=== PATIENT | male | born 1935 | race Caucasian/White ===

== ENCOUNTER 2016-08-08 14:20 | Inpatient (IN) ==
[2016-08-08] MEDS ORDERED: 0.9 % SODIUM CHLORIDE 1,000 ML IV ONE (15:07)
--- NOTE | 2016-08-08 15:50 | XRay Report ---
CLINICAL INFORMATION: Small bowel obstruction. Vomiting. TECHNIQUE: AP supine and upright abdomen COMPARISON: CT scan dated 08/07/2016 FINDINGS: There is fecal material within the distal sigmoid colon. Persistent gas-filled mildly distended small bowel. Patient remains consistent with mechanical small bowel obstruction. Partial obstruction is possible. No biliary or portal venous gas. No pneumatosis. No pneumoperitoneum. There are multiple surgical clips in the pelvis. IMPRESSION: Findings remain consistent with mechanical small bowel obstruction. This may be partial Interpreted and Authenticated by: Orlando Damon 08/08/16
--- NOTE | 2016-08-08 15:52 | Emergency Department Note ---
Nausea/Vomiting/Diarrhea HPI - General Chief complaint: Nausea/Vomiting/Diarrhea Stated complaint: vomiting Time Seen by Provider: 08/08/16 15:12 Source: patient Mode of arrival: ambulatory Limitations: no limitations - History of Present Illness HPI Narrative: 81-year-old male seen yesterday for vomiting and CT revealed a small bowel obstruction in the right lower quadrant. He was discharged home with bowel rest , but he continued having vomiting throughout the night. He's had previous surgeries for hernia repairs in the abdomen 5. Patient is afebrile. There's been no hematemesis, no melena. Denies urgency, frequency, dysuria - Related Data Home Medications Medication Instructions Recorded Confirmed calcitriol 0.25 mcg capsule 0.25 mcg PO QDAY 11/28/15 08/08/16 aspirin 81 mg tablet,delayed 81 mg PO QDAY 01/21/16 08/08/16 release Previous Rx's Medication Instructions Recorded atorvastatin 20 mg tablet 20 mg PO QDAY #90 tab 11/28/15 rivaroxaban 20 mg tablet 20 mg PO QDAY 90 Days 01/28/16 carvedilol 6.25 mg tablet 6.25 mg PO BID 90 Days 03/18/16 allopurinol 100 mg tablet 100 mg PO QDAY 90 Days 05/15/16 potassium chloride ER 10 mEq 10 meq PO QDAY 90 Days 06/23/16 capsule,extended release furosemide 40 mg tablet 40 mg PO QDAY 90 Days 07/17/16 Allergies Allergy/AdvReac Type Severity Reaction Status Date / Time heparin Allergy Unknown Verified 07/10/16 10:06 Review of Systems All systems ED: reviewed and negative except as stated. Gastrointestinal: Reports: as per HPI, nausea, vomiting. Denies: abdominal pain , diarrhea, constipation Genitourinary: Reports: as per HPI. Denies: urgency, dysuria Past Medical History - Past Medical History Medical history: Reports: atrial fibrillation, CHF, pulmonary embolus, other ( prostate cancer) Surgical history ED: Reports: other (right and left shoulder repair) Family history: Reports: non-contributory - Social History smoking status: Never smoker Alcohol use: Reports: None Drug use: Reports: none Physical Exam - General Limitations: no limitations General appearance: alert - Head Head exam: atraumatic, normocephalic - Eye Eye exam: Present: normal appearance, PERRL - ENT ENT exam: normal exam, normal oropharynx - Neck Neck exam: Present: normal inspection, full ROM. Absent: trachea midline - Chest Chest inspection: Present: normal inspection - Respiratory Respiratory exam: Present: normal lung sounds bilaterally. Absent: respiratory distress, wheezes - Cardiovascular Cardiovascular exam: Present: regular rate, normal rhythm. Absent: bradycardia , tachycardia - Abdominal Exam Abdominal exam: Present: soft, diminished bowel sounds. Absent: distention, guarding, rebound - exam: Present: normal inspection. Absent: testicular tenderness - Extremities Exam Extremities exam: Present: normal inspection, full ROM. Absent: tenderness - Back Exam Back exam: Present: normal inspection, full ROM. Absent: tenderness Course Vital Signs Temperature 96.8 F L 08/08/16 14:21 Pulse Rate 119 H 08/08/16 14:21 Respiratory Rate 20 08/08/16 14:21 Blood Pressure 129/69 08/08/16 14:21 Pulse Oximetry (%) 94 08/08/16 14:21 Temperature 96.8 F L 08/08/16 14:21 Pulse Rate 110 H 08/08/16 17:01 Respiratory Rate 20 08/08/16 14:21 Blood Pressure 114/87 08/08/16 17:01 Pulse Oximetry (%) 94 08/08/16 17:01 Nausea/Vomiting/Diarrhea - [facility] Narrative Medical decision making narrative: Patient CT yesterday showed small bowel obstruction and a small bowel obstruction remains today. X-ray. Patient has been vomiting all night to be admitted. N G-tube has been placed Dr. Asif contacted and patient to be admitted - Lab Data Result diagrams: 08/08/16 15:20 08/08/16 15:20 Lab Results 08/08/16 08/08/16 Range/Units 15:20 15:20 WBC 17.2 H (4.5-11.0) K/mcL RBC 7.28 H (4.50-5.90) M/mcL Hgb 15.4 (13.5-16.5) g/dL Hct 52.1 (41.0-55.0) % MCV 71.6 L (80.0-100.0) fL MCH 21.2 L (26.0-34.0) pg MCHC 29.6 L (31.0-36.0) g/dL RDW 26.2 H (11.5-14.5) % Plt Count 641 H (140-440) K/mcL MPV 10.9 H (7.4-10.4) fL Total Counted 100 Seg Neutrophils % 79 H (38-78) % Band Neutrophils % 8 (0-10) % Lymphocytes % 5 L (15-49) % Monocytes % (Manual) 7 (1-12) % Eosinophils % (Manual) 1 (0-7) % Platelet Estimate Increased A (NORMAL) RBC Morphology Abnorm A (NORMAL) Hypochromasia 1+ A (NONE SEEN) Anisocytosis 3+ A (NONE SEEN) Microcytosis 2+ A (NONE SEEN) Sodium 142 (133-145) mmol/L Potassium 4.1 (3.3-5.1) mmol/L Chloride 96 (96-108) mmol/L Carbon Dioxide 25 (22-30) mmol/L Anion Gap 21.0 H (8-16) BUN 30 H (8-23) mg/dl Creatinine 2.0 H (0.7-1.2) mg/dl GFR Calculation 30 Glucose 120 H (70-105) mg/dL Calcium 9.7 (8.6-10.4) mg/dl Total Bilirubin 1.7 H (0.0-1.0) mg/dL AST 21 (0-37) U/l ALT 18 (0-40) U/l Alkaline Phosphatase 210 H (39-117) U/L Total Protein 7.4 (5.9-8.4) gm/dL Albumin 4.0 (3.2-5.2) gm/dL Globulin 3.4 (2.2-3.7) gm/dL Albumin/Globulin Ratio 1.2 (1.0-2.3) Disposition Clinical Impression: Small bowel obstruction due to adhesions Disposition: Xfer As Outpt/Obs ([facility]) Condition: Fair Referrals: Karthikeyan Rivero MD [Primary Care Provider] - Time of Disposition: 17:10
[2016-08-08 16:18] LABS: Mean Cell Volume 71.6 fL (80.0-100.0); Mean Corpuscular HGB Conc 29.6 g/dL (31.0-36.0); Mean Corpuscular Hemoglobin 21.2 pg (26.0-34.0); Platelet Count 641 K/mcL (140-440); RBC 7.28 M/mcL (4.50-5.90); Red Cell Distribution Width 26.2 % (11.5-14.5)
--- NOTE | 2016-08-08 16:32 | XRay Report ---
CLINICAL INFORMATION: Nasogastric tube placement. Small bowel obstruction. TECHNIQUE: AP view centered at the diaphragm COMPARISON: Plain film examination dated 08/08/2016 FINDINGS: Esophagogastric tube is deflected cephalad at the level of the diaphragm. The tip is directed cephalad in the distal esophagus. This should be repositioned. IMPRESSION: Tip of the esophagogastric tube directed cephalad in the distal esophagus. Interpreted and Authenticated by: Orlando Damon 08/08/16
--- NOTE | 2016-08-08 16:59 | XRay Report ---
CLINICAL INFORMATION: Repositioning of nasogastric tube TECHNIQUE: AP chest and abdomen centered at the diaphragm COMPARISON: Previous examination dated 08/08/2016 FINDINGS: Esophagogastric tube is been repositioned and is in the gastric fundus. IMPRESSION: Esophagogastric tube in the stomach. Complete Interpreted and Authenticated by: Orlando Damon 08/08/16
[2016-08-08 17:00] LABS: Anisocytosis 3+ (NONE SEEN); Band Neutrophils % 8 % (0-10); Eosinophils % (Manual) 1 % (0-7); Hypochromasia 1+ (NONE SEEN); Lymphocytes % 5 % (15-49); Monocytes % (Manual) 7 % (1-12); Platelet Estimate INCREASED (NORMAL); RBC Morphology ABNORM (NORMAL); Segmented Neutrophils % 79 % (38-78)
[2016-08-08 17:01] LABS: ALT/SGPT 18 U/l (0-40); Albumin/Globulin Ratio 1.2 (1.0-2.3); Alkaline Phosphatase 210 U/L (39-117); Blood Urea Nitrogen 30 mg/dl (8-23)
[2016-08-08] MEDS: 0.9 % SODIUM CHLORIDE 1,000 ML IV SCH (18:02)
[2016-08-08] MEDS ORDERED: ONDANSETRON 4 MG/2 ML VIAL IV PRN (19:22)
[2016-08-08] MEDS ORDERED: HYDROmorphone 2 MG/ML SYRINGE IV PRN (19:22)
--- NOTE | 2016-08-08 19:39 | General Surg History&Physical ---
History of Present Illness Patient information: Note initiated : 08/08/16 at 7:36 pm Service Date, if different from initiated Date: [] Patient: Ayden Guzmán 81 y/o M admitted on 08/08/16 for vomiting. Chief Complaint: [] Chief complaint: RECURRENT NAUSEA AND VOMITING HPI: Mr. Guzmán is a 81 year old male admitted for partial small bowel obstruction. The patient had a fall on and injured his left side including his neck and chest and flank. He awakened about on yesterday with abdomin bloating. He then had 2 large diarrheal stools. The bloating continued and he was seen in the emergency room where it was noted that he had dilated loops of small bowel felt to be compatible wit partial obstruction. He was treated and was discharged since he had some flatus. He developed more nausea anvomiting about 4 hours after getting home and he had vomiting all night. He did not have any crampy abdominal pain associated with this. He returned today with recurrent episodes of nausea and vomiting with findings suggestive ongoing partial bowel obstruction. He is admitted for treatment. The patient states that he has had some flatus today. Review of Systems - Constitutional fatigue, malaise, weakness - EENT Nose, mouth and throat: abnormal hearing, disequilibrium, dizziness, nasal congestion, sinus pain, sinus pressure - Cardiovascular chest pain with activity, dyspnea on exertion, orthopnea, palpatations, paroxysmal nocturnal dyspnea, pedal edema, syncope - Respiratory dyspnea on exertion, chest congestion - Gastrointestinal abdominal pain, change in bowel habits, constipation, diarrhea, nausea, vomiting - Genitourinary change in urinary stream, urinary frequency, urinary incontinence, urinary urgency - Musculoskeletal abnormal gait, arthralgias, back pain, joint swelling, myalgias, neck pain, stiffness - Integumentary no changing lesions, no new lesions, no pruritus, no rash - Neurological abnormal hearing, dizziness, memory loss, syncope, no convulsions, no headache(s ), no vertigo - Psychiatric memory loss, no anxiety, no confusion, no depression, no hallucinations - Endocrine fatigue, palpitations - Hematologic/Lymphatic easy bleeding, easy bruising, no lymphadenopathy - Allergic/Immunologic no tongue swelling, no throat swelling, no uticaria, no wheezing, no lip swelling Past History Past medical history: chronic constipation Chronic atrial fibrillation Autoimmune hepatitis Prostate cancer Hypertension chronic anticoagulant use--XARELTO SEVERE CARDIOMYOPATHY WITH EJECTION FRACTION 25%--OCTOBER 2015 CHRONIC KIDNEY DISEASE cONGESTIVE HEART hISTORY OF BILATERAL PULMONARY EMBOLI--1999 hISTORY OF BILATERAL dvt--1999 Past surgical history: AMPUTATION TOES RIGHT FOOT--2013 rIGHT CARPAL TUNNEL RELEASE lEFT TOTAL KNEE ARTHROPLASTY rIGHT TOTAL KNEE ARTHROPLASTY hEMORRHOIDECTOMY rADICAL PROSTATECTOMY lEFT ROTATOR CUFF REPAIR rIGHT ROTATOR CUFF REPAIR uMBILICAL HERNIA REPAIR 4 RIGHT INGUINAL HERNIA REPAIR Past family history: CARCINOMA OF PROSTATE aLZHEIMER'S DISEASE cORONARY ARTERY DISEASE Past social history: rETIRED nEVER SMOKER oCCASIONAL ALCOHOL USE nEVER SUBSTANCE ABUSE Medications and Allergies Home Medications Medication Instructions Recorded Confirmed Type atorvastatin 20 mg tablet 20 mg PO QDAY #90 tab 11/28/15 08/08/16 Rx calcitriol 0.25 mcg capsule 0.25 mcg PO QDAY 11/28/15 08/08/16 History aspirin 81 mg tablet,delayed 81 mg PO QDAY 01/21/16 08/08/16 History release rivaroxaban 20 mg tablet 20 mg PO QDAY 90 Days 01/28/16 08/08/16 Rx carvedilol 6.25 mg tablet 6.25 mg PO BID 90 Days 03/18/16 08/08/16 Rx allopurinol 100 mg tablet 100 mg PO QDAY 90 Days 05/15/16 08/08/16 Rx potassium chloride ER 10 mEq 10 meq PO QDAY 90 Days 06/23/16 08/08/16 Rx capsule,extended release furosemide 40 mg tablet 40 mg PO QDAY 90 Days 07/17/16 08/08/16 Rx Allergies Allergy/AdvReac Type Severity Reaction Status Date / Time heparin Allergy Unknown Verified 07/10/16 10:06 Exam Temp Pulse Resp BP Pulse Ox 96.8 F L 73 20 134/87 93 08/08/16 17:45 08/08/16 17:45 08/08/16 17:45 08/08/16 17:45 08/08/16 17:45 - General physical appearance well developed, well nourished, no distress, no pain, chronically ill - Eyes normal ocular movement, other (OPERATIVE CHANGES OF PUPILS) - ENT normal pinna, normal nares, normal mucosa, no hearing loss, no congestion - Head Head exam IM: Present: atraumatic, normocephalic - Neck no masses, no bruits, trachea midline, no lymphadectomy, no venous distension - Cardiovascular Cardiovascular exam IM: Present: normal rate and rhythm, irregular rhythm, +S1, +S2. Absent: systolic murmur - Respiratory normal expansion, normal respiratory effort, other (BILATERAL BASILAR RALES; DECREASED BREATH SOUNDS BOTH BASES) - Abdomen Abdomen: Present: soft, non tender, bowel sounds, distended (DISTENDED ABDOMEN WITH NORMOACTIVE BOWEL SOUNDS; WELL-HEALED LOWER MIDLINE INCISION AND SUPRAUMBILICAL TRANSVERS; PROMINENT DIASTASIS RECTUS) Hernia: Present: none - Genitourinary Present: normal penis with no external lesions - Integumentary Present: no rash, no growths, no abnormal pigmentation - Neurologic Present: normal coordination, normal sensation - Musculoskeletal Present: normal gait, normal posture, other (ABSENT TOES RIGHT FOOT; TRACE BILATERAL PEDAL EDEMA) - Psychiatric Present: oriented to time, oriented to person, oriented to place, speech is normal, memory intact Assessment and Plan (1) Small bowel obstruction, partial PATIENT WILL HAVE SMALL BOWEL FOLLOW-THROUGH IN THE MORNING nASOGASTRIC SUCTION WILL BE CONTINUED THROUGHOUT THE NIGHT hE WILL BE MADE NOTHING BY MOUTH Status: Acute (2) Atrial fibrillation Status: Chronic (3) Congestive heart failure ekg AND ECHOCARDIOGRAM WILL BE COMPLETED PREOP EVALUATION PRO bnp WILL BE DONE OVER THE NEXT 2 DAYS iv FLUIDS WILL BE MONITORED CLOSELY Status: Chronic Priority: High Qualifiers: Congestive heart failure type: systolic Congestive heart failure chronicity : chronic Qualified Code(s): I50.22 - Chronic systolic (congestive) heart failure (4) Hepatitis, autoimmune Status: Chronic (5) Hypercoagulation syndrome XARELTO WILL BE WITHHELD UNTIL i'M SURE THAT HE WILL NOT NEED AN OPERATION hE IS NOT A CANDIDATE FOR HEPARIN OR lOVENOX DUE TO HIT SYNDROME Status: Chronic (6) Hypertension, essential Status: Chronic (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
--- NOTE | 2016-08-08 20:21 | XRay Report ---
CLINICAL INFORMATION: Preoperative evaluation. History of cardiomegaly and congestive heart failure TECHNIQUE: AP upright portable chest x-ray COMPARISON: 09/26/2015 FINDINGS: Linear density at the left lung base consistent with subsegmental atelectasis. Lungs are otherwise negative. There is cardiomegaly. No pulmonary edema or pulmonary congestion. There is new esophagogastric tube in the stomach. Postoperative changes in left shoulder and right acromion IMPRESSION: 1. Minimal subsegmental atelectasis at the left lung base 2. Cardiomegaly. No congestive heart failure. Interpreted and Authenticated by: Orlando Damon 08/08/16
[2016-08-08] MEDS ORDERED: PIPERACILLIN SODIUM/TAZOBACTAM 2.25 GM VIAL IV ONE (20:22)
[2016-08-08] MEDS: PIPERACILLIN SODIUM/TAZOBACTAM 2.25 GM in DEXTROSE 5% IN WATER 50 ML IV SCH (20:33)
[2016-08-08] MEDS: FAMOTIDINE/PF 20 MG/2 ML VIAL IV SCH (20:33)
[2016-08-08] MEDS: 0.9 % SODIUM CHLORIDE 10 ML SYRINGE IV SCH (20:57)
[2016-08-09] MEDS ORDERED: PIPERACILLIN SODIUM/TAZOBACTAM 2.25 GM VIAL IV ONE (01:21)
[2016-08-09] MEDS: PIPERACILLIN SODIUM/TAZOBACTAM 2.25 GM in DEXTROSE 5% IN WATER 50 ML IV SCH ×4 (01:30→17:31)
[2016-08-09] MEDS: 0.9 % SODIUM CHLORIDE 1,000 ML IV SCH ×2 (03:27→15:58)
[2016-08-09] MEDS: 0.9 % SODIUM CHLORIDE 10 ML SYRINGE IV SCH ×3 (05:48→22:19)
[2016-08-09 05:51] LABS: Mean Cell Volume 71.4 fL (80.0-100.0); Mean Corpuscular HGB Conc 29.4 g/dL (31.0-36.0); Platelet Count 523 K/mcL (140-440); RBC 6.75 M/mcL (4.50-5.90)
[2016-08-09 06:06] LABS: ALT/SGPT 14 U/l (0-40); Albumin 3.7 gm/dL (3.2-5.2); Albumin/Globulin Ratio 1.4 (1.0-2.3); Alkaline Phosphatase 177 U/L (39-117); Blood Urea Nitrogen 29 mg/dl (8-23)
[2016-08-09 06:49] LABS: Anisocytosis 2+ (NONE SEEN); Band Neutrophils % 9 % (0-10); Eosinophils % (Manual) 1 % (0-7); Hypochromasia 1+ (NONE SEEN); Lymphocytes % 4 % (15-49); Monocytes % (Manual) 5 % (1-12); Platelet Estimate INCREASED (NORMAL); RBC Morphology ABNORM (NORMAL); Segmented Neutrophils % 81 % (38-78)
[2016-08-09] MEDS: FAMOTIDINE/PF 20 MG/2 ML VIAL IV SCH ×2 (09:58→20:55)
[2016-08-09] MEDS ORDERED: DIATRIZOATE MEGLU/DIATRIZO SOD 30 ML BOTTLE PO ONE (10:03)
--- NOTE | 2016-08-09 10:03 | XRay Report ---
CLINICAL INFORMATION: Small bowel obstruction TECHNIQUE: Water-soluble contrast material was given. Overhead views of the small bowel obtained. Spot views were also obtained with fluoroscopy COMPARISON: Previous CT scan dated 08/07/2016. Previous plain film examinations dated 08/08/2016. FINDINGS: There is contrast material in the colon by 60 min postingestion. There continues to be dilated jejunum and collapsed ileum. Appearance is consistent with partial mechanical small bowel obstruction. Is difficult to defined a focal transition point fluoroscopically although this transition is in the pelvis and just to the right of midline. No detectable soft tissue mass. Findings are probably secondary to adhesions. There are multiple surgical clips in the pelvis. IMPRESSION: 1. Dilated jejunum and collapsed ileum consistent with partial small bowel obstruction 2. Contrast material in the colon by 60 min post ingestion Interpreted and Authenticated by: Orlando Damon 08/09/16
--- NOTE | 2016-08-09 12:25 | General Surgery Progress Note ---
Subjective Patient reports: feels better, flatus, bowel movement, afebrile Narrative: Note initiated : 08/09/16 at 12:22 pm Service Date, if different from initiated Date: [] Patient: Ayden Guzmán 81 y/o M admitted on 08/08/16 for vomiting. Chief Complaint: [PATIENT FEELS MUCH BETTER. hE HAD A LARGE BOWEL MOVEMENT LAST NIGHT AND HE HAS HAD 2 LARGE BOWEL MOVEMENTS SINCE HIS SMALL BOWEL FOLLOW THROUGH. tHE CONTRAST REACHED THE COLON IN ONE HOUR AND THERE IS A PARTIAL TRANSITION POINT IN THE MID GUT. tHERE IS NO HIGH-GRADE OBSTRUCTION. hE DOES NOT HAVE ANY DISCOMFORT AND HIS ABDOMEN REMAINED SOFT.] Pertinent ROS: PATIENT IS ALERT AND AWARE; ORIENTED 3 hE DENIES CHEST PAIN OR SHORTNESS OF BREATH. hE IS ABLE TO LIE FLAT WITHOUT DIF hE HAS NOT HAD ANY CRAMPY ABDOMINAL PAIN AND HAS HAD MULTIPLE BOWEL MOVEMENTS hE DOES NOT HAVE SIGNIFICANT INCREASE IN PERIPHERAL EDEMA tHIS JOINT PAIN IS STABLE hE HAS NOT HAD ANY NEUROLOGIC DEFICIT Objective Temp Pulse Resp BP Pulse Ox 98.5 F 108 H 20 132/59 96 08/09/16 10:25 08/09/16 04:00 08/09/16 10:25 08/09/16 10:25 08/09/16 10:25 - Additional Data Intake & Output - Last 24 hours: Intake & Output 08/07/16 08/08/16 08/09/16 08/10/16 05:59 05:59 05:59 05:59 Intake Total 10 / 1010 50 / 50 Output Total 626 / 627 750 / 750 Balance -616 / 383 -700 / -700 Weight 186 lb 8 oz - General physical appearance no distress, no pain - Eyes PERRL - ENT no congestion - Neck no venous distension - Respiratory other (SCALE WITH BILATERAL BASILAR RALES AND DECREASED BREATH SOUNDS) - Cardiovascular Cardiovascular exam: Present: irregular rhythm, +S1. Absent: JVD - Abdomen soft, non tender (GOOD ACTIVE BOWEL SOUNDS; NONTENDER WITHOUT PALPABLE MASS;) - Integumentary no rash, no growths - Neurologic normal coordination, normal sensation - Musculoskeletal normal gait, normal posture - Psychiatric oriented to time, oriented to person, oriented to place, speech is normal, memory intact - Labs 08/09/16 05:00 08/09/16 05:00 Diabetes panel 08/09/16 Range/Units 05:00 Sodium 142 (133-145) mmol/L Potassium 3.9 (3.3-5.1) mmol/L Chloride 102 (96-108) mmol/L Carbon Dioxide 24 (22-30) mmol/L BUN 29 H (8-23) mg/dl Creatinine 1.9 H (0.7-1.2) mg/dl Glucose 94 (70-105) mg/dL Calcium 8.6 (8.6-10.4) mg/dl AST 18 (0-37) U/l ALT 14 (0-40) U/l Alkaline Phosphatase 177 H (39-117) U/L Total Protein 6.4 (5.9-8.4) gm/dL Albumin 3.7 (3.2-5.2) gm/dL Calcium panel 08/09/16 Range/Units 05:00 Calcium 8.6 (8.6-10.4) mg/dl Albumin 3.7 (3.2-5.2) gm/dL Pituitary panel 08/09/16 Range/Units 05:00 Sodium 142 (133-145) mmol/L Potassium 3.9 (3.3-5.1) mmol/L Chloride 102 (96-108) mmol/L Carbon Dioxide 24 (22-30) mmol/L BUN 29 H (8-23) mg/dl Creatinine 1.9 H (0.7-1.2) mg/dl Glucose 94 (70-105) mg/dL Calcium 8.6 (8.6-10.4) mg/dl Adrenal panel 08/09/16 Range/Units 05:00 Sodium 142 (133-145) mmol/L Potassium 3.9 (3.3-5.1) mmol/L Chloride 102 (96-108) mmol/L Carbon Dioxide 24 (22-30) mmol/L BUN 29 H (8-23) mg/dl Creatinine 1.9 H (0.7-1.2) mg/dl Glucose 94 (70-105) mg/dL Calcium 8.6 (8.6-10.4) mg/dl Total Bilirubin 1.6 H (0.0-1.0) mg/dL AST 18 (0-37) U/l ALT 14 (0-40) U/l Alkaline Phosphatase 177 H (39-117) U/L Total Protein 6.4 (5.9-8.4) gm/dL Albumin 3.7 (3.2-5.2) gm/dL Assessment and Plan (1) Small bowel obstruction, partial Status: Acute Assessment and plan: ARTIAL OBSTRUCTION BUT WITH GOOD TRANSIT THROUGH BOWEL; IMPROVED OVERNIGHT wILL DISCONTINUE NASOGASTRIC TUBE AND START CLEAR LIQUIDS 2 VIEW ABDOMINAL X-RAY IN THE MORNING Current Visit: No (2) Atrial fibrillation Status: Chronic Assessment and plan: WE'LL ALSO RESTART HOME MEDICATIONS Current Visit: No (3) Congestive heart failure Status: Chronic Current Visit: No (4) Hepatitis, autoimmune Status: Chronic Current Visit: No (5) Hypercoagulation syndrome Status: Chronic Assessment and plan: XARELTO WILL BE RESTARTED Current Visit: No (6) Hypertension, essential Status: Chronic Current Visit: No (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
[2016-08-09] MEDS: METOCLOPRAMIDE 10 MG/2 ML VIAL IV SCH (17:34)
[2016-08-10] MEDS: PIPERACILLIN SODIUM/TAZOBACTAM 2.25 GM in DEXTROSE 5% IN WATER 50 ML IV SCH ×3 (00:35→11:55)
[2016-08-10] MEDS: METOCLOPRAMIDE 10 MG/2 ML VIAL IV SCH ×4 (00:36→11:58)
[2016-08-10] MEDS: 0.9 % SODIUM CHLORIDE 10 ML SYRINGE IV SCH ×2 (05:58→13:56)
[2016-08-10 06:08] LABS: ALT/SGPT 14 U/l (0-40); Albumin 3.6 gm/dL (3.2-5.2); Albumin/Globulin Ratio 1.2 (1.0-2.3); Alkaline Phosphatase 170 U/L (39-117); Blood Urea Nitrogen 25 mg/dl (8-23)
[2016-08-10 06:13] LABS: Mean Cell Volume 72.3 fL (80.0-100.0); Mean Corpuscular HGB Conc 28.7 g/dL (31.0-36.0); Mean Corpuscular Hemoglobin 20.8 pg (26.0-34.0); Platelet Count 437 K/mcL (140-440); RBC 6.82 M/mcL (4.50-5.90); Red Cell Distribution Width 26.4 % (11.5-14.5)
[2016-08-10 07:25] LABS: Anisocytosis 2+ (NONE SEEN); Band Neutrophils % 6 % (0-10); Eosinophils % (Manual) 2 % (0-7); Hypochromasia 2+ (NONE SEEN); Lymphocytes % 6 % (15-49); Monocytes % (Manual) 2 % (1-12); Ovalocytes 1+ (NONE SEEN); Platelet Estimate NORMAL (NORMAL); RBC Morphology ABNORM (NORMAL); Segmented Neutrophils % 84 % (38-78)
--- NOTE | 2016-08-10 07:42 | XRay Report ---
CLINICAL INFORMATION: Follow-up. Small bowel obstruction. TECHNIQUE: Supine and upright abdomen COMPARISON: Small bowel study dated 08/09/2016 FINDINGS: Most of the contrast material has passed through the GI tract. There is gas containing small bowel without significant dilatation at this time. There is gas within the colon. Overall bowel gas pattern is improved since previous examination. No pneumatosis. No biliary or portal venous gas. IMPRESSION: Markedly improved bowel gas pattern. Interpreted and Authenticated by: Orlando Damon 08/10/16
[2016-08-10] MEDS ORDERED: CARVEDILOL 6.25 MG TABLET PO SCH (08:00)
[2016-08-10] MEDS ORDERED: POTASSIUM CHLORIDE 10 MEQ TABLET PO SCH (08:00)
[2016-08-10] MEDS: FAMOTIDINE/PF 20 MG/2 ML VIAL IV SCH (08:08)
[2016-08-10] MEDS: 0.9 % SODIUM CHLORIDE 1,000 ML IV SCH (08:09)
[2016-08-10] MEDS ORDERED: FUROSEMIDE 40 MG TABLET PO SCH (09:00)
--- NOTE | 2016-08-10 12:17 | Echocardiogram Report ---
ECHOCARDIOGRAM: 2-D and M-mode echocardiography with cardiac Doppler and color flow imaging were performed with a [employer] Aplio MX. Indication is heart failure. All four chambers appeared enlarged, the atria moderately so, the ventricles mildly so. LV wall thickness appeared borderline increased consistent with age. Systolic performance appeared severely and globally depressed. Estimated ejection fraction is 25%. There was no evidence for mural thrombi. The aortic root appeared mildly dilated, 4.0 cm diameter. The root appeared sclerotic. The aortic valve appeared trileaflet. Light leaflet calcification consistent with age was present. Valve opening appeared adequate and there was no evidence for aortic stenosis by Doppler interrogation. No more than trivial aortic regurgitation was noted. The mitral and tricuspid valves appeared unremarkable. Doppler interrogation of LV inflow disclosed a monophasic spectral dispersion pattern related to absent AV synchrony. Mitral regurgitation, probably [id number] (1-2+), was noted. The pulmonic valve showed absent \\"a\\" wave in the absence of AV synchrony. Pulmonary artery acceleration time appeared shortened. There was no evidence for pulmonic stenosis or pulmonic regurgitation. There was no evidence for tricuspid regurgitation. There was no evidence for pericardial effusion. The IVC was dilated and did not vary with the respiratory cycle indicating raised CVP. PA systolic pressure could not be calculated due to absent tricuspid regurgitation jet. Atrial fibrillation/flutter with a rapid response was present. CONCLUSION: Mild aortic root dilatation/root sclerosis. Mild LV enlargement with severe global systolic dysfunction, mitral regurgitation, probably [id number] (1-2+), moderate LA enlargement, mild RV enlargement, moderate RA enlargement, and raised CVP. Since previous study 11/07/2015 mitral regurgitation appears less prominent, though there are probably no major changes. Findings were called to the floor, 9:40 a.m., 08/09/2016. (See accompanying M-mode and Doppler reports for quantitation.) ECHOCARDIOGRAPHY M-MODE CALCULATIONS: HT: 68'' WT: 187 BSA: 1.99 m2 NORMALS AORTA: AORTIC ROOT 4.0 2.0-3.7 cm LEFT ATRIUM 3.7 1.9-4.0 cm MITRAL VALVE: EXCURSION 2.3 1.9-2.7 cm EPSS 0.6 <0.5 cm LT VENTRICLE: LVID (ED) 5.4 3.5-5.7 cm LVID (ES) 4.2 SEPTAL THICKNESS 1.2 0.6-1.1 cm SEPTAL EXCURSION 0.2 0.3-0.8 cm LVPW THICKNESS 1.2 0.6-1.1 cm LVPW EXCURSION 1.0 0.9-1.4 cm MINOR AXIS FS 22 25%-40% RT VENTRICLE: RVID (ED) 1.3 0.9-2.6 cm(up to 3cm if LLD) QUALITATIVE DOPPLER FLOW STUDIES MITRAL VALVE MR, probably [id number] (1-2+). AORTIC VALVE AR, probably trivial. TRICUSPID VALVE -- PULMONIC VALVE -- QUANTITATIVE DOPPLER FLOW STUDIES SAMPLE SITES VELOCITIES PEAK PRESSURE VALVE AREA and/or VALVE WINDOW (PEAK,M/SEC) DROP (GRADIENT) PRESSURE HALF-TIME MV (Diastole) 0.8 (E) - (A) MV (Systole) 4.5 AO (Diastole) 2.5 524 msec AO (Systole) 1.2 TV (Systole) -- PV (Systole) 1.0 PV (Diastole) -- LWNaina:[place] Job ID: [id number] Doc ID: [id number] Paxton Fregoso MD
--- NOTE | 2016-08-10 13:04 | General Surgery Progress Note ---
Subjective Patient reports: feels better, pain is less, tolerating a regular diet, flatus, bowel movement, afebrile Narrative: Note initiated : 08/10/16 at 1:02 pm Service Date, if different from initiated Date: [] Patient: Ayden Guzmán 81 y/o M admitted on 08/08/16 for Vomiting/Small Bowel Obstruction, Partial. Chief Complaint: [THE PATIENT IS DOING WELL. hE HAD AN UNEVENTFUL NIGHT hE HAS HAD SOME BOWEL MOVEMENTS EARLIER TODAY AND HAS HAD A LARGE VOLUME OF GAS. HE DOES NOT HAVE ANY DISCOMFORT. hE HAS TOLERATED HIS DIET WITHOUT NAUSEA OR VOMITING OR DISTENTION. hE HAS A NORMAL EXAM. hIS ABDOMINAL X-RAYS ONLY SHOWS MODERATE AMOUNT OF COLONIC GAS WITH A SMALL AMOUNT OF SMALL BOWEL GAS.] Objective Temp Pulse Resp BP Pulse Ox 98.6 F 92 H 16 120/78 93 08/10/16 12:00 08/10/16 12:00 08/10/16 07:06 08/10/16 12:00 08/10/16 12:00 - Additional Data Intake & Output - Last 24 hours: Intake & Output 08/08/16 08/09/16 08/10/16 08/11/16 05:59 05:59 05:59 05:59 Intake Total 10 / 1010 1230 / 1230 1659 / 1659 Output Total 626 / 627 4650 / 4650 550 / 550 Balance -616 / 383 -3420 / -3420 1109 / 1109 Weight 186 lb 8 oz 180 lb 8 oz 180 lb 8 oz - General physical appearance no distress - Eyes PERRL - Respiratory other (DECREASED BREATH SOUNDS AT THE BASES WITH BASILAR RALES;NO WHEEZES OR RHONCHI) - Cardiovascular Cardiovascular exam: Present: irregular rhythm, +S2 (RREGULAR RHYTHM WITH OCCASIONAL ECTOPIC), +S3 - Abdomen soft, non tender, bowel sounds (MINIMALLY DISTENDED ABDOMEN WITH GOOD ACTIVE BOWEL SOUNDS; NO TENDERNESS TO PALPATION) - Neurologic normal coordination, normal sensation - Psychiatric oriented to time, oriented to person, oriented to place, speech is normal, memory intact - Labs 08/10/16 04:45 08/10/16 04:45 Diabetes panel 08/10/16 Range/Units 04:45 Sodium 146 H (133-145) mmol/L Potassium 3.9 (3.3-5.1) mmol/L Chloride 108 (96-108) mmol/L Carbon Dioxide 22 (22-30) mmol/L BUN 25 H (8-23) mg/dl Creatinine 1.9 H (0.7-1.2) mg/dl Glucose 90 (70-105) mg/dL Calcium 8.8 (8.6-10.4) mg/dl AST 21 (0-37) U/l ALT 14 (0-40) U/l Alkaline Phosphatase 170 H (39-117) U/L Total Protein 6.6 (5.9-8.4) gm/dL Albumin 3.6 (3.2-5.2) gm/dL Calcium panel 08/10/16 Range/Units 04:45 Calcium 8.8 (8.6-10.4) mg/dl Albumin 3.6 (3.2-5.2) gm/dL Pituitary panel 08/10/16 Range/Units 04:45 Sodium 146 H (133-145) mmol/L Potassium 3.9 (3.3-5.1) mmol/L Chloride 108 (96-108) mmol/L Carbon Dioxide 22 (22-30) mmol/L BUN 25 H (8-23) mg/dl Creatinine 1.9 H (0.7-1.2) mg/dl Glucose 90 (70-105) mg/dL Calcium 8.8 (8.6-10.4) mg/dl Adrenal panel 08/10/16 Range/Units 04:45 Sodium 146 H (133-145) mmol/L Potassium 3.9 (3.3-5.1) mmol/L Chloride 108 (96-108) mmol/L Carbon Dioxide 22 (22-30) mmol/L BUN 25 H (8-23) mg/dl Creatinine 1.9 H (0.7-1.2) mg/dl Glucose 90 (70-105) mg/dL Calcium 8.8 (8.6-10.4) mg/dl Total Bilirubin 1.3 H (0.0-1.0) mg/dL AST 21 (0-37) U/l ALT 14 (0-40) U/l Alkaline Phosphatase 170 H (39-117) U/L Total Protein 6.6 (5.9-8.4) gm/dL Albumin 3.6 (3.2-5.2) gm/dL Assessment and Plan (1) Small bowel obstruction, partial Status: Acute Assessment and plan: PARTIAL SMALL BOWEL OBSTRUCTION WITH MAJOR IMPROVEMENT.. pATIENT IS STABLE FOR DISCHARGE HOME. hE IS ADVISED TO RESUME ALL OF HIS HOME MEDICATIONS INCLUDING XARELTO .HE IS TO FOLLOW-UP WITH HIS PRIMARY PHYSICIAN Current Visit: No (2) Atrial fibrillation Status: Chronic Assessment and plan: WE'LL ALSO RESTART HOME MEDICATIONS Current Visit: No (3) Congestive heart failure Status: Chronic Current Visit: No (4) Hepatitis, autoimmune Status: Chronic Current Visit: No (5) Hypercoagulation syndrome Status: Chronic Assessment and plan: XARELTO WILL BE RESTARTED Current Visit: No (6) Hypertension, essential Status: Chronic Current Visit: No (7) prison current use of anticoagulant Status: Chronic Current Visit: No (8) Primary cardiomyopathy Problem details: with CHF, prob hypertensive Status: Chronic Assessment and plan: NEW ECHOCARDIOGRAM SHOWS EJECTION FRACTN OF 25% UNCHANGED FROM october 2015 Current Visit: No (9) Renal failure Status: Chronic Current Visit: No - Time Spent With Patient Total time spent is greater than 50% in coordination of care (as documented) at patient's floor/unit and/or counseling patient: 15 - 24 minutes
--- NOTE | 2016-08-10 13:18 | Discharge Summary ---
Providers - Providers Patient information: Note initiated : 08/10/16 at 1:13 pm Service Date, if different from initiated Date: [] Patient: Ayden Guzmán 81 y/o M admitted on 08/08/16 for Vomiting/Small Bowel Obstruction, Partial. Chief Complaint: [] Date of admission: 08/08/16 Discharge date: 08/10/16 Attending physician: Candelario Asif Hospitalization Hospital course: 81-YEAR-OLD MALE ADMITTED ON 08 AUGUST WITH HISTORY OF RECURRENT PARTIAL SMALL BOWEL OBSTRUCTION WITH NAUSEA AND VOMITING. hE WAS SEEN IN THE EMERGENCY ROOM THE DAY BEFORE ADMISSION WITH COMPLAINTS OF ABDOMINAL PAIN WITH NAUSEA. hE RELATES THIS ONSET TO A FALL THAT HE HAD THE DAY BEFORE EVALUATION.E HAD SOME NAUSEA AND VOMITING BUT HE HAD ALSO EXPERIENCED SOME DIARRHEA. hIS X-RAY SUGGESTED PARTIAL OBSTRUCTION AND HE HADFLATUS AND BOWEL MOVEMENT WHILE IN THE ER. hE WAS TREATED AND RELEASED. hE HAD MORE SEVERE NAUSEA WITH VOMITING THROUGHOUT THE NIGHT AND RETURN TO THE EMERGENCY ROOM FOR EVALUATION. hE WAS FOUND TO HAVE A HIGH-GRADE OBSTRUCTION AND WAS ADMITTED. a SECOND HE DID HAVE A BOWEL MOVEMENT DURING THE NIGHT AFTER ADMISSION AND A SMALL BOWEL FOLLOW- THROUGH SHOWED TRANSIT INTO THE COLON AFTER 1 HOUR. hE HAS HAD MULTIPLE BOWEL MOVEMENTS SINCE THEN AND HAS PASSED LARGE VOLUME OF FLATUS hE WAS STARTED ON CLEAR LIQUIDSAND HIS DIET HAS BEEN ADVANCED WITHOUT DIFFICULTY. hE HAD MULTIPLE BOWEL MOVEMENTS LAST NIGHT AND TODAY AND HE HAS HAD LARGE VOLUME OF GAS TODAY. x-RAYS SHOW GAS THROUGHOUT HIS COLON EXTENDING TO THE RECTUM WITH SMALL AMOUNT OF GAS IN THE PROXIMAL BOWEL. hE IS CLINICALLY STABLE FOR DISCHARGE. hE HAS A HISTORY OF CHRONIC ATRIAL FIBRILLATION AND HAS BEEN ON SOME XARELTO. iT WAS WITHHELD BUT CAN NOW BE RESTARTED. hE ALSO HAS CARDIOMYOPATHY BUT THAT WAS NOT A PROBLEM DURING THIS ADMISSION.. Discharge diagnosis: SMALL BOWEL OBSTRUCTION Secondary discharge diagnosis: CHRONIC ATRIAL FIBRILLATION hISTORY OF dvt hISTORY OF PULMONARY EMBOLUS Reason for admission: RECURRENT NAUSEA AND VOMITING Procedures: NONE Pertinent studies/significant findings: CT OF ABDOMEN AND PELVIS sMALL BOWEL FOLLOW-THROUGH Complications: NONE Exam Temp Pulse Resp BP Pulse Ox 98.6 F 92 H 16 120/78 93 08/10/16 12:00 08/10/16 12:00 08/10/16 07:06 08/10/16 12:00 08/10/16 12:00 - General physical appearance well developed, well nourished, no distress - Eyes normal ocular movement, other (OPERATIVE CHANGES OF) - ENT normal pinna, normal nares, normal mucosa, no hearing loss, no congestion - Head Head exam IM: Present: atraumatic, normocephalic - Neck no masses, no bruits, trachea midline, no lymphadectomy, no venous distension - Cardiovascular Cardiovascular exam IM: Present: normal rate and rhythm, irregular rhythm, tachycardia - Respiratory normal expansion, normal respiratory effort, clear to percussion, other ( BIBASILAR RALES WITH DECREASED BREATH SOUNDS) - Abdomen Abdomen: Present: soft, non tender, bowel sounds, distended (MILD DISTENTION WITH NORMAL ACTIVE BOWEL SOUNDS) Hernia: Present: none - Integumentary Present: no rash, no growths, no abnormal pigmentation - Neurologic Present: normal coordination, normal sensation - Musculoskeletal Present: normal gait, normal posture - Psychiatric Present: oriented to time, oriented to person, oriented to place, speech is normal, memory intact Discharge Plan - Patient/Caregiver Discharge Instructions Activity: increase activity as tolerated Diet: Regular Diet Additional Instructions: NO NEW MEDICATIONS - Follow up Plan Follow up with: Karthikeyan Rivero MD [Primary Care Provider] - Disposition: Home, Self-Care Prognosis: Fair Rehab Potential: Good I certify that the patient requires SNF services.: No Overall status at discharge: patient is back to baseline Pending Studies Resuscitation Status Full Code Diet Full Liquid Diet Start Sun August 09 Dinner Carvedilol (Coreg) 6.25 mg PO BIDCC [facility] Last Admin: 08/10/16 08:08 Dose: 6.25 mg Famotidine (Pepcid) 20 mg IV Q12 [facility] Last Admin: 08/10/16 08:08 Dose: 20 mg Admin: 08/09/16 20:55 Dose: 20 mg Admin: 08/09/16 09:58 Dose: 20 mg Admin: 08/08/16 20:33 Dose: 20 mg Furosemide (Lasix) 40 mg PO QDAY [facility] Last Admin: 08/10/16 08:08 Dose: 40 mg Piperacillin Sod/Tazobactam (Sod 2.25 gm/ Dextrose) 50 mls @ 100 mls/hr IV Q6H [facility] Last Admin: 08/10/16 11:55 Dose: 100 mls/hr Infusion: 08/10/16 06:28 Dose: 100 mls/hr Admin: 08/10/16 05:58 Dose: 100 mls/hr Infusion: 08/10/16 01:05 Dose: 0 mls/hr Admin: 08/10/16 00:35 Dose: 100 mls/hr Infusion: 08/09/16 18:01 Dose: 100 mls/hr Admin: 08/09/16 17:31 Dose: 100 mls/hr Infusion: 08/09/16 12:13 Dose: 100 mls/hr Admin: 08/09/16 11:43 Dose: 100 mls/hr Infusion: 08/09/16 10:27 Dose: 100 mls/hr Admin: 08/09/16 09:57 Dose: 100 mls/hr Admin: 08/09/16 01:30 Dose: Not Given Admin: 08/08/16 20:33 Dose: Not Given Sodium Chloride (Sodium Chloride 0.9%) 1,000 mls @ 50 mls/hr IV .Q20H [facility] Last Admin: 08/10/16 08:09 Dose: 50 mls/hr Infusion: 08/10/16 08:09 Dose: 50 mls/hr Admin: 08/09/16 15:58 Dose: 50 mls/hr Metoclopramide HCl (Reglan) 5 mg IV Q6 [facility] Last Admin: 08/10/16 11:58 Dose: 5 mg Admin: 08/10/16 05:58 Dose: 5 mg Admin: 08/10/16 00:36 Dose: 5 mg Admin: 08/09/16 17:34 Dose: Not Given Potassium Chloride (Kdur) 10 meq PO QAC [facility] Last Admin: 08/10/16 08:09 Dose: 10 meq Sodium Chloride (Saline Flush) 10 ml IV Q8 [facility] Last Admin: 08/10/16 05:58 Dose: Not Given Admin: 08/09/16 22:19 Dose: Not Given Admin: 08/09/16 15:59 Dose: Not Given Admin: 08/09/16 05:48 Dose: Not Given Admin: 08/08/16 20:57 Dose: Not Given Shift Summary 08/10/16 04:26 Shift Summary by Silke Mchugh A&O, makes needs known. Up to bathroom with 1 assist with poles. Multiple liquid BM's. Started on full liquid diet 08/09, tolerating well. Denies nausea, pain. IV to LFA infusing w/o difficulties. NS @50ml/hr. Dr. Asif's progress note states that home meds will be restarted but they have not been yet. Pulse was elevated to 122 at 0000 but came back down to 100 an hour later and has remained stable. Plt 523, takes Xarelto and carvedilol at home, will inform charge nurse of need to restart home meds today. Initialized on 08/10/16 04:26 - END OF NOTE
== END 2016-08-10 14:25 | disposition home or self-care (01) | DRG 389 ==
LOC: MEDSUR 14:20 → ED 14:20 → MEDSUR 17:38 → UNDODISIN 08-10 14:25
PROVIDERS: ADMIT Family Medicine Adult Medicine; ATTEND Family Medicine Adult Medicine

== ENCOUNTER 2018-08-10 10:38 | Inpatient (IN) ==
[2018-08-10] MEDS ORDERED: FUROSEMIDE 40 MG/4 ML VIAL IV ONE (10:42)
[2018-08-10 11:50] LABS: Appearance,Urine CLEAR; Bacteria,Urine 0 /hpf (0); Bilirubin,Urine NEG (NEG); Color,Urine YELLOW; Glucose,Urine (UA) NEGATIVE (NEG); Leukocyte Esterase,Urine NEG /uL (NEG); Mucus,Urine FEW /hpf (0); Protein,Urine 30 mg/dL (NEG); Specific Gravity,Urine 1.013 (1.000-1.035); Urine Blood NEG mg/dL (<0.03); Urine Hyaline Cast 1 /lpf (0-2); Urine RBC 1 /hpf (0-1); Urine Squamous Epithelial Cell 0 /hpf (0-4); Urine WBC < 1 /hpf (0-4); Urobilinogen,Urine NEG (NEG)
[2018-08-10 11:53] LABS: Basophils % (Auto) 0 % (0.0-2.0); Mean Cell Volume 70.4 fL (80.0-100.0); Mean Corpuscular HGB Conc 28.4 g/dL (31.0-36.0); Platelet Count 641 K/mcL (140-440); RBC 6.21 M/mcL (4.50-5.90); Red Cell Distribution Width 25.4 % (11.5-14.5)
[2018-08-10 11:56] LABS: Creatine Kinase MB 2.8 ng/ml (0-4.9); Myoglobin 139 ng/ml (28-72)
[2018-08-10 11:57] LABS: ALT/SGPT 16 U/l (0-40); Albumin 3.9 gm/dL (3.2-5.2); Albumin/Globulin Ratio 1.5 (1.0-2.3); Alkaline Phosphatase 213 U/L (39-117); Blood Urea Nitrogen 39 mg/dl (8-23); Creatine Kinase 62 IU/L (24-195)
--- NOTE | 2018-08-10 11:58 | XRay Report ---
CLINICAL INFORMATION: Chest Pain COMPARISON: 08/08/2016 FINDINGS: Moderate cardiomegaly is unchanged. Mediastinum and pulmonary vessels are normal. Moderate bed right basilar infiltrate has developed. There is subsegmental atelectasis in the right midlung. Small right pleural effusion noted IMPRESSION: Moderate right basilar infiltrate with small effusion Moderate cardiomegaly stable. No evidence of CHF Interpreted and Authenticated by: Orlando Cortez 08/10/18
[2018-08-10] MEDS ORDERED: IPRATROPIUM/ALBUTEROL 3 ML AMPUL.NEB NEB ONE (12:00)
[2018-08-10] MEDS ORDERED: PIPERACILLIN SODIUM/TAZOBACTAM 3.375 GM in DEXTROSE 5% IN WATER 50 ML IV ONE (12:01)
--- NOTE | 2018-08-10 12:04 | Emergency Department Note ---
Chest Pain HPI - General Chief Complaint: Chest Pain Stated Complaint: CHF exacerbation Time Seen by Provider: 08/10/18 10:42 Source: RN notes reviewed Mode of arrival: wheelchair Limitations: no limitations - History of Present Illness HPI Narrative: Patient arrives with shortness of breath, progressing over the last 7 to 10 days. Was sent over from Dr. Fregoso, the attorney lawyer office. He denies any chest pain. No palpitations. No pain anywhere. Positive chills last few days. Unknown fever. No nausea, vomiting, or diarrhea. Significant other states he can even walk across the room because he gets so short of breath. He always has some mild shortness of breath but this is much worse. Denies any history of COPD or asthma. He does have a long-standing history of CHF. Dr. Lam recently increased his Lasix from 20 mg twice daily to 40 mg twice daily but has not seemed to make a difference. He has had a 15 pound weight gain in the last week. He also has chronic weeping pedal edema. It is nothing new but is possibly worse the last week. He also sees Dr. Skinner regarding renal failure. No sore throat or ear pain. No home treatments - Related Data Home Medications Medication Instructions Recorded Confirmed aspirin 81 mg tablet,delayed 81 mg PO HS 01/21/16 08/10/18 release Carvedilol [Coreg] 3.125 mg PO BID 08/10/18 08/10/18 Doxycycline Hyclate [Morgidox] 100 mg PO BID 08/10/18 08/10/18 Furosemide [Lasix] 40 mg PO BID 08/10/18 08/10/18 Rivaroxaban [Xarelto] 15 mg PO HS 08/10/18 08/10/18 Previous Rx's Medication Instructions Recorded potassium chloride ER 10 mEq 10 meq PO QDAY #90 cap 09/09/17 capsule,extended release atorvastatin 20 mg tablet 20 mg PO QDAY #90 tab 02/23/18 allopurinol 100 mg tablet 100 mg PO QDAY #90 tab 03/23/18 Allergies Allergy/AdvReac Type Severity Reaction Status Date / Time heparin Allergy Unknown Verified 08/10/18 10:42 Review of Systems All systems ED: reviewed and negative except as stated. Chest Pain PMH - Past Medical History PMFSH Narrative: Medical History Chest wall contusion (Acute) Neck strain (Acute) Small bowel obstruction, partial (Acute) Small bowel obstruction due to adhesions (Acute) Urinary retention (Chronic) Thrombosis/embolism, venous (Chronic) Thrombocytopenia (Chronic) Chronic sinusitis (Chronic) Closed rib fracture (Chronic) Renal failure (Chronic 08/01/14) Renal dysfunction (Chronic) Hx of prostatic malignancy (Chronic) Osteopenia (Chronic) Osteoarthritis (Chronic) Fracture closed, nasal bone (Chronic) Leukocytosis (Chronic 09/05/14) Joint pain (Chronic 09/05/14) Hypertension, essential (Chronic) Hyperlipidemia (Chronic) Hypercoagulation syndrome (Chronic) Hepatitis, autoimmune (Chronic) Gout (Chronic 08/01/14) Erythrocytosis (Chronic) Constipation (Chronic 07/11/14) Hx of colonic polyp (Chronic) Primary cardiomyopathy (Chronic) Atrial fibrillation (Chronic) Arthritis (Chronic 07/11/14) Elevated antinuclear antibody (ZOHRA) level (Chronic 08/01/14) 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) Past Surgical History Status post surgery (Chronic) Hx of sinus surgery (Chronic) Hx of repair of right rotator cuff (Chronic) Hx of repair of left rotator cuff (Chronic) Hx of radical prostatectomy (Chronic) Hx of prostate biopsy (Chronic) History of right knee joint replacement (Chronic) History of left knee replacement (Chronic) History of intraocular lens implant (Chronic) Hx of umbilical hernia repair (Chronic) Hx of right inguinal hernia repair (Chronic) Hx of hemorrhoidectomy (Chronic) Tavares catheter status (Chronic) History of carpal tunnel surgery of right wrist (Chronic) Medical history: Reports: atrial fibrillation, CHF, pulmonary embolus, other (prostate cancer) - Social History smoking status: Never smoker Alcohol use: Reports: None Drug use: Reports: none Physical Exam Limitations: no limitations, other (Very hard of hearing) General appearance: alert, other (Labored breathing with a respiratory rate in the 40s and speaks 2-3 words at a time on arrival. Oxygen saturations right at 90% on room air) Head: atraumatic, normocephalic, normal inspection Eye: Present: normal appearance. Absent: conjunctival injection ENT: normal exam, normal oropharynx, mucous membranes moist, TM's normal bilaterally, normal external ear exam Chest: Present: symmetric chest wall rise Respiratory: Present: respiratory distress (Mild tachypnea in the 40s and mild accessory muscle use. Can only speak 1-2 words at this time due to shortness of breath.), wheezes (Expiratory wheezing throughout on arrival.). Absent: stridor Cardiovascular: Present: regular rate, normal heart sounds Abdominal: Present: soft, normal bowel sounds. Absent: distention, tenderness, guarding Extremities: Present: pedal edema (2+ pedal edema bilaterally with weeping. Chronic) Neurological: Present: alert, oriented X3 Psychiatric: Present: normal affect, normal mood Skin: Present: warm, dry, intact Course Course Narrative: At 1210, I did consult with Dr. Fregoso. He agrees that troponin is elevated due to CHF and pneumonia and he is not concerned about the elevated troponin whatsoever and feels like it is safe for the past to talk to the hospitalist here for admission. At 1230 I did speak with the hospitalist, Dr. Cazares who agrees to accept this patient. He would like us to add a procalcitonin which we have done. Vital Signs Temperature 97.2 F 08/10/18 10:39 Pulse Rate 81 08/10/18 10:39 Respiratory Rate 16 08/10/18 10:39 Blood Pressure 110/77 08/10/18 10:39 Pulse Oximetry (%) 97 08/10/18 10:39 Temperature 97.2 F 08/10/18 10:39 Pulse Rate 88 08/10/18 12:20 Respiratory Rate 29 H 08/10/18 12:20 Blood Pressure 110/76 08/10/18 12:01 Pulse Oximetry (%) 99 08/10/18 12:20 Chest Pain - Lab Data Lab results reviewed: Yes I reviewed the patient's lab results. Result diagrams: 08/10/18 10:57 08/10/18 10:57 Lab Results 08/10/18 08/10/18 08/10/18 Range/Units 10:57 10:57 10:57 WBC 20.4 H (4.5-11.0) K/mcL RBC 6.21 H (4.50-5.90) M/mcL Hgb 12.4 L (13.5-16.5) g/dL Hct 43.8 (41.0-55.0) % MCV 70.4 L (80.0-100.0) fL MCH 20.0 L (26.0-34.0) pg MCHC 28.4 L (31.0-36.0) g/dL RDW 25.4 H (11.5-14.5) % Plt Count 641 H (140-440) K/mcL MPV 11.2 H (7.4-10.4) fL Gran % 87.0 H (38.0-78.0) % Lymph % (Auto) 7.0 L (15.5-49.0) % [place] % (Auto) 5.0 (1.0-12.0) % Eos % (Auto) 1.0 (0.0-7.0) % Baso % (Auto) 0 (0.0-2.0) % Sodium 140 (133-145) mmol/L Potassium 4.3 (3.3-5.1) mmol/L Chloride 100 (96-108) mmol/L Carbon Dioxide 27 (22-30) mmol/L Anion Gap 13.0 (8-16) BUN 39 H (8-23) mg/dl Creatinine 2.0 H (0.7-1.2) mg/dl GFR Calculation 30 Glucose 93 (70-105) mg/dL Calcium 9.4 (8.6-10.4) mg/dl Total Bilirubin 2.0 H (0.0-1.0) mg/dL AST 31 (0-37) U/l ALT 16 (0-40) U/l Alkaline Phosphatase 213 H (39-117) U/L Total Creatine Kinase 62 (24-195) IU/L CK-MB (CK-2) 2.8 (0-4.9) ng/ml Myoglobin 139 H (28-72) ng/ml Troponin T 0.05 H* (0-0.03) ng/ml NT-Pro-B Natriuret Pep 7184.0 H (0-450) pg/ml Total Protein 6.5 (5.9-8.4) gm/dL Albumin 3.9 (3.2-5.2) gm/dL Globulin 2.6 (2.2-3.7) gm/dL Albumin/Globulin Ratio 1.5 (1.0-2.3) Urine Color Urine Appearance Urine pH (5.0-9.0) Ur Specific [place] (1.000-1.035) Urine Protein (NEG) mg/dL Urine Glucose (UA) (NEG) mg/dL Urine Ketones (NEG) mg/dL Urine Occult Blood (<0.03) mg/dL Urine Nitrate (NEG) Urine Bilirubin (NEG) mg/dL Urine Urobilinogen (NEG) mg/dL Ur Leukocyte Esterase (NEG) /uL Urine RBC (0-1) /hpf Urine WBC (0-4) /hpf Ur Squamous Epith Cells (0-4) /hpf Urine Bacteria (0) /hpf Hyaline Casts (0-2) /lpf Urine Mucus (0) /hpf Ur Culture Indicated? 08/10/18 Range/Units 11:04 WBC (4.5-11.0) K/mcL RBC (4.50-5.90) M/mcL Hgb (13.5-16.5) g/dL Hct (41.0-55.0) % MCV (80.0-100.0) fL MCH (26.0-34.0) pg MCHC (31.0-36.0) g/dL RDW (11.5-14.5) % Plt Count (140-440) K/mcL MPV (7.4-10.4) fL Gran % (38.0-78.0) % Lymph % (Auto) (15.5-49.0) % [place] % (Auto) (1.0-12.0) % Eos % (Auto) (0.0-7.0) % Baso % (Auto) (0.0-2.0) % Sodium (133-145) mmol/L Potassium (3.3-5.1) mmol/L Chloride (96-108) mmol/L Carbon Dioxide (22-30) mmol/L Anion Gap (8-16) BUN (8-23) mg/dl Creatinine (0.7-1.2) mg/dl GFR Calculation Glucose (70-105) mg/dL Calcium (8.6-10.4) mg/dl Total Bilirubin (0.0-1.0) mg/dL AST (0-37) U/l ALT (0-40) U/l Alkaline Phosphatase (39-117) U/L Total Creatine Kinase (24-195) IU/L CK-MB (CK-2) (0-4.9) ng/ml Myoglobin (28-72) ng/ml Troponin T (0-0.03) ng/ml NT-Pro-B Natriuret Pep (0-450) pg/ml Total Protein (5.9-8.4) gm/dL Albumin (3.2-5.2) gm/dL Globulin (2.2-3.7) gm/dL Albumin/Globulin Ratio (1.0-2.3) Urine Color Yellow Urine Appearance Clear Urine pH 7.0 (5.0-9.0) Ur Specific [place] 1.013 (1.000-1.035) Urine Protein 30 A (NEG) mg/dL Urine Glucose (UA) Negative (NEG) mg/dL Urine Ketones Neg (NEG) mg/dL Urine Occult Blood Neg (<0.03) mg/dL Urine Nitrate Neg (NEG) Urine Bilirubin Neg (NEG) mg/dL Urine Urobilinogen Neg (NEG) mg/dL Ur Leukocyte Esterase Neg (NEG) /uL Urine RBC 1 (0-1) /hpf Urine WBC < 1 (0-4) /hpf Ur Squamous Epith Cells 0 (0-4) /hpf Urine Bacteria 0 (0) /hpf Hyaline Casts 1 (0-2) /lpf Urine Mucus Few (0) /hpf Ur Culture Indicated? No - Radiology Data Radiology results reviewed: Yes I reviewed the patient's radiology results. Disposition Pt seen by [facility]ATHER/PA only: No Clinical Impression: Pneumonia, CHF (congestive heart failure), SOB (shortness of breath) Disposition: Xfer As Inpt ([facility]) Condition: Fair Referrals: Natalee Nash ARNP [Primary Care Provider] - Paxton Fregoso MD [Physician] - Time of Disposition: 12:40
[2018-08-10 13:18] LABS: Anisocytosis 2+ (NONE SEEN); Band Neutrophils % 4 % (0-10); Eosinophils % (Manual) 1 % (0-7); Hypochromasia 2+ (NONE SEEN); Lymphocytes % 7 % (15-49); Monocytes % (Manual) 5 % (1-12); Ovalocytes 1+ (NONE SEEN); Platelet Estimate INCREASED (NORMAL); RBC Morphology ABNORMAL (NORMAL); Segmented Neutrophils % 83 % (38-78)
--- NOTE | 2018-08-10 13:38 | Internal Med History&Physical ---
Medical - H&P: [facility] Patient information: Note initiated : 08/10/18 at 1:34 pm Service Date, if different from initiated Date: [] Patient: Ayden Guzmán a 83 y/o M admitted on for CHF Exacerbation. Chief Complaint: [] History of present illness: Mr. Guzmán is a 83 year old M presents to the ED from Dr. Fregoso's office for shortness of breath and swelling. Patient is quite hard of hearing. History obtained from patient as well as . Sounds like symptoms started about 2 weeks ago with cough productive of m ild sputum, yellow. Denies fever chills. He was given doxycycline by his primary care provider but symptoms not relieved. He is also had increased shortness of breath since that time, he always has some shortness of breath at baseline. As well as increased lower extremity swelling. It is possible that he is gained about 15 pounds of water weight over the past couple weeks. Denies being on any steroids and denies extra salt intake. Sleeps in a recliner for comfort, denies breathing issues. Denies chest pain. In the ED he was evaluated and felt to have pneumonia as well as CHF. He did h ave a mildly elevated troponin in the setting of chronic kidney disease this was discussed with Dr. Fregoso who had no concerns and felt it was related to his heart failure, EKG is similar to previous EKG. Patient denies chest pain. White blood cell count was 20. Review of Systems: Pertinent positives as above. Denies headache/fever/chills/nausea/vomiting/chest or abdominal pain/diarrhea. Remai srikanth 10 point review of systems reviewed negative Medical - H&P: PMH Medical history: Medical History Chest wall contusion (Acute) Neck strain (Acute) Small bowel obstruction, partial (Acute) Small bowel obstruction due to adhesions (Acute) Urinary retention (Chronic) Thrombosis/embolism, venous (Chronic) Thrombocytopenia (Chronic) Chronic sinusitis (Chronic) Closed rib fracture (Chronic) Renal failure (Chronic 08/01/14) Renal dysfunction (Chronic) Hx of prostatic malignancy (Chronic) Osteopenia (Chronic) Osteoarthritis (Chronic) Fracture closed, nasal bone (Chronic) Leukocytosis (Chronic 09/05/14) Joint pain (Chronic 09/05/14) Hypertension, essential (Chronic) Hyperlipidemia (Chronic) Hypercoagulation syndrome (Chronic) Hepatitis, autoimmune (Chronic) Gout (Chronic 08/01/14) Erythrocytosis (Chronic) Constipation (Chronic 07/11/14) Hx of colonic polyp (Chronic) Primary cardiomyopathy (Chronic) Atrial fibrillation (Chronic) Arthritis (Chronic 07/11/14) Elevated antinuclear antibody (ZOHRA) level (Chronic 08/01/14) FDC current use of anticoagulant (Chronic) Social History (Last Updated 07/03/17 @ 20:02 by Karthikeyan Rivero MD) Denies tobacco, drinks alcohol occasionally, ambulates with a cane, lives at home with his Family History none listed Alzheimer's disease Atherosclerosis of coronary artery father Malignant neoplasm of prostate mother Malignant neoplasm of prostate Past Surgical History Status post surgery (Chronic) Hx of sinus surgery (Chronic) Hx of repair of right rotator cuff (Chronic) Hx of repair of left rotator cuff (Chronic) Hx of radical prostatectomy (Chronic) Hx of prostate biopsy (Chronic) History of right knee joint replacement (Chronic) History of left knee replacement (Chronic) History of intraocular lens implant (Chronic) Hx of umbilical hernia repair (Chronic) Hx of right inguinal hernia repair (Chronic) Hx of hemorrhoidectomy (Chronic) Tavares catheter status (Chronic) History of carpal tunnel surgery of right wrist (Chronic) Medical - H&P: Meds Home Medications Medication Instructions Recorded Confirmed Type aspirin 81 mg tablet,delayed 81 mg PO HS 01/21/16 08/10/18 History release potassium chloride ER 10 mEq 10 meq PO QDAY #90 cap 09/09/17 08/10/18 Rx capsule,extended release atorvastatin 20 mg tablet 20 mg PO QDAY #90 tab 02/23/18 08/10/18 Rx allopurinol 100 mg tablet 100 mg PO QDAY #90 tab 03/23/18 08/10/18 Rx Carvedilol [Coreg] 3.125 mg PO BID 08/10/18 08/10/18 History Doxycycline Hyclate [Morgidox] 100 mg PO BID 08/10/18 08/10/18 History Furosemide [Lasix] 40 mg PO BID 08/10/18 08/10/18 History Rivaroxaban [Xarelto] 15 mg PO HS 08/10/18 08/10/18 History Allergies Allergy/AdvReac Type Severity Reaction Status Date / Time heparin Allergy Unknown Verified 08/10/18 10:42 Medical - H&P: Exam - Constitutional Vitals: Temp Pulse Resp BP Pulse Ox 97.2 F 89 24 H 108/76 94 08/10/18 10:39 08/10/18 13:28 08/10/18 13:28 08/10/18 13:21 08/10/18 13:28 Exam: General: Alert, Awake, No acute Distress, obese Eyes/N/T: EOMI, PEERL, Head/Neck: neck supple, normocephalic atraumatic, JVD present CV: Irregularly irregular, No murmurs, Pulm: Wheezing more so on the right, mild rhonchi, diminished at bases Abdomen: Soft, nontender +BS x4 Ext: no clubbing/cyanosis, 2-3+ bilateral lower extremity edema Neuro: Alert, no focal deficits, moves all extremities, CN 2-12 grossly intact, symmetrical strength b/l upper/lower, sensations intact b/l upper/lower Skin: warm/dry Medical - H&P: Reslt - Labs CBC & Chem 7: 08/10/18 10:57 08/10/18 10:57 Labs: Short CBC 08/10/18 Range/Units 10:57 WBC 20.4 H (4.5-11.0) K/mcL Hgb 12.4 L (13.5-16.5) g/dL Hct 43.8 (41.0-55.0) % Plt Count 641 H (140-440) K/mcL BMP 08/10/18 10:57 Sodium 140 Potassium 4.3 Chloride 100 Carbon Dioxide 27 BUN 39 H Creatinine 2.0 H Glucose 93 Calcium 9.4 Cardiac Enzymes 08/10/18 08/10/18 Range/Units 10:57 10:57 Total Creatine Kinase 62 (24-195) IU/L CK-MB (CK-2) 2.8 (0-4.9) ng/ml Troponin T 0.05 H* (0-0.03) ng/ml Liver Function 08/10/18 Range/Units 10:57 Total Bilirubin 2.0 H (0.0-1.0) mg/dL AST 31 (0-37) U/l ALT 16 (0-40) U/l Alkaline Phosphatase 213 H (39-117) U/L Albumin 3.9 (3.2-5.2) gm/dL Urine 08/10/18 Range/Units 11:04 Urine Color Yellow Urine Appearance Clear Urine pH 7.0 (5.0-9.0) Ur Specific [place] 1.013 (1.000-1.035) Urine Protein 30 A (NEG) mg/dL Urine Glucose (UA) Negative (NEG) mg/dL - Impressions Chest x-ray pulmonary edema, right lower infiltrate Medical - H&P: A/P - Narrative A/P Narrative: A: *PNA: *Cor pulmonale as well as left heart failure (systolic 30%/diastolic dysfxn and RV systolic dysfxn), PAH/mod TR/Biatrial dilation: -Right heart failure in addition to many other cardiac structure abnorm alities portends to a poor prognosis *Afib: On Coreg and Xarelto *HTN/HLD: *CKD IIIb: Follows with Dr. Skinner *Obesity *Goals of care: Overall poor prognosis given significant cardiac abnormalities encompassing entirety of Heart P: -lasix gtt -Monitor I's and O/weights/I's and O's -Rocephin/azithromycin, prednisone short course -Pending sputum and blood cultures -echo, records from Dr. Fregoso's office -leg wraps, elevate -resp panel - -pt/ot -ppx: Xarelto No code
[2018-08-10] MEDS ORDERED: IPRATROPIUM/ALBUTEROL 3 ML AMPUL.NEB NEB PRN (14:02)
[2018-08-10] MEDS ORDERED: ONDANSETRON 4 MG/2 ML VIAL IV PRN (14:02)
[2018-08-10] MEDS ORDERED: POLYETHYLENE GLYCOL 3350 17 GM PACKET PO PRN (14:02)
[2018-08-10] MEDS ORDERED: SENNOSIDES 1 TABLET PO PRN (14:02)
[2018-08-10] MEDS ORDERED: PROMETHAZINE 25 MG TABLET PO PRN (14:02)
[2018-08-10] MEDS ORDERED: AZITHROMYCIN 500 MG in DEXTROSE 5% IN WATER 250 ML IV SCH (14:02)
[2018-08-10] MEDS ORDERED: cefTRIAXone 1 GM in DEXTROSE 5% IN WATER 50 ML IV SCH (14:02)
[2018-08-10] MEDS ORDERED: POTASSIUM CHLORIDE 20 MEQ TABLET PO PRN ×2 (14:02)
[2018-08-10] MEDS ORDERED: LACTULOSE 20 GM/30 ML ORAL.SOL PO PRN (14:02)
[2018-08-10] MEDS: predniSONE 20 MG TABLET PO SCH (14:55)
[2018-08-10] MEDS: 0.9 % SODIUM CHLORIDE 10 ML SYRINGE IV SCH ×2 (14:56→20:58)
[2018-08-10] MEDS: cefTRIAXone 1 GM VIAL IV SCH (14:56)
[2018-08-10] MEDS: AZITHROMYCIN 500 MG in DEXTROSE 5% IN WATER 250 ML IV SCH (14:58)
[2018-08-10] MEDS: FUROSEMIDE 250 MG in 0.9 % SODIUM CHLORIDE 225 ML IV SCH (15:03)
[2018-08-10] MEDS: RIVAROXABAN 15 MG TABLET PO SCH (20:58)
[2018-08-10] MEDS: DOCUSATE SODIUM 100 MG CAPSULE PO SCH (20:58)
[2018-08-11] MEDS: 0.9 % SODIUM CHLORIDE 10 ML SYRINGE IV SCH ×3 (06:25→21:06)
[2018-08-11 06:34] LABS: ALT/SGPT 17 U/l (0-40); Albumin 3.8 gm/dL (3.2-5.2); Albumin/Globulin Ratio 1.4 (1.0-2.3); Alkaline Phosphatase 224 U/L (39-117); Bilirubin,Direct 0.7 mg/dL (0.0-0.3); Blood Urea Nitrogen 40 mg/dl (8-23); Gamma Glutamyl Transpeptidase 190 U/L (8-61); Uric Acid 10.5 mg/dL (2.5-8.0)
[2018-08-11 06:41] LABS: Basophils # (Auto) 0 K/mcL (0.0-0.3); Basophils % (Auto) 0 % (0.0-2.0); Eosinophils # (Auto) 0.1 K/mcL (0.0-0.7); Eosinophils % (Auto) 0.3 % (0.0-7.0); Granulocytes % (Auto) 94.4 % (38.0-78.0); Lymphocytes # (Auto) 0.7 K/mcL (1.5-4.8); Mean Cell Volume 70.7 fL (80.0-100.0); Mean Corpuscular HGB Conc 28.2 g/dL (31.0-36.0); Monocytes # (Auto) 0.6 K/mcL (0.1-0.9); Monocytes % (Auto) 2.3 % (1.0-12.0); Platelet Count 645 K/mcL (140-440); RBC 6.27 M/mcL (4.50-5.90); Red Cell Distribution Width 24.8 % (11.5-14.5)
--- NOTE | 2018-08-11 07:39 | Internal Med Progress Note ---
Medical - PN: Subj Patient information: Note initiated : 08/11/18 at 7:30 am Service Date, if different from initiated Date: [] Patient: Ayden Guzmán a 83 y/o M admitted on 08/10/18 for CHF Exacerbation/PNA & CHF. Chief Complaint: [] Interval history: Mr. Guzmán is a 83 year old M presents to the ED from Dr. Fregoso's office for shortness of breath and swelling. Patient is quite hard of hearing. History obtained from patient as well as . Sounds like symptoms started about 2 weeks ago with cough productive of mild sputum, yellow. Denies fever chills. He was given doxycycline by his primary care provider but symptoms not relieved. He is also had increased shortness of breath since that time, he always has some shortness of breath at baseline. As well as increased lower extremity swelling. It is possible that he is gained about 15 pounds of water weight over the past couple weeks. Denies being on any steroids and denies extra salt intake. Sleeps in a recliner for comfort, denies breathing issues. Denies chest pain. In the ED he was evaluated and felt to have pneumonia as well as CHF. He did have a mildly elevated troponin in the setting of chronic kidney disease this was discussed with Dr. Fregoso who had no concerns and felt it was related to his heart failure, EKG is similar to previous EKG. Patient denies chest pain. White blood cell count was 20. 5/16 Slept okay. No overnight events. Urinated well overnight. He feels his coughing improving and denies any shortness of breath at rest. Son at bedside. Chest x-ray with increased right side pleural effusion. Review of Systems: denies headache/fever/chills/nausea/vomiting/chest or abdominal pain/diarrhea. Otherwise see above. - Constitutional Vitals: Vital Signs Temp Pulse Resp BP Pulse Ox 97.2 F 85 18 99/67 95 08/11/18 05:49 08/11/18 06:01 08/11/18 06:01 08/11/18 06:01 08/11/18 06:01 Period Temp Pulse Resp BP Sys/Valentin Pulse Ox Last 24 Hr 97.2 F-98.7 F 72-106 14-38 99-121/57-89 87-99 Intake and Output 08/10/18 08/11/18 08/11/18 21:59 05:59 13:59 Intake Total 487 360 Output Total 1125 1650 Balance -638 -1290 Weight 97.114 kg Intake & Output: Intake & Output 08/10/18 08/11/18 08/11/18 21:59 05:59 13:59 Intake Total 487 360 Output Total 1125 1650 Balance -638 -1290 Weight 97.114 kg Intake: IV 250 Zithromax 500 mg In Dextrose 5% 250 in Water 250 ml @ 250 mls/hr IV DAILY [facility] Rx#:[id number] Oral 237 360 Output: Void Amount 1124 1650 Other: Meal Nourishment/Supplement Percent of Meal Consumed 100% Feeding Ability Independent Urine Appearance Clear Urine Color Bright Yellow Bright Yellow Urine Odor Normal Normal Exam: General: Alert, Awake, No acute Distress, obese Eyes/N/T: EOMI, Head/Neck: neck supple, JVD present CV: Irregularly irregular, no murmur Pulm: Diminished right base, no rhonchi Abdomen: Soft, nontender +BS x4 Ext: no clubbing/cyanosis, 3+ bilateral lower extremity edema Neuro: Alert, no focal deficits, moves all extremities, Skin: warm/dry Medical - PN: Obj Da - Labs CBC & Chem 7: 08/11/18 04:15 08/11/18 04:15 Labs: Abnormal Lab Results 08/11/18 08/11/18 08/10/18 04:15 04:15 11:04 WBC 24.7 H RBC 6.27 H Hgb 12.5 L MCV 70.7 L MCH 19.9 L MCHC 28.2 L RDW 24.8 H Plt Count 645 H MPV 11.4 H Gran % 94.4 H Lymph % (Auto) 3.0 L Gran # 23.3 H Lymph # (Auto) 0.7 L Seg Neutrophils % Lymphocytes % Platelet Estimate Polychromasia Hypochromasia Anisocytosis Microcytosis Ovalocytes RBC Fragments BUN 40 H Creatinine 2.1 H Glucose 125 H Uric Acid 10.5 H Total Bilirubin 1.9 H Direct Bilirubin 0.7 H GGT 190 H Alkaline Phosphatase 224 H Lactate Dehydrogenase 693 H Myoglobin Troponin T NT-Pro-B Natriuret Pep Urine Protein 30 A 08/10/18 08/10/1819 10:57 10:57 10:57 WBC RBC Hgb MCV MCH MCHC RDW Plt Count MPV Gran % Lymph % (Auto) Gran # Lymph # (Auto) Seg Neutrophils % 83 H Lymphocytes % 7 L Platelet Estimate Increased A Polychromasia Occ A Hypochromasia 2+ A Anisocytosis 2+ A Microcytosis 2+ A Ovalocytes 1+ A RBC Fragments Few A BUN 39 H Creatinine 2.0 H Glucose Uric Acid Total Bilirubin 2.0 H Direct Bilirubin GGT Alkaline Phosphatase 213 H Lactate Dehydrogenase Myoglobin 139 H Troponin T 0.05 H* NT-Pro-B Natriuret Pep 7184.0 H Urine Protein 08/10/18 10:57 WBC 20.4 H RBC 6.21 H Hgb 12.4 L MCV 70.4 L MCH 20.0 L MCHC 28.4 L RDW 25.4 H Plt Count 641 H MPV 11.2 H Gran % 87.0 H Lymph % (Auto) 7.0 L Gran # Lymph # (Auto) Seg Neutrophils % Lymphocytes % Platelet Estimate Polychromasia Hypochromasia Anisocytosis Microcytosis Ovalocytes RBC Fragments BUN Creatinine Glucose Uric Acid Total Bilirubin Direct Bilirubin GGT Alkaline Phosphatase Lactate Dehydrogenase Myoglobin Troponin T NT-Pro-B Natriuret Pep Urine Protein Meds: Medications Albuterol/Ipratropium (Duoneb) 3 ml NEB Q4HP PRN PRN Reason: Shortness Of Breath Allopurinol (Zyloprim) 100 mg PO QDAY [facility] Aspirin (Aspirin) 81 mg PO HS [facility] Atorvastatin Calcium (Lipitor) 20 mg PO DAILY [facility] Carvedilol (Coreg) 3.125 mg PO BIDCC [facility] Ceftriaxone Sodium (Rocephin) 1 gm IV DAILY [facility] Last Admin: 08/10/18 14:56 Dose: 1 gm Documented by: Docusate Sodium (Colace) 100 mg PO BID [facility] Last Admin: 08/10/18 20:58 Dose: 100 mg Documented by: Azithromycin 500 mg/ Dextrose 250 mls @ 250 mls/hr IV DAILY [facility]; Protocol Stop: 08/12/18 09:59 Last Infusion: 08/10/18 15:58 Dose: Infused Documented by: Furosemide 250 mg/ Sodium (Chloride) 250 mls @ 6 mls/hr IV Q24H [facility]; Protocol Last Admin: 08/10/18 15:03 Dose: 6 mg/hr, 6 mls/hr Documented by: Lactulose (Cephulac) 10 gm PO DAILYP PRN PRN Reason: Constipation Ondansetron HCl (Zofran) 4 mg IV Q4HP PRN PRN Reason: Nausea And Vomiting Polyethylene Glycol (Miralax) 17 gm PO DAILYP PRN PRN Reason: Constipation Potassium Chloride (Kdur) [address] [facility] Potassium Chloride (Kdur) 40 meq PO UD PRN PRN Reason: Potssium is 3-3.5 Potassium Chloride (Kdur) 40 meq PO UD PRN PRN Reason: Potassium < 3 Prednisone (Prednisone) [address] [facility] Last Admin: 08/10/18 14:55 Dose: 40 mg Documented by: Promethazine HCl (Phenergan) 0 mg PO Q6HP PRN PRN Reason: Nausea And Vomiting Rivaroxaban (Xarelto) [address] [facility] Last Admin: 08/10/18 20:58 Dose: 15 mg Documented by: Senna (Senokot) 2 tab PO HSP PRN PRN Reason: Constipation Sodium Chloride (Saline Flush) 10 ml IV Q8 [facility] Last Admin: 08/11/18 06:25 Dose: Not Given Documented by: Medical - PN: A/P - Time Spent With Patient Total time spent is greater than 50% in coordination of care (as documented) at patient's floor/unit and/or counseling patient: - Narrative A/P Narrative: A: *PNA: *Cor pulmonale as well as acute on chronic left heart failure (systolic 30%/diastolic dysfxn and RV systolic dysfxn) with pulmonary edema, PAH/mod TR/Biatrial dilation: -Right heart failure in addition to many other cardiac structure abnormalities portends to a poor prognosis -good diuresis o/n *Right effusion: *Afib/CMP: On Coreg/Xarelto/lasix. follows with Dr. Fregoso -rate controlled *HTN/HLD: *CKD IIIb: Follows with Dr. Skinner *Obesity *Goals of care: Overall poor prognosis given significant cardiac abnormalities encompassing entirety of Heart P: -lasix gtt -Monitor I's and O/weights/I's and O's -Rocephin/azithromycin, -Pending sputum and blood cultures -echo pending -leg wraps, elevate -hold coreg this AM -thoracentesis with analysis pending -pt/ot -ppx: Xarelto No code Medical - PN: Qual - VTE Deep Vein Thrombosis/Pulmonary Embolism Present on Admission: No
[2018-08-11 07:54] LABS: Anisocytosis 2+ (NONE SEEN); Band Neutrophils % 6 % (0-10); Hypochromasia 2+ (NONE SEEN); Lymphocytes % 1 % (15-49); Monocytes % (Manual) 3 % (1-12); Platelet Estimate INCREASED (NORMAL); RBC Morphology ABNORM (NORMAL); Segmented Neutrophils % 90 % (38-78)
--- NOTE | 2018-08-11 08:16 | XRay Report ---
CLINICAL INFORMATION: chf, ?focal PNA COMPARISON: 08/10/2018 FINDINGS: Moderate cardiomegaly is unchanged. Mediastinum and pulmonary vasculature are unremarkable. Right basilar infiltrate is now more consolidated and there is atelectasis in the right midlung increasing. Small right pleural effusion increasing. IMPRESSION: 1. Moderate stable cardiomegaly. No CHF 2. Moderate right basilar infiltrate and effusion - worsening. Interpreted and Authenticated by: Orlando Cortez 08/11/18
[2018-08-11] MEDS ORDERED: FUROSEMIDE 20 MG/2 ML VIAL IV SCH (09:00)
[2018-08-11] MEDS: CARVEDILOL 3.125 MG TABLET PO SCH ×3 (09:41→17:18)
[2018-08-11] MEDS: predniSONE 20 MG TABLET PO SCH (09:41)
[2018-08-11] MEDS: ALLOPURINOL 100 MG TABLET PO SCH (09:41)
[2018-08-11] MEDS: POTASSIUM CHLORIDE 10 MEQ TABLET PO SCH (09:41)
[2018-08-11] MEDS: ATORVASTATIN 20 MG TABLET PO SCH (09:43)
[2018-08-11] MEDS: DOCUSATE SODIUM 100 MG CAPSULE PO SCH ×2 (09:43→20:19)
[2018-08-11] MEDS: AZITHROMYCIN 500 MG in DEXTROSE 5% IN WATER 250 ML IV SCH (09:50)
[2018-08-11] MEDS: cefTRIAXone 1 GM VIAL IV SCH (10:18)
[2018-08-11 12:13] LABS: Appearance,Pleural Fluid CLEAR; Color,Pleural Fluid YELLOW; Nucleated Cells,Pleural Fld 133 /cumm; RBC,Pleural Fluid < 50000 /cumm
[2018-08-11 12:28] LABS: Glucose,Pleural Fluid 181 mg/dL; LDH,Pleural Fluid 192 U/L
[2018-08-11 12:30] LABS: pH,Body Fluid 7.61
--- NOTE | 2018-08-11 12:35 | Ultrasound Report ---
Ultrasound-guided thoracentesis CLINICAL INFORMATION: Right pleural effusion TECHNIQUE: Procedure and risks including possibility of bleeding, infection, and pneumothorax were explained to the patient. They understood and wished to proceed. With the patient in upright position, the fluid was first sonographically localized over the posterior right 10th intercostal space at posterior axillary line. The skin overlying this region was marked, prepped and locally anesthetized with 1% lidocaine using a 25-gauge needle to the level the parietal pleura. An 18-gauge Yueh needle was then advanced under sonographic guidance into the pleural fluid and 900 cc of simple appearing transudative fluid was aspirated. Post procedure scanning shows only minimal residual fluid. Patient tolerated procedure well without apparent complication. Follow-up chest x-ray to be obtained IMPRESSION: Successful thoracentesis yielding 900 cc transudative appearing simple pleural fluid. No apparent complication Interpreted and Authenticated by: Orlando Cortez 08/11/18
[2018-08-11 13:15] LABS: Lymphocytes,Pleural Fluid 43 %; Monocytes,Pleural Fluid 7 %; Neutrophils,Pleural Fluid 47 %
[2018-08-11] MEDS: FUROSEMIDE 250 MG in 0.9 % SODIUM CHLORIDE 225 ML IV SCH (16:51)
--- NOTE | 2018-08-11 17:20 | XRay Report ---
CLINICAL INFORMATION: POST THORA COMPARISON: 08/11/2018 0749 hours FINDINGS: Marked cardiomegaly is unchanged. Mediastinum and pulmonary vessels are normal. Following right thoracentesis, there is no residual right pleural effusion and right basilar airspace disease has cleared indicating this was atelectasis rather than infiltrate. Subsegmental atelectasis or scarring persists in the right midlung. IMPRESSION: Following right thoracentesis, no residual right pleural effusion and right basilar atelectasis cleared. No evidence of infiltrate. Moderate cardiomegaly stable no CHF Interpreted and Authenticated by: Orlando Cortez 08/11/18
[2018-08-11] MEDS ORDERED: FUROSEMIDE 250 MG in 0.9 % SODIUM CHLORIDE 225 ML IV SCH (19:00)
[2018-08-11] MEDS: RIVAROXABAN 15 MG TABLET PO SCH (20:19)
[2018-08-11] MEDS ORDERED: ASPIRIN 81 MG TAB.CHEW PO SCH (21:00)
[2018-08-12] MEDS: 0.9 % SODIUM CHLORIDE 10 ML SYRINGE IV SCH ×4 (05:17→22:15)
[2018-08-12 06:38] LABS: Mean Cell Volume 69.5 fL (80.0-100.0); Mean Corpuscular HGB Conc 29.1 g/dL (31.0-36.0); Platelet Count 484 K/mcL (140-440); RBC 6.02 M/mcL (4.50-5.90); Red Cell Distribution Width 24.5 % (11.5-14.5)
[2018-08-12 07:35] LABS: ALT/SGPT 16 U/l (0-40); Albumin 3.6 gm/dL (3.2-5.2); Albumin/Globulin Ratio 1.4 (1.0-2.3); Alkaline Phosphatase 197 U/L (39-117); Bilirubin,Direct 0.7 mg/dL (0.0-0.3); Blood Urea Nitrogen 46 mg/dl (8-23); Gamma Glutamyl Transpeptidase 180 U/L (8-61); Uric Acid 10.3 mg/dL (2.5-8.0)
--- NOTE | 2018-08-12 08:02 | Internal Med Progress Note ---
Medical - PN: Subj Patient information: Note initiated : 08/12/18 at 7:46 am Service Date, if different from initiated Date: [] Patient: Ayden Guzmán a 83 y/o M admitted on 08/10/18 for CHF Exacerbation/PNA & CHF. Chief Complaint: [] Interval history: Mr. Guzmán is a 83 year old M presents to the ED from Dr. Fregoso's office for shortness of breath and swelling. Patient is quite hard of hearing. History obtained from patient as well as . Sounds like symptoms started about 2 weeks ago with cough productive of mild sputum, yellow. Denies fever chills. He was given doxycycline by his primary care provider but symptoms not relieved. He is also had increased shortness of breath since that time, he always has some shortness of breath at baseline. As well as increased lower extremity swelling. It is possible that he is gained about 15 pounds of water weight over the past couple weeks. Denies being on any steroids and denies extra salt intake. Sleeps in a recliner for comfort, denies breathing issues. Denies chest pain. In the ED he was evaluated and felt to have pneumonia as well as CHF. He did have a mildly elevated troponin in the setting of chronic kidney disease this was discussed with Dr. Fregoso who had no concerns and felt it was related to his heart failure, EKG is similar to previous EKG. Patient denies chest pain. White blood cell count was 20. 08/11 Slept okay. No overnight events. Urinated well overnight. He feels his coughing improving and denies any shortness of breath at rest. Son at bedside. Chest x-ray with increased right side pleural effusion. 08/12 No issues overnight. Other than he does desat when he sleeps some. He has been evaluated for obstructive sleep apnea in the past but did not tolerate the mask in the sleep study. He is put out good diuresis. Denies shortness of breath and has minimal cough and overall feeling better. Family present and I did discuss his severe cardiac abnormalities and poor long- term prognosis and his tenuous state at baseline. Review of Systems: denies headache/fever/chills/nausea/vomiting/chest or abdominal pain/diarrhea. Otherwise see above. - Constitutional Vitals: Vital Signs Temp Pulse Resp BP Pulse Ox 98.4 F 90 18 119/60 97 08/12/18 06:00 08/12/18 01:17 08/12/18 07:01 08/12/18 07:01 08/12/18 07:15 Period Temp Pulse Resp BP Sys/Valentin Pulse Ox Last 24 Hr 97.6 F-98.4 F 83-102 16-21 89-142/31-90 77-100 Intake and Output 08/11/18 08/12/18 08/12/18 21:59 05:59 13:59 Intake Total 255 350 Output Total 1750 1650 Balance -1495 -1300 Weight 95.481 kg Intake & Output: Intake & Output 08/11/18 08/12/18 08/12/18 21:59 05:59 13:59 Intake Total 255 350 Output Total 1750 1650 Balance -1495 -1300 Weight 95.481 kg Intake: IV 155 Lasix 250 mg In Sodium Chloride 155 0.9% 225 ml @ 6 MG/HR 6 mls/hr IV Q24H SIL Rx#:[id number] Oral 100 350 Output: Void Amount 1750 1650 Other: Urine Appearance Clear Clear Urine Color Straw Dark Yellow Urine Odor Normal Normal # Bowel Movements 0 0 Exam: General: Alert, Awake, No acute Distress, obese Eyes/N/T: EOMI, Head/Neck: neck supple, CV: Irregularly irregular, no murmur Pulm: Diminished right base, no rhonchi Abdomen: Soft, nontender +BS x4 Ext: no clubbing/cyanosis, 3+ bilateral lower extremity edema Neuro: Alert, no focal deficits, moves all extremities, Skin: warm/dry Medical - PN: Obj Da - Labs CBC & Chem 7: 08/12/18 04:15 08/12/18 04:15 Labs: Abnormal Lab Results 08/12/18 08/12/18 08/11/18 04:15 04:15 10:05 WBC 21.8 H RBC 6.02 H Hgb 12.2 L MCV 69.5 L MCH 20.2 L MCHC 29.1 L RDW 24.5 H Plt Count 484 H MPV Gran % Lymph % (Auto) Gran # Lymph # (Auto) Seg Neutrophils % Lymphocytes % Platelet Estimate RBC Morphology Polychromasia Hypochromasia Anisocytosis Microcytosis Ovalocytes RBC Fragments PT 28.3 H INR 2.7 H BUN 46 H Creatinine 1.9 H Glucose 121 H Uric Acid 10.3 H Total Bilirubin 1.5 H Direct Bilirubin 0.7 H GGT 180 H Alkaline Phosphatase 197 H Lactate Dehydrogenase 606 H Myoglobin Troponin T NT-Pro-B Natriuret Pep Urine Protein 08/11/18 08/11/18 08/11/18 04:15 04:15 04:15 WBC 24.7 H RBC 6.27 H Hgb 12.5 L MCV 70.7 L MCH 19.9 L MCHC 28.2 L RDW 24.8 H Plt Count 645 H MPV 11.4 H Gran % 94.4 H Lymph % (Auto) 3.0 L Gran # 23.3 H Lymph # (Auto) 0.7 L Seg Neutrophils % 90 H Lymphocytes % 1 L Platelet Estimate Increased A RBC Morphology Abnorm A Polychromasia Hypochromasia 2+ A Anisocytosis 2+ A Microcytosis 2+ A Ovalocytes RBC Fragments 1+ A PT INR BUN 40 H Creatinine 2.1 H Glucose 125 H Uric Acid 10.5 H Total Bilirubin 1.9 H Direct Bilirubin 0.7 H GGT 190 H Alkaline Phosphatase 224 H Lactate Dehydrogenase 693 H Myoglobin Troponin T NT-Pro-B Natriuret Pep Urine Protein 08/10/18 08/10/18 08/10/18 11:04 10:57 10:57 WBC RBC Hgb MCV MCH MCHC RDW Plt Count MPV Gran % Lymph % (Auto) Gran # Lymph # (Auto) Seg Neutrophils % 83 H Lymphocytes % 7 L Platelet Estimate Increased A RBC Morphology Polychromasia Occ A Hypochromasia 2+ A Anisocytosis 2+ A Microcytosis 2+ A Ovalocytes 1+ A RBC Fragments Few A PT INR BUN Creatinine Glucose Uric Acid Total Bilirubin Direct Bilirubin GGT Alkaline Phosphatase Lactate Dehydrogenase Myoglobin Troponin T 0.05 H* NT-Pro-B Natriuret Pep Urine Protein 30 A 08/10/18 08/10/18 10:57 10:57 WBC 20.4 H RBC 6.21 H Hgb 12.4 L MCV 70.4 L MCH 20.0 L MCHC 28.4 L RDW 25.4 H Plt Count 641 H MPV 11.2 H Gran % 87.0 H Lymph % (Auto) 7.0 L Gran # Lymph # (Auto) Seg Neutrophils % Lymphocytes % Platelet Estimate RBC Morphology Polychromasia Hypochromasia Anisocytosis Microcytosis Ovalocytes RBC Fragments PT INR BUN 39 H Creatinine 2.0 H Glucose Uric Acid Total Bilirubin 2.0 H Direct Bilirubin GGT Alkaline Phosphatase 213 H Lactate Dehydrogenase Myoglobin 139 H Troponin T NT-Pro-B Natriuret Pep 7184.0 H Urine Protein Meds: Medications Albuterol/Ipratropium (Duoneb) 3 ml NEB Q4HP PRN PRN Reason: Shortness Of Breath Allopurinol (Zyloprim) 100 mg PO QDAY [facility] Last Admin: 08/11/18 09:41 Dose: 100 mg Documented by: Aspirin (Aspirin) 81 mg PO [facility] Last Admin: 08/11/18 20:19 Dose: 81 mg Documented by: Atorvastatin Calcium (Lipitor) 20 mg PO DAILY [facility] Last Admin: 08/11/18 09:43 Dose: 20 mg Documented by: [facility] ([facility]) [facility] Last Admin: 08/11/18 17:18 Dose: 3.125 mg Documented by: Ceftriaxone Sodium (Rocephin) 1 gm IV DAILY [facility] Last Admin: 08/11/18 10:18 Dose: 1 gm Documented by: Docusate Sodium (Colace) 100 mg PO BID [facility] Last Admin: 08/11/18 20:19 Dose: 100 mg Documented by: Azithromycin 500 mg/ Dextrose 250 mls @ 250 mls/hr IV DAILY [facility]; Protocol Stop: 08/12/18 09:59 Last Infusion: 08/11/18 11:00 Dose: Infused Documented by: Furosemide 250 mg/ Sodium (Chloride) 250 mls @ 4 mls/hr IV Q24H [facility]; Protocol Last Admin: 08/11/18 20:27 Dose: Not Given Documented by: Lactulose (Cephulac) 10 gm PO DAILYP PRN PRN Reason: Constipation Last Admin: 08/11/18 17:21 Dose: 10 gm Documented by: Ondansetron HCl (Zofran) 4 mg IV Q4HP PRN PRN Reason: Nausea And Vomiting Polyethylene Glycol (Miralax) 17 gm PO DAILYP PRN PRN Reason: Constipation Potassium Chloride (Kdur) 10 meq PO QAC [facility] Last Admin: 08/11/18 09:41 Dose: 10 meq Documented by: Potassium Chloride (Kdur) 40 meq PO UD PRN PRN Reason: Potssium is 3-3.5 Potassium Chloride (Kdur) 40 meq PO UD PRN PRN Reason: Potassium < 3 Promethazine HCl (Phenergan) 0 mg PO Q6HP PRN PRN Reason: Nausea And Vomiting Rivaroxaban (Xarelto) 15 mg PO HS [facility] Last Admin: 08/11/18 20:19 Dose: 15 mg Documented by: Senna (Senokot) 2 tab PO HSP PRN PRN Reason: Constipation Last Admin: 08/11/18 20:19 Dose: 2 tab Documented by: Sodium Chloride (Saline Flush) 10 ml IV Q8 [facility] Last Admin: 08/12/18 05:17 Dose: 10 ml Documented by: Medical - PN: A/P - Time Spent With Patient Total time spent is greater than 50% in coordination of care (as documented) at patient's floor/unit and/or counseling patient: - Narrative A/P Narrative: A: *Cor pulmonale as well as acute on chronic left heart failure (systolic 30%/d iastolic dysfxn and RV systolic dysfxn) with pulmonary edema, PAH/mod TR/Biatrial dilation: -Right heart failure in addition to many other cardiac structure abnormalities portends to a poor prognosis -updated echo EF 35%, RV severely dilated & fxn mod-sev reduced, righ/left atrium severely dilated, MR, mod PH, -good diuresis *Right effusion: s/p thora (08/11) of 900cc, transudatre *PNA: SC neg *Acute hypoxic resp failure: 2/2 above -on 2L NC while sleeping, mostly desats while sleeping *h/o Leukocytosis/Thrombocytosis/MC Anemia: has followed with hematology in the past: no bandemia and afebrile *Afib/CMP: On Coreg/Xarelto/lasix. follows with Dr. Fregoso -rate controlled *HTN/HLD: *CKD IIIb: Follows with Dr. Skinner *Obesity: *NICOL: Has been evaluated in the past but did not tolerate the mask *Microcytic Anemia: *Goals of care: Overall poor prognosis given significant cardiac abnormalities encompassing entirety of Heart P: -lasix gtt -Monitor I's and O/weights/I's and O's -Rocephin/azithromycin, -leg wraps, elevate -pt/ot -f/u with hematology outpt, obtain peripheral smear while inpt -RT for home oxygen -ppx: Xarelto Likely home with home health care, family does not want residential facility No code Medical - PN: Qual - VTE Deep Vein Thrombosis/Pulmonary Embolism Present on Admission: No
[2018-08-12 08:09] LABS: Anisocytosis 2+ (NONE SEEN); Band Neutrophils % 8 % (0-10); Basophils % (Manual) 1 % (0-2); Hypochromasia 2+ (NONE SEEN); Lymphocytes % 3 % (15-49); Monocytes % (Manual) 1 % (1-12); Platelet Estimate INCREASED (NORMAL); RBC Morphology ABNORM (NORMAL); Segmented Neutrophils % 87 % (38-78)
[2018-08-12] MEDS: AZITHROMYCIN 500 MG in DEXTROSE 5% IN WATER 250 ML IV SCH (08:14)
[2018-08-12] MEDS: CARVEDILOL 3.125 MG TABLET PO SCH ×2 (08:15→16:56)
[2018-08-12] MEDS: ALLOPURINOL 100 MG TABLET PO SCH (08:15)
[2018-08-12] MEDS: DOCUSATE SODIUM 100 MG CAPSULE PO SCH ×2 (08:15→20:22)
[2018-08-12] MEDS: ATORVASTATIN 20 MG TABLET PO SCH (08:15)
[2018-08-12] MEDS: cefTRIAXone 1 GM VIAL IV SCH (08:15)
[2018-08-12] MEDS: POTASSIUM CHLORIDE 10 MEQ TABLET PO SCH (08:15)
[2018-08-12] MEDS ORDERED: 0.9 % SODIUM CHLORIDE 250 ML IV SCH (08:30)
[2018-08-12] MEDS ORDERED: POTASSIUM CHLORIDE 20 MEQ TABLET PO PRN ×2 (11:13)
[2018-08-12] MEDS ORDERED: ONDANSETRON 4 MG/2 ML VIAL IV PRN (11:13)
[2018-08-12] MEDS ORDERED: LACTULOSE 20 GM/30 ML ORAL.SOL PO PRN (11:13)
[2018-08-12] MEDS ORDERED: PROMETHAZINE 25 MG TABLET PO PRN (11:13)
--- NOTE | 2018-08-12 11:39 | Discharge Summary ---
Medical - DS: Prov Patient information: Note initiated : 08/12/18 at 11:36 am Service Date, if different from initiated Date: [] Patient: Ayden Guzmán 83 y/o M admitted on 08/10/18 for CHF Exacerbation/PNA & CHF. Chief Complaint: [] Date of admission: 08/10/18 14:02 Primary care physician: NADIRA Yuan Consults: 08/10/18 Consult to Physician [CONS] Stat Comment: Consulting Provider: Saurav Cazares Reason For Exam: Physician to Consult Medical - DS: Meds - Discharge Medications Active and Home Medications: Home Medications aspirin 81 mg tablet,delayed release 81 mg PO HS 01/21/16 [History Confirmed 08/10/18 Last Taken 08/09/18] potassium chloride ER 10 mEq capsule,extended release 10 meq PO QDAY #90 cap 09/09/17 [Rx Confirmed 08/10/18 Last Taken 08/09/18] allopurinol 100 mg tablet 100 mg PO QDAY #90 tab 03/23/18 [Rx Confirmed 08/10/18 Last Taken 08/09/18] Atorvastatin Calcium 20 mg PO HS 08/10/18 [History Confirmed 08/10/18 Last Taken 08/09/18] Calcitriol [Rocaltrol] 1 cap PO TID 08/10/18 [History Confirmed 08/10/18 Last Taken 08/09/18] Carvedilol [Coreg] 3.125 mg PO BID 08/10/18 [History Confirmed 08/10/18 Last Taken 08/09/18] Cholecalciferol (Vitamin D3) [Vitamin D3] 1 cap PO DAILY 08/10/18 [History Confirmed 08/10/18 Last Taken 08/09/18] Doxycycline Hyclate [Morgidox] 100 mg PO BID 08/10/18 [History Confirmed 08/10/18 Last Taken 08/09/18] Furosemide [Lasix] 40 mg PO BID 08/10/18 [History Confirmed 08/10/18 Last Taken 08/09/18] Magnesium Hydroxide [Milk of Magnesia] 5 ml PO BID 08/10/18 [History Confirmed 08/10/18 Last Taken 08/09/18] Multivitamin [One-Daily Multi-Vitamin] 1 each PO DAILY 08/10/18 [History Confirmed 08/10/18 Last Taken 08/09/18] Omeprazole [PriLOSEC] 40 mg PO ACB 08/10/18 [History Confirmed 08/10/18 Last Taken 08/09/18] Rivaroxaban [Xarelto] 15 mg PO HS 08/10/18 [History Confirmed 08/10/18 Last Taken 08/09/18] Sennosides/Docusate Sodium [[facility] Senna Plus Tablet] 8.6 mg PO BID 08/10/18 [History Confirmed 08/10/18 Last Taken 08/09/18] Vitamin B Complex [Balanced B-50] 1 each PO DAILY 08/10/18 [History Confirmed 08/10/18 Last Taken 08/09/18] Medical - DS: Hosp Hospital course: Mr. Guzmán is a 83 year old M Mr. Guzmán is a 83 year old M presents to the ED from Dr. Fregoso's office for shortness of breath and swelling. Patient is quite hard of hearing. History obtained from patient as well as . Sounds like symptoms started about 2 weeks ago with cough productive of mild sputum, yellow. Denies fever chills. He was given doxycycline by his primary care provider but symptoms not relieved. He is also had increased shortness of breath since that time, he always has some shortness of breath at baseline. As well as increased lower extremity swelling. It is possible that he is gained about 15 pounds of water weight over the past couple weeks. Denies being on any steroids and denies extra salt intake. Sleeps in a recliner for comfort, denies breathing issues. Denies chest pain. In the ED he was evaluated and felt to have pneumonia as well as CHF. He did have a mildly elevated troponin in the setting of chronic kidney disease this was discussed with Dr. Fregoso who had no concerns and felt it was related to his heart failure, EKG is similar to previous EKG. Patient denies chest pain. White blood cell count was 20. 08/11 Slept okay. No overnight events. Urinated well overnight. He feels his coughing improving and denies any shortness of breath at rest. Son at bedside. Chest x-ray with increased right side pleural effusion. 08/12 No issues overnight. Other than he does desat when he sleeps some. He has been evaluated for obstructive sleep apnea in the past but did not tolerate the mask in the sleep study. He is put out good diuresis. Denies shortness of breath and has minimal cough and overall feeling better. Family present and I did discuss his severe cardiac abnormalities and poor long- term prognosis and his tenuous state at baseline. Discharge diagnosis: Cor pulmonale and left heart failure question pneumonia Secondary discharge diagnosis: Right effusion chronic leukocytosis thrombocytosis microcytic anemia A. fib cardia myopathy hypertension chronic kidney disease obesity obstructive sleep apnea - Time Spent with Patient Total time spent providing and/or coordinating discharge services: Greater than 30 minutes Medical - DS: Exam - Constitutional Vitals: Vital Signs Temp Pulse Resp BP BP BP Pulse Ox 08/12/18 08:03 98.4 F 20 124/100 96 08/12/18 07:15 97 08/12/18 07:01 18 119/60 97 08/12/18 06:30 97 08/12/18 06:15 98 08/12/18 06:02 105/53 97 08/12/18 06:00 98.4 F 96 08/12/18 05:05 123/62 98 08/12/18 05:00 98 08/12/18 04:30 98 08/12/18 04:15 97 08/12/18 04:02 97 08/12/18 04:01 97.6 F 16 102/90 96 08/12/18 04:00 96 08/12/18 03:45 97 08/12/18 03:32 97 08/12/18 03:30 96 08/12/18 03:21 77 L 08/12/18 03:15 87 L 08/12/18 03:02 93 08/12/18 03:01 107/73 90 08/12/18 03:00 91 08/12/18 02:45 91 08/12/18 02:30 92 08/12/18 02:15 91 08/12/18 02:02 92 08/12/18 02:01 107/57 90 08/12/18 02:00 91 08/12/18 01:45 92 08/12/18 01:17 90 91 08/12/18 01:15 87 L 08/12/18 01:02 91 08/12/18 01:01 108/51 89 L 08/12/18 01:00 91 08/12/18 00:45 91 05/17/19 00:30 90 08/12/18 00:15 92 08/12/18 00:01 16 109/36 90 08/12/18 00:00 91 08/11/18 23:45 92 08/11/18 23:30 92 08/11/18 23:03 106/74 08/11/18 23:00 91 08/11/18 22:45 89 L 08/11/18 22:30 91 08/11/18 22:15 89 L 08/11/18 22:02 90 08/11/18 22:01 103/63 92 08/11/18 22:00 91 08/11/18 21:45 92 08/11/18 21:30 89 L 08/11/18 21:15 89 L 08/11/18 21:03 90 08/11/18 21:02 104/47 90 08/11/18 21:00 87 L 08/11/18 20:11 97 08/11/18 20:10 109/54 08/11/18 19:45 99 08/11/18 19:30 99 08/11/18 19:15 97 08/11/18 19:01 100 08/11/18 19:00 107/90 99 08/11/18 18:19 102 H 99 08/11/18 18:01 98.4 F 16 101/82 101/82 98 08/11/18 18:00 83 18 101/82 98 08/11/18 17:37 124/81 08/11/18 17:01 124/81 08/11/18 17:00 98.4 F 88 18 142/81 97 08/11/18 16:45 99 08/11/18 16:30 98 08/11/18 16:15 98 08/11/18 16:01 115/60 99 08/11/18 16:00 87 18 115/60 96 08/11/18 15:56 99/33 99 08/11/18 15:45 95 08/11/18 15:30 97 08/11/18 15:15 98 08/11/18 15:01 99/31 96 08/11/18 15:00 95 08/11/18 14:45 96 08/11/18 14:30 97 08/11/18 14:15 98 08/11/18 14:12 111/37 100 08/11/18 14:02 89/55 97 08/11/18 14:00 83 97 08/11/18 12:01 98.0 F 103/64 96 08/11/18 11:59 98.0 F 83 21 104/59 95 Intake and Output 08/11/18 08/12/18 08/12/18 21:59 05:59 13:59 Intake Total 255 350 Output Total 1750 1650 600 Balance -1495 -1300 -600 Intake: IV 155 Lasix 250 mg In Sodium Chloride 155 0.9% 225 ml @ 6 MG/HR 6 mls/hr IV Q24H SIL Rx#:[id number] Oral 100 350 Output: Void Amount 1750 1650 600 Other: Urine Appearance Clear Clear Urine Color Straw Dark Yellow Straw Urine Odor Normal Normal Normal # Bowel Movements 0 0 Weight 95.481 kg 95.481 kg Patient Weight 08/13/18 05:59 Weight 95.481 kg Medical - DS: Data Labs on day of discharge: Labs from last 24 hours 08/12/18 08/12/18 08/12/18 09:50 04:15 04:15 WBC 21.8 H RBC 6.02 H Hgb 12.2 L Hct 41.8 MCV 69.5 L MCH 20.2 L MCHC 29.1 L RDW 24.5 H Plt Count 484 H MPV 9.1 Total Counted 100 Seg Neutrophils % 87 H Band Neutrophils % 8 Lymphocytes % 3 L Monocytes % (Manual) 1 Basophils % (Manual) 1 Platelet Estimate Increased A RBC Morphology Abnorm A Polychromasia 1+ A Hypochromasia 2+ A Anisocytosis 2+ A Microcytosis 3+ A Smear Path Review Pending Sodium 139 Potassium 3.8 Chloride 96 Carbon Dioxide 30 Anion Gap 13.0 BUN 46 H Creatinine 1.9 H GFR Calculation 32 Glucose 121 H Uric Acid 10.3 H Calcium 9.0 Phosphorus 3.7 Magnesium 1.9 Total Bilirubin 1.5 H Direct Bilirubin 0.7 H GGT 180 H AST 26 ALT 16 Alkaline Phosphatase 197 H Lactate Dehydrogenase 606 H Total Protein 6.2 Albumin 3.6 Globulin 2.6 Albumin/Globulin Ratio 1.4 Triglycerides 39 Fluid pH Fluid Total Protein Pleural Fluid Source Pleural Color Pleural Appearance Pleural RBC Pleural Tot Cell Ct Pleural Nuc Cells Pleural Neutrophils Pleural Lymphocytes Pleural Monocytes Pleural Macrophages Pleural Mesothelial Pleural Total Protein Pleural LDH Pleural Glucose 08/11/18 08/11/18 11:10 11:10 WBC RBC Hgb Hct MCV MCH MCHC RDW Plt Count MPV Total Counted Seg Neutrophils % Band Neutrophils % Lymphocytes % Monocytes % (Manual) Basophils % (Manual) Platelet Estimate RBC Morphology Polychromasia Hypochromasia Anisocytosis Microcytosis Smear Path Review Sodium Potassium Chloride Carbon Dioxide Anion Gap BUN Creatinine GFR Calculation Glucose Uric Acid Calcium Phosphorus Magnesium Total Bilirubin Direct Bilirubin GGT AST ALT Alkaline Phosphatase Lactate Dehydrogenase Total Protein Albumin Globulin Albumin/Globulin Ratio Triglycerides Fluid pH 7.61 Fluid Total Protein TNP Pleural Fluid Source Pleural Pleural Color Yellow Pleural Appearance Clear Pleural RBC < [address] 100 Pleural Nuc Cells 133 Pleural Neutrophils 47 Pleural Lymphocytes 43 Pleural Monocytes 7 Pleural Macrophages 1 Pleural Mesothelial 2 Pleural Total Protein 2.5 Pleural LDH 192 Pleural Glucose 181 Preliminary micro results at discharge 08/11/18 11:10 Body Fluid Culture - Preliminary Pleural Fluid 08/10/18 12:40 Blood Culture - Preliminary Blood 08/10/18 12:46 Blood Culture - Preliminary Blood Medical - DS: A/P - Patient/Caregiver Discharge Instructions Activity: increase activity as tolerated Diet: Low Sodium (2gm) Additional Instructions: Follow-up with hematology in the next couple weeks regarding chronic leukocytosis thrombocytosis and anemia - Follow up Plan Follow up with: Natalee Nash ARNP [Primary Care Provider] - Paxton Fregoso MD [Physician] - Disposition: Home Health Service Prognosis: Serious Rehab Potential: Fair Medical - DS: Qual - VTE Deep Vein Thrombosis/Pulmonary Embolism Present on Admission: No
[2018-08-12] MEDS: POLYETHYLENE GLYCOL 3350 17 GM PACKET PO PRN (14:42)
[2018-08-12] MEDS: 0.9 % SODIUM CHLORIDE 250 ML IV SCH ×3 (14:43→23:50)
[2018-08-12] MEDS: FUROSEMIDE 250 MG in 0.9 % SODIUM CHLORIDE 225 ML IV SCH ×2 (16:56→20:02)
[2018-08-12] MEDS: IPRATROPIUM/ALBUTEROL 3 ML AMPUL.NEB NEB PRN (19:51)
[2018-08-12] MEDS: ASPIRIN 81 MG TAB.CHEW PO SCH (20:22)
[2018-08-12] MEDS: RIVAROXABAN 15 MG TABLET PO SCH (20:22)
[2018-08-12] MEDS: SENNOSIDES 1 TABLET PO PRN (20:22)
[2018-08-13] MEDS: 0.9 % SODIUM CHLORIDE 10 ML SYRINGE IV SCH ×3 (05:07→21:20)
[2018-08-13] MEDS ORDERED: 0.9 % SODIUM CHLORIDE 250 ML IV SCH (06:30)
[2018-08-13] MEDS: CARVEDILOL 3.125 MG TABLET PO SCH ×2 (08:18→16:59)
[2018-08-13] MEDS: POTASSIUM CHLORIDE 10 MEQ TABLET PO SCH (08:18)
--- NOTE | 2018-08-13 08:59 | Internal Med Progress Note ---
Medical - PN: Subj Patient information: Note initiated : 08/13/18 at 8:55 am Service Date, if different from initiated Date: [] Patient: Ayden Guzmán a 83 y/o M admitted on 08/10/18 for CHF Exacerbation/PNA & CHF. Chief Complaint: [] Interval history: Mr. Guzmán is a 83 year old M presents to the ED from Dr. Fregoso's office for shortness of breath and swelling. Patient is quite hard of hearing. History obtained from patient as well as . Sounds like symptoms started about 2 weeks ago with cough productive of mild sputum, yellow. Denies fever chills. He was given doxycycline by his primary care provider but symptoms not relieved. He is also had increased shortness of breath since that time, he always has some shortness of breath at baseline. As well as increased lower extremity swelling. It is possible that he is gained about 15 pounds of water weight over the past couple weeks. Denies being on any steroids and denies extra salt intake. Sleeps in a recliner for comfort, denies breathing issues. Denies chest pain. In the ED he was evaluated and felt to have pneumonia as well as CHF. He did have a mildly elevated troponin in the setting of chronic kidney disease this was discussed with Dr. Fregoso who had no concerns and felt it was related to his heart failure, EKG is similar to previous EKG. Patient denies chest pain. White blood cell count was 20. 08/11 Slept okay. No overnight events. Urinated well overnight. He feels his coughing improving and denies any shortness of breath at rest. Son at bedside. Chest x-ray with increased right side pleural effusion. 08/12 No issues overnight. Other than he does desat when he sleeps some. He has been evaluated for obstructive sleep apnea in the past but did not tolerate the mask in the sleep study. He is put out good diuresis. Denies shortness of breath and has minimal cough and overall feeling better. Family present and I did discuss his severe cardiac abnormalities and poor long- term prognosis and his tenuous state at baseline. 08/13 Feeling okay. No overnight issues. Did have some coughing. Denies shortness o f breath. Still edematous in the legs. Review of Systems: denies headache/fever/chills/nausea/vomiting/chest or abdominal pain/diarrhea. Otherwise see above. - Constitutional Vitals: Vital Signs Temp Pulse Resp BP Pulse Ox 98.9 F 95 H 20 118/77 94 08/13/18 07:00 08/13/18 05:15 08/13/18 08:00 08/13/18 07:00 08/13/18 08:00 Period Temp Pulse Resp BP Sys/Valentin Pulse Ox Last 24 Hr 97.7 F-98.9 F 80-107 16-93 96-120/38-92 72-95 Intake and Output 08/12/18 08/13/18 08/13/18 21:59 05:59 13:59 Intake Total 1350 200 Output Total 600 1300 400 Balance 750 -1100 -400 Weight 93.667 kg Intake & Output: Intake & Output 08/12/18 08/13/18 08/13/18 21:59 05:59 13:59 Intake Total 1350 200 Output Total 600 1300 400 Balance 750 -1100 -400 Weight 93.667 kg Intake: IV 350 Oral 1000 200 Output: Void Amount 600 1300 400 Other: Meal Dinner snack Percent of Meal Consumed 100% 100% Feeding Ability Independent Assist with Tray Set Up Urine Appearance Clear Urine Color Dark Yellow Dark Yellow Urine Odor Normal Stool Size Large Stool Color Brown Stool Consistency Formed # Bowel Movements 1 Exam: General: Alert, Awake, No acute Distress, obese Eyes/N/T: EOMI, Head/Neck: neck supple, CV: Irregularly irregular, no murmur Pulm: Diminished, no rhonchi Abdomen: Soft, nontender +BS x4 Ext: no clubbing/cyanosis, 3+ bilateral lower extremity edema Neuro: Alert, no focal deficits, moves all extremities, Skin: warm/dry Medical - PN: Obj Da - Labs CBC & Chem 7: 08/12/18 04:15 08/12/18 04:15 Labs: Abnormal Lab Results 08/12/18 08/12/18 08/11/18 04:15 04:15 10:05 WBC 21.8 H RBC 6.02 H Hgb 12.2 L MCV 69.5 L MCH 20.2 L MCHC 29.1 L RDW 24.5 H Plt Count 484 H MPV Gran % Lymph % (Auto) Gran # Lymph # (Auto) Seg Neutrophils % 87 H Lymphocytes % 3 L Platelet Estimate Increased A RBC Morphology Abnorm A Polychromasia 1+ A Hypochromasia 2+ A Anisocytosis 2+ A Microcytosis 3+ A Ovalocytes RBC Fragments PT 28.3 H INR 2.7 H BUN 46 H Creatinine 1.9 H Glucose 121 H Uric Acid 10.3 H Total Bilirubin 1.5 H Direct Bilirubin 0.7 H GGT 180 H Alkaline Phosphatase 197 H Lactate Dehydrogenase 606 H Myoglobin Troponin T NT-Pro-B Natriuret Pep Urine Protein 08/11/18 08/11/18 08/11/18 04:15 04:15 04:15 WBC 24.7 H RBC 6.27 H Hgb 12.5 L MCV 70.7 L MCH 19.9 L MCHC 28.2 L RDW 24.8 H Plt Count 645 H MPV 11.4 H Gran % 94.4 H Lymph % (Auto) 3.0 L Gran # 23.3 H Lymph # (Auto) 0.7 L Seg Neutrophils % 90 H Lymphocytes % 1 L Platelet Estimate Increased A RBC Morphology Abnorm A Polychromasia Hypochromasia 2+ A Anisocytosis 2+ A Microcytosis 2+ A Ovalocytes RBC Fragments 1+ A PT INR BUN 40 H Creatinine 2.1 H Glucose 125 H Uric Acid 10.5 H Total Bilirubin 1.9 H Direct Bilirubin 0.7 H GGT 190 H Alkaline Phosphatase 224 H Lactate Dehydrogenase 693 H Myoglobin Troponin T NT-Pro-B Natriuret Pep Urine Protein 08/10/18 08/10/18 08/10/18 11:04 10:57 10:57 WBC RBC Hgb MCV MCH MCHC RDW Plt Count MPV Gran % Lymph % (Auto) Gran # Lymph # (Auto) Seg Neutrophils % 83 H Lymphocytes % 7 L Platelet Estimate Increased A RBC Morphology Polychromasia Occ A Hypochromasia 2+ A Anisocytosis 2+ A Microcytosis 2+ A Ovalocytes 1+ A RBC Fragments Few A PT INR BUN Creatinine Glucose Uric Acid Total Bilirubin Direct Bilirubin GGT Alkaline Phosphatase Lactate Dehydrogenase Myoglobin Troponin T 0.05 H* NT-Pro-B Natriuret Pep Urine Protein 30 A 08/10/18 08/10/18 10:57 10:57 WBC 20.4 H RBC 6.21 H Hgb 12.4 L MCV 70.4 L MCH 20.0 L MCHC 28.4 L RDW 25.4 H Plt Count 641 H MPV 11.2 H Gran % 87.0 H Lymph % (Auto) 7.0 L Gran # Lymph # (Auto) Seg Neutrophils % Lymphocytes % Platelet Estimate RBC Morphology Polychromasia Hypochromasia Anisocytosis Microcytosis Ovalocytes RBC Fragments PT INR BUN 39 H Creatinine 2.0 H Glucose Uric Acid Total Bilirubin 2.0 H Direct Bilirubin GGT Alkaline Phosphatase 213 H Lactate Dehydrogenase Myoglobin 139 H Troponin T NT-Pro-B Natriuret Pep 7184.0 H Urine Protein Meds: Medications Albuterol/Ipratropium (Duoneb) 3 ml NEB Q4HP PRN PRN Reason: Shortness Of Breath Last Admin: 08/12/18 19:51 Dose: 3 ml Documented by: Allopurinol (Zyloprim) 100 mg PO QDAY [facility] Aspirin (Aspirin) 81 mg PO HS [facility] Last Admin: 08/12/18 20:22 Dose: 81 mg Documented by: Atorvastatin Calcium (Lipitor) 20 mg PO DAILY [facility]) [facility] Last Admin: 08/13/18 08:18 Dose: 3.125 mg Documented by: Ceftriaxone Sodium (Rocephin) 1 gm IV DAILY [facility] Docusate Sodium (Colace) 100 mg PO BID [facility] Last Admin: 08/12/18 20:22 Dose: 100 mg Documented by: Furosemide 250 mg/ Sodium (Chloride) 250 mls @ 4 mls/hr IV Q24H [facility], [facility]; Protocol Last Admin: 08/12/18 20:02 Dose: 4 mg/hr, 4 mls/hr Documented by: Sodium Chloride (Sodium Chloride 0.9%) 250 mls @ 20 mls/hr IV .[id number] [facility] Last Admin: 08/12/18 23:50 Dose: Not Given Documented by: Lactulose (Cephulac) 10 gm PO DAILYP PRN PRN Reason: Constipation Ondansetron HCl (Zofran) 4 mg IV Q4HP PRN PRN Reason: Nausea And Vomiting Polyethylene Glycol (Miralax) 17 gm PO DAILYP PRN PRN Reason: Constipation Last Admin: 08/12/18 14:42 Dose: 17 gm Documented by: Potassium Chloride (Kdur) 40 meq PO UD PRN PRN Reason: Potssium is 3-3.5 Potassium Chloride (Kdur) 40 meq PO UD PRN PRN Reason: Potassium < 3 Potassium Chloride (Kdur) 10 meq PO QAMCC [facility] Last Admin: 08/13/18 08:18 Dose: 10 meq Documented by: Promethazine HCl (Phenergan) 0 mg PO Q6HP PRN PRN Reason: Nausea And Vomiting Rivaroxaban (Xarelto) 15 mg PO HS [facility] Last Admin: 08/12/18 20:22 Dose: 15 mg Documented by: Senna (Senokot) 2 tab PO HSP PRN PRN Reason: Constipation Last Admin: 08/12/18 20:22 Dose: 2 tab Documented by: Sodium Chloride (Saline Flush) 10 ml IV Q8 [facility] Last Admin: 08/13/18 05:07 Dose: Not Given Documented by: Medical - PN: A/P - Time Spent With Patient Total time spent is greater than 50% in coordination of care (as documented) at patient's floor/unit and/or counseling patient: - Narrative A/P Narrative: A: *Cor pulmonale as well as acute on chronic left heart failure (systolic 30%/diastolic dysfxn and RV systolic dysfxn) with pulmonary edema, PAH/mod TR/ Biatrial dilation: -Right heart failure in addition to many other cardiac structure abnormalities portends to a poor prognosis -updated echo EF 35%, RV severely dilated & fxn mod-sev reduced, righ/left atrium severely dilated, MR, mod PH, -11L UOP, 7L net *Right effusion: s/p thora (08/11) of 900cc, transudatre *?PNA: SC neg, pct low, *Acute hypoxic resp failure: 2/2 above -on 2L NC while sleeping, mostly desats while sleeping *h/o Leukocytosis/Thrombocytosis/MC Anemia: has followed with hematology in the past: no bandemia and afebrile *Afib/CMP: On Coreg/Xarelto/lasix. follows with Dr. Fregoso -rate controlled *HTN/HLD: *CKD IIIb: Follows with Dr. Skinner *Obesity: *NICOL: Has been evaluated in the past but did not tolerate the mask *Microcytic Anemia: *Goals of care: Overall poor prognosis given significant cardiac abnormalities encompassing entirety of Heart P: -lasix gtt, one more day, still edematous LE's -Monitor I's and O/weights/I's and O's -Rocephin/azithromycin, -leg wraps, elevate -pt/ot -f/u with hematology outpt, obtain peripheral smear while inpt -RT for home oxygen -ppx: Xarelto Likely home with home health care, family does not want correction facility No code Medical - PN: Qual - VTE Deep Vein Thrombosis/Pulmonary Embolism Present on Admission: No
[2018-08-13] MEDS: ALLOPURINOL 100 MG TABLET PO SCH (09:28)
[2018-08-13] MEDS: ATORVASTATIN 20 MG TABLET PO SCH (09:28)
[2018-08-13] MEDS: DOCUSATE SODIUM 100 MG CAPSULE PO SCH ×2 (09:28→20:23)
[2018-08-13] MEDS: cefTRIAXone 1 GM VIAL IV SCH (09:28)
[2018-08-13] MEDS: 0.9 % SODIUM CHLORIDE 250 ML IV SCH (12:32)
--- NOTE | 2018-08-13 13:27 | Discharge Summary ---
Medical - DS: Prov Patient information: Note initiated : 08/13/18 at 1:24 pm Service Date, if different from initiated Date: [] Patient: Ayden Guzmán 83 y/o M admitted on 08/10/18 for CHF Exacerbation/PNA & CHF. Chief Complaint: [] Date of admission: 08/10/18 14:02 Discharge date: 08/14/18 Primary care physician: NADIRA Yuan Consults: 08/10/18 Consult to Physician [CONS] Stat Comment: Consulting Provider: Saurav Cazares Reason For Exam: Physician to Consult Medical - DS: Meds - Discharge Medications Prescriptions: Lisinopril [Zestril] 2.5 mg PO DAILY #30 tab Spironolactone [Aldactone] 12.5 mg PO DAILY #30 tab Active and Home Medications: Home Medications aspirin 81 mg tablet,delayed release 81 mg PO HS 01/21/16 [History Confirmed 08/10/18 Last Taken 08/09/18] potassium chloride ER 10 mEq capsule,extended release 10 meq PO QDAY #90 cap 09/09/17 [Rx Confirmed 08/10/18 Last Taken 08/09/18] allopurinol 100 mg tablet 100 mg PO QDAY #90 tab 03/23/18 [Rx Confirmed 08/10/18 Last Taken 08/09/18] Atorvastatin Calcium 20 mg PO HS 08/10/18 [History Confirmed 08/10/18 Last Taken 08/09/18] Calcitriol [Rocaltrol] 1 cap PO TID 08/10/18 [History Confirmed 08/10/18 Last Taken 08/09/18] Carvedilol [Coreg] 3.125 mg PO BID 08/10/18 [History Confirmed 08/10/18 Last Taken 08/09/18] Cholecalciferol (Vitamin D3) [Vitamin D3] 1 cap PO DAILY 08/10/18 [History Confirmed 08/10/18 Last Taken 08/09/18] Furosemide [Lasix] 40 mg PO BID 08/10/18 [History Confirmed 08/10/18 Last Taken 08/09/18] Magnesium Hydroxide [Milk of Magnesia] 5 ml PO BID 08/10/18 [History Confirmed 08/10/18 Last Taken 08/09/18] Multivitamin [One-Daily Multi-Vitamin] 1 each PO DAILY 08/10/18 [History Confirmed 08/10/18 Last Taken 08/09/18] Omeprazole [Prilosec] 40 mg PO ACB 08/10/18 [History Confirmed 08/10/18 Last Taken 08/09/18] Rivaroxaban [Xarelto] 15 mg PO HS 08/10/18 [History Confirmed 08/10/18 Last Taken 08/09/18] Sennosides/Docusate Sodium [[facility] Senna Plus Tablet] 8.6 mg PO BID 08/10/18 [History Confirmed 08/10/18 Last Taken 08/09/18] Vitamin B Complex [Balanced B-50] 1 each PO DAILY 08/10/18 [History Confirmed 08/10/18 Last Taken 08/09/18] Home Medications aspirin 81 mg tablet,delayed release 81 mg PO HS 01/21/16 [History Confirmed 08/10/18 Last Taken 08/09/18] potassium chloride ER 10 mEq capsule,extended release 10 meq PO QDAY #90 cap 09/09/17 [Rx Confirmed 08/10/18 Last Taken 08/09/18] allopurinol 100 mg tablet 100 mg PO QDAY #90 tab 03/23/18 [Rx Confirmed 08/10/18 Last Taken 08/09/18] Atorvastatin Calcium 20 mg PO HS 08/10/18 [History Confirmed 08/10/18 Last Taken 08/09/18] Calcitriol [Rocaltrol] 1 cap PO TID 08/10/18 [History Confirmed 08/10/18 Last Taken 08/09/18] Carvedilol [Coreg] 3.125 mg PO BID 08/10/18 [History Confirmed 08/10/18 Last Taken 08/09/18] Cholecalciferol (Vitamin D3) [Vitamin D3] 1 cap PO DAILY 08/10/18 [History Confirmed 08/10/18 Last Taken 08/09/18] Furosemide [Lasix] 40 mg PO BID 08/10/18 [History Confirmed 08/10/18 Last Taken 08/09/18] Magnesium Hydroxide [Milk of Magnesia] 5 ml PO BID 08/10/18 [History Confirmed 08/10/18 Last Taken 08/09/18] Multivitamin [One-Daily Multi-Vitamin] 1 each PO DAILY 08/10/18 [History Confirmed 08/10/18 Last Taken 08/09/18] Omeprazole [Prilosec] 40 mg PO ACB 08/10/18 [History Confirmed 08/10/18 Last Taken 08/09/18] Rivaroxaban [Xarelto] 15 mg PO HS 08/10/18 [History Confirmed 08/10/18 Last Taken 08/09/18] Sennosides/Docusate Sodium [[facility]vs Senna Plus Tablet] 8.6 mg PO BID 08/10/18 [History Confirmed 08/10/18 Last Taken 08/09/18] Vitamin B Complex [Balanced B-50] 1 each PO DAILY 08/10/18 [History Confirmed 08/10/18 Last Taken 08/09/18] Lisinopril [Zestril] 2.5 mg PO DAILY #30 tab 08/13/18 [Rx Last Taken Unknown] Spironolactone [Aldactone] 12.5 mg PO DAILY #30 tab 08/13/18 [Rx Last Taken Unknown] Medical - DS: Hosp Hospital course: Mr. Guzmán is a 83 year old M Mr. Guzmán is a 83 year old M presents to the ED from Dr. Fregoso's office for shortness of breath and swelling. Patient is quite hard of hearing. History obtained from patient as well as . Sounds like symptoms started about 2 weeks ago with cough productive of mild sputum, yellow. Denies fever chills. He was given doxycycline by his primary care provider but symptoms not relieved. He is also had increased shortness of breath since that time, he always has some shortness of breath at baseline. As well as increased lower extremity swelling. It is possible that he is gained about 15 pounds of water weight over the past couple weeks. Denies being on any steroids and denies extra salt intake. Sleeps in a recliner for comfort, denies breathing issues. Denies chest pain. In the ED he was evaluated and felt to have pneumonia as well as CHF. He did have a mildly elevated troponin in the setting of chronic kidney disease this was discussed with Dr. Fregoso who had no concerns and felt it was related to his heart failure, EKG is similar to previous EKG. Patient denies chest pain. White blood cell count was 20. 5/16 Slept okay. No overnight events. Urinated well overnight. He feels his c oughing improving and denies any shortness of breath at rest. Son at bedside. Chest x-ray with increased right side pleural effusion. 08/12 No issues overnight. Other than he does desat when he sleeps some. He has been evaluated for obstructive sleep apnea in the past but did not tolerate the mask in the sleep study. He is put out good diuresis. Denies shortness of breath and has minimal cough and overall feeling better. Family present and I did discuss his severe cardiac abnormalities and poor long- term prognosis and his tenuous state at baseline. 08/13 Feeling okay. No overnight issues. Did have some coughing. Denies shortness of breath. Still edematous in the legs. 08/14 No overnight events. Doing well. Continues good diuresis. Urine output over the course 23354 of urine output, 9200 cc net with most of the difference being oral input at 3400cc. Follow closely with Dr. Fregoso Discharge diagnosis: Cor pulmonale and left heart failure pulmonary hypertension tricuspid regur Secondary discharge diagnosis: Right pleural effusion heart failure ?pneumonia hypoxic respiratory failure chronic leukocytosis thrombocytosis and anemia history of A. fib hypertension hyperlipidemia chronic kidney disease stage IIIb obesity obstructive sleep apnea - Time Spent with Patient Total time spent providing and/or coordinating discharge services: Greater than 30 minutes Medical - DS: Exam - Constitutional Vitals: Vital Signs Temp Pulse Pulse Resp BP BP BP 08/13/18 11:36 98.1 F 24 H 102/71 08/13/18 08:00 20 08/13/18 07:00 98.9 F 20 118/77 08/13/18 05:15 95 H 08/13/18 05:00 94 H 08/13/18 04:45 99 H 08/13/18 04:31 98.7 F 83 20 108/55 08/13/18 04:30 97 H 08/13/18 04:15 97 H 08/13/18 04:00 91 H 08/13/18 03:45 97 H 08/13/18 03:30 94 H 08/13/18 03:15 98 H 08/13/18 03:00 91 H 08/13/18 02:45 104 H 08/13/18 02:38 105 H 08/13/18 02:30 95 H 08/13/18 01:45 96 H 08/13/18 01:30 84 08/13/18 01:15 93 H 08/13/18 01:00 95 H 08/13/18 00:45 92 H 08/13/18 00:30 89 18 00:15 86 08/13/18 00:00 87 08/12/18 23:50 08/12/18 23:49 08/12/18 23:45 89 08/12/18 23:40 98.9 F 81 20 117/69 117/69 08/12/18 23:30 87 08/12/18 23:15 86 08/12/18 23:00 86 08/12/18 22:45 80 08/12/18 22:30 86 08/12/18 22:15 85 08/12/18 22:00 85 08/12/18 21:45 82 08/12/18 21:30 89 08/12/18 21:15 91 H 08/12/18 20:00 98.5 F 93 H 116/38 05 19:52 95 H 18 08/12/18 19:39 98.5 F 101 H 16 116/38 05 19:19 107 H 08/12/18 15:18 97.7 F 105 H 20 117/77 08/12/18 14:30 08/12/18 14:15 08/12/18 14:00 Pulse Ox 08/13/18 11:36 91 08/13/18 08:00 94 08/13/18 07:00 94 08/13/18 05:15 95 08/13/18 05:00 93 08/13/18 04:45 95 08/13/18 04:31 88 L 08/13/18 04:30 88 L 08/13/18 04:15 92 08/13/18 04:00 85 L 08/13/18 03:45 93 18 03:30 93 18 03:15 92 18 03:00 92 08/13/18 02:45 90 18 02:38 18 02:30 91 18 01:45 93 18 01:30 91 18 01:15 91 18 01:00 87 L 18 00:45 89 L 1819 00:30 91 18/19 00:15 92 05 00:00 93 08/12/18 23:50 94 08/12/18 23:49 72 L 08/12/18 23:45 93 08/12/18 23:40 93 08/12/18 23:30 91 08/12/18 23:15 91 08/12/18 23:00 92 08/12/18 22:45 93 08/12/18 22:30 92 08/12/18 22:15 92 08/12/18 22:00 93 08/12/18 21:45 91 08/12/18 21:30 91 08/12/18 21:15 92 08/12/18 20:00 08/12/18 19:52 08/12/18 19:39 94 08/12/18 19:19 93 08/12/18 15:18 93 08/12/18 14:30 94 08/12/18 14:15 95 08/12/18 14:00 92 Intake and Output 08/12/18 08/13/18 08/13/18 21:59 05:59 13:59 Intake Total 1350 200 490 Output Total 600 1300 900 Balance 750 -1100 -410 Intake: IV 350 250 Sodium Chloride 0.9% 250 ml @ 250 20 mls/hr IV .[id number] [facility] Rx#: [id number] Oral 1000 200 240 Output: Void Amount 600 1300 900 Other: Meal Dinner snack Breakfast Percent of Meal Consumed 100% 100% 100% Feeding Ability Independent Assist with Tray Set Up Independent Urine Appearance Clear Urine Color Dark Yellow Dark Yellow Straw Urine Odor Normal Stool Size Large Stool Color Brown Stool Consistency Formed # Bowel Movements 1 Weight 93.667 kg Medical - DS: Data Labs on day of discharge: Preliminary micro results at discharge 08/10/18 12:40 Blood Culture - Preliminary Blood 08/10/18 12:46 Blood Culture - Preliminary Blood Medical - DS: A/P - Patient/Caregiver Discharge Instructions Activity: as per physical therapy Diet: Low Sodium (2gm), Cardiac Additional Instructions: Follow-up with hematology in the next couple weeks regarding chronic leukocytosis thrombocytosis and anemia Prescriptions: Lisinopril [Zestril] 2.5 mg PO DAILY #30 tab Spironolactone [Aldactone] 12.5 mg PO DAILY #30 tab - Follow up Plan Follow up with: Natalee Nash ARNP [Primary Care Provider] - Paxton Fregoso MD [Physician] - Disposition: Home Health Service Prognosis: Serious Rehab Potential: Fair Overall status at discharge: patient is progressing back to baseline Medical - DS: Qual - VTE Deep Vein Thrombosis/Pulmonary Embolism Present on Admission: No
[2018-08-13] MEDS: SPIRONOLACTONE 25 MG TABLET PO SCH (14:16)
[2018-08-13] MEDS: IPRATROPIUM/ALBUTEROL 3 ML AMPUL.NEB NEB PRN (15:17)
[2018-08-13] MEDS: FUROSEMIDE 250 MG in 0.9 % SODIUM CHLORIDE 225 ML IV SCH (16:59)
[2018-08-13] MEDS ORDERED: POTASSIUM CHLORIDE 20 MEQ TABLET PO ONE (19:43)
[2018-08-13] MEDS: ASPIRIN 81 MG TAB.CHEW PO SCH (20:24)
[2018-08-13] MEDS: SENNOSIDES 1 TABLET PO PRN (20:24)
[2018-08-13] MEDS: RIVAROXABAN 15 MG TABLET PO SCH (20:24)
[2018-08-14] MEDS ORDERED: POTASSIUM CHLORIDE 40 MEQ in DEXTROSE 5% IN WATER 500 ML IV PRN (00:36)
[2018-08-14] MEDS: 0.9 % SODIUM CHLORIDE 250 ML IV SCH (03:10)
[2018-08-14] MEDS: 0.9 % SODIUM CHLORIDE 10 ML SYRINGE IV SCH (05:23)
[2018-08-14] MEDS: POLYETHYLENE GLYCOL 3350 17 GM PACKET PO PRN (05:38)
[2018-08-14] MEDS: DOCUSATE SODIUM 100 MG CAPSULE PO SCH (08:56)
[2018-08-14] MEDS: POTASSIUM CHLORIDE 10 MEQ TABLET PO SCH (08:56)
[2018-08-14] MEDS: SPIRONOLACTONE 25 MG TABLET PO SCH (08:57)
[2018-08-14] MEDS: ATORVASTATIN 20 MG TABLET PO SCH (08:57)
[2018-08-14] MEDS: ALLOPURINOL 100 MG TABLET PO SCH (08:57)
[2018-08-14] MEDS: CARVEDILOL 3.125 MG TABLET PO SCH (08:57)
[2018-08-14] MEDS: cefTRIAXone 1 GM VIAL IV SCH (08:57)
--- NOTE | 2018-08-15 12:50 | Non-GYN Cytology Report ---
NON [employer] COORDINATOR SPECIMEN NG DX CATEGORY Negative MICROSCOPIC DIAGNOSIS PLEURAL FLUID, RIGHT, THORACENTESIS: -- NO ATYPICAL OR MALIGNANT CELLS IDENTIFIED. -- REACTIVE MESOTHELIAL CELLS WITH MIXED ACUTE AND CHRONIC INFLAMMATION, SEE COMMENT. (EBD:sln) COMMENT: The patient's history of congestive heart failure is noted. The right pleural fluid shows mesothelial cells with mixed acute and chronic inflammation. No atypical or malignant cells are identified. MICROSCOPIC DESCRIPTION Cytologic preparations show numerous mesothelial cells with smooth nuclear chromatin and low nuclear to cytoplasmic ratios. There is a background of mixed acute (neutrophilic) chronic (lymphohistocytic) inflammation. No atypical or malignant cells are identified. (EBD:sln) EXTERNAL COMMENT ~1000 mL yellow fluid: 1 thinprep, 1 H/E, 1 Diff Quik, 1 Juárez Giemsa, 1 cell block Electronically Signed by: Yumi Sung M.D.
== END 2018-08-14 10:10 | disposition home health service (06) | DRG 314 ==
LOC: ED 10:38 → ICU 14:02
PROVIDERS: ADMIT Internal Medicine; ATTEND Internal Medicine

== ENCOUNTER 2018-10-27 11:11 | Observation (INO) ==
--- NOTE | 2018-10-27 11:51 | Emergency Department Note ---
GI Bleed HPI - General Chief complaint: Rectal Bleed Stated complaint: Rectal Bleeding Time Seen by Provider: 10/27/18 11:35 Source: patient Mode of arrival: wheelchair Limitations: no limitations - History of Present Illness HPI Narrative: Patient started developing a bloody bowel movements this morning after he had breakfast. There is no vomiting no emesis he denies abdominal pain. He does take xarelto, last dose he took was last night. He takes his medicines for atrial fibrillation and for history of DVT. No fevers associated. He denies chest pain or shortness of breath, he said no nausea vomiting. Denies any recent history of diarrhea but does state that his stools were loose, bloody. MD complaint: gross hematochezia Onset (ago): hour(s) Consistency: intermittent Severity: moderate Context: anticoagulant use Associated symptoms: Reports: denies other symptoms Treatments Prior to Arrival: none - Related Data Home Medications Medication Instructions Recorded Confirmed aspirin 81 mg tablet,delayed 81 mg PO HS 01/21/16 10/27/18 release Atorvastatin Calcium 20 mg PO HS 08/10/18 09/08/18 Calcitriol [Rocaltrol] 1 cap PO TID 08/10/18 09/08/18 Carvedilol [Coreg] 12.5 mg PO BID 08/10/18 10/27/18 Cholecalciferol (Vitamin D3) 1 cap PO DAILY 08/10/18 09/08/18 [Vitamin D3] Furosemide [Lasix] 40 mg PO BID 08/10/18 10/27/18 Magnesium Hydroxide [Milk of 5 ml PO BID 08/10/18 09/08/18 Magnesia] Multivitamin [One-Daily 1 each PO DAILY 08/10/18 09/08/18 Multi-Vitamin] Omeprazole [Prilosec] 40 mg PO ACB 08/10/18 09/08/18 Rivaroxaban [Xarelto] 15 mg PO HS 08/10/18 10/27/18 Sennosides/Docusate Sodium [Cvs 8.6 mg PO BID 08/10/18 09/08/18 Senna Plus Tablet] Vitamin B Complex [Balanced B-50] 1 each PO DAILY 08/10/18 09/08/18 Previous Rx's Medication Instructions Recorded allopurinol 100 mg tablet 100 mg PO QDAY #90 tab 03/23/18 Lisinopril [Zestril] 2.5 mg PO DAILY #30 tab 08/13/18 Spironolactone [Aldactone] 12.5 mg PO DAILY #30 tab 08/13/18 triamcinolone acetonide 0.1 % 1 applic DENTAL BID #5 g 09/08/18 dental paste Allergies Allergy/AdvReac Type Severity Reaction Status Date / Time heparin Allergy Severe Unknown Verified 09/08/18 10:17 Review of Systems All systems ED: reviewed and negative except as stated. Past Medical History - Past Medical History Source: old records reviewed, nursing notes reviewed Medical history: Reports: atrial fibrillation, CHF, DVT, pulmonary embolus, other (prostate cancer) Surgical history ED: Reports: non-contributory, prostatectomy, other (right and left shoulder repair) Family history: Reports: non-contributory - Social History smoking status: Never smoker Alcohol use: Reports: None Drug use: Reports: none Physical Exam Limitations: no limitations General appearance: alert, in no apparent distress Head: atraumatic, normocephalic, normal inspection Eye: Present: normal appearance, PERRL, EOMI, visual purcell intact, other (wears glasses) ENT: normal exam, normal oropharynx, mucous membranes moist, TM's normal bilaterally Neck: Present: normal inspection, full ROM, trachea midline. Absent: tenderness, meningismus Respiratory: Present: normal lung sounds bilaterally. Absent: respiratory di stress, rales/crackles Cardiovascular: Present: irregular rhythm, normal heart sounds Abdominal: Present: soft, normal bowel sounds. Absent: distention, tenderness, guarding, rebound Rectal: Present: normal inspection, decreased rectal tone, heme (+) stool, bloody stool. Absent: hemorrhoids : Present: normal inspection. Absent: testicular tenderness Extremities: Present: normal inspection, full ROM, pedal edema Back: Absent: CVA tenderness (R), CVA tenderness (L), vertebral tenderness Neurological: Present: alert, oriented X3, CN II-XII intact Psychiatric: Present: normal affect Skin: Present: warm, dry, normal color Course Vital Signs Temperature 98.0 F 10/27/18 11:11 Respiratory Rate 17 10/27/18 11:11 Blood Pressure 116/71 10/27/18 11:11 Pulse Oximetry (%) 95 10/27/18 11:11 Temperature 98.0 F 10/27/18 11:11 Pulse Rate 83 10/27/18 13:31 Respiratory Rate 27 H 10/27/18 13:04 Blood Pressure 106/73 10/27/18 14:01 Pulse Oximetry (%) 96 10/27/18 14:01 GI Bleed - MDM Narrative Medical decision making narrative: I spoke with Dr. Navarro regarding this gentleman and he plans on doing EGD within the next few hours. Also discussed hospital admission with Dr. Baer. Final diagnosis is GI bleed, associated with maroon-colored stools and on blood thinners. - Lab Data Lab results reviewed: Yes I reviewed the patient's lab results. Result diagrams: 10/27/18 11:58 10/27/18 11:58 Lab Results 10/27/18 10/27/18 10/27/18 Range/Units 11:58 11:58 11:58 WBC 16.2 H (4.5-11.0) K/mcL RBC 5.59 (4.50-5.90) M/mcL Hgb 11.5 L (13.5-16.5) g/dL Hct 39.7 L (41.0-55.0) % MCV 71.0 L (80.0-100.0) fL MCH 20.6 L (26.0-34.0) pg MCHC 29.0 L (31.0-36.0) g/dL RDW 26.6 H (11.5-14.5) % Plt Count 647 H (140-440) K/mcL MPV 9.6 (7.4-10.4) fL Gran % 87.4 H (38.0-78.0) % Lymph % (Auto) 4.6 L (15.5-49.0) % [place] % (Auto) 4.9 (1.0-12.0) % Eos % (Auto) 2.9 (0.0-7.0) % Baso % (Auto) 0.2 (0.0-2.0) % Gran # 14.2 H (1.8-8.0) K/mcL Lymph # (Auto) 0.7 L (1.5-4.8) K/mcL [place] # (Auto) 0.8 (0.1-0.9) K/mcL Eos # (Auto) 0.5 (0.0-0.7) K/mcL Baso # (Auto) 0 (0.0-0.3) K/mcL Differential Comment > 10% bands PT 23.9 H (11.9-14.5) sec INR 2.2 H (0.9-1.1) Sodium 140 (133-145) mmol/L Potassium 4.5 (3.3-5.1) mmol/L Chloride 101 (96-108) mmol/L Carbon Dioxide 27 (22-30) mmol/L Anion Gap 12.0 (8-16) BUN 40 H (8-23) mg/dl Creatinine 1.5 H (0.7-1.2) mg/dl GFR Calculation 42 Glucose 88 (70-105) mg/dL Calcium 9.0 (8.6-10.4) mg/dl Total Bilirubin 1.2 H (0.0-1.0) mg/dL AST 24 (0-37) U/l ALT 15 (0-40) U/l Alkaline Phosphatase 196 H (39-117) U/L Total Protein 6.3 (5.9-8.4) gm/dL Albumin 3.4 (3.2-5.2) gm/dL Globulin 2.9 (2.2-3.7) gm/dL Albumin/Globulin Ratio 1.2 (1.0-2.3) Disposition Pt seen by CONCRETE FINISHER APPRENTICE/PA only: No Clinical Impression: Lower gastrointestinal hemorrhage Disposition: Xfer As Inpt ([facility]) Condition: Fair
[2018-10-27] MEDS ORDERED: LACTATED RINGERS 1,000 ML IV SCH (12:00)
[2018-10-27 12:39] LABS: Basophils # (Auto) 0 K/mcL (0.0-0.3); Basophils % (Auto) 0.2 % (0.0-2.0); Eosinophils # (Auto) 0.5 K/mcL (0.0-0.7); Eosinophils % (Auto) 2.9 % (0.0-7.0); Granulocytes % (Auto) 87.4 % (38.0-78.0); Hematocrit 39.7 % (41.0-55.0); Hemoglobin 11.5 g/dL (13.5-16.5); Lymphocytes # (Auto) 0.7 K/mcL (1.5-4.8); Lymphocytes % (Auto) 4.6 % (15.5-49.0); Mean Platelet Volume 9.6 fL (7.4-10.4); Monocytes # (Auto) 0.8 K/mcL (0.1-0.9); Monocytes % (Auto) 4.9 % (1.0-12.0); Platelet Count 647 K/mcL (140-440); RBC 5.59 M/mcL (4.50-5.90); Red Cell Distribution Width 26.6 % (11.5-14.5); WBC 16.2 K/mcL (4.5-11.0)
[2018-10-27 12:42] LABS: ALT/SGPT 15 U/l (0-40); AST/SGOT 24 U/l (0-37); Albumin 3.4 gm/dL (3.2-5.2); Albumin/Globulin Ratio 1.2 (1.0-2.3); Alkaline Phosphatase 196 U/L (39-117); Bilirubin,Total 1.2 mg/dL (0.0-1.0); Blood Urea Nitrogen 40 mg/dl (8-23); Carbon Dioxide 27 mmol/L (22-30); Chloride 101 mmol/L (96-108); Globulin 2.9 gm/dL (2.2-3.7); Glomerular Filtration Rate 42; Glucose 88 mg/dL (70-105)
[2018-10-27 12:43] LABS: INR 2.2 (0.9-1.1); Prothrombin Time 23.9 sec (11.9-14.5)
[2018-10-27] MEDS ORDERED: 0.9 % SODIUM CHLORIDE 250 ML IV SCH ×2 (12:45→18:42)
[2018-10-27] MEDS ORDERED: ESOMEPRAZOLE 80 MG in 0.9 % SODIUM CHLORIDE 100 ML IV SCH (14:45)
[2018-10-27 15:22] LABS: Appearance,Urine CLEAR; Bilirubin,Urine NEG (NEG); Color,Urine YELLOW; Culture Indicated,Urine NO; Glucose,Urine (UA) NEGATIVE (NEG); Ketones,Urine NEG (NEG); Leukocyte Esterase,Urine NEG /uL (NEG); Nitrate,Urine NEG (NEG); Protein,Urine NEG (NEG); Urine Blood NEG mg/dL (<0.03); Urobilinogen,Urine NEG (NEG)
[2018-10-27] MEDS ORDERED: KETAMINE HCL 50 MG/ML ML IV PRN (15:28)
[2018-10-27] MEDS ORDERED: PROPOFOL 200 MG/20 ML VIAL IV SCH (15:30)
[2018-10-27] MEDS ORDERED: MIDAZOLAM 2 MG/2 ML VIAL IV SCH (15:30)
[2018-10-27] MEDS ORDERED: PROPOFOL 20 ML IV ONE (16:49)
[2018-10-27] MEDS ORDERED: MIDAZOLAM 2 MG/2 ML VIAL ONE ×2 (16:56→17:19)
--- NOTE | 2018-10-27 18:17 | Internal Medicine Consult Note ---
Medical - CN: [facility] - Data of Consult Patient: new to practice Consult date: 10/27/18 - Consult Narrative Reason for consult: GI bleed History of present illness: Mr. Arielle Caba is a 83 year old who is on Xarelto for a history of pulmonary emboli, atrial fibrillation, and deep vein thrombosis who presented to the emergency department after having 8 maroon bowel movement this morning. He did not have any nausea or vomiting. He has been taking aspirin concurrently. He typically constipated, but controls this with milk of Magnesia. In lidocaine low-dose aspirin use and high BUN, upper GI bleeding was suspected and EGD was performed, which revealed multiple gastric erosions. These were oozing, but there was no brisk bleeding. They were ablated with APC. Colonoscopy was then performed after tap water enema preparation. There was blood staining to the hepatic flexure with the most concentrated blood staining in the proximal sigmoid colon and distal descending colon. There was no active bleeding. Patient seen in conjunction with Dr. Jerad Chopra, line tender. CC: Jerad Chopra Medical - CN: [facility] Medical history: Biventricular heart failure with cor pulmonale, atrial fibrillation, deep vein thrombosis, pulmonary emboli, prostate cancer, chronic kidney disease stage III B, multivitamin drug resistant organism, small bowel obstruction Surgical history: Prostatectomy, bilateral shoulder replacement, bilateral knee replacement Pertinent family history: Alzheimer's, prostate cancer Social history: Lives at home with his . He is a lifelong nonsmoker Medical - CN: Meds Home Medications Medication Instructions Recorded Confirmed Type aspirin 81 mg tablet,delayed 81 mg PO HS 01/21/16 10/27/18 History release allopurinol 100 mg tablet 100 mg PO QDAY #90 tab 03/23/18 09/08/18 Rx Atorvastatin Calcium 20 mg PO HS 08/10/18 09/08/18 History Calcitriol [Rocaltrol] 1 cap PO TID 08/10/18 09/08/18 History Carvedilol [Coreg] 12.5 mg PO BID 08/10/18 10/27/18 History Cholecalciferol (Vitamin D3) 1 cap PO DAILY 08/10/18 09/08/18 History [Vitamin D3] Furosemide [Lasix] 40 mg PO BID 08/10/18 10/27/18 History Magnesium Hydroxide [Milk of 5 ml PO BID 08/10/18 09/08/18 History Magnesia] Multivitamin [One-Daily 1 each PO DAILY 08/10/18 09/08/18 History Multi-Vitamin] Omeprazole [Prilosec] 40 mg PO ACB 08/10/18 09/08/18 History Rivaroxaban [Xarelto] 15 mg PO HS 08/10/18 10/27/18 History Sennosides/Docusate Sodium [Cvs 8.6 mg PO BID 08/10/18 09/08/18 History Senna Plus Tablet] Vitamin B Complex [Balanced B-50] 1 each PO DAILY 08/10/18 09/08/18 History Lisinopril [Zestril] 2.5 mg PO DAILY #30 tab 08/13/18 09/08/18 Rx Spironolactone [Aldactone] 12.5 mg PO DAILY #30 tab 08/13/18 09/08/18 Rx triamcinolone acetonide 0.1 % 1 applic DENTAL BID #5 g 09/08/18 09/08/18 Rx dental paste Allergies Allergy/AdvReac Type Severity Reaction Status Date / Time heparin Allergy Severe Unknown Verified 09/08/18 10:17 Medical - CN: Exam - Constitutional Vitals: Temp Pulse Resp BP Pulse Ox 98.0 F 81 15 85/49 95 10/27/18 11:11 10/27/18 18:04 10/27/18 18:04 10/27/18 18:04 10/27/18 18:04 General appearance: cooperative, no acute distress, thin - Head Head exam: Present: atraumatic, normal inspection, normocephalic - Neck Neck exam: Present: normal inspection - Respiratory Respiratory exam: Present: decreased breath sounds Additional comments: Decreased air entry in the right lower lobe. He has a history of pleural effusion. - Cardiovascular Cardiovascular exam: Present: normal rate and rhythm. Absent: diastolic murmur, gallop, rubs, systolic murmur - GI/Abdominal GI/Abdominal exam: Present: normal bowel sounds, soft, hernia. Absent: mass, tenderness Additional comments: A rectus diastases with a reducible lower abdominal incisional hernia was seen. - Rectal Rectal exam: Present: bloody stool. Absent: mass - Neurological Exam Neurological exam: Present: alert - Psychiatric Psychiatric exam: Present: normal affect, normal mood - Skin Skin exam: Present: dry, pallor Medical - CN: Result - Labs CBC & Chem 7: 10/27/18 11:58 10/27/18 11:58 Labs: Short CBC 10/27/18 Range/Units 11:58 WBC 16.2 H (4.5-11.0) K/mcL Hgb 11.5 L (13.5-16.5) g/dL Hct 39.7 L (41.0-55.0) % Plt Count 647 H (140-440) K/mcL BMP 10/27/18 11:58 Sodium 140 Potassium 4.5 Chloride 101 Carbon Dioxide 27 BUN 40 H Creatinine 1.5 H Glucose 88 Calcium 9.0 Liver Function 10/27/18 Range/Units 11:58 Total Bilirubin 1.2 H (0.0-1.0) mg/dL AST 24 (0-37) U/l ALT 15 (0-40) U/l Alkaline Phosphatase 196 H (39-117) U/L Albumin 3.4 (3.2-5.2) gm/dL Urine 10/27/18 Range/Units 14:47 Urine Color Yellow Urine Appearance Clear Urine pH 6.0 (5.0-9.0) Ur Specific [place] 1.010 (1.000-1.035) Urine Protein Neg (NEG) mg/dL Urine Glucose (UA) Negative (NEG) mg/dL Medical - CN: A/P (1) Lower gastrointestinal hemorrhage Status: Acute Assessment and plan: It is suspected he suffered a now-resolved left diverticular bleed. He will be admitted for monitoring. Aspirin should be discontinued for the long-term. We will hold his Xarelto for 3 days. Should he rebleed, colonoscopy with preparation would be indicated. We have discussed his case with hospitalist Dr. Baer, and recommended his laser systems engineer Dr. Fregoso be consulted in order to weigh the risk of GI bleeding/anemia on his cardiomyopathy versus the risk of discontinuing his Xarelto in light of his history of thrombosis, elevated platelet count. His leukocytosis and thrombocytosis are not consistent with diverticular bleeding and suggest either an inflammatory process or myeloprol iferative disorder. We will defer further evaluation to hospitalist and primary care provider.
--- NOTE | 2018-10-27 18:25 | Colonoscopy Procedure Note ---
Colonoscopy Procedure Notes - Procedure Information Patient information: Note initiated : 10/27/18 at 6:23 pm Service Date: Patient: Ayden Guzmán Sr 83 y/o M admitted on for Rectal Bleeding. Pre-op diagnosis general: GI bleed. Post-op diagnosis general: Left colon diverticular bleed. Not bleeding now. Procedure: Colonoscopy Procedure narrative: The procedure, alternatives and risks were discussed with the patient and the patient's questions were answered. With endoscopist-administered intravenous sedation, the Olympus colonoscope was introduced into the rectum and advanced to the cecum. There was blood staining to the hepatic flexure. Multiple diverticuli were see throughout the sigmoid and descending colon. The freshest blood was seen in the proximal sigmoid colon and distal descending colon. Brown stool was seen in the ascending colon. No bleeding was seen. Assessment: Left colon diverticular bleed. Not bleeding now. He will be admitted for monitoring. His ASA should be discontinued. We will hold his Xarelto for 3 days. Repeat colonoscopy if he rebleeds. Plan discussed with Dr. Baer.
--- NOTE | 2018-10-27 18:28 | EGD Procedure Note ---
EGD Procedure Notes - Procedure Information Patient information: Note initiated : 10/27/18 at 6:26 pm Service Date: Patient: Ayden Guzmán Sr 83 y/o M admitted on for Rectal Bleeding. Pre-op diagnosis general: GI bleed, indeterminate source. ASA use. Elevated BUN. Post-Op Diagnosis general: GI bleed, indeterminate source. Procedure: Esophogogastroduodenoscopy Procedure Narrative: The procedure, alternatives and risks were discussed with the patient and the patient's questions were answered. With endoscopist-administered intravenous sedation, the Olympus video endoscope was introduced into the esophagus. The esophagus, stomach, and duodenum were examined sequentially. There is no esophagitis nor hiatal hernia. The esophagus, gastric mucosa, antrum, pyloric ring and duodenum were otherwise normal. Multiple oozing erosions were seen in the gastric body. These were ablated with APC. They are unlikely to be the source of his bleeding. The scope was withdrawn. Assessment: GI bleed, indeterminate source.
--- NOTE | 2018-10-27 18:40 | Internal Med History&Physical ---
Medical - H&P: [facility] Patient information: Note initiated : 10/27/18 at 6:30 pm Service Date, if different from initiated Date: [] Patient: Arielle Caba,Ayden a 83 y/o M admitted on for Rectal Bleeding. Chief Complaint: [] Chief complaint: Bloody bowels History of present illness: Mr. Arielle Caba is a 83 year old M with a history of coronary artery disease/A. fib/PE on anticoagulation presents to the ER after experiencing multiple bloody bowel movement that started this morning. Patient denies recent NSAIDs intake or alcoholism but takes rivaroxaban for clot prophylaxis. He also takes a baby aspirin. He denies lightheadedness or dizziness. He denies hematemesis. He denies changes in stool caliber/weight loss/abdominal distention. Initial work-up in the ER was consistent with GI bleed. Initial creatinine 1.5. Patient was started on Protonix drip. Subsequently GI was consulted and patient was scheduled to undergo upper endoscopy emergently. Hospitalist service was consulted for admission I reviewed the patient post procedure after discussion with GI physician Dr. Navarro. Patient underwent upper endoscopy which was unremarkable and subsequently underwent colonoscopy that revealed multiple diverticuli along with fresh blood proximal sigmoid colon. Upper GI patient will be monitored for the next 24 to 48 hours for persistence of bleeding. Will continue hemoglobin checks and transfuse as indicated. Xarelto has been held. Patient is alert and oriented hard of hearing. Multiple family members at bedside. He denies chest pain lightheadedness dizziness. Hemodynamic stable. He further denies fever chills or shortness of breath Review of systems 10 point review system was performed and is negative except was discussed above Medical - H&P: PMH Medical history: Chest wall contusion (Acute) Neck strain (Acute) Small bowel obstruction, partial (Acute) Small bowel obstruction due to adhesions (Acute) Urinary retention (Chronic) Thrombosis/embolism, venous (Chronic) Thrombocytopenia (Chronic) Chronic sinusitis (Chronic) Closed rib fracture (Chronic) Renal failure (Chronic 08/01/14) Renal dysfunction (Chronic) Hx of prostatic malignancy (Chronic) Osteopenia (Chronic) Osteoarthritis (Chronic) Fracture closed, nasal bone (Chronic) Leukocytosis (Chronic 09/05/14) Joint pain (Chronic 09/05/14) Hypertension, essential (Chronic) Hyperlipidemia (Chronic) Hypercoagulation syndrome (Chronic) Hepatitis, autoimmune (Chronic) Gout (Chronic 08/01/14) Erythrocytosis (Chronic) Constipation (Chronic 07/11/14) Hx of colonic polyp (Chronic) Primary cardiomyopathy (Chronic) Atrial fibrillation (Chronic) Arthritis (Chronic 07/11/14) Elevated antinuclear antibody (ZOHRA) level (Chronic 08/01/14) 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) Social History (Last Updated 07/03/17 @ 20:02 by Karthikeyan Rivero MD) Denies tobacco, drinks alcohol occasionally, ambulates with a cane, lives at home with his Family History none listed Alzheimer's disease Atherosclerosis of coronary artery father Malignant neoplasm of prostate mother Malignant neoplasm of prostate Past Surgical History Status post surgery (Chronic) Hx of sinus surgery (Chronic) Hx of repair of right rotator cuff (Chronic) Hx of repair of left rotator cuff (Chronic) Hx of radical prostatectomy (Chronic) Hx of prostate biopsy (Chronic) History of right knee joint replacement (Chronic) History of left knee replacement (Chronic) History of intraocular lens implant (Chronic) Hx of umbilical hernia repair (Chronic) Hx of right inguinal hernia repair (Chronic) Hx of hemorrhoidectomy (Chronic) Tavares catheter status (Chronic) History of carpal tunnel surgery of right wrist (Chronic) Medical - H&P: Meds Home Medications Medication Instructions Recorded Confirmed Type aspirin 81 mg tablet,delayed 81 mg PO HS 01/21/16 10/27/18 History release allopurinol 100 mg tablet 100 mg PO QDAY #90 tab 03/23/18 09/08/18 Rx Atorvastatin Calcium 20 mg PO HS 08/10/18 09/08/18 History Calcitriol [Rocaltrol] 1 cap PO TID 08/10/18 09/08/18 History Carvedilol [Coreg] 12.5 mg PO BID 08/10/18 10/27/18 History Cholecalciferol (Vitamin D3) 1 cap PO DAILY 08/10/18 09/08/18 History [Vitamin D3] Furosemide [Lasix] 40 mg PO BID 08/10/18 10/27/18 History Magnesium Hydroxide [Milk of 5 ml PO BID 08/10/18 09/08/18 History Magnesia] Multivitamin [One-Daily 1 each PO DAILY 08/10/18 09/08/18 History Multi-Vitamin] Omeprazole [Prilosec] 40 mg PO ACB 08/10/18 09/08/18 History Rivaroxaban [Xarelto] 15 mg PO HS 08/10/18 10/27/18 History Sennosides/Docusate Sodium [Cvs 8.6 mg PO BID 08/10/18 09/08/18 History Senna Plus Tablet] Vitamin B Complex [Balanced B-50] 1 each PO DAILY 08/10/18 09/08/18 History Lisinopril [Zestril] 2.5 mg PO DAILY #30 tab 08/13/18 09/08/18 Rx Spironolactone [Aldactone] 12.5 mg PO DAILY #30 tab 08/13/18 09/08/18 Rx triamcinolone acetonide 0.1 % 1 applic DENTAL BID #5 g 09/08/18 09/08/18 Rx dental paste Allergies Allergy/AdvReac Type Severity Reaction Status Date / Time heparin Allergy Severe Unknown Verified 09/08/18 10:17 Medical - H&P: Exam - Constitutional Vitals: Temp Pulse Resp BP Pulse Ox 98.0 F 81 15 85/49 95 10/27/18 11:11 10/27/18 18:04 10/27/18 18:04 10/27/18 18:04 10/27/18 18:04 General appearance: cooperative, no acute distress, thin Exam: Alert oriented Hard of hearing Head normocephalic Oral cavity dry Eye movement symmetrical No ear nose discharge S1-S2 irregular rhythm, ESM grade 1 Diminished breath sounds bases Abdomen soft nontender Lower extremity no cyanosis clubbing no joint swelling Skin no suspicious lesion Psych alert cooperative Neuro nonfocal Medical - H&P: Reslt - Labs CBC & Chem 7: 10/28/18 03:43 10/28/18 03:43 Labs: Short CBC 10/27/18 Range/Units 11:58 WBC 16.2 H (4.5-11.0) K/mcL Hgb 11.5 L (13.5-16.5) g/dL Hct 39.7 L (41.0-55.0) % Plt Count 647 H (140-440) K/mcL BMP 10/27/18 11:58 Sodium 140 Potassium 4.5 Chloride 101 Carbon Dioxide 27 BUN 40 H Creatinine 1.5 H Glucose 88 Calcium 9.0 Liver Function 10/27/18 Range/Units 11:58 Total Bilirubin 1.2 H (0.0-1.0) mg/dL AST 24 (0-37) U/l ALT 15 (0-40) U/l Alkaline Phosphatase 196 H (39-117) U/L Albumin 3.4 (3.2-5.2) gm/dL Urine 10/27/18 Range/Units 14:47 Urine Color Yellow Urine Appearance Clear Urine pH 6.0 (5.0-9.0) Ur Specific [place] 1.010 (1.000-1.035) Urine Protein Neg (NEG) mg/dL Urine Glucose (UA) Negative (NEG) mg/dL Medical - H&P: A/P (1) Lower gastrointestinal hemorrhage Current visit: Yes Status: Acute * GI bleed secondary to diverticular bleed. Hold anticoagulation/aspirin. Admit to telemetry with close monitoring of hemodynamics/every 4 hemoglobin check. Crossmatch type and transfuse if hemoglobin drop more than 30% of baseline. Current hemoglobin 11 * Leukocytosis-unclear etiology. Continue close monitoring. Pancultures. Suspect MDS in light of anemia/thrombocytopenia * History of atrial fibrillation-rate controlled on Coreg. Xarelto on hold for at least 5 days. * Hypertension-continue Coreg/lisinopril/spironolactone 1 systolics over 140 * Hyperlipidemia * History of gout restart allopurinol * GERD on PPI * Hyperlipidemia on statin * Chronic disease stage IIIb managed by Dr. Skinner. Creatinine 1.5. * History of cor pulmonale with 30% EF combined systolic and diastolic dysfunction. Well compensated. * History of leukocytosis/thrombocytosis/myocytic anemia. Patient follows up with hematology * Obstructive sleep apnea/obesity * Prophylaxis-SCDs. Anticoagulation on hold Plan * Observation admit * Telemetry monitoring/close hemodynamic watch for GI bleed * 4 hourly hemoglobin check * Ordered clears and advance as tolerated
[2018-10-27] MEDS ORDERED: ACETAMINOPHEN 325 MG TABLET PO PRN (18:42)
[2018-10-27] MEDS ORDERED: POTASSIUM CHLORIDE 20 MEQ PACKET PO PRN (18:42)
[2018-10-27] MEDS ORDERED: MAGNESIUM SULFATE 2 GM/50 ML BAG IV PRN (18:42)
[2018-10-27] MEDS ORDERED: ONDANSETRON 4 MG/2 ML VIAL IV PRN (18:42)
[2018-10-27] MEDS: 0.9 % SODIUM CHLORIDE 1,000 ML IV SCH (18:59)
[2018-10-27] MEDS: DOCUSATE SODIUM 100 MG CAPSULE PO SCH (20:37)
[2018-10-27] MEDS: SENNOSIDES/DOCUSATE SODIUM 1 TAB TABLET PO SCH (20:37)
[2018-10-27] MEDS ORDERED: traZODone HCL 50 MG TABLET PO PRN (21:00)
[2018-10-27] MEDS: 0.9 % SODIUM CHLORIDE 10 ML SYRINGE IV SCH (21:44)
[2018-10-28 01:24] LABS: Hematocrit 31.8 % (41.0-55.0); Hemoglobin 9.4 g/dL (13.5-16.5)
[2018-10-28] MEDS: 0.9 % SODIUM CHLORIDE 10 ML SYRINGE IV SCH ×3 (05:17→20:58)
[2018-10-28 06:30] LABS: Hematocrit 29.3 % (41.0-55.0); Hemoglobin 8.3 g/dL (13.5-16.5); Mean Cell Volume 71.4 fL (80.0-100.0); Mean Corpuscular HGB Conc 28.2 g/dL (31.0-36.0); Mean Platelet Volume 9.7 fL (7.4-10.4); Platelet Count 637 K/mcL (140-440); RBC 4.11 M/mcL (4.50-5.90); WBC 17.4 K/mcL (4.5-11.0)
[2018-10-28 06:59] LABS: ALT/SGPT 10 U/l (0-40); AST/SGOT 21 U/l (0-37); Albumin 2.7 gm/dL (3.2-5.2); Albumin/Globulin Ratio 1.4 (1.0-2.3); Alkaline Phosphatase 142 U/L (39-117); Bilirubin,Direct 0.4 mg/dL (0.0-0.3); Bilirubin,Total 0.9 mg/dL (0.0-1.0); Blood Urea Nitrogen 40 mg/dl (8-23); Calcium 8.2 mg/dl (8.6-10.4); Carbon Dioxide 26 mmol/L (22-30); Chloride 103 mmol/L (96-108); Globulin 1.9 gm/dL (2.2-3.7); Glomerular Filtration Rate 36; Glucose 135 mg/dL (70-105); Lactate Dehydrogenase 495 U/L (94-250); Phosphorous 3.3 mg/dL (2.7-4.5); Triglycerides 34 mg/dl (<150); Uric Acid 9.5 mg/dL (2.5-8.0)
[2018-10-28] MEDS ORDERED: 0.9 % SODIUM CHLORIDE 250 ML IV SCH (07:45)
[2018-10-28 07:50] LABS: Anisocytosis 3+ (NONE SEEN); Band Neutrophils % 3 % (0-10); Eosinophils % (Manual) 2 % (0-7); Hypochromasia 2+ (NONE SEEN); Lymphocytes % 4 % (15-49); Microcytosis 2+ (NONE SEEN); Monocytes % (Manual) 4 % (1-12); Nucleated Red Blood Cells 1 % (0-0); Ovalocytes 1+ (NONE SEEN); Platelet Estimate INCREASED (NORMAL); Poikilocytosis 2+ (NONE SEEN); RBC Fragments FEW (NONE SEEN); RBC Morphology ABNORM (NORMAL); Reactive Lymphocytes 1 % (0-2); Segmented Neutrophils % 86 % (38-78)
[2018-10-28] MEDS ORDERED: VASOPRESSIN 20 UNIT in DEXTROSE 5% IN WATER 99 ML IV SCH (08:00)
[2018-10-28 08:02] LABS: POC Blood Urea Nitrogen 38 mg/dl (8-23); POC CO2 26 mmol/L (22-30); POC Chloride 103 mmol/L (96-108); POC Creatinine 1.7 mg/dl (0.7-1.2); POC Glucose, Random 121 mg/dL (70-105); POC Potassium 4.2 mmol/L (3.3-5.1); POC Sodium 139 mmol/L (133-145)
[2018-10-28] MEDS: MULTIVIT,THER IRON,CA,FA & MIN 1 TABLET PO SCH (10:19)
[2018-10-28] MEDS: DOCUSATE SODIUM 100 MG CAPSULE PO SCH ×2 (10:19→21:05)
--- NOTE | 2018-10-28 10:42 | Internal Med Progress Note ---
Medical - PN: Subj Patient information: Note initiated : 10/28/18 at 10:40 am Service Date, if different from initiated Date: [] Patient: Ayden Guzmán Sr a 83 y/o M admitted on 10/27/18 for Rectal Bleeding. Chief Complaint: [] Interval history: Mr. Arielle Caba is a 83 year old M with a history of coronary artery disease/A. fib/PE on anticoagulation presents to the ER after experiencing multiple bloody bowel movement that started this morning. Patient denies recent NSAIDs intake or alcoholism but takes rivaroxaban for clot prophylaxis. He also takes a baby aspirin. He denies lightheadedness or dizziness. He denies hematemesis. He denies changes in stool caliber/weight loss/abdominal distention. Initial work-up in the ER was consistent with GI bleed. Initial creatinine 1.5. Patient was started on Protonix drip. Subsequently GI was consulted and patient was scheduled to undergo upper endoscopy emergently. Hospitalist service was consulted for admission I reviewed the patient post procedure after discussion with GI physician Dr. Navarro. Patient underwent upper endoscopy which was unremarkable and subsequently underwent colonoscopy that revealed multiple diverticuli along with fresh blood proximal sigmoid colon. Upper GI patient will be monitored for the next 24 to 48 hours for persistence of bleeding. Will continue hemoglobin checks and transfuse as indicated. Xarelto has been held. Patient is alert and oriented hard of hearing. Multiple family members at bedside. He denies chest pain lightheadedness dizziness. Hemodynamic stable. He further denies fever chills or shortness of breath 10/28-patient currently on close monitoring in ICU. Blood pressure dropped to 80s. Started on vasopressin.. Hemoglobin down from 11.5-8.3. However no bloody bowel since 2 AM. Stable hemodynamics. Type and crossmatch and will start transfusion once hemoglobin less than 8 or further bloody bowels. Case discussed with patient's family. Continue monitoring for additional 24 hours. Will inform GI if persistent bleed or drop in hemoglobin for repeat endoscopy. Anticoagulation has been held - Constitutional Vitals: Vital Signs Temp Pulse Resp BP Pulse Ox 98.0 F 96 H 18 90/54 99 10/28/18 08:39 10/28/18 09:03 10/28/18 09:03 10/28/18 09:03 10/28/18 09:03 Period Temp Pulse Resp BP Sys/Valentin Pulse Ox Last 24 Hr 97.8 F-98.0 F 80-100 14-28 78-140/44-83 93-100 Intake and Output 10/27/18 10/28/18 10/28/18 21:59 05:59 13:59 Intake Total 1192 240 0 Output Total 650 400 325 Balance 542 -160 -325 Weight 189 lb 14.4 oz Intake & Output: Intake & Output 10/27/18 10/28/18 10/28/18 21:59 05:59 13:59 Intake Total 1192 240 0 Output Total 650 400 325 Balance 542 -160 -325 Weight 189 lb 14.4 oz Intake: IV 292 0 Lactated Ringers 1,000 ml @ 100 265 mls/hr IV .Q10H SIL Rx#: [id number] Vasostrict 20 Unit In Dextrose 0 5% in Water 99 ml @ 0.02 UNIT/ MIN 6 mls/hr IV Q17H SIL Rx#: [id number] Oral 240 IV - Manual Only 900 Output: Void Amount 325 # of times incontinent of urine 0 Urine/Stool Mix 400 Stool 650 Other: Urine Appearance Clear Urine Color Light Yazmin Urine Odor Normal Stool Size Moderate Stool Color Dark Red Blood Dark Red Blood Stool Consistency Liquid Watery # Voids 0 General appearance: no acute distress Exam: Alert and responding to commands denies abdominal pain Nonlabored breathing Irregular rhythm Hard of hearing no telemetry events Medical - PN: Obj Da - Labs CBC & Chem 7: 10/28/18 03:43 10/28/18 03:43 Labs: Abnormal Lab Results 10/28/18 10/28/18 10/28/18 07:54 03:43 03:43 WBC 17.4 H RBC 4.11 L Hgb 8.3 L Hct 29.3 L POC Hct 28.0 L MCV 71.4 L MCH 20.1 L MCHC 28.2 L RDW 27.0 H Plt Count 637 H Gran % Lymph % (Auto) Gran # Lymph # (Auto) Seg Neutrophils % 86 H Lymphocytes % 4 L Nucleated RBCs 1 H Platelet Estimate Increased A RBC Morphology Abnorm A Hypochromasia 2+ A Poikilocytosis 2+ A Anisocytosis 3+ A Microcytosis 2+ A Ovalocytes 1+ A RBC Fragments Few A PT INR POC BUN 38 H BUN 40 H Creatinine 1.7 H POC Creatinine 1.7 H Glucose 135 H POC Glucose 121 H Uric Acid 9.5 H Calcium 8.2 L POC WB Ioniz Calcium 1.10 L Total Bilirubin Direct Bilirubin 0.4 H GGT 83 H Alkaline Phosphatase 142 H Lactate Dehydrogenase 495 H Total Protein 4.6 L Albumin 2.7 L Globulin 1.9 L 10/28/18 10/27/18 10/27/18 00:09 11:58 11:58 WBC RBC Hgb 9.4 L Hct 31.8 L POC Hct MCV MCH MCHC RDW Plt Count Gran % Lymph % (Auto) Gran # Lymph # (Auto) Seg Neutrophils % Lymphocytes % Nucleated RBCs Platelet Estimate RBC Morphology Hypochromasia Poikilocytosis Anisocytosis Microcytosis Ovalocytes RBC Fragments PT 23.9 H INR 2.2 H POC BUN BUN 40 H Creatinine 1.5 H POC Creatinine Glucose POC Glucose Uric Acid Calcium POC WB Ioniz Calcium Total Bilirubin 1.2 H Direct Bilirubin GGT Alkaline Phosphatase 196 H Lactate Dehydrogenase Total Protein Albumin Globulin 10/27/18 11:58 WBC 16.2 H RBC Hgb 11.5 L Hct 39.7 L POC Hct MCV 71.0 L MCH 20.6 L MCHC 29.0 L RDW 26.6 H Plt Count 647 H Gran % 87.4 H Lymph % (Auto) 4.6 L Gran # 14.2 H Lymph # (Auto) 0.7 L Seg Neutrophils % Lymphocytes % Nucleated RBCs Platelet Estimate RBC Morphology Hypochromasia Poikilocytosis Anisocytosis Microcytosis Ovalocytes RBC Fragments PT INR POC BUN BUN Creatinine POC Creatinine Glucose POC Glucose Uric Acid Calcium POC WB Ioniz Calcium Total Bilirubin Direct Bilirubin GGT Alkaline Phosphatase Lactate Dehydrogenase Total Protein Albumin Globulin Meds: Medications Acetaminophen (Tylenol) 650 mg PO Q4-6HP PRN PRN Reason: PAIN/FEVER > 101 Docusate Sodium (Colace) 100 mg PO BID [facility] Last Admin: 10/28/18 10:19 Dose: 100 mg Documented by: Magnesium Sulfate (Magnesium Sulfate) 2 gm in 50 mls @ 50 mls/hr IV UD PRN PRN Reason: MG = or < 1.7 Sodium Chloride (Sodium Chloride 0.9%) 1,000 mls @ 50 mls/hr IV .Q20H [facility] Stop: 10/30/18 06:41 Last Admin: 10/27/18 18:59 Dose: 50 mls/hr Documented by: Sodium Chloride (Sodium Chloride 0.9%) 250 mls @ 20 mls/hr IV .[id number] [facility] Last Admin: 10/28/18 09:07 Dose: Not Given Documented by: Vasopressin 20 unit/ Dextrose 100 mls @ 6 mls/hr IV Q17H [facility]; Protocol Last Titration: 10/28/18 08:16 Dose: 0 unit/min, 0 mls/hr Documented by: Iron Carb/Multivit/Program Director Substance Abuse/Folic Acid (Multivitamin W/Minerals) 1 tab PO DAILY [facility] Last Admin: 10/28/18 10:19 Dose: 1 tab Documented by: Mupirocin (Bactroban Oint 2%) 1 dose NARES BID [facility] Ondansetron HCl (Zofran) 4 mg IV Q4-6HP PRN PRN Reason: Nausea And Vomiting Potassium Chloride (Klor-Con) 40 meq PO DAILYP PRN PRN Reason: K+ < 3.5 Senna/Docusate Sodium (Senna Plus Tablet) 1 tab PO HS [facility] Last Admin: 10/27/18 20:37 Dose: Not Given Documented by: Sodium Chloride (Saline Flush) 10 ml IV Q8 [facility] Last Admin: 10/28/18 05:17 Dose: Not Given Documented by: Trazodone HCl (Desyrel) 50 mg PO HSP PRN PRN Reason: Insomnia Medical - PN: A/P - Time Spent With Patient Total time spent is greater than 50% in coordination of care (as documented) at patient's floor/unit and/or counseling patient: 25 - 35 minutes (1) Lower gastrointestinal hemorrhage Status: Acute Assessment and plan: * GI bleed secondary to diverticular bleed. Hemoglobin downtrending. Continue serial hemoglobin checks and transfusion as indicated * Hemorrhagic shock currently on pressors/crystalloids and transfusion as indicated * Q. blood loss anemia secondary to GI bleed * Leukocytosis-unclear etiology. White count 17 . No fever or infectious source. Suspect MDS in light of anemia/thrombocytosis * History of atrial fibrillation-rate controlled on Coreg. Xarelto on hold in light of GI bleed . * Hypertension-antihypertensives on hold in light of shock * Hyperlipidemia * History of gout - allopurinol * GERD on PPI * Hyperlipidemia on statin * Chronic disease stage IIIb managed by Dr. Skinner. Creatinine 1.5. * History of cor pulmonale with 30% EF combined systolic and diastolic dysfunction. Well compensated. * History of leukocytosis/thrombocytosis/myocytic anemia. Patient follows up with hematology * Obstructive sleep apnea/obesity * Prophylaxis-SCDs. Anticoagulation on hold Plan * Continue pressors/4 hourly hemoglobin check/blood transfusion as indicated * Repeat scope if persistent drop in hemoglobin * Close hemodynamic monitoring * Hold oral meds until patient's hemodynamic stabilizes * Clears only Current Visit: Yes
[2018-10-28] MEDS: MUPIROCIN OINT 2% 22GM NARES SCH ×2 (10:57→21:05)
[2018-10-28] MEDS: 0.9 % SODIUM CHLORIDE 1,000 ML IV SCH ×2 (10:59→14:39)
[2018-10-28 16:59] LABS: Hematocrit 29.6 % (41.0-55.0); Hemoglobin 8.4 g/dL (13.5-16.5)
--- NOTE | 2018-10-28 17:13 | Internal Med Progress Note ---
Medical - PN: Subj Patient information: Note initiated : 10/28/18 at 5:11 pm Service Date, if different from initiated Date: [] Patient: Arielle Caba,Ayden a 83 y/o M admitted on 10/27/18 for Rectal Bleeding. Chief Complaint: [left diverticular bleed] Interval history: Mr Guzmán is an 83 year old white male hospitalized with hematochezia secondary to suspected resolved left diverticular bleed. No bleeding since 2AM this morning. Hgb dropped to 8 but has stabilized. Patient feeling well without lightheadedness despite hypotension. No improvement with vasopressin per nursing. - Constitutional Vitals: Vital Signs Temp Pulse Resp BP Pulse Ox 98.5 F 91 H 24 H 104/58 100 10/28/18 16:00 10/28/18 14:01 10/28/18 16:00 10/28/18 16:00 10/28/18 16:00 Period Temp Pulse Resp BP Sys/Valentin Pulse Ox Last 24 Hr 97.8 F-98.5 F 80-98 14-24 80-140/48-95 95-100 Intake and Output 10/28/18 10/28/18 10/28/18 05:59 13:59 21:59 Intake Total 240 1260 Output Total 400 475 250 Balance -160 785 -250 Intake & Output: Intake & Output 10/28/18 10/28/18 10/28/18 05:59 13:59 21:59 Intake Total 240 1260 Output Total 400 475 250 Balance -160 785 -250 Intake: IV 960 Sodium Chloride 0.9% 1,000 ml @ 950 50 mls/hr IV .Q20H [facility] Rx#: [id number] Vasostrict 20 Unit In Dextrose 10 5% in Water 99 ml @ 0.02 UNIT/ MIN 6 mls/hr IV Q17H [facility] Rx#: [id number] Oral 240 300 Output: Void Amount 475 250 # of times incontinent of urine 0 0 Urine/Stool Mix 400 Other: Meal Breakfast Percent of Meal Consumed 100% Feeding Ability Independent Urine Appearance Clear Clear Urine Color Light Yazmin Bright Yellow Urine Odor Normal Normal Stool Color Dark Red Blood # Voids 0 0 General appearance: average body habitus, cooperative, no acute distress - Head Head exam: Present: atraumatic, normal inspection, normocephalic - Respiratory Respiratory exam: Present: normal respiratory exam, CTAB - Cardiovascular Cardiovascular exam: Present: normal rate and rhythm. Absent: diastolic murmur, systolic murmur - GI/Abdominal GI/Abdominal exam: Present: normal bowel sounds, soft, hernia. Absent: organomegaly - Psychiatric Psychiatric exam: Present: normal affect, normal mood - Skin Skin exam: Present: pallor, warm Medical - PN: Obj Da - Labs CBC & Chem 7: 10/28/18 15:58 10/28/18 03:43 Labs: Abnormal Lab Results 10/28/18 10/28/18 10/28/18 15:58 07:54 03:43 WBC RBC Hgb 8.4 L Hct 29.6 L POC Hct 28.0 L MCV MCH MCHC RDW Plt Count Gran % Lymph % (Auto) Gran # Lymph # (Auto) Seg Neutrophils % Lymphocytes % Nucleated RBCs Platelet Estimate RBC Morphology Hypochromasia Poikilocytosis Anisocytosis Microcytosis Ovalocytes RBC Fragments PT INR POC BUN 38 H BUN 40 H Creatinine 1.7 H POC Creatinine 1.7 H Glucose 135 H POC Glucose 121 H Uric Acid 9.5 H Calcium 8.2 L POC WB Ioniz Calcium 1.10 L Total Bilirubin Direct Bilirubin 0.4 H GGT 83 H Alkaline Phosphatase 142 H Lactate Dehydrogenase 495 H Total Protein 4.6 L Albumin 2.7 L Globulin 1.9 L 10/28/18 10/28/18 10/27/18 03:43 00:09 11:58 WBC 17.4 H RBC 4.11 L Hgb 8.3 L 9.4 L Hct 29.3 L 31.8 L POC Hct MCV 71.4 L MCH 20.1 L MCHC 28.2 L RDW 27.0 H Plt Count 637 H Gran % Lymph % (Auto) Gran # Lymph # (Auto) Seg Neutrophils % 86 H Lymphocytes % 4 L Nucleated RBCs 1 H Platelet Estimate Increased A RBC Morphology Abnorm A Hypochromasia 2+ A Poikilocytosis 2+ A Anisocytosis 3+ A Microcytosis 2+ A Ovalocytes 1+ A RBC Fragments Few A PT INR POC BUN BUN 40 H Creatinine 1.5 H POC Creatinine Glucose POC Glucose Uric Acid Calcium POC WB Ioniz Calcium Total Bilirubin 1.2 H Direct Bilirubin GGT Alkaline Phosphatase 196 H Lactate Dehydrogenase Total Protein Albumin Globulin 10/27/18 10/27/18 11:58 11:58 WBC 16.2 H RBC Hgb 11.5 L Hct 39.7 L POC Hct MCV 71.0 L MCH 20.6 L MCHC 29.0 L RDW 26.6 H Plt Count 647 H Gran % 87.4 H Lymph % (Auto) 4.6 L Gran # 14.2 H Lymph # (Auto) 0.7 L Seg Neutrophils % Lymphocytes % Nucleated RBCs Platelet Estimate RBC Morphology Hypochromasia Poikilocytosis Anisocytosis Microcytosis Ovalocytes RBC Fragments PT 23.9 H INR 2.2 H POC BUN BUN Creatinine POC Creatinine Glucose POC Glucose Uric Acid Calcium POC WB Ioniz Calcium Total Bilirubin Direct Bilirubin GGT Alkaline Phosphatase Lactate Dehydrogenase Total Protein Albumin Globulin Meds: Medications Acetaminophen (Tylenol) 650 mg PO Q4-6HP PRN PRN Reason: PAIN/FEVER > 101 Docusate Sodium (Colace) 100 mg PO BID [facility] Last Admin: 10/28/18 10:19 Dose: 100 mg Documented by: Magnesium Sulfate (Magnesium Sulfate) 2 gm in 50 mls @ 50 mls/hr IV UD PRN PRN Reason: MG = or < 1.7 Sodium Chloride (Sodium Chloride 0.9%) 1,000 mls @ 50 mls/hr IV .Q20H [facility] Stop: 10/30/18 06:41 Last Admin: 10/28/18 14:39 Dose: Not Given Documented by: Iron Carb/Multivit/Entrepreneurial Finance Professor/Folic Acid (Multivitamin W/Minerals) 1 tab PO DAILY [facility] Last Admin: 10/28/18 10:19 Dose: 1 tab Documented by: Mupirocin (Bactroban Oint 2%) 1 dose NARES BID [facility] Last Admin: 10/28/18 10:57 Dose: 1 dose Documented by: Ondansetron HCl (Zofran) 4 mg IV Q4-6HP PRN PRN Reason: Nausea And Vomiting Potassium Chloride (Klor-Con) 40 meq PO DAILYP PRN PRN Reason: K+ < 3.5 Senna/Docusate Sodium (Senna Plus Tablet) 1 tab PO HS [facility] Last Admin: 10/27/18 20:37 Dose: Not Given Documented by: Sodium Chloride (Saline Flush) 10 ml IV Q8 [facility] Last Admin: 10/28/18 14:18 Dose: Not Given Documented by: Trazodone HCl (Desyrel) 50 mg PO HSP PRN PRN Reason: Insomnia Medical - PN: A/P - Time Spent With Patient Total time spent is greater than 50% in coordination of care (as documented) at patient's floor/unit and/or counseling patient: less than 15 minutes (Currently stable. Continue to monitor hgb.) (1) Lower gastrointestinal hemorrhage Status: Acute Current Visit: Yes
[2018-10-28 19:37] LABS: Hematocrit 30.3 % (41.0-55.0); Hemoglobin 8.6 g/dL (13.5-16.5)
[2018-10-28] MEDS: SENNOSIDES/DOCUSATE SODIUM 1 TAB TABLET PO SCH (21:05)
[2018-10-28 21:43] LABS: Hematocrit 27.9 % (41.0-55.0); Hemoglobin 7.9 g/dL (13.5-16.5)
[2018-10-29] MEDS: 0.9 % SODIUM CHLORIDE 10 ML SYRINGE IV SCH (05:26)
[2018-10-29 06:32] LABS: Hematocrit 28.1 % (41.0-55.0); Hemoglobin 8.1 g/dL (13.5-16.5); Mean Cell Volume 71.3 fL (80.0-100.0); Mean Corpuscular HGB Conc 28.8 g/dL (31.0-36.0); Platelet Count 589 K/mcL (140-440); RBC 3.95 M/mcL (4.50-5.90); Red Cell Distribution Width 27.5 % (11.5-14.5); WBC 19.2 K/mcL (4.5-11.0)
[2018-10-29 06:42] LABS: ALT/SGPT 12 U/l (0-40); AST/SGOT 32 U/l (0-37); Albumin 2.8 gm/dL (3.2-5.2); Albumin/Globulin Ratio 1.3 (1.0-2.3); Alkaline Phosphatase 148 U/L (39-117); Bilirubin,Direct 0.3 mg/dL (0.0-0.3); Blood Urea Nitrogen 33 mg/dl (8-23); Calcium 8.1 mg/dl (8.6-10.4); Carbon Dioxide 24 mmol/L (22-30); Chloride 104 mmol/L (96-108); Globulin 2.1 gm/dL (2.2-3.7); Glomerular Filtration Rate 46; Glucose 82 mg/dL (70-105); Lactate Dehydrogenase 545 U/L (94-250); Phosphorous 3.1 mg/dL (2.7-4.5); Triglycerides 48 mg/dl (<150)
[2018-10-29] MEDS: 0.9 % SODIUM CHLORIDE 1,000 ML IV SCH (07:23)
[2018-10-29 07:26] LABS: Acanthocytes RARE (NONE SEEN); Anisocytosis 3+ (NONE SEEN); Band Neutrophils % 16 % (0-10); Basophils % (Manual) 2 % (0-2); Dohle Bodies RARE (NONE SEEN); Eosinophils % (Manual) 2 % (0-7); Hypochromasia 2+ (NONE SEEN); Lymphocytes % 4 % (15-49); Microcytosis 2+ (NONE SEEN); Monocytes % (Manual) 5 % (1-12); Myelocytes % 1 % (0-0); Nucleated Red Blood Cells 1 % (0-0); Ovalocytes 1+ (NONE SEEN); Platelet Estimate INCREASED (NORMAL); Poikilocytosis 2+ (NONE SEEN); Polychromasia FEW (NONE SEEN); RBC Fragments FEW (NONE SEEN); RBC Morphology ABNORM (NORMAL); Segmented Neutrophils % 70 % (38-78); Spherocytes FEW (NONE SEEN); Tear Drop Cells FEW (NONE SEEN); Toxic Granulation FEW (NONE SEEN)
[2018-10-29] MEDS: MUPIROCIN OINT 2% 22GM NARES SCH (09:38)
[2018-10-29] MEDS: DOCUSATE SODIUM 100 MG CAPSULE PO SCH (09:38)
[2018-10-29] MEDS: MULTIVIT,THER IRON,CA,FA & MIN 1 TABLET PO SCH (09:38)
--- NOTE | 2018-10-29 11:27 | Discharge Summary ---
Medical - DS: Prov Patient information: Note initiated : 10/29/18 at 11:22 am Service Date, if different from initiated Date: [] Patient: Ayden Guzmán Sr 83 y/o M admitted on 10/27/18 for Rectal Bleeding. Chief Complaint: [] Date of admission: 10/27/18 18:25 Discharge date: 10/29/18 Consults: 10/27/18 Consult to Physician [CONS] Stat Comment: Consulting Provider: Jason Sutherland Reason For Exam: Physician to Consult Consult to Physician [CONS] Stat Comment: Consulting Provider: Jerad Chopra Reason For Exam: Physician to Consult Medical - DS: Meds - Discharge Medications Active and Home Medications: Home Medications aspirin 81 mg tablet,delayed release 81 mg PO HS 01/21/16 [History Confirmed 10/29/18 Last Taken 08/09/18]-hold for additional 4 days allopurinol 100 mg tablet 100 mg PO QDAY #90 tab 03/23/18 [Rx Confirmed 10/29/18 Last Taken 08/09/18] Atorvastatin [Lipitor] 20 mg PO HS #0 08/10/18 [History Confirmed 10/29/18 Last Taken 08/09/18] Carvedilol [Coreg] 3.125 mg PO BIDCC 08/10/18 [History Confirmed 10/29/18 Last Taken 08/09/18] Furosemide [Lasix] 40 mg PO BID 08/10/18 [History Confirmed 10/29/18 Last Taken 08/09/18] Multivitamin [One-Daily Multi-Vitamin] 1 tab PO DAILY 08/10/18 [History Confirmed 10/29/18 Last Taken 08/09/18] Rivaroxaban [Xarelto] 15 mg PO HS 08/10/18 [History Confirmed 10/27/18 Last Taken 08/09/18]-hold for additional 4 days Vitamin B Complex [Balanced B-50] 1 tab PO DAILY 08/10/18 [History Confirmed 10/29/18 Last Taken 08/09/18] Medical - DS: Hosp Hospital course: Discharge diagnosis * GI bleed secondary to diverticular bleed. Status post upper and lower endoscopy. anticoagulation held. Patient currently stable and discharging advised to continue holding anticoagulation and aspirin for additional 3 to 4 days. * Hemorrhagic shock -clinically resolved. Off pressors. * Acute. blood loss anemia secondary to GI bleed. Managed with every 4 hemoglobin check. Hemoglobin stabilized around 8 over the last 24 hours. No indication for blood transfusion * Leukocytosis-unclear etiology. No evidence source of infection. Suspect MDS in light of anemia/thrombocytosis. Follow-up with hematology as outpatient * History of atrial fibrillation-rate controlled on Coreg. Xarelto on hold in light of GI bleed for additional 3 to 4 days. * Hyperlipidemia continue statin * History of gout -continue allopurinol * GERD on PPI * Chronic disease stage IIIb managed by Dr. Skinner. Creatinine 1.4. * History of cor pulmonale with 30% EF combined systolic and diastolic dysfunction. Well compensated. Brief hospital course Mr. Arielle Caba is a 83 year old M with a history of coronary artery disease/A. fib/PE on anticoagulation presents to the ER after experiencing multiple bloody bowel movement that started this morning. Patient denies recent NSAIDs intake or alcoholism but takes rivaroxaban for clot prophylaxis. He also takes a baby aspirin. He denies lightheadedness or dizziness. He denies hematemesis. He denies changes in stool caliber/weight loss/abdominal distention. Initial work-up in the ER was consistent with GI bleed. Initial creatinine 1.5. Patient was started on Protonix drip. Subsequently GI was consulted and patient was scheduled to undergo upper endoscopy emergently. Hospitalist service was consulted for admission I reviewed the patient post procedure after discussion with GI physician Dr. Navarro. Patient underwent upper endoscopy which was unremarkable and subsequently underwent colonoscopy that revealed multiple diverticuli along with fresh blood proximal sigmoid colon. Upper GI patient will be monitored for the next 24 to 48 hours for persistence of bleeding. Will continue hemoglobin checks and transfuse as indicated. Xarelto has been held. Patient is alert and oriented hard of hearing. Multiple family members at bedside. He denies chest pain lightheadedness dizziness. Hemodynamic stable. He further denies fever chills or shortness of breath /-patient currently on close monitoring in ICU. Blood pressure dropped to 80s. Started on vasopressin.. Hemoglobin down from 11.5-8.3. However no bloody bowel since 2 AM. Stable hemodynamics. Type and crossmatch and will start transfusion once hemoglobin less than 8 or further bloody bowels. Case discussed with patient's family. Continue monitoring for additional 24 hours. Will inform GI if persistent bleed or drop in hemoglobin for repeat endoscopy. Anticoagulation has been held 10/29-patient doing well. No overnight events. Blood pressure systolics around 100. Hemoglobin stabilized around 8. No further bleed. Discharging with recommendations to hold aspirin and rivaroxaban for additional 3 to 4 days. Recommend follow with primary care physician. Return to ER if lightheadedness weakness or bloody bowels noted. Discharge diagnosis: . - Time Spent with Patient Total time spent providing and/or coordinating discharge services: Medical - DS: Exam - Constitutional Vitals: Vital Signs Temp Pulse Resp BP Pulse Ox 10/29/18 07:46 97.5 F 28 H 97/86 95 10/29/18 07:01 18 107/65 10/29/18 06:45 96 H 18 97/86 94 10/29/18 06:01 15 95/47 10/29/18 04:07 24 H 10/29/18 04:01 98.7 F 21 97/56 98 10/29/18 03:01 19 99/56 10/29/18 02:01 18 95/55 10/29/18 01:06 24 H 93/54 10/29/18 01:01 24 H 65/34 10/29/18 00:11 19 10/29/18 00:01 15 104/55 10/28/18 23:01 20 86/44 10/28/18 22:01 18 89/43 10/28/18 21:01 25 H 95/73 10/28/18 20:36 30 H 10/28/18 20:01 97.8 F 25 H 95/59 10/28/18 19:03 32 H 88/71 10/28/18 18:20 25 H 95/41 10/28/18 18:16 31 H 77/66 10/28/18 17:02 18 81/59 98 10/28/18 16:02 104/58 97 10/28/18 16:00 98.5 F 24 H 104/58 100 10/28/18 15:01 88 102/62 99 10/28/18 14:01 91 H 80/56 99 10/28/18 13:01 92 H 91/52 97 10/28/18 12:51 93 H 86/52 96 10/28/18 12:41 95 H 97/53 99 10/28/18 12:21 91 H 97/59 96 08/02/19 12:12 90 99/58 98 10/28/18 12:01 98 F 87 16 110/95 98 10/28/18 11:58 88 90/65 97 10/28/18 11:52 85 97/60 98 10/28/18 11:45 92 H 95/55 96 10/28/18 11:33 98.0 F 92 H 18 97/60 99 10/28/18 11:28 87 89/54 98 Intake and Output 10/28/18 10/29/18 10/29/18 21:59 05:59 13:59 Intake Total 135 295 9730 Output Total 900 350 525 Balance -500 0 1075 Intake: IV 1000 Sodium Chloride 0.9% 1,000 ml @ 1000 50 mls/hr IV .Q20H SIL Rx#: [id number] Oral 400 350 600 Output: Void Amount 900 350 525 # of times incontinent of urine 0 0 Other: Meal Dinner Breakfast Percent of Meal Consumed 100% 100% Feeding Ability Independent Urine Appearance Clear Clear Urine Color Bright Yellow Bright Yellow Urine Odor Normal Normal # Voids 0 0 Weight 189 lb 6.4 oz Medical - DS: Data Labs on day of discharge: Labs from last 24 hours 10/29/18 10/29/18 10/28/18 03:47 03:47 19:51 WBC 19.2 H RBC 3.95 L Hgb 8.1 L 7.9 L Hct 28.1 L 27.9 L MCV 71.3 L MCH 20.6 L MCHC 28.8 L RDW 27.5 H Plt Count 589 H MPV 9.0 Total Counted 100 Seg Neutrophils % 70 Band Neutrophils % 16 H Lymphocytes % 4 L Monocytes % (Manual) 5 Eosinophils % (Manual) 2 Basophils % (Manual) 2 Myelocytes % 1 H Nucleated RBCs 1 H WBC Morphology Abnorm A Toxic Granulation Few A Dohle Bodies Rare A Platelet Estimate Increased A RBC Morphology Abnorm A Polychromasia Few A Hypochromasia 2+ A Poikilocytosis 2+ A Anisocytosis 3+ A Microcytosis 2+ A Spherocytes Few A Tear Drop Cells Few A Ovalocytes 1+ A Acanthocytes (Spur) Rare A RBC Fragments Few A VBG Lactic Acid Sodium 139 Potassium 3.9 Chloride 104 Carbon Dioxide 24 Anion Gap 11.0 BUN 33 H Creatinine 1.4 H GFR Calculation 46 Glucose 82 Uric Acid 9.0 H Calcium 8.1 L Phosphorus 3.1 Magnesium 1.9 Total Bilirubin 1.0 Direct Bilirubin 0.3 GGT 79 H AST 32 ALT 12 Alkaline Phosphatase 148 H Lactate Dehydrogenase 545 H Total Protein 4.9 L Albumin 2.8 L Globulin 2.1 L Albumin/Globulin Ratio 1.3 Triglycerides 48 10/28/18 10/28/18 10/28/18 15:58 11:45 11:45 WBC RBC Hgb 8.4 L 8.6 L Hct 29.6 L 30.3 L MCV MCH MCHC RDW Plt Count MPV Total Counted Seg Neutrophils % Band Neutrophils % Lymphocytes % Monocytes % (Manual) Eosinophils % (Manual) Basophils % (Manual) Myelocytes % Nucleated RBCs WBC Morphology Toxic Granulation Dohle Bodies Platelet Estimate RBC Morphology Polychromasia Hypochromasia Poikilocytosis Anisocytosis Microcytosis Spherocytes Tear Drop Cells Ovalocytes Acanthocytes (Spur) RBC Fragments VBG Lactic Acid 1.5 Sodium Potassium Chloride Carbon Dioxide Anion Gap BUN Creatinine GFR Calculation Glucose Uric Acid Calcium Phosphorus Magnesium Total Bilirubin Direct Bilirubin GGT AST ALT Alkaline Phosphatase Lactate Dehydrogenase Total Protein Albumin Globulin Albumin/Globulin Ratio Triglycerides Preliminary micro results at discharge 10/27/18 13:34 Stool Culture - Preliminary Rectum Medical - DS: A/P - Patient/Caregiver Discharge Instructions Activity: increase activity as tolerated Diet: Regular Diet Additional Instructions: HOld aspirin and Xarelto for 4 days follow-up primary care physician 5 to 7 days Return to ER if lightheadedness dizziness or bloody bowels noted - Problem Maintenance (1) Lower gastrointestinal hemorrhage Status: Acute - Follow up Plan Disposition: Home, Self-Care Prognosis: Fair Rehab Potential: Fair I certify that the patient requires SNF services: No Overall status at discharge: patient is progressing back to baseline
== END 2018-10-29 12:26 | disposition home or self-care (01) ==
LOC: ED 11:11 → SUR 15:15 → ICU 15:15
PROVIDERS: ADMIT Internal Medicine; ATTEND Internal Medicine

== ENCOUNTER 2018-12-09 14:28 | Inpatient (IN) ==
--- NOTE | 2018-12-09 15:38 | Emergency Department Note ---
General Adult HPI - General Chief complaint: Skin/Abscess/Foreign Body Time Seen by Provider: 12/09/18 15:15 Mode of arrival: wheelchair - History of Present Illness HPI Narrative: This 83-year-old male over the last 3+ weeks is gained about 22 pounds. His Lasix was increased from 80 mg to twice daily 3 days ago which he has taken without any change in his urination. He has had for weeks some weepy swollen legs and now with some swelling into the arms and hands particularly the right side. He is short of breath but he does not think it is much worse but his family does. His legs have been dripping fluid and they have been bound with Tyler wraps. His oximetry at home is been 90-93% in the morning which is normal for him as well as his blood pressures have frequently been 128/65 which is normal for him. REVIEW OF SYSTEMS: No chest pain, palpitations, cough. He is short of breath with some worsening as above with some wheezing. No nausea or vomiting. No headache. Has felt some weakness and lightheadedness. - Related Data Home Medications Medication Instructions Recorded Confirmed RX: Atorvastatin [Lipitor] 20 mg PO HS #0 08/10/18 12/09/18 RX: Furosemide [Lasix] 80 mg PO BID 08/10/18 12/09/18 RX: Vitamin B Complex [Balanced 1 tab PO DAILY 08/10/18 12/09/18 B-50] carvedilol 3.125 mg tablet 3.125 mg PO BID 11/22/18 12/09/18 Previous Rx's Medication Instructions Recorded allopurinol 100 mg tablet 100 mg PO QDAY #90 tab 03/23/18 ascorbic acid (vitamin C) 250 mg 250 mg PO BID #120 tab 11/22/18 tablet rivaroxaban 15 mg tablet 15 mg PO HS #90 tab 11/24/18 Allergies Allergy/AdvReac Type Severity Reaction Status Date / Time heparin Allergy Severe Unknown Verified 11/22/18 09:02 Past Medical History - Past Medical History [facility] Narrative: Medical History (Last Updated 12/09/18 @ 18:18 by Tommy Solis DO) half-way current use of anticoagulant (Chronic) Atrial fibrillation (Chronic) Diverticular hemorrhage (Resolved) Primary cardiomyopathy (Chronic) Systolic and diastolic CHF w/reduced LV function, NYHA class 4 (Chronic) Hyperlipidemia (Chronic) Hepatitis B (Chronic) Blood clotting disorder (Chronic) Sexually transmitted disease (Chronic) Cancer (Chronic) Leukoplakia of oral mucosa (Chronic) Urinary retention (Chronic) Thrombosis/embolism, venous (Chronic) Thrombocytopenia (Chronic) Chronic sinusitis (Chronic) Renal failure (Chronic 08/01/14) Renal dysfunction (Chronic) Hx of prostatic malignancy (Chronic) Osteopenia (Chronic) Osteoarthritis (Chronic) Fracture closed, nasal bone (Chronic) Leukocytosis (Chronic 09/05/14) Joint pain (Chronic 09/05/14) Hypertension, essential (Chronic) Hypercoagulation syndrome (Chronic) Gout (Chronic 08/01/14) Erythrocytosis (Chronic) Constipation (Chronic 07/11/14) Hx of colonic polyp (Chronic) Arthritis (Chronic 07/11/14) Elevated antinuclear antibody (ZOHRA) level (Chronic 08/01/14) Blood loss anemia (Resolved) Chest wall contusion (Resolved) Closed rib fracture (Resolved) Lower gastrointestinal hemorrhage (Resolved) Neck strain (Resolved) Pneumonia (Resolved) Small bowel obstruction due to adhesions (Resolved) Small bowel obstruction, partial (Resolved) Past Surgical History (Last Reviewed 09/08/18 @ 12:13 by Jian Perez PA-C) Tavares catheter status (Chronic) History of carpal tunnel surgery of right wrist (Chronic) History of intraocular lens implant (Chronic) History of left knee replacement (Chronic) History of right knee joint replacement (Chronic) Hx of hemorrhoidectomy (Chronic) Hx of prostate biopsy (Chronic) Hx of radical prostatectomy (Chronic) Hx of repair of left rotator cuff (Chronic) Hx of repair of right rotator cuff (Chronic) Hx of right inguinal hernia repair (Chronic) Hx of sinus surgery (Chronic) Hx of umbilical hernia repair (Chronic) Status post surgery (Chronic) Family History (Last Reviewed 09/08/18 @ 12:13 by Jian Perez PA-C) none listed Alzheimer's disease Atherosclerosis of coronary artery father Malignant neoplasm of prostate mother Malignant neoplasm of prostate Medical history: Reports: atrial fibrillation, cancer (prostate), CHF, chronic anticoagulation, DVT, pulmonary embolus, other (Murmur.). Denies: CVA, DM, myocardial infarction Psychiatric history: Denies: anxiety, depression Surgical history ED: Reports: cataract, prostatectomy, other (right and left shoulder repair. 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 Denies: marijuana Physical Exam Limitations: no limitations General appearance: alert, in no apparent distress Head: atraumatic, normocephalic Eye: Present: normal appearance, PERRL, EOMI. Absent: scleral icterus, conjunctival injection ENT: Present: normal oropharynx, mucous membranes moist Neck: Present: trachea midline. Absent: lymphadenopathy, thyromegaly Chest: Present: symmetric chest wall rise Respiratory: Present: normal lung sounds bilaterally, other (Seems somewhat short of breath with mild tachypnea.). Absent: respiratory distress, wheezes, stridor, accessory muscle use, prolonged expiratory phase Cardiovascular: Present: regular rate, normal rhythm. Absent: systolic murmur, diastolic murmur Abdominal: Present: soft, other (Large and domed and somewhat tense). Absent: distention, tenderness, guarding, rebound, rigidity, organomegaly, mass Extremities: Present: pedal edema, pretibial edema (3-4/4), other (Moderate to severe swelling of the hands and forearms right more than left. Severe weepiness of the bilateral lower extremities starting to soak through even his Tyler wraps.) Neurological: Present: alert, oriented X3 Psychiatric: Present: normal affect, normal mood Skin: Present: warm, dry Course Vital Signs Temperature 97.5 F 12/09/18 14:52 Pulse Rate 76 12/09/18 14:52 Respiratory Rate 18 12/09/18 14:52 Blood Pressure 107/63 12/09/18 14:52 Pulse Oximetry (%) 99 12/09/18 14:52 Temperature 97.5 F 12/09/18 14:52 Pulse Rate 82 12/09/18 19:02 Respiratory Rate 21 12/09/18 19:02 Blood Pressure 109/81 12/09/18 15:43 Pulse Oximetry (%) 95 12/09/18 19:02 Medical Decision Making - [facility] Narrative Medical decision making narrative: 3:28 PM - anasarca with history of CHF and resistance to furosemide 80 twice daily as outpatient. Recent GI bleed and CHF. Is on Xarelto for previous DVT. Chart review includes atrial fibrillation although patient and family do not remember this. Will do large work-up including labs, chest x-ray, EKG. 5:13 PM - old echo from July of this year reviewed which includes moderately reduced left ventricular systolic function. Severely dilated right ventricle and right atrium. Left atrium is moderate to severely dilated. There is mild to moderate mitral regurgitation. Pulmonary hypertension with pressures in the 50-70 mmHg on Doppler. Dilated inferior vena cava. There is also mild concentric LVH and left ventricular mild dilatation. This all suggest that patient's right-sided failure may be his primary underlying condition and problem. Because it is so severe we will give a dose of Lasix 40 mg IV. Labs are still pending after which I intend to speak with the hospitalist for consideration of options of treatment inpatient. Chest XZ-ray results: Small consolidative infiltrate involving the right base. Small right pleural effusion with fluid in the minor fissure worsening No evidence of CHF Labs fairly unremarkable except creatinine gradually increasing to 2.6 today. he has a chronic leukocytosis which is similarly present today. 6:08 PM - I spoke with Dr. Baer, hospitalist regarding this patient's probable right-sided failure and worsening renal function. He has me to speak with Dr. Siddiqi, coal hauler operator, and that likely does need admission but need nephrology to help make sure that they can assist with patient's management. 7 5 PM - I spoke with Dr. Siddiqi is willing to consult on this patient. Dr. Baer has already kindly accepted responsibility for care of this patient as the hospitalist and written some orders on this patient. - Lab Data Lab results reviewed: Yes I reviewed the patient's lab results. Result diagrams: 12/09/18 16:13 12/09/18 16:13 Lab Results 12/09/18 12/09/18 12/09/18 Range/Units 16:13 16:13 16:13 WBC 21.0 H (4.5-11.0) K/mcL RBC 5.14 (4.50-5.90) M/mcL Hgb 10.1 L (13.5-16.5) g/dL Hct 36.5 L (41.0-55.0) % MCV 71.0 L (80.0-100.0) fL MCH 19.6 L (26.0-34.0) pg MCHC 27.7 L (31.0-36.0) g/dL RDW 25.5 H (11.5-14.5) % Plt Count 470 H (140-440) K/mcL MPV 10.0 (7.4-10.4) fL Gran % 85.0 H (38.0-78.0) % Lymph % (Auto) 9.0 L (15.5-49.0) % [place] % (Auto) 4.0 (1.0-12.0) % Eos % (Auto) 2.0 (0.0-7.0) % Baso % (Auto) 0 (0.0-2.0) % Sodium 138 (133-145) mmol/L Potassium 4.7 (3.3-5.1) mmol/L Chloride 100 (96-108) mmol/L Carbon Dioxide 23 (22-30) mmol/L Anion Gap 15.0 (8-16) BUN 60 H (8-23) mg/dl Creatinine 2.6 H (0.7-1.2) mg/dl GFR Calculation 22 Glucose 92 (70-105) mg/dL Calcium 9.0 (8.6-10.4) mg/dl Total Bilirubin 0.9 (0.0-1.0) mg/dL AST 21 (0-37) U/l ALT 15 (0-40) U/l Alkaline Phosphatase 172 H (39-117) U/L Troponin T 0.06 H* (0-0.03) ng/ml C-Reactive Protein 0.3 (0.0-0.8) mg/dl NT-Pro-B Natriuret Pep 7407.0 H (0-450) pg/ml Total Protein 7.2 (5.9-8.4) gm/dL Albumin 4.1 (3.2-5.2) gm/dL Globulin 3.1 (2.2-3.7) gm/dL Albumin/Globulin Ratio 1.3 (1.0-2.3) - Radiology Data Radiology results reviewed: Yes I reviewed the patient's radiology results. "Small consolidative infiltrate involving the right base. Small right pleural effusion with fluid in the minor fissure worsening. No evidence of CHF. - EKG Data EKG #1 EKG attestation: Yes There are no EKG findings of acute coronary syndrome, Yes This EKG will be read by power reactor operator EKG results narrative: Right bundle branch block and reportedly left posterior fascicular block. Atrial fibrillation with controlled rate. Unchanged from previous EKG. Rate about 86. Disposition Pt seen by TRAFFIC COURT REFEREE/PA only: No Clinical Impression: Tachypnea, Pulmonary hypertension, Anasarca, Chronic renal failure, stage 3 (moderate) Right-sided congestive heart failure Qualifiers: Heart failure chronicity: acute on chronic Qualified Code(s): I50.813 - Acute on chronic right heart failure Disposition: Xfer As Inpt ([facility]) Condition: Serious Referrals: Orlando Ding DO [Primary Care Provider] -
--- NOTE | 2018-12-09 16:08 | XRay Report ---
CLINICAL INFORMATION: anasarca, SOB COMPARISON: 08/11/2018 FINDINGS: Moderate renomegaly has decreased. Mediastinum and pulmonary vessels are unremarkable. Small consolidative infiltrate as developed in the right lower lobe. Small right pleural effusion with fluid in the minor fissure has increased IMPRESSION: Small consolidative infiltrate involving the right base. Small right pleural effusion with fluid in the minor fissure worsening No evidence of CHF Interpreted and Authenticated by: Orlando Cortez 12/09/18
[2018-12-09 17:13] LABS: ALT/SGPT 15 U/l (0-40); AST/SGOT 21 U/l (0-37); Albumin 4.1 gm/dL (3.2-5.2); Albumin/Globulin Ratio 1.3 (1.0-2.3); Alkaline Phosphatase 172 U/L (39-117); Bilirubin,Total 0.9 mg/dL (0.0-1.0); Blood Urea Nitrogen 60 mg/dl (8-23); C-Reactive Protein 0.3 mg/dl (0.0-0.8); Carbon Dioxide 23 mmol/L (22-30); Chloride 100 mmol/L (96-108); Globulin 3.1 gm/dL (2.2-3.7); Glomerular Filtration Rate 22; Glucose 92 mg/dL (70-105)
[2018-12-09] MEDS ORDERED: FUROSEMIDE 40 MG/4 ML VIAL IV ONE (17:19)
[2018-12-09 17:25] LABS: Basophils % (Auto) 0 % (0.0-2.0); Hematocrit 36.5 % (41.0-55.0); Hemoglobin 10.1 g/dL (13.5-16.5); Mean Corpuscular HGB Conc 27.7 g/dL (31.0-36.0); Platelet Count 470 K/mcL (140-440); RBC 5.14 M/mcL (4.50-5.90); Red Cell Distribution Width 25.5 % (11.5-14.5)
--- NOTE | 2018-12-09 18:23 | Internal Med History&Physical ---
Medical - H&P: [facility] Patient information: Note initiated : 12/09/18 at 6:19 pm Service Date, if different from initiated Date: [] Patient: Ayden Guzmán Sr a 83 y/o M admitted on for skin. Chief Complaint: [] Chief complaint: Generalized swelling History of present illness: Mr. Arielle Caba is a 83 year old M who was recently admitted with GI bleed in October and has been recovering well who now presents with progressive weight gain over 20 pounds with worsening lymphedema lower extremities. Swelling has progressed to the point that his skin has been weeping and has barely been able to move his limbs. He endorses to increasing fatigue weakness and shortness of breath. He is barely able to function. He was recently started on high-dose Lasix by his commercial hvac technician Dr. Fregoso , Patient however did not notice any improvement over the next 3 days. He now presents to the ER with above symptoms. Initial work-up was consistent with acute renal failure with a creatinine of 2.6 and elevated BNP. X-ray shows a small pleural effusion. Hospitalist service is consulted in light of acute renal failure and progressive lymphedema At the time of evaluation patient is accompanied with his . He was able to answer most of the questions and endorsed to history as above. He denies recent NSAID intake or change in diet/high salt intake. He further denies missing his regular medications. He was actually doing fairly well after recent hospitalization until the last week with onset of symptoms. He denies associated fever, cough, diarrhea, dysuria or joint pain or rash. He further denies headache photophobia Review of systems 10 point review of system was performed and is negative except was discussed above Medical - H&P: PMH Medical history: Blood loss anemia (Acute) Diverticular hemorrhage (Acute) Systolic and diastolic CHF w/reduced LV function, NYHA class 4 (Chronic) Hyperlipidemia (Chronic) Hepatitis B (Chronic) Blood clotting disorder (Chronic) Sexually transmitted disease (Chronic) Heart trouble (Chronic) Cancer (Chronic) Chest wall contusion (Chronic) Neck strain (Chronic) Small bowel obstruction, partial (Chronic) Small bowel obstruction due to adhesions (Chronic) Urinary retention (Chronic) acute Thrombosis/embolism, 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 Chronic sinusitis (Chronic) Closed rib fracture (Chronic) Renal failure (Chronic 08/01/14) Renal dysfunction (Chronic) Hx of prostatic malignancy (Chronic) 1999 Osteopenia (Chronic) Osteoarthritis (Chronic) Fracture closed, nasal bone (Chronic) Leukocytosis (Chronic 09/05/14) Joint pain (Chronic 09/05/14) both hands Hypertension, essential (Chronic) Hypercoagulation syndrome (Chronic) Gout (Chronic 08/01/14) Erythrocytosis (Chronic) Constipation (Chronic 07/11/14) Hx of colonic polyp (Chronic) Primary cardiomyopathy (Chronic) with CHF, prob hypertensive Atrial fibrillation (Chronic) Arthritis (Chronic 07/11/14) Elevated antinuclear antibody (ZOHRA) level (Chronic 08/01/14) slightly high alf current use of anticoagulant (Chronic) Surgical History Tavares catheter status (Chronic) History of carpal tunnel surgery of right wrist (Chronic) History of intraocular lens implant (Chronic) bilateral History of left knee replacement (Chronic) History of right knee joint replacement (Chronic) Hx of hemorrhoidectomy (Chronic) Hx of prostate biopsy (Chronic) Hx of radical prostatectomy (Chronic) Hx of repair of left rotator cuff (Chronic) Hx of repair of right rotator cuff (Chronic) Hx of right inguinal hernia repair (Chronic) Hx of sinus surgery (Chronic) for removal of polyps Hx of umbilical hernia repair (Chronic) x4 Status post surgery (Chronic) tendon repair biceps Family History none listed Alzheimer's disease Atherosclerosis of coronary artery father , 74 Malignant neoplasm of prostate mother Malignant neoplasm of prostate Social History household members: spouse marital status: education level: high school occupational status: retired 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 [employer] smoking status: Never smoker alcohol intake frequency: a few times a month substance use type: does not use Medical - H&P: Meds Home Medications Medication Instructions Recorded Confirmed Type allopurinol 100 mg tablet 100 mg PO QDAY #90 tab 03/23/18 12/09/18 Rx Atorvastatin [Lipitor] 20 mg PO HS #0 08/10/18 12/09/18 History Furosemide [Lasix] 80 mg PO BID 08/10/18 12/09/18 History Vitamin B Complex [Balanced B-50] 1 tab PO DAILY 08/10/18 12/09/18 History ascorbic acid (vitamin C) 250 mg 250 mg PO BID #120 tab 11/22/18 12/09/18 Rx tablet carvedilol 3.125 mg tablet 3.125 mg PO BID 11/22/18 12/09/18 History rivaroxaban 15 mg tablet 15 mg PO HS #90 tab 11/24/18 12/09/18 Rx Allergies Allergy/AdvReac Type Severity Reaction Status Date / Time heparin Allergy Severe Unknown Verified 11/22/18 09:02 Medical - H&P: Exam - Constitutional Vitals: Temp Pulse Resp BP Pulse Ox 97.5 F 79 26 H 109/81 96 12/09/18 14:52 12/09/18 17:21 12/09/18 17:21 12/09/18 15:43 12/09/18 17:21 General appearance: obese Exam: Alert oriented Head normocephalic Neck no lymphadenopathy Oral cavity dry No ear nose discharge Eye movement symmetrical S1-S2 with regular with occasional irregular rhythm ESM grade 1 Diminished breath sounds bases with late expiratory rhonchi Abdomen soft nontender Lower extremity bilateral pitting lymphedema with left lower extremity above ankle area of erythema with cellulitic changes Skin no suspicious lesion Psych alert cooperative Neuro nonfocal Medical - H&P: Reslt - Labs CBC & Chem 7: 12/09/18 16:13 12/09/18 16:13 Labs: Short CBC 12/09/18 Range/Units 16:13 WBC 21.0 H (4.5-11.0) K/mcL Hgb 10.1 L (13.5-16.5) g/dL Hct 36.5 L (41.0-55.0) % Plt Count 470 H (140-440) K/mcL BMP 12/09/18 16:13 Sodium 138 Potassium 4.7 Chloride 100 Carbon Dioxide 23 BUN 60 H Creatinine 2.6 H Glucose 92 Calcium 9.0 Cardiac Enzymes 12/09/18 Range/Units 16:13 Troponin T 0.06 H* (0-0.03) ng/ml Liver Function 12/09/18 Range/Units 16:13 Total Bilirubin 0.9 (0.0-1.0) mg/dL AST 21 (0-37) U/l ALT 15 (0-40) U/l Alkaline Phosphatase 172 H (39-117) U/L Albumin 4.1 (3.2-5.2) gm/dL Medical - H&P: A/P (1) Acute renal failure (ARF) Current visit: Yes Status: Acute * Acute renal failure-nephrology consult. Last known baseline 1.4. Current creatinine 2.6. Avoid nephrotoxins. Check renal ultrasound * Anasarca secondary to volume overload-start aggressive diuresis. Nephrology consult * History of cor pulmonale with 35% EF combined systolic and diastolic dysfunction as per echo July 2018. * [id number] history. Concurrent anemia/thrombocytopenia. Patient follows up with hematology * History of atrial fibrillation-rate controlled on Coreg. Continue Xarelto * Hypertension- Coreg/lisinopril/spironolactone * Hyperlipidemia continue statin * History of gout continue allopurinol * GERD on PPI * Hyperlipidemia on statin * Chronic disease stage IIIb managed by Dr. Skinner. Creatinine 1.5. * History of leukocytosis/thrombocytosis/myocytic anemia. * Obstructive sleep apnea/obesity * Prophylaxis-anticoagulation Plan * Inpatient admission * Aggressive diuresis * Nephrology consult * Monitor renal function * Pre-existing well condition management as above * PT OT/nutrition support
[2018-12-09] MEDS ORDERED: ONDANSETRON 4 MG/2 ML VIAL IV PRN (19:53)
[2018-12-09] MEDS ORDERED: ACETAMINOPHEN 1,000 MG/100 ML BOTTLE IV PRN (19:53)
[2018-12-09] MEDS ORDERED: ACETAMINOPHEN 325 MG TABLET PO PRN (19:53)
[2018-12-09] MEDS: DOCUSATE SODIUM 100 MG CAPSULE PO SCH (21:29)
[2018-12-09] MEDS: SENNOSIDES/DOCUSATE SODIUM 1 TAB TABLET PO SCH (21:29)
[2018-12-09] MEDS: 0.9 % SODIUM CHLORIDE 10 ML SYRINGE IV SCH (21:57)
[2018-12-10] MEDS: FUROSEMIDE 40 MG/4 ML VIAL IV SCH ×4 (00:23→22:44)
--- NOTE | 2018-12-10 05:00 | Ultrasound Report ---
CLINICAL INFORMATION: ARF COMPARISON: 11/07/2015 FINDINGS: Both kidneys are normal in size, position and configuration: The right is 12 x 5 cm and the left is 10 x 5 cm. Echotexture in both kidneys mildly elevated compatible with medical renal disease and advanced age. 7 mm simple cyst seen in the mid right kidney. 1.3 cm cyst present in the lateral left kidney. 1.7 cm solid lesion with blood flow noted inferior pole of the left kidney - this was not noted on prior ultrasound. There is no stone or hydronephrosis. Urinary bladder volume is 41 cc with no focal lesions. Patient was unable to void. Incidental findings include gallstones and moderate splenic enlargement. Spleen measures 17 x 6 cm IMPRESSION: 1. Hyperechoic kidneys compatible with medical renal disease and advanced age 2. 1.7 cm solid nodule inferior pole left kidney not seen on previous study. 3. Cholelithiasis 4. Moderate splenomegaly If clinically indicated, suggest CT to more specifically evaluate spleen, for possible associated adenopathy and potential solid lesion inferior pole left kidney. Elevated creatinine precludes the use of intravenous contrast - suggest noncontrast abdomen pelvic CT Interpreted and Authenticated by: Orlando Cortez 12/10/18
[2018-12-10 05:55] LABS: Hemoglobin 9.2 g/dL (13.5-16.5); Mean Cell Volume 71.6 fL (80.0-100.0); Mean Corpuscular HGB Conc 27.8 g/dL (31.0-36.0); Mean Platelet Volume 9.9 fL (7.4-10.4); Platelet Count 444 K/mcL (140-440); RBC 4.61 M/mcL (4.50-5.90); Red Cell Distribution Width 26.1 % (11.5-14.5); WBC 19.1 K/mcL (4.5-11.0)
[2018-12-10] MEDS: 0.9 % SODIUM CHLORIDE 10 ML SYRINGE IV SCH ×3 (05:55→22:44)
[2018-12-10 06:22] LABS: ALT/SGPT 13 U/l (0-40); AST/SGOT 30 U/l (0-37); Albumin 3.7 gm/dL (3.2-5.2); Albumin/Globulin Ratio 1.4 (1.0-2.3); Alkaline Phosphatase 149 U/L (39-117); Bilirubin,Direct 0.3 mg/dL (0.0-0.3); Bilirubin,Total 0.7 mg/dL (0.0-1.0); Blood Urea Nitrogen 61 mg/dl (8-23); Carbon Dioxide 23 mmol/L (22-30); Chloride 100 mmol/L (96-108); Globulin 2.7 gm/dL (2.2-3.7); Glomerular Filtration Rate 21; Glucose 114 mg/dL (70-105); Lactate Dehydrogenase 465 U/L (94-250); Phosphorous 4.4 mg/dL (2.7-4.5); Triglycerides 21 mg/dl (<150); Uric Acid 11.3 mg/dL (2.5-8.0)
[2018-12-10 06:46] LABS: Anisocytosis 3+ (NONE SEEN); Eosinophils % (Manual) 4 % (0-7); Hypochromasia 2+ (NONE SEEN); Lymphocytes % 8 % (15-49); Microcytosis 2+ (NONE SEEN); Monocytes % (Manual) 3 % (1-12); Platelet Estimate INCREASED (NORMAL); Poikilocytosis 1+ (NONE SEEN); RBC Morphology ABNORMAL (NORMAL); Segmented Neutrophils % 85 % (38-78)
[2018-12-10] MEDS: METOLAZONE 2.5 MG TABLET PO SCH ×2 (07:57→15:48)
[2018-12-10] MEDS: VITAMIN B COMPLEX 1 CAPSULE PO SCH (08:59)
[2018-12-10] MEDS: DOCUSATE SODIUM 100 MG CAPSULE PO SCH ×2 (08:59→22:44)
[2018-12-10] MEDS: ASCORBIC ACID 500 MG TABLET PO SCH ×2 (08:59→22:44)
[2018-12-10] MEDS: CARVEDILOL 3.125 MG TABLET PO SCH ×2 (08:59→22:44)
[2018-12-10] MEDS: ALLOPURINOL 100 MG TABLET PO SCH (08:59)
--- NOTE | 2018-12-10 10:26 | Internal Med Progress Note ---
Medical - PN: Subj Patient information: Note initiated : 12/10/18 at 10:23 am Service Date, if different from initiated Date: [] Patient: Ayden Guzmán Sr a 83 y/o M admitted on 12/09/18 for skin. Chief Complaint: [] Interval history: Mr. Arielle Caba is a 83 year old M who was recently admitted with GI bleed in [place] and has been recovering well who now presents with progressive weight gain over 20 pounds with worsening lymphedema lower extremities. Swelling has progressed to the point that his skin has been weeping and has barely been able to move his limbs. He endorses to increasing fatigue weakness and shortness of breath. He is barely able to function. He was recently started on high-dose Lasix by his wares sorter Dr. Fregoso , Patient however did not notice any improvement over the next 3 days. He now presents to the ER with above symptoms. Initial work-up was consistent with acute renal failure with a creatinine of 2.6 and elevated BNP. X-ray shows a small pleural effusion. Hospitalist service is consulted in light of acute renal failure and progressive lymphedema At the time of evaluation patient is accompanied with his . He was able to answer most of the questions and endorsed to history as above. He denies recent NSAID intake or change in diet/high salt intake. He further denies missing his regular medications. He was actually doing fairly well after recent hospital ization until the last week with onset of symptoms. He denies associated fever, cough, diarrhea, dysuria or joint pain or rash. He further denies headache photophobia 12/10-patient doing well. Improved shortness of breath. Improving lymphedema. Over 2000 cc net negative fluid balance with aggressive diuresis. Case discussed with nephrology Recommends continuing diuretics. Creatinine up from 2.6-2.7. Echocardiogram ordered. Last echo EF 25%/pulmonary hypertension with pulmonary pressure between 50 and 70 with evidence of cor pulmonale. Case discussed with multiple family members and patient. White count 19.1. Wound care consulted for left lower extremity cellulitis change on weeping lymphedema. Renal ultrasound reveals cholelithiasis/moderate splenomegaly which may be indicative of congestive process secondary to pulmonary hypertension/cor pulmonale. - Constitutional Vitals: Vital Signs Temp Pulse Resp BP Pulse Ox 97.8 F 78 22 118/63 95 12/10/18 07:42 12/10/18 08:02 12/10/18 07:42 12/10/18 07:42 12/10/18 07:42 Period Temp Pulse Resp BP Sys/Valentin Pulse Ox Last 24 Hr 97.5 F-97.8 F 62-95 16-26 97-118/50-81 91-100 Intake and Output 12/09/18 12/10/18 12/10/18 21:59 05:59 13:59 Intake Total 480 Output Total 350 1050 825 Balance -350 -1050 -345 Weight 208 lb Intake & Output: Intake & Output 12/09/18 12/10/18 12/10/18 21:59 05:59 13:59 Intake Total 480 Output Total 350 1050 825 Balance -350 -1050 -345 Weight 208 lb Intake: Oral 480 Output: Void Amount 350 1050 825 Other: Meal Breakfast Percent of Meal Consumed 100% General appearance: no acute distress Exam: Nonlabored breathing No anxiety Lymphedema improving Left lower extremity cellulitis change Irregular rhythm Medical - PN: Obj Da - Labs CBC & Chem 7: 12/10/18 03:23 12/10/18 03:23 Labs: Abnormal Lab Results 12/10/18 12/10/18 12/09/18 03:23 03:23 16:13 WBC 19.1 H Hgb 9.2 L Hct 33.0 L MCV 71.6 L MCH 19.9 L MCHC 27.8 L RDW 26.1 H Plt Count 444 H Gran % Lymph % (Auto) Seg Neutrophils % 85 H Lymphocytes % 8 L Platelet Estimate Increased A Hypochromasia 2+ A Poikilocytosis 1+ A Anisocytosis 3+ A Microcytosis 2+ A Anion Gap 17.0 H BUN 61 H Creatinine 2.7 H Glucose 114 H Uric Acid 11.3 H GGT 81 H Alkaline Phosphatase 149 H Lactate Dehydrogenase 465 H Troponin T 0.06 H* NT-Pro-B Natriuret Pep 12/09/18 12/09/18 16:13 16:13 WBC 21.0 H Hgb 10.1 L Hct 36.5 L MCV 71.0 L MCH 19.6 L MCHC 27.7 L RDW 25.5 H Plt Count 470 H Gran % 85.0 H Lymph % (Auto) 9.0 L Seg Neutrophils % Lymphocytes % Platelet Estimate Hypochromasia Poikilocytosis Anisocytosis Microcytosis Anion Gap BUN 60 H Creatinine 2.6 H Glucose Uric Acid GGT Alkaline Phosphatase 172 H Lactate Dehydrogenase Troponin T NT-Pro-B Natriuret Pep 7407.0 H Meds: Medications Acetaminophen (Tylenol) 650 mg PO Q4-6HP PRN PRN Reason: PAIN/FEVER > 101 Allopurinol (Zyloprim) 50 mg PO DAILY [facility] Last Admin: 12/10/18 08:59 Dose: 50 mg Documented by: Ascorbic Acid (Vitamin C) 250 mg PO BID [facility] Last Admin: 12/10/18 08:59 Dose: 250 mg Documented by: Atorvastatin Calcium (Lipitor) 20 mg PO [facility] Carvedilol (Coreg) 3.125 mg PO BID [facility] Last Admin: 12/10/18 08:59 Dose: 3.125 mg Documented by: Docusate Sodium (Colace) 100 mg PO BID [facility] Last Admin: 12/10/18 08:59 Dose: 100 mg Documented by: Furosemide (Lasix) 40 mg IV Q8 [facility] Last Admin: 12/10/18 05:55 Dose: 40 mg Documented by: Acetaminophen (Ofirmev) 1,000 mg in 100 mls @ 200 mls/hr IV Q6HP PRN PRN Reason: PAIN/FEVER > 101 Metolazone (Zaroxolyn) 2.5 mg PO BID@0730,1530 [facility] Last Admin: 12/10/18 07:57 Dose: 2.5 mg Documented by: Ondansetron HCl (Zofran) 4 mg IV Q4-6HP PRN PRN Reason: Nausea And Vomiting Rivaroxaban (Xarelto) 15 mg PO DAILY@1800 [facility] Senna/Docusate Sodium (Senna Plus Tablet) 1 tab PO [facility] Last Admin: 12/09/18 21:29 Dose: Not Given Documented by: Sodium Chloride (Saline Flush) 10 ml IV Q8 [facility] Last Admin: 12/10/18 05:55 Dose: 10 ml Documented by: Vitamin B Complex (Vitamin B Complex) 1 cap PO DAILY [facility] Last Admin: 12/10/18 08:59 Dose: 1 cap Documented by: Medical - PN: A/P - Time Spent With Patient Total time spent is greater than 50% in coordination of care (as documented) at patient's floor/unit and/or counseling patient: 25 - 35 minutes (1) Acute renal failure (ARF) Status: Acute Assessment and plan: * Acute renal failure-nephrology consult. Last known baseline 1.4. Creatinine now 2.7.. Avoid nephrotoxins. Renal ultrasound unremarkable for acute renal process * Anasarca secondary to volume overload-continue aggressive diuresis. Neph rology consulted, over 2000 cc net negative fluid balance in 12 hours * History of cor pulmonale with 35% EF/pulmonary artery pressure 50-70, combined systolic and diastolic dysfunction as per echo July 2018. Repeat echo pending * [id number] history. Concurrent anemia/thrombocytopenia. Patient follows up with hematology, however rule out infectious process * Left lower extremity cellulitis change, wound care/limb elevation/lymphedema wraps * History of atrial fibrillation-rate controlled on Coreg. Continue anticoagulation on Xarelto * Hypertension- Coreg/lisinopril/spironolactone * Hyperlipidemia continue statin * History of gout continue allopurinol * GERD on PPI * Hyperlipidemia on statin * Chronic disease stage IIIb managed by Dr. Skinner. Creatinine 1.5. * History of leukocytosis/thrombocytosis/myocytic anemia. * Obstructive sleep apnea/obesity * Prophylaxis-anticoagulation Plan * Aggressive diuresis * Wound care * Nephrology consult * Continue monitoring renal function * Prior medicall condition management as above * PT OT/nutrition support * Discharge planning per case management Current Visit: Yes
[2018-12-10] MEDS: RIVAROXABAN 15 MG TABLET PO SCH (18:00)
[2018-12-10] MEDS: ATORVASTATIN 20 MG TABLET PO SCH (22:44)
[2018-12-10] MEDS: SENNOSIDES/DOCUSATE SODIUM 1 TAB TABLET PO SCH (22:44)
[2018-12-11] MEDS: FUROSEMIDE 40 MG/4 ML VIAL IV SCH ×3 (05:19→21:36)
[2018-12-11] MEDS: 0.9 % SODIUM CHLORIDE 10 ML SYRINGE IV SCH ×3 (05:19→21:38)
[2018-12-11 06:02] LABS: Hematocrit 32.3 % (41.0-55.0); Mean Cell Volume 70.8 fL (80.0-100.0); Mean Corpuscular HGB Conc 27.7 g/dL (31.0-36.0); Mean Platelet Volume 10.2 fL (7.4-10.4); Platelet Count 433 K/mcL (140-440); RBC 4.56 M/mcL (4.50-5.90); WBC 18.1 K/mcL (4.5-11.0)
[2018-12-11 06:22] LABS: ALT/SGPT 13 U/l (0-40); AST/SGOT 24 U/l (0-37); Albumin 3.6 gm/dL (3.2-5.2); Albumin/Globulin Ratio 1.4 (1.0-2.3); Alkaline Phosphatase 148 U/L (39-117); Bilirubin,Direct 0.3 mg/dL (0.0-0.3); Bilirubin,Total 0.9 mg/dL (0.0-1.0); Blood Urea Nitrogen 60 mg/dl (8-23); Calcium 8.8 mg/dl (8.6-10.4); Carbon Dioxide 26 mmol/L (22-30); Chloride 100 mmol/L (96-108); Globulin 2.6 gm/dL (2.2-3.7); Glomerular Filtration Rate 23; Glucose 85 mg/dL (70-105); Lactate Dehydrogenase 418 U/L (94-250); Phosphorous 4.3 mg/dL (2.7-4.5); Triglycerides 25 mg/dl (<150); Uric Acid 11.6 mg/dL (2.5-8.0)
[2018-12-11 06:34] LABS: Anisocytosis 2+ (NONE SEEN); Eosinophils % (Manual) 5 % (0-7); Hypochromasia 2+ (NONE SEEN); Lymphocytes % 5 % (15-49); Microcytosis 2+ (NONE SEEN); Monocytes % (Manual) 7 % (1-12); Ovalocytes 3+ (NONE SEEN); Platelet Estimate NORMAL (NORMAL); Poikilocytosis 1+ (NONE SEEN); RBC Fragments FEW (NONE SEEN); RBC Morphology ABNORM (NORMAL); Segmented Neutrophils % 83 % (38-78); Tear Drop Cells 2+ (NONE SEEN)
[2018-12-11] MEDS: METOLAZONE 2.5 MG TABLET PO SCH ×2 (07:51→16:07)
[2018-12-11] MEDS: VITAMIN B COMPLEX 1 CAPSULE PO SCH (08:55)
[2018-12-11] MEDS: DOCUSATE SODIUM 100 MG CAPSULE PO SCH ×2 (08:55→21:37)
[2018-12-11] MEDS: CARVEDILOL 3.125 MG TABLET PO SCH ×2 (08:55→21:37)
[2018-12-11] MEDS: ASCORBIC ACID 500 MG TABLET PO SCH ×2 (08:55→21:36)
[2018-12-11] MEDS: ALLOPURINOL 100 MG TABLET PO SCH (08:56)
--- NOTE | 2018-12-11 10:31 | Internal Med Progress Note ---
Medical - PN: Subj Patient information: Note initiated : 12/11/18 at 10:27 am Service Date, if different from initiated Date: [] Patient: Ayden Guzmán Sr a 83 y/o M admitted on 12/09/18 for skin. Chief Complaint: [] Interval history: Mr. Arielle Caba is a 83 year old M who was recently admitted with GI bleed [place] and has been recovering well who now presents with progressive weight gain over 20 pounds with worsening lymphedema lower extremities. Swelling has progressed to the point that his skin has been weeping and has barely been able to move his limbs. He endorses to increasing fatigue weakness and shortness of breath. He is barely able to function. He was recently started on high-dose Lasix by his aircraft servicer Dr. Fregoso , Patient however did not notice any improvement over the next 3 days. He now presents to the ER with above symptoms. Initial work-up was consistent with acute renal failure with a creatinine of 2.6 and elevated BNP. X-ray shows a small pleural effusion. Hospitalist service is consulted in light of acute renal failure and progressive lymphedema At the time of evaluation patient is accompanied with his . He was able to answer most of the questions and endorsed to history as above. He denies recent NSAID intake or change in diet/high salt intake. He further denies missing his regular medications. He was actually doing fairly well after recent hospital ization until the last week with onset of symptoms. He denies associated fever, cough, diarrhea, dysuria or joint pain or rash. He further denies headache photophobia 12/10-patient doing well. Improved shortness of breath. Improving lymphedema. Over 2000 cc net negative fluid balance with aggressive diuresis. Case discussed with nephrology Recommends continuing diuretics. Creatinine up from 2.6-2.7. Echocardiogram ordered. Last echo EF 25%/pulmonary hypertension with pulmonary pressure between 50 and 70 with evidence of cor pulmonale. Case discussed with multiple family members and patient. White count 19.1. Wound care consulted for left lower extremity cellulitis change on weeping lymphedema. Renal ultrasound reveals cholelithiasis/moderate splenomegaly which may be indicative of congestive process secondary to pulmonary hypertension/cor pulmonale. 12/11-patient seen in room with multiple family members. Doing well. No shortness of breath. Lymphedema much improved. Over 4000 cc net negative urine output. Currently on Lasix metolazone combination. Case discussed with nephrology. Continue existing treatment. No overnight fever chills or telemetry events. Await discharge in 24 hours with home health. Patient and family resistant to SNF placement. Continue PT OT. Creatinine 2.5. Local wound care ongoing. Will need outpatient wound care follow-up on discharge - Constitutional Vitals: Vital Signs Temp Pulse Resp BP Pulse Ox 98.1 F 89 28 H 113/69 92 12/11/18 04:00 12/11/18 07:08 12/11/18 07:08 12/11/18 07:08 12/11/18 07:08 Period Temp Pulse Resp BP Sys/Valentin Pulse Ox Last 24 Hr 97.6 F-98.1 F 77-89 18-28 91-113/57-70 92-97 Intake and Output 12/10/18 12/11/18 12/11/18 21:59 05:59 13:59 Intake Total 780 357 Output Total 2150 1600 1200 Balance -1370 -1600 -843 Weight 205 lb Intake & Output: Intake & Output 12/10/18 12/11/18 12/11/18 21:59 05:59 13:59 Intake Total 780 357 Output Total 2150 1600 1200 Balance -1370 -1600 -843 Weight 205 lb Intake: Oral 780 357 Output: Void Amount 2150 1600 1200 Other: Meal Dinner Breakfast Percent of Meal Consumed 75% 100% Feeding Ability Assist with Tray Set Up Urine Appearance Clear Urine Color Bright Yellow Bright Yellow Bright Yellow Urine Odor Normal Strong # Bowel Movements 1 General appearance: no acute distress Medical - PN: Obj Da - Labs CBC & Chem 7: 12/11/18 03:39 12/11/18 03:39 Labs: Abnormal Lab Results 12/11/18 12/11/18 12/10/18 03:39 03:39 03:23 WBC 18.1 H Hgb 9.0 L Hct 32.3 L MCV 70.8 L MCH 19.7 L MCHC 27.7 L RDW 26.0 H Plt Count Gran % Lymph % (Auto) Seg Neutrophils % 83 H Lymphocytes % 5 L Platelet Estimate RBC Morphology Abnorm A Hypochromasia 2+ A Poikilocytosis 1+ A Anisocytosis 2+ A Microcytosis 2+ A Tear Drop Cells 2+ A Ovalocytes 3+ A RBC Fragments Few A Anion Gap 17.0 H BUN 60 H 61 H Creatinine 2.5 H 2.7 H Glucose 114 H Uric Acid 11.6 H 11.3 H GGT 86 H 81 H Alkaline Phosphatase 148 H 149 H Lactate Dehydrogenase 418 H 465 H Troponin T NT-Pro-B Natriuret Pep 12/10/18 12/09/18 12/09/18 03:23 16:13 16:13 WBC 19.1 H Hgb 9.2 L Hct 33.0 L MCV 71.6 L MCH 19.9 L MCHC 27.8 L RDW 26.1 H Plt Count 444 H Gran % Lymph % (Auto) Seg Neutrophils % 85 H Lymphocytes % 8 L Platelet Estimate Increased A RBC Morphology Hypochromasia 2+ A Poikilocytosis 1+ A Anisocytosis 3+ A Microcytosis 2+ A Tear Drop Cells Ovalocytes RBC Fragments Anion Gap BUN 60 H Creatinine 2.6 H Glucose Uric Acid GGT Alkaline Phosphatase 172 H Lactate Dehydrogenase Troponin T 0.06 H* NT-Pro-B Natriuret Pep 7407.0 H 12/09/18 16:13 WBC 21.0 H Hgb 10.1 L Hct 36.5 L MCV 71.0 L MCH 19.6 L MCHC 27.7 L RDW 25.5 H Plt Count 470 H Gran % 85.0 H Lymph % (Auto) 9.0 L Seg Neutrophils % Lymphocytes % Platelet Estimate RBC Morphology Hypochromasia Poikilocytosis Anisocytosis Microcytosis Tear Drop Cells Ovalocytes RBC Fragments Anion Gap BUN Creatinine Glucose Uric Acid GGT Alkaline Phosphatase Lactate Dehydrogenase Troponin T NT-Pro-B Natriuret Pep Meds: Medications Acetaminophen (Tylenol) 650 mg PO Q4-6HP PRN PRN Reason: PAIN/FEVER > 101 Allopurinol (Zyloprim) 50 mg PO DAILY [facility] Last Admin: 12/11/18 08:56 Dose: 50 mg Documented by: Ascorbic Acid (Vitamin C) 250 mg PO BID [facility] Last Admin: 12/11/18 08:55 Dose: 250 mg Documented by: Atorvastatin Calcium (Lipitor) 20 mg PO HS [facility] Last Admin: 12/10/18 22:44 Dose: 20 mg Documented by: Carvedilol (Coreg) 3.125 mg PO BID [facility] Last Admin: 12/11/18 08:55 Dose: 3.125 mg Documented by: Docusate Sodium (Colace) 100 mg PO BID [facility] Last Admin: 12/11/18 08:55 Dose: 100 mg Documented by: Furosemide (Lasix) 40 mg IV Q8 [facility] Last Admin: 12/11/18 05:19 Dose: 40 mg Documented by: Acetaminophen (Ofirmev) 1,000 mg in 100 mls @ 200 mls/hr IV Q6HP PRN PRN Reason: PAIN/FEVER > 101 Metolazone (Zaroxolyn) 2.5 mg PO BID@0730,1530 [facility] Last Admin: 12/11/18 07:51 Dose: 2.5 mg Documented by: Ondansetron HCl (Zofran) 4 mg IV Q4-6HP PRN PRN Reason: Nausea And Vomiting Rivaroxaban (Xarelto) 15 mg PO DAILY@1800 [facility] Last Admin: 12/10/18 18:00 Dose: 15 mg Documented by: Senna/Docusate Sodium (Senna Plus Tablet) 1 tab PO HS [facility] Last Admin: 12/10/18 22:44 Dose: 1 tab Documented by: Sodium Chloride (Saline Flush) 10 ml IV Q8 [facility] Last Admin: 12/11/18 05:19 Dose: 10 ml Documented by: Vitamin B Complex (Vitamin B Complex) 1 cap PO DAILY [facility] Last Admin: 12/11/18 08:55 Dose: 1 cap Documented by: Medical - PN: A/P - Time Spent With Patient Total time spent is greater than 50% in coordination of care (as documented) at patient's floor/unit and/or counseling patient: 15 - 24 minutes (1) Acute renal failure (ARF) Status: Acute Assessment and plan: * Acute renal failure-nephrology consulted. Recommends continuing diuresis. Last known baseline 1.4. Creatinine now creatinine now improved to 2.5. * Anasarca secondary to volume overload-over 4000 cc net negative with aggressi ve diuresis. * History of cor pulmonale with 45% EF/PAP 50-70, improved EF compared to-Echo July 2018. * Leukocytosis-chronic. Concurrent anemia/thrombocytopenia. Patient follows up with hematology, no evidence of acute infectious process * Left lower extremity venous ulceration, wound care/limb elevation/lymphedema wraps * History of atrial fibrillation-rate controlled on Coreg. Continue anticoa gulation on Xarelto * Hypertension- Coreg/lisinopril/spironolactone * Hyperlipidemia continue statin * History of gout continue allopurinol * GERD on PPI * Hyperlipidemia on statin * Chronic disease stage IIIb managed by Dr. Skinner. Creatinine 1.5. * History of leukocytosis/thrombocytosis/myocytic anemia. * Obstructive sleep apnea/obesity * Prophylaxis-anticoagulation Plan * Continue e diuresis * Wound care * Renal failure management per nephrology * Continue monitoring renal function * Prior medicall condition management as above * PT OT/nutrition support * Discharge planning per case management Current Visit: Yes
[2018-12-11] MEDS: RIVAROXABAN 15 MG TABLET PO SCH (17:52)
[2018-12-11] MEDS: ATORVASTATIN 20 MG TABLET PO SCH (21:37)
[2018-12-11] MEDS: SENNOSIDES/DOCUSATE SODIUM 1 TAB TABLET PO SCH (21:37)
[2018-12-11] MEDS: MUPIROCIN OINT 2% 22GM NARES SCH (21:48)
[2018-12-12] MEDS: FUROSEMIDE 40 MG/4 ML VIAL IV SCH ×3 (05:38→22:48)
[2018-12-12] MEDS: 0.9 % SODIUM CHLORIDE 10 ML SYRINGE IV SCH ×3 (05:39→22:49)
[2018-12-12 06:07] LABS: ALT/SGPT 11 U/l (0-40); AST/SGOT 18 U/l (0-37); Albumin 3.6 gm/dL (3.2-5.2); Albumin/Globulin Ratio 1.4 (1.0-2.3); Alkaline Phosphatase 152 U/L (39-117); Bilirubin,Direct 0.4 mg/dL (0.0-0.3); Bilirubin,Total 0.9 mg/dL (0.0-1.0); Blood Urea Nitrogen 64 mg/dl (8-23); Calcium 9.1 mg/dl (8.6-10.4); Carbon Dioxide 28 mmol/L (22-30); Chloride 97 mmol/L (96-108); Globulin 2.6 gm/dL (2.2-3.7); Glomerular Filtration Rate 27; Glucose 88 mg/dL (70-105); Lactate Dehydrogenase 364 U/L (94-250); Phosphorous 4.2 mg/dL (2.7-4.5); Uric Acid 12.1 mg/dL (2.5-8.0)
[2018-12-12 06:24] LABS: Hematocrit 32.7 % (41.0-55.0); Hemoglobin 9.2 g/dL (13.5-16.5); Mean Cell Volume 70.7 fL (80.0-100.0); Mean Corpuscular HGB Conc 28.2 g/dL (31.0-36.0); Mean Platelet Volume 9.1 fL (7.4-10.4); Platelet Count 396 K/mcL (140-440); RBC 4.63 M/mcL (4.50-5.90); Triglycerides 21 mg/dl (<150); WBC 18.2 K/mcL (4.5-11.0)
[2018-12-12 06:54] LABS: Anisocytosis 2+ (NONE SEEN); Band Neutrophils % 9 % (0-10); Eosinophils % (Manual) 3 % (0-7); Hypochromasia 2+ (NONE SEEN); Lymphocytes % 5 % (15-49); Microcytosis 2+ (NONE SEEN); Monocytes % (Manual) 2 % (1-12); Ovalocytes 1+ (NONE SEEN); Platelet Estimate NORMAL (NORMAL); RBC Fragments FEW (NONE SEEN); RBC Morphology ABNORM (NORMAL); Segmented Neutrophils % 81 % (38-78)
[2018-12-12] MEDS: METOLAZONE 2.5 MG TABLET PO SCH ×2 (07:19→15:45)
[2018-12-12] MEDS: VITAMIN B COMPLEX 1 CAPSULE PO SCH (08:27)
[2018-12-12] MEDS: CARVEDILOL 3.125 MG TABLET PO SCH ×2 (08:27→22:47)
[2018-12-12] MEDS: ALLOPURINOL 100 MG TABLET PO SCH (08:27)
[2018-12-12] MEDS: MUPIROCIN OINT 2% 22GM NARES SCH ×2 (08:27→22:47)
[2018-12-12] MEDS: DOCUSATE SODIUM 100 MG CAPSULE PO SCH ×2 (08:27→22:48)
[2018-12-12] MEDS: ASCORBIC ACID 500 MG TABLET PO SCH ×2 (08:27→22:56)
[2018-12-12] MEDS: cefTRIAXone 2 GM in DEXTROSE 5% IN WATER 50 ML IV SCH (09:30)
[2018-12-12] MEDS ORDERED: VANCOMYCIN PER PHARMACY IV SCH (09:30)
--- NOTE | 2018-12-12 09:37 | Internal Med Progress Note ---
Medical - PN: Subj Patient information: Note initiated : 12/12/18 at 9:34 am Service Date, if different from initiated Date: [] Patient: Ayden Guzmán Sr a 83 y/o M admitted on 12/09/18 for skin. Chief Complaint: [] Interval history: Mr. Arielle Caba is a 83 year old M who was recently admitted with GI bleed in [facility] and has been recovering well who now presents with progressive weight gain over 20 pounds with worsening lymphedema lower extremities. Swelling has progressed to the point that his skin has been weeping and has barely been able to move his limbs. He endorses to increasing fatigue weakness and shortness of breath. He is barely able to function. 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 Fregoso , Patient however did not notice any improvement over the next 3 days. He now presents to the ER with above symptoms. Initial work-up was consistent with acute renal failure with a creatinine of 2.6 and elevated BNP. X-ray shows a small pleural effusion. Hospitalist service is consulted in light of acute renal failure and progressive lymphedema At the time of evaluation patient is accompanied with his . He was able to answer most of the questions and endorsed to history as above. He denies recent NSAID intake or change in diet/high salt intake. He further denies missing his regular medications. He was actually doing fairly well after recent hospitali zation until the last week with onset of symptoms. He denies associated fever, cough, diarrhea, dysuria or joint pain or rash. He further denies headache photophobia 12/10-patient doing well. Improved shortness of breath. Improving lymphedema. Over 2000 cc net negative fluid balance with aggressive diuresis. Case discussed with nephrology Recommends continuing diuretics. Creatinine up from 2.6-2.7. Echocardiogram ordered. Last echo EF 25%/pulmonary hypertension with pulmonary pressure between 50 and 70 with evidence of cor pulmonale. Case discussed with multiple family members and patient. White count 19.1. Wound care consulted for left lower extremity cellulitis change on weeping lymphedema. Renal ultrasound reveals cholelithiasis/moderate splenomegaly which may be indicative of congestive process secondary to pulmonary hypertension/cor pulmonale. 12/11-patient seen in room with multiple family members. Doing well. No shortness of breath. Lymphedema much improved. Over 4000 cc net negative urine output. Currently on Lasix metolazone combination. Case discussed with nephrology. Continue existing treatment. No overnight fever chills or telemetry events. Await discharge in 24 hours with home health. Patient and family resistant to SNF placement. Continue PT OT. Creatinine 2.5. Local wound care ongoing. Will need outpatient wound care follow-up on discharge 12/12-patient doing well. Diuresing well. Creatinine 2.2. Await wound care and nephrology consult. Started on antibiotic in light of increasing erythema/pustular lesion left lower extremity. Patient will require additional 24 to 48 hours hospitalization for continued wound care/diuresis and renal function entering. Net body weight 7 pounds down since admit - Constitutional Vitals: Vital Signs Temp Pulse Resp BP Pulse Ox 97.5 F 92 H 20 108/62 95 12/12/18 07:20 12/12/18 07:20 12/12/18 07:20 12/12/18 07:20 12/12/18 07:20 Period Temp Pulse Resp BP Sys/Valentin Pulse Ox Last 24 Hr 96.5 F-98.1 F 82-92 18-20 100-109/51-67 92-95 Intake and Output 12/11/18 12/12/18 12/12/18 21:59 05:59 13:59 Intake Total 240 720 Output Total 1300 1350 850 Balance -1060 -1350 -130 Weight 204 lb 8 oz Intake & Output: Intake & Output 12/11/18 12/12/18 12/12/18 21:59 05:59 13:59 Intake Total 240 720 Output Total 1300 1350 850 Balance -1060 -1350 -130 Weight 204 lb 8 oz Intake: Oral 240 720 Output: Void Amount 1300 1350 850 Other: Meal Dinner Breakfast Percent of Meal Consumed 100% 100% Feeding Ability Assist with Tray Set Up Urine Appearance Clear Urine Color Bright Yellow # Bowel Movements 1 General appearance: no acute distress Exam: Alert oriented Nonlabored breathing No anxiety Irregular rhythm Lymphedema next lower extremity improved Left lower extremity above ankle cellulitis change Medical - PN: Obj Da - Labs CBC & Chem 7: 12/12/18 03:11 12/12/18 03:11 Labs: Abnormal Lab Results 12/12/18 12/12/18 12/11/18 03:11 03:11 03:39 WBC 18.2 H Hgb 9.2 L Hct 32.7 L MCV 70.7 L MCH 20.0 L MCHC 28.2 L RDW 26.0 H Plt Count Gran % Lymph % (Auto) Seg Neutrophils % 81 H Lymphocytes % 5 L Platelet Estimate RBC Morphology Abnorm A Hypochromasia 2+ A Poikilocytosis Anisocytosis 2+ A Microcytosis 2+ A Tear Drop Cells Ovalocytes 1+ A RBC Fragments Few A Anion Gap BUN 64 H 60 H Creatinine 2.2 H 2.5 H Glucose Uric Acid 12.1 H 11.6 H Direct Bilirubin 0.4 H GGT 87 H 86 H Alkaline Phosphatase 152 H 148 H Lactate Dehydrogenase 364 H 418 H Troponin T NT-Pro-B Natriuret Pep 12/11/18 12/10/18 12/10/18 03:39 03:23 03:23 WBC 18.1 H 19.1 H Hgb 9.0 L 9.2 L Hct 32.3 L 33.0 L MCV 70.8 L 71.6 L MCH 19.7 L 19.9 L MCHC 27.7 L 27.8 L RDW 26.0 H 26.1 H Plt Count 444 H Gran % Lymph % (Auto) Seg Neutrophils % 83 H 85 H Lymphocytes % 5 L 8 L Platelet Estimate Increased A RBC Morphology Abnorm A Hypochromasia 2+ A 2+ A Poikilocytosis 1+ A 1+ A Anisocytosis 2+ A 3+ A Microcytosis 2+ A 2+ A Tear Drop Cells 2+ A Ovalocytes 3+ A RBC Fragments Few A Anion Gap 17.0 H BUN 61 H Creatinine 2.7 H Glucose 114 H Uric Acid 11.3 H Direct Bilirubin GGT 81 H Alkaline Phosphatase 149 H Lactate Dehydrogenase 465 H Troponin T NT-Pro-B Natriuret Pep 12/09/18 12/09/18 12/09/18 16:13 16:13 16:13 WBC 21.0 H Hgb 10.1 L Hct 36.5 L MCV 71.0 L MCH 19.6 L MCHC 27.7 L RDW 25.5 H Plt Count 470 H Gran % 85.0 H Lymph % (Auto) 9.0 L Seg Neutrophils % Lymphocytes % Platelet Estimate RBC Morphology Hypochromasia Poikilocytosis Anisocytosis Microcytosis Tear Drop Cells Ovalocytes RBC Fragments Anion Gap BUN 60 H Creatinine 2.6 H Glucose Uric Acid Direct Bilirubin GGT Alkaline Phosphatase 172 H Lactate Dehydrogenase Troponin T 0.06 H* NT-Pro-B Natriuret Pep 7407.0 H Meds: Medications Acetaminophen (Tylenol) 650 mg PO Q4-6HP PRN PRN Reason: PAIN/FEVER > 101 Allopurinol (Zyloprim) 50 mg PO DAILY [facility] Last Admin: 12/12/18 08:27 Dose: 50 mg Documented by: Ascorbic Acid (Vitamin C) 250 mg PO BID [facility] Last Admin: 12/12/18 08:27 Dose: 250 mg Documented by: Atorvastatin Calcium (Lipitor) 20 mg PO HS [facility] Last Admin: 12/11/18 21:37 Dose: 20 mg Documented by: Carvedilol (Coreg) 3.125 mg PO BID [facility] Last Admin: 12/12/18 08:27 Dose: 3.125 mg Documented by: Docusate Sodium (Colace) 100 mg PO BID [facility] Last Admin: 12/12/18 08:27 Dose: Not Given Documented by: Furosemide (Lasix) 40 mg IV Q8 [facility] Last Admin: 12/12/18 05:38 Dose: 40 mg Documented by: Acetaminophen (Ofirmev) 1,000 mg in 100 mls @ 200 mls/hr IV Q6HP PRN PRN Reason: PAIN/FEVER > 101 Ceftriaxone Sodium 2 gm/ (Dextrose) 50 mls @ 100 mls/hr IV Q24H [facility] Last Admin: 12/12/18 09:30 Dose: 100 mls/hr Documented by: Vancomycin HCl 1,500 mg/ (Sodium Chloride) 500 mls @ 333.3 mls/hr IV ONCE ONE Stop: 12/12/18 11:30 Metolazone (Zaroxolyn) 2.5 mg PO BID@0730,1530 [facility] Last Admin: 12/12/18 07:19 Dose: 2.5 mg Documented by: Mupirocin (Bactroban Oint 2%) 1 dose NARES BID [facility] Last Admin: 12/12/18 08:27 Dose: 1 dose Documented by: Ondansetron HCl (Zofran) 4 mg IV Q4-6HP PRN PRN Reason: Nausea And Vomiting Rivaroxaban (Xarelto) 15 mg PO DAILY@1800 [facility] Last Admin: 09/15/19 17:52 Dose: 15 mg Documented by: Senna/Docusate Sodium (Senna Plus Tablet) 1 tab PO HS [facility] Last Admin: 12/11/18 21:37 Dose: Not Given Documented by: Sodium Chloride (Saline Flush) 10 ml IV Q8 [facility] Last Admin: 12/12/18 05:39 Dose: 10 ml Documented by: Vancomycin HCl (Vancomycin Per Pharmacy) 1 order IV UD [facility] Vitamin B Complex (Vitamin B Complex) 1 cap PO DAILY [facility] Last Admin: 12/12/18 08:27 Dose: 1 cap Documented by: Medical - PN: A/P - Time Spent With Patient Total time spent is greater than 50% in coordination of care (as documented) at patient's floor/unit and/or counseling patient: 25 - 35 minutes (1) Acute renal failure (ARF) Status: Acute Assessment and plan: * Acute renal failure on CKD stage IIIb-await further nephrology recommendations. Last known baseline 1.4. Creatinine improved 2.2 * Anasarca secondary to volume overload-over 7000 cc net negative volume status with aggressive diuresis. * Left lower extremity cellulitis/venous ulceration, wound care/limb elevation/lymphedema wraps. Start antibiotic coverage. * History of cor pulmonale with 45% EF/PAP 50-70, improved EF compared to-Echo July 2018. * Leukocytosis-chronic. Concurrent anemia/thrombocytopenia. Patient follows up with hematology, no evidence of acute infectious process * History of atrial fibrillation-rate controlled on Coreg. Continue anticoagulation on Xarelto * Hypertension- Coreg/lisinopril/spironolactone * Hyperlipidemia continue statin * History of gout continue allopurinol * GERD on PPI * Hyperlipidemia on statin * History of leukocytosis/thrombocytosis/myocytic anemia. * Obstructive sleep apnea/obesity * Prophylaxis-anticoagulation Plan * Continue diuresis * Wound care * Antibiotic coverage * Renal failure management per nephrology * Prior medicall condition management as above * PT OT/nutrition support * Discharge planning per case management possibly in 48 hours Current Visit: Yes
[2018-12-12] MEDS ORDERED: VANCOMYCIN 1,500 MG in 0.9 % SODIUM CHLORIDE 500 ML IV ONE (10:00)
--- NOTE | 2018-12-12 12:31 | Nephrology Progress Note ---
Subjective Patient information: Note initiated : 12/12/18 at 12:27 pm Service Date, if different from initiated Date: [] Patient: Ayden Guzmán Sr 83 y/o M admitted on 12/09/18 for skin. Chief Complaint: [] Swelling is lot better. He has been responding well to in lasix and metolozone. Objective - Vital Signs Vital signs: Vital Signs Temp Pulse Resp BP Pulse Ox 12/12/18 07:20 97.5 F 92 H 20 108/62 95 12/12/18 03:44 98.1 F 87 20 109/67 93 12/11/18 22:59 97.6 F 87 18 105/61 94 12/11/18 19:31 97.2 F 82 18 105/56 94 12/11/18 16:00 96.5 F L 82 20 107/66 92 12/11/18 12:53 83 20 100/51 93 Intake and Output 12/11/18 12/12/18 12/12/18 21:59 05:59 13:59 Intake Total 240 770 Output Total 1300 1350 1200 Balance -1060 -1350 -430 Intake: IV 50 Rocephin 2 gm In Dextrose 5% in 50 Water 50 ml @ 100 mls/hr IV Q24H [facility] Rx#:[id number] Oral 240 720 Output: Void Amount 1300 1350 1200 Other: Meal Dinner Breakfast Percent of Meal Consumed 100% 100% Feeding Ability Assist with Tray Set Up Urine Appearance Clear Urine Color Bright Yellow # Bowel Movements 1 Weight 204 lb 8 oz Intake & Output: Intake & Output 12/11/18 12/12/18 12/12/18 21:59 05:59 13:59 Intake Total 240 770 Output Total 1300 1350 1200 Balance -1060 -1350 -430 Weight 204 lb 8 oz Intake: IV 50 Rocephin 2 gm In Dextrose 5% in 50 Water 50 ml @ 100 mls/hr IV Q24H [facility] Rx#:[id number] Oral 240 720 Output: Void Amount 1300 1350 1200 Other: Meal Dinner Breakfast Percent of Meal Consumed 100% 100% Feeding Ability Assist with Tray Set Up Urine Appearance Clear Urine Color Bright Yellow # Bowel Movements 1 - General Appearance General appearance: well-developed, well-nourished, appears started age EENT: ATNC Neck: JVD Respiratory: kyphosis Cardiology: mid-systolic murmur Neurologic: no focal deficit, no asterixis - Lab 12/12/18 03:11 12/12/18 03:11 Most recent lab results Calcium 9.1 mg/dl (8.6-10.4) 12/12/18 03:11 Phosphorus 4.2 mg/dL (2.7-4.5) 12/12/18 03:11 Magnesium 2.2 mg/dL (1.6-2.5) 12/12/18 03:11 Assessment and Plan (1) Chronic renal failure, stage 3 (moderate) Status: Acute Comment: Patient has a rapid decline in renal function and he is volume overloaded. He has been diuresed very well without decline in his renal function. So it suggests more of a cardiorenal syndrome. The presentation is more of cor-pulmonale. The echo shows left atrial dilatation as well. Can d/c home with lasix 40mg bid, metolozone 2.5mg po bid and lasix 20meq bid. I will follow in a week.
--- NOTE | 2018-12-12 13:34 | Consultation ---
DATE OF CONSULTATION: 12/12/2018 REQUESTING PHYSICIAN: Jason Sutherland MD REASON FOR HOSPITALIZATION: Anasarca and chronic kidney disease. The patient is an 83-year-old male, who is well known to me, with chronic kidney disease. He has had worsening of his right lower extremity edema which came on fairly suddenly. I saw him in the office and increased his Lasix to 80 mg b.i.d. but subsequently he came into the emergency room because of the progressive swelling. He has not been short of breath. A chest x-ray did not show congestive heart failure, more like small pleural effusions. He was developing some erythema of the lower extremities as well. For those reasons, he is hospitalized. PAST MEDICAL HISTORY: History of diverticular hemorrhage in the past; history of congestive heart failure with severe right-sided heart failure. He has left atrial and right atrial and right ventricular enlargement. There was no evidence of mitral valvular disease and the previous echocardiograms. He has history of small-bowel obstruction with due to adhesions in the past; chronic kidney disease with a baseline creatinine about 1.5 to 2.0, is slightly worse; history of prostate malignancy; history of hypertension; history of gout; erythrocytosis. PAST SURGICAL HISTORY: History of carpal tunnel surgery; ocular lens implants; knee surgeries; hemorrhoidectomy; prostate biopsy; radical prostatectomy. FAMILY HISTORY: Father of Alzheimer disease. Mother of atherosclerosis of the coronary arteries. There is history of prostate malignancy in the family. SOCIAL HISTORY: The patient lives with his spouse. No history of alcohol or drug use. He actually does not consume much salt. MEDICATIONS ON ADMISSION: 1. He is supposedly taking Lasix 80 mg twice daily. 2. Allopurinol 100 mg once daily. 3. Vitamin B 1 tablet once daily. 4. Ascorbic acid 250 mg twice daily. 5. Carvedilol 3.125 mg twice daily. 6. Rivaroxaban 15 mg tablet 1 at night. REVIEW OF SYSTEMS: Ten systems were reviewed and as indicated in history of present illness. PHYSICAL EXAMINATION: GENERAL: Alert and oriented x3, not in any distress. VITAL SIGNS: Blood pressures have been ranging from 100 to 150s systolic with diastolic in the 60s, pulse is in the 70s. I's and O's: he had 1100 in and 4200 out yesterday. He continued to make large amounts of urine. HEENT: Normocephalic/atraumatic. Pupils reactive to light. External auditory canal appears normal. Oral cavity appears slightly dry. NECK: Supple. He does have 10 cm of jugular venous distention. No lymphadenopathy. No thyromegaly. No carotid bruits. LUNGS: Decreased air entry bilaterally. No rales or rhonchi heard. CARDIA: S1 and S2 heard. No S3, S4. He has a 2/6 systolic murmur. ABDOMEN: Soft, nontender. No organomegaly. Positive bowel sounds. No mass, no rebound. EXTREMITIES: 2+ edema, difficult to palpate his dorsalis pedis and posterior tibials. There are a few skin open wounds noted. LABORATORY DATA: White count is 18.2 with hemoglobin of 9.2 and a platelet count of 396, sodium 140, potassium 3.8, chloride 97, CO2 28, BUN 64, creatinine 2.2, uric acid 12.1. Gamma GT is high at 87, alkaline phosphatase is 152 with LDH of 364. RADIOLOGIC STUDIES: He did have an ultrasound of the kidneys which showed hyperechoic kidneys compatible with medical renal disease and advanced age. There is a small cyst. There is moderate splenomegaly. He also has cholelithiasis. ASSESSMENT AND PLAN: 1. Acute on chronic kidney disease, looks like more of a cardiorenal syndrome. His kidney function is improved which is consistent with cardiorenal syndrome. The cardiac presentation seems like more cardiopulmonary, although there is evidence of mitral valve enlargement. I agree with continued diuresis, although his blood pressure going lower and that he may become symptomatic because of the volume because his cardiac dependent on the preload. We will continue the Lasix 40 mg b.i.d. along with metolazone 2.5 mg p.o. b.i.d. and potassium chloride 20 mEq p.o. b.i.d. as an outpatient. I would be happy to see him as an outpatient in the next week or two. 2. Elevated uric acid. One can consider increasing the allopurinol dose. 3. Metabolic alkalosis. He is getting mild metabolic alkalosis from diuresis. Adequate potassium replacement will help that. HAZEL:dylan Job ID: [id number] Doc ID: [id number] Josue Sutherland MD
[2018-12-12] MEDS: RIVAROXABAN 15 MG TABLET PO SCH (17:37)
[2018-12-12] MEDS: SENNOSIDES/DOCUSATE SODIUM 1 TAB TABLET PO SCH (22:48)
[2018-12-12] MEDS: ATORVASTATIN 20 MG TABLET PO SCH (22:56)
[2018-12-13 05:30] LABS: Hematocrit 33.2 % (41.0-55.0); Hemoglobin 9.3 g/dL (13.5-16.5); Mean Cell Volume 70.6 fL (80.0-100.0); Mean Corpuscular HGB Conc 28.1 g/dL (31.0-36.0); Mean Platelet Volume 9.9 fL (7.4-10.4); Platelet Count 430 K/mcL (140-440); Red Cell Distribution Width 25.8 % (11.5-14.5)
[2018-12-13] MEDS: FUROSEMIDE 40 MG/4 ML VIAL IV SCH (05:55)
[2018-12-13] MEDS: 0.9 % SODIUM CHLORIDE 10 ML SYRINGE IV SCH (05:55)
[2018-12-13 06:08] LABS: ALT/SGPT 13 U/l (0-40); AST/SGOT 27 U/l (0-37); Albumin 3.7 gm/dL (3.2-5.2); Albumin/Globulin Ratio 1.2 (1.0-2.3); Alkaline Phosphatase 169 U/L (39-117); Bilirubin,Direct 0.3 mg/dL (0.0-0.3); Bilirubin,Total 0.9 mg/dL (0.0-1.0); Blood Urea Nitrogen 64 mg/dl (8-23); Calcium 8.7 mg/dl (8.6-10.4); Carbon Dioxide 30 mmol/L (22-30); Chloride 92 mmol/L (96-108); Glomerular Filtration Rate 25; Glucose 91 mg/dL (70-105); Lactate Dehydrogenase 501 U/L (94-250); Phosphorous 4.6 mg/dL (2.7-4.5); Triglycerides 24 mg/dl (<150); Uric Acid 11.8 mg/dL (2.5-8.0)
[2018-12-13] MEDS: METOLAZONE 2.5 MG TABLET PO SCH (07:36)
[2018-12-13 07:42] LABS: Anisocytosis 2+ (NONE SEEN); Basophils % (Manual) 2 % (0-2); Hypochromasia 2+ (NONE SEEN); Lymphocytes % 4 % (15-49); Microcytosis 2+ (NONE SEEN); Myelocytes % 1 % (0-0); Nucleated Red Blood Cells 2 % (0-0); Ovalocytes 1+ (NONE SEEN); Platelet Estimate NORMAL (NORMAL); Polychromasia 1+ (NONE SEEN); RBC Morphology ABNORM (NORMAL); Segmented Neutrophils % 93 % (38-78)
[2018-12-13] MEDS ORDERED: POTASSIUM CHLORIDE 20 MEQ TABLET PO SCH (08:00)
[2018-12-13] MEDS ORDERED: CARVEDILOL 3.125 MG TABLET PO SCH (08:00)
[2018-12-13] MEDS: DOCUSATE SODIUM 100 MG CAPSULE PO SCH (08:35)
[2018-12-13] MEDS: ALLOPURINOL 100 MG TABLET PO SCH (08:35)
[2018-12-13] MEDS: ASCORBIC ACID 500 MG TABLET PO SCH (08:35)
[2018-12-13] MEDS: VITAMIN B COMPLEX 1 CAPSULE PO SCH (08:35)
[2018-12-13] MEDS: MUPIROCIN OINT 2% 22GM NARES SCH (08:36)
--- NOTE | 2018-12-13 09:29 | Discharge Summary ---
Medical - DS: Prov Patient information: Note initiated : 12/13/18 at 9:26 am Service Date, if different from initiated Date: [] Patient: Ayden Guzmán Sr 83 y/o M admitted on 12/09/18 for skin. Chief Complaint: [] Date of admission: 12/09/18 19:40 Discharge date: 12/13/18 Primary care physician: Orlando Ding DO Consults: 12/09/18 18:30 Consult to Physician [CONS] Routine Comment: Consulting Provider: Jason Sutherland Reason For Exam: Physician to Consult Medical - DS: Meds - Discharge Medications Prescriptions: Clindamycin HCl [Cleocin] 300 mg PO Q8 #21 cap Prescription Printed Potassium Chloride [Kdur] 20 meq PO QAMCC #20 tab Prescription Printed Furosemide [Lasix] 40 mg PO BID #30 tab Prescription Printed Metolazone [Zaroxolyn] 2.5 mg PO BID@0730,1530 #20 tab Prescription Printed Active and Home Medications: Home Medications allopurinol 100 mg tablet 100 mg PO QDAY #90 tab 03/23/18 [Rx Confirmed 12/09/18 Last Taken 12/09/18 09:00] Atorvastatin [Lipitor] 20 mg PO HS #0 08/10/18 [History Confirmed 12/09/18 Last Taken 12/08/18 19:00] Vitamin B Complex [Balanced B-50] 1 tab PO DAILY 08/10/18 [History Confirmed 12/09/18 Last Taken 12/09/18 09:00] ascorbic acid (vitamin C) 250 mg tablet 250 mg PO BID #120 tab 11/22/18 [Rx Confirmed 12/09/18 Last Taken 12/09/18 09:00] carvedilol 3.125 mg tablet 3.125 mg PO BID 11/22/18 [History Confirmed 12/09/18 Last Taken 12/09/18 09:00] rivaroxaban 15 mg tablet 15 mg PO HS #90 tab 11/24/18 [Rx Confirmed 12/09/18 Last Taken 12/09/18 09:00] Clindamycin HCl [Cleocin] 300 mg PO Q8 #21 cap 12/13/18 [Rx Last Taken Unknown] Furosemide [Lasix] 40 mg PO BID #30 tab 12/13/18 [Rx Last Taken Unknown] Metolazone [Zaroxolyn] 2.5 mg PO BID@0730,1530 #20 tab 12/13/18 [Rx Last Taken Unknown] Potassium Chloride [Kdur] 20 meq PO [facility] #20 tab 12/13/18 [Rx Last Taken Unknown] Medical - DS: Hosp Hospital Course: Discharge diagnosis * Acute renal failure on CKD stage IIIb-creatinine stable around 2.3. Nephrology recommends discharging with 40 mg twice daily Lasix along with twice daily metolazone and daily potassium. Nephrology will follow-up as outpatient. * Anasarca secondary to volume overload-over 10,000 cc net negative volume status with aggressive diuresis.. Continue daily weight monitoring and diuretics as advised by nephrology. * Left lower extremity cellulitis/venous ulceration, gram-positive cocci on wound culture. Continue wound care/oral clindamycin for additional 7 days. Continue follow-up with wound care clinic as outpatient. Daily dressings as per wound care recommendations. * History of cor pulmonale with 45% EF/PAP 50-70, improved EF compared to-Echo July 2018. Recommend follow-up with cardiology as outpatient * Leukocytosis-chronic. Concurrent anemia/thrombocytopenia. Recommend continued follow-up with hematology as outpatient * History of atrial fibrillation-rate controlled on Coreg. Continue anticoagulation on Xarelto * Hypertension- Coreg/lisinopril/spironolactone * Hyperlipidemia continue statin * History of gout continue allopurinol * GERD on PPI * Hyperlipidemia on statin * History of leukocytosis/thrombocytosis/myocytic anemia. * Obstructive sleep apnea/obesity Brief hospital course Mr. Arielle Caba is a 83 year old M who was recently admitted with GI bleed in October and has been recovering well who now presents with progressive weight gain over 20 pounds with worsening lymphedema lower extremities. Swelling has progressed to the point that his skin has been weeping and has barely been able to move his limbs. He endorses to increasing fatigue weakness and shortness of breath. He is barely able to function. He was recently started on high-dose Lasix by his slubber hand Dr. Fregoso , Patient however did not notice any improvement over the next 3 days. He now presents to the ER with above symptoms. Initial work-up was consistent with acute renal failure with a creatinine of 2.6 and elevated BNP. X-ray shows a small pleural effusion. Hospitalist service is consulted in light of acute renal failure and progressive lymphedema At the time of evaluation patient is accompanied with his . He was able to answer most of the questions and endorsed to history as above. He denies recent NSAID intake or change in diet/high salt intake. He further denies missing his regular medications. He was actually doing fairly well after recent hospitalization until the last week with onset of symptoms. He denies associated fever, cough, diarrhea, dysuria or joint pain or rash. He further denies headache photophobia 12/10-patient doing well. Improved shortness of breath. Improving lymphedema. Over 2000 cc net negative fluid balance with aggressive diuresis. Case discussed with nephrology Recommends continuing diuretics. Creatinine up from 2.6-2.7. Echocardiogram ordered. Last echo EF 25%/pulmonary hypertension with pulmonary pressure between 50 and 70 with evidence of cor pulmonale. Case discussed with multiple family members and patient. White count 19.1. Wound care consulted for left lower extremity cellulitis change on weeping lymphedema. Renal ultrasound reveals cholelithiasis/moderate splenomegaly which may be indicative of congestive process secondary to pulmonary hypertension/cor pulmonale. 12/11-patient seen in room with multiple family members. Doing well. No shortness of breath. Lymphedema much improved. Over 4000 cc net negative urine output. Currently on Lasix metolazone combination. Case discussed with nephrology. Continue existing treatment. No overnight fever chills or telemetry events. Await discharge in 24 hours with home health. Patient and family resistant to SNF placement. Continue PT OT. Creatinine 2.5. Local wound care ongoing. Will need outpatient wound care follow-up on discharge 12/12-patient doing well. Diuresing well. Creatinine 2.2. Await wound care and nephrology consult. Started on antibiotic in light of increasing erythema/pustular lesion left lower extremity. Patient will require additional 24 to 48 hours hospitalization for continued wound care/diuresis and renal func tion entering. Net body weight 7 pounds down since admit 12/13-patient doing well. Continues with diuresis. Lymphedema much improved. Lower extremity cellulitis currently on antibiotic coverage. Continue outpatient wound care. Detailed discharge instructions below. Continue oral clindamycin for cellulitis and diuretics as per nephrology. Patient refused SNF and hence discharging home with family. Stable labs and hemodynamics Discharge diagnosis: . - Time Spent with Patient Total time spent providing and/or coordinating discharge services: Greater than 30 minutes Medical - DS: Exam - Constitutional Vitals: Vital Signs Temp Pulse Resp BP BP Pulse Ox 12/13/18 07:08 97.2 F 16 109/64 94 12/13/18 04:00 98.0 F 81 22 106/68 95 12/13/18 00:00 98.2 F 91 H 20 100/52 93 12/12/18 19:29 97.8 F 92 H 22 98/54 93 12/12/18 15:46 97.7 F 82 22 112/61 97 Intake and Output 12/12/18 12/13/18 12/13/18 21:59 05:59 13:59 Intake Total 740 Output Total 1300 1100 600 Balance -560 -1100 -600 Intake: Oral 740 Output: Void Amount 1300 1100 600 Other: Urine Appearance Clear Urine Color Bright Yellow Weight 204 lb 8 oz Medical - DS: Data Labs on day of discharge: Labs from last 24 hours 12/13/18 12/13/18 12/13/18 04:15 04:15 03:35 WBC 18.0 H RBC 4.70 Hgb 9.3 L Hct 33.2 L MCV 70.6 L MCH 19.9 L MCHC 28.1 L RDW 25.8 H Plt Count 430 MPV 9.9 Total Counted 100 Seg Neutrophils % 93 H Band Neutrophils % Not Reportable Lymphocytes % 4 L Basophils % (Manual) 2 Myelocytes % 1 H Nucleated RBCs 2 H Platelet Estimate Normal RBC Morphology Abnorm A Polychromasia 1+ A Hypochromasia 2+ A Anisocytosis 2+ A Microcytosis 2+ A Ovalocytes 1+ A Sodium 137 Pending Potassium 3.7 Pending Chloride 92 L Pending Carbon Dioxide 30 Pending Anion Gap 15.0 Pending BUN 64 H Pending Creatinine 2.3 H Pending GFR Calculation 25 Pending Glucose 91 Pending Uric Acid 11.8 H Pending Calcium 8.7 Pending Phosphorus 4.6 H Pending Magnesium 2.1 Pending Total Bilirubin 0.9 Pending Direct Bilirubin 0.3 Pending GGT 89 H Pending AST 27 Pending ALT 13 Pending Alkaline Phosphatase 169 H Pending Lactate Dehydrogenase 501 H Pending Total Protein 6.7 Pending Albumin 3.7 Pending Globulin 3.0 Pending Albumin/Globulin Ratio 1.2 Pending Triglycerides 24 Pending HSV IgM Ab (IFA) HSV I IgG Ab HSV II IgG HSV II IgM Ab (IFA) 12/13/18 12/12/18 03:35 11:44 WBC Pending RBC Pending Hgb Pending Hct Pending MCV Pending MCH Pending MCHC Pending RDW Pending Plt Count Pending MPV Pending Total Counted Pending Seg Neutrophils % Band Neutrophils % Pending Lymphocytes % Basophils % (Manual) Myelocytes % Nucleated RBCs Platelet Estimate Pending RBC Morphology Pending Polychromasia Hypochromasia Anisocytosis Microcytosis Ovalocytes Sodium Potassium Chloride Carbon Dioxide Anion Gap BUN Creatinine GFR Calculation Glucose Uric Acid Calcium Phosphorus Magnesium Total Bilirubin Direct Bilirubin GGT AST ALT Alkaline Phosphatase Lactate Dehydrogenase Total Protein Albumin Globulin Albumin/Globulin Ratio Triglycerides HSV IgM Ab (IFA) Pending HSV I IgG Ab Pending HSV II IgG Pending HSV II IgM Ab (IFA) Pending Medical - DS: A/P - Patient/Caregiver Discharge Instructions Activity: as per physical therapy, other (Follow-up wound care with daily dressings as advised) Diet: Regular Diet Additional Instructions: Follow-up PCP in 5 days. Follow-up with nephrology as advised. Follow-up with wound care outpatient clinic for continued Left lower extremity dressing changes. I recommend follow-up with cardiology Dr. Lam in 1 to 2 weeks for evaluation and management of pulmonary hypertension/cor pulmonale. Antibiotics for additional 7 days. Continue aggressive bowel regimen to prevent constipation. Continue fall precautions. Daily weights measurements and take additional 40 mg Lasix for 3 days if weight gain over 4 pounds over baseline or worsening shortness of breath and call nephrology/primary care physician if inadequate response to Lasix. All meals on chair sitting upright at 90 degrees to prevent aspiration. Return to ER if worsening fever chills shortness of breath, diarrhea, bleeding. Review risk and side effect profile of medications including antibiotics. Side effect may include mild to severe reaction including rash, diarrhea, cdiff and even which can be prevented by close follow-up with PCP and monitoring for side effects. Continue diet and activity as advised. Discussed importance of medication adherence. Please review medication list with patient prior to discharge Please schedule follow-up with PCP/Providers prior to discharge and provide printouts. Prescriptions: Clindamycin HCl [Cleocin] 300 mg PO Q8 #21 cap Prescription Printed Potassium Chloride [Kdur] 20 meq PO QAC #20 tab Prescription Printed Furosemide [Lasix] 40 mg PO BID #30 tab Prescription Printed Metolazone [Zaroxolyn] 2.5 mg PO BID@0730,1530 #20 tab Prescription Printed Other Amb Orders: Wound Care Instructions Location: None Selected - Problem Maintenance (1) Acute renal failure (ARF) Status: Acute - Follow up Plan Follow up with: Parth Fernandez MD [Physician] - (Follow up as new patient in 1 week. [facility] with [facility] appointment[facility] Paxton Fregoso MD [Physician] - 01/13/19 2:15 pm Orlando Ding DO [Primary Care Provider] - 12/15/18 4:45 pm Josue Skinner MD [Physician] - 12/16/18 3:20 pm Disposition: Home, Self-Care Prognosis: Fair Rehab Potential: Fair I certify that the patient requires SNF services: No Overall status at discharge: patient is progressing back to baseline
[2018-12-13] MEDS: cefTRIAXone 2 GM in DEXTROSE 5% IN WATER 50 ML IV SCH (10:43)
--- NOTE | 2018-12-20 10:28 | Nephrology Progress Note ---
Subjective Patient information: Note initiated : 12/13/18 at 10:27 am Service Date, if different from initiated Date: [] Patient: Ayden Guzmán 83 y/o M admitted on 12/09/18 for skin. Chief Complaint: Still has some edema. but a lot better. Objective - General Appearance General appearance: well-developed, well-nourished EENT: ATNC Neck: no JVD Respiratory: no kyphosis Cardiology: mid-systolic murmur Gastrointestinal: normoactive bowel sounds Integumentary: no rash Neurologic: no focal deficit - Lab 12/13/18 04:15 12/13/18 04:15 Most recent lab results Calcium 8.7 mg/dl (8.6-10.4) 12/13/18 04:15 Phosphorus 4.6 mg/dL (2.7-4.5) H 12/13/18 04:15 Magnesium 2.1 mg/dL (1.6-2.5) 12/13/18 04:15 Assessment and Plan (1) Chronic renal failure, stage 3 (moderate) Status: Acute Comment: Patient has a rapid decline in renal function and he is volume overloaded. He has been diuresed very well without decline in his renal function. So it suggests more of a cardiorenal syndrome. The presentation is more of cor-pulmonale. The echo shows left atrial dilatation as well. Can d/c home with lasix 40mg bid, metolozone 2.5mg po bid and lasix 20meq bid. I will follow in a week.
== END 2018-12-13 12:25 | disposition home or self-care (01) | DRG 683 ==
LOC: ED 14:28 → SUATTDRO 19:40 → ICU 19:40
PROVIDERS: ADMIT Internal Medicine; ATTEND Internal Medicine Nephrology

== ENCOUNTER 2019-07-09 10:09 | Inpatient (IN) ==
[2019-07-09] MEDS ORDERED: 0.9 % SODIUM CHLORIDE 1,000 ML IV ONE ×2 (10:20→10:52)
[2019-07-09 10:58] LABS: POC Blood Urea Nitrogen 78 mg/dl (8-23); POC CO2 24 mmol/L (22-30); POC Calcium, Ionized 1.01 mmol/L (1.16-1.32); POC Chloride 105 mmol/L (96-108); POC Creatinine 3.6 mg/dl (0.7-1.2); POC Glucose, Random 108 mg/dL (70-105); POC Potassium 5.8 mmol/L (3.3-5.1); POC Sodium 138 mmol/L (133-145)
[2019-07-09] MEDS ORDERED: cefTRIAXone 1 GM VIAL IV ONE (11:11)
[2019-07-09] MEDS ORDERED: LEVOFLOXACIN 750 MG/150 ML BAG IV ONE (11:12)
--- NOTE | 2019-07-09 11:30 | XRay Report ---
CLINICAL INFORMATION: Dyspnea COMPARISON: 12/09/2018 FINDINGS: : The heart is markedly enlarged. There is moderate mediastinal widening. Pulmonary vessels are mildly congested and there is moderate parabronchial vascular edema. Small right basilar infiltrate appreciated. A left basilar atelectasis IMPRESSION: Moderate CHF. Small right basilar infiltrate Interpreted and Authenticated by: Orlando Cortez 07/09/19
--- NOTE | 2019-07-09 11:30 | Emergency Department Note ---
SOB HPI - General Chief Complaint: Shortness of Breath/Dyspnea Stated Complaint: Shortness of breath, Weakness Time Seen by Provider: 07/09/19 10:11 Source: patient, EMS Mode of arrival: ambulatory Limitations: no limitations - History of Present Illness Was brought in today from his home due to increased weakness and shortness of breath. He was brought by EMS. It was reported that he had a recent hip surgery and a stay at a care facility. He was released from this facility on Wednesday of this week. Patient is reported to have marked malaise weakness is return home. Patient is able to answer questions but appears weak. Main complaint is weakness and feels short of breath. He denies abdominal pain or chest pain. He arrives with a elevated temperature, tachycardia and bradycardia. Patient has an extensive health history. - Related Data Home Medications Medication Instructions Recorded Confirmed Atorvastatin [Lipitor] 20 mg PO HS #0 08/10/18 04/19/19 Vitamin B Complex [Balanced B-50] 1 tab PO DAILY 08/10/18 04/19/19 carvedilol 3.125 mg tablet 3.125 mg PO BID 11/22/18 04/19/19 acetaminophen 500 mg capsule 1,000 mg PO Q6H PRN 04/19/19 04/19/19 ferrous sulfate 325 mg (65 mg 325 mg PO QDAY 04/19/19 04/19/19 iron) tablet furosemide 40 mg tablet 40 mg PO QDAY tab 04/19/19 lisinopril 2.5 mg tablet 2.5 mg PO QDAY tab 04/19/19 04/19/19 multivitamin 1 tab PO QAM 04/19/19 04/19/19 spironolactone 25 mg tablet 25 mg PO QAM tab 04/19/19 04/19/19 Previous Rx's Medication Instructions Recorded allopurinol 100 mg tablet 100 mg PO QDAY #90 tab 03/23/18 ascorbic acid (vitamin C) 250 mg 250 mg PO BID #120 tab 11/22/18 tablet rivaroxaban 15 mg tablet 15 mg PO HS #90 tab 11/24/18 Bedside table #1 ea 03/31/19 Hospital Bed with electric controls #1 ea 03/31/19 Wheelchair #1 ea 04/19/19 gabapentin 300 mg capsule 300 mg PO BID #60 cap 04/19/19 tramadol 50 mg tablet 50 mg PO BID PRN #30 tab 04/19/19 Allergies Allergy/AdvReac Type Severity Reaction Status Date / Time heparin Allergy Severe Unknown Verified 03/30/19 08:53 Review of Systems Constitutional: Reports: fever, weakness Eyes: Denies: eye pain, eye discharge ENT ED: Denies: ear pain, throat pain Cardiovascular: Denies: chest pain, palpitations Respiratory: Reports: shortness of breath. Denies: cough Gastrointestinal: Denies: abdominal pain, nausea, vomiting Genitourinary: Denies: dysuria Musculoskeletal: Reports: as per HPI. Denies: back pain, joint swelling, joint pain Integumentary: Denies: rash, lesions Neurological: Reports: weakness. Denies: headache, numbness Endocrine: Reports: fatigue (Pleat Ross is difficult to obtain from patient salty ent is weak can answer some questions.) Hematological/Lymphatic: Reports: easy bleeding (Patient is on anticoagulation.). Denies: lymphadenopathy Past Medical History - Past Medical History Medical history: Reports: atrial fibrillation, cancer, CHF, chronic anticoagulation, DVT, pulmonary embolus, other Psychiatric history: Denies: anxiety, depression Surgical history ED: Reports: orthopedic, other - Social History smoking status: Never smoker Alcohol use: Reports: Occasionally Drug use: Reports: none Physical Exam Limitations: no limitations General appearance: lethargic, sleepy Head: atraumatic, normocephalic, normal inspection Eye: Present: normal appearance, PERRL ENT: Present: normal exam, mucous membranes dry Neck: Present: normal inspection, full ROM, trachea midline. Absent: lymphaden opathy Chest: Present: symmetric chest wall rise Respiratory: Present: accessory muscle use, decreased breath sounds Cardiovascular: Present: tachycardia, irregular rhythm Abdominal: Present: distention, normal bowel sounds. Absent: tenderness, guarding : Present: normal inspection. Absent: testicular tenderness, scrotal swelling Extremities: Present: normal capillary refill, pedal edema. Absent: joint swelling Back: Absent: CVA tenderness (R), CVA tenderness (L) Neurological: Present: other (Patient is lethargic and appears ill. Patient is able to periodically answer questions. Answer with coaching.) Psychiatric: Present: other (Patient appears ill and weak. Denies specific pain anywhere.) Skin: Present: warm, dry, normal color. Absent: diaphoretic Course Course Narrative: Begin sepsis protocol. Due to the multiple sepsis markers we will begin the sepsis protocol. This time possibly of sepsis is the paramount him in the this patient at this time. I had requested that this patient be admitted. I had talked to Dr. Baer and he advised me to hold Levophed keep it handy. Give the patient 500 mcg of digoxin and start diltiazem. Vital Signs Temperature 101.4 F H 07/09/19 10:11 Pulse Rate 158 H 07/09/19 10:11 Respiratory Rate 28 H 07/09/19 10:11 Blood Pressure 99/65 07/09/19 10:11 Pulse Oximetry (%) 94 07/09/19 10:11 Temperature 102.1 F H 07/09/19 14:52 Pulse Rate 41 L 07/09/19 14:16 Respiratory Rate 28 H 07/09/19 14:52 Blood Pressure 108/60 07/09/19 14:51 Pulse Oximetry (%) 96 07/09/19 14:16 Shortness of Breath/Dyspnea - MDM Narrative Medical decision making narrative: Due to patient's arrival with sepsis markers, we will begin sepsis protocol. Get a chest x-ray urine dip to look for sources of infection. Lab results coming back in the high BNP, fluid was stopped. 3 did show mild CHF and a right infiltrate. Patient's pressure and heart rate have not adjusted to the due to the fluid bolus. I discussed this with Dr. Bonilla and had discussed that we should bring the blood patient's blood pressure up and after that, perform diuresis with Lasix. Dr. Baer was called and he did accept this patient. He did assume care. - Lab Data Result diagrams: 07/09/19 10:40 07/09/19 10:40 Lab Results 07/09/19 07/09/19 07/09/19 Range/Units 10:40 10:40 10:40 WBC 24.1 H (4.50-11.00) K/mcL RBC 7.02 H (4.63-6.08) M/mcL Hgb 16.4 (13.7-17.5) g/dL Hct 58.2 H (40.1-51.0) % POC Hct 60.0 H (41.0-55.0) % MCV 82.9 (80.0-100.0) fL MCH 23.4 L (26.0-34.0) pg MCHC 28.2 L (31.0-36.0) g/dL RDW 25.5 H (11.5-14.5) % Plt Count 347 (140-440) K/mcL MPV TNP Gran % 91.0 H (38.0-78.0) % Lymph % (Auto) 1.8 L (15.5-49.0) % [place] % (Auto) 6.6 (1.0-12.0) % Eos % (Auto) 0.1 (0.0-7.0) % Baso % (Auto) 0.5 (0.0-2.0) % Gran # 21.88 H (1.80-8.00) K/mcL Lymph # (Auto) 0.44 L (1.50-4.80) K/mcL [place] # (Auto) 1.60 H (0.10-0.90) K/mcL Eos # (Auto) 0.03 (0.00-0.70) K/mcL Baso # (Auto) 0.13 (0.00-0.30) K/mcL Total Counted Seg Neutrophils % (38-78) % Band Neutrophils % (0-10) % Monocytes % (Manual) (1-12) % Platelet Estimate (NORMAL) RBC Morphology (NORMAL) Polychromasia (NONE SEEN) Hypochromasia (NONE SEEN) Anisocytosis (NONE SEEN) Ovalocytes (NONE SEEN) PT INR APTT VBG Lactic Acid (0.5-2.0) mmol/L POC Sodium 138 (133-145) mmol/L Sodium 136 (133-145) mmol/L POC Potassium 5.8 H (3.3-5.1) mmol/L Potassium 5.7 H (3.3-5.1) mmol/L POC Chloride 105 (96-108) mmol/L Chloride 96 (96-108) mmol/L Carbon Dioxide 22 (22-30) mmol/L POC Total CO2 24 (22-30) mmol/L Anion Gap 18.0 H (8-16) POC BUN 78 H (8-23) mg/dl BUN 84 H (8-23) mg/dl Creatinine 3.2 H (0.7-1.2) mg/dl POC Creatinine 3.6 H (0.7-1.2) mg/dl GFR Calculation 17 Glucose 101 (70-105) mg/dL POC Glucose 108 H (70-105) mg/dL Calcium 9.6 (8.6-10.4) mg/dl POC WB Ioniz Calcium 1.01 L (1.16-1.32) mmol/L Total Bilirubin 2.5 H (0.0-1.0) mg/dL AST 29 (0-37) U/l ALT 20 (0-40) U/l Alkaline Phosphatase 295 H (39-117) U/L Total Creatine Kinase 87 (24-195) IU/L NT-Pro-B Natriuret Pep 97060.0 H (0-450) pg/ml Total Protein 7.6 (5.9-8.4) gm/dL Albumin 3.9 (3.2-5.2) gm/dL Globulin 3.7 (2.2-3.7) gm/dL Albumin/Globulin Ratio 1.1 (1.0-2.3) Procalcitonin 2.07 (<0.10) ng/mL Urine Color Urine Appearance Urine pH (5.0-9.0) Ur Specific D[place]el (1.000-1.035) Urine Protein (NEG) mg/dL Urine Glucose (UA) (NEG) mg/dL Urine Ketones (NEG) mg/dL Urine Occult Blood (<0.03) mg/dL Urine Nitrate (NEG) Urine Bilirubin (NEG) mg/dL Urine Urobilinogen (NEG) mg/dL Ur Leukocyte Esterase (NEG) /uL Urine RBC (0-1) /hpf Urine WBC (0-4) /hpf Ur Squamous Epith Cells (0-4) /hpf Calcium Oxalate Crystal (0) /hpf Amorphous Crystals (0) /hpf Urine Bacteria (0) /hpf Hyaline Casts (0-2) /lpf Urine Mucus (0) /hpf Ur Culture Indicated? 07/09/19 07/09/19 07/09/19 Range/Units 10:40 10:40 10:40 WBC (4.50-11.00) K/mcL RBC (4.63-6.08) M/mcL Hgb (13.7-17.5) g/dL Hct (40.1-51.0) % POC Hct (41.0-55.0) % MCV (80.0-100.0) fL MCH (26.0-34.0) pg MCHC (31.0-36.0) g/dL RDW (11.5-14.5) % Plt Count (140-440) K/mcL MPV Gran % (38.0-78.0) % Lymph % (Auto) (15.5-49.0) % [place] % (Auto) (1.0-12.0) % Eos % (Auto) (0.0-7.0) % Baso % (Auto) (0.0-2.0) % Gran # (1.80-8.00) K/mcL Lymph # (Auto) (1.50-4.80) K/mcL [place] # (Auto) (0.10-0.90) K/mcL Eos # (Auto) (0.00-0.70) K/mcL Baso # (Auto) (0.00-0.30) K/mcL Total Counted 100 Seg Neutrophils % 86 H (38-78) % Band Neutrophils % 6 (0-10) % Monocytes % (Manual) 8 (1-12) % Platelet Estimate Normal (NORMAL) RBC Morphology Abnorm A (NORMAL) Polychromasia 1+ A (NONE SEEN) Hypochromasia 1+ A (NONE SEEN) Anisocytosis 2+ A (NONE SEEN) Ovalocytes 1+ A (NONE SEEN) PT TNP INR TNP APTT TNP VBG Lactic Acid 2.5 H (0.5-2.0) mmol/L POC Sodium (133-145) mmol/L Sodium (133-145) mmol/L POC Potassium (3.3-5.1) mmol/L Potassium (3.3-5.1) mmol/L POC Chloride (96-108) mmol/L Chloride (96-108) mmol/L Carbon Dioxide (22-30) mmol/L POC Total CO2 (22-30) mmol/L Anion Gap (8-16) POC BUN (8-23) mg/dl BUN (8-23) mg/dl Creatinine (0.7-1.2) mg/dl POC Creatinine (0.7-1.2) mg/dl GFR Calculation Glucose (70-105) mg/dL POC Glucose (70-105) mg/dL Calcium (8.6-10.4) mg/dl POC WB Ioniz Calcium (1.16-1.32) mmol/L Total Bilirubin (0.0-1.0) mg/dL AST (0-37) U/l ALT (0-40) U/l Alkaline Phosphatase (39-117) U/L Total Creatine Kinase (24-195) IU/L NT-Pro-B Natriuret Pep (0-450) pg/ml Total Protein (5.9-8.4) gm/dL Albumin (3.2-5.2) gm/dL Globulin (2.2-3.7) gm/dL Albumin/Globulin Ratio (1.0-2.3) Procalcitonin (<0.10) ng/mL Urine Color Urine Appearance Urine pH (5.0-9.0) Ur Specific [place] (1.000-1.035) Urine Protein (NEG) mg/dL Urine Glucose (UA) (NEG) mg/dL Urine Ketones (NEG) mg/dL Urine Occult Blood (<0.03) mg/dL Urine Nitrate (NEG) Urine Bilirubin (NEG) mg/dL Urine Urobilinogen (NEG) mg/dL Ur Leukocyte Esterase (NEG) /uL Urine RBC (0-1) /hpf Urine WBC (0-4) /hpf Ur Squamous Epith Cells (0-4) /hpf Calcium Oxalate Crystal (0) /hpf Amorphous Crystals (0) /hpf Urine Bacteria (0) /hpf Hyaline Casts (0-2) /lpf Urine Mucus (0) /hpf Ur Culture Indicated? 07/09/19 07/09/19 Range/Units 12:22 12:58 WBC (4.50-11.00) K/mcL RBC (4.63-6.08) M/mcL Hgb (13.7-17.5) g/dL Hct (40.1-51.0) % POC Hct (41.0-55.0) % MCV (80.0-100.0) fL MCH (26.0-34.0) pg MCHC (31.0-36.0) g/dL RDW (11.5-14.5) % Plt Count (140-440) K/mcL MPV Gran % (38.0-78.0) % Lymph % (Auto) (15.5-49.0) % [place] % (Auto) (1.0-12.0) % Eos % (Auto) (0.0-7.0) % Baso % (Auto) (0.0-2.0) % Gran # (1.80-8.00) K/mcL Lymph # (Auto) (1.50-4.80) K/mcL [place] # (Auto) (0.10-0.90) K/mcL Eos # (Auto) (0.00-0.70) K/mcL Baso # (Auto) (0.00-0.30) K/mcL Total Counted Seg Neutrophils % (38-78) % Band Neutrophils % (0-10) % Monocytes % (Manual) (1-12) % Platelet Estimate (NORMAL) RBC Morphology (NORMAL) Polychromasia (NONE SEEN) Hypochromasia (NONE SEEN) Anisocytosis (NONE SEEN) Ovalocytes (NONE SEEN) PT 31.9 H INR 3.0 H APTT 64 H VBG Lactic Acid (0.5-2.0) mmol/L POC Sodium (133-145) mmol/L Sodium (133-145) mmol/L POC Potassium (3.3-5.1) mmol/L Potassium (3.3-5.1) mmol/L POC Chloride (96-108) mmol/L Chloride (96-108) mmol/L Carbon Dioxide (22-30) mmol/L POC Total CO2 (22-30) mmol/L Anion Gap (8-16) POC BUN (8-23) mg/dl BUN (8-23) mg/dl Creatinine (0.7-1.2) mg/dl POC Creatinine (0.7-1.2) mg/dl GFR Calculation Glucose (70-105) mg/dL POC Glucose (70-105) mg/dL Calcium (8.6-10.4) mg/dl POC WB Ioniz Calcium (1.16-1.32) mmol/L Total Bilirubin (0.0-1.0) mg/dL AST (0-37) U/l ALT (0-40) U/l Alkaline Phosphatase (39-117) U/L Total Creatine Kinase (24-195) IU/L NT-Pro-B Natriuret Pep (0-450) pg/ml Total Protein (5.9-8.4) gm/dL Albumin (3.2-5.2) gm/dL Globulin (2.2-3.7) gm/dL Albumin/Globulin Ratio (1.0-2.3) Procalcitonin (<0.10) ng/mL Urine Color Yazmin Urine Appearance Hazy Urine pH 5.0 (5.0-9.0) Ur Specific [place] 1.025 (1.000-1.035) Urine Protein 100 A (NEG) mg/dL Urine Glucose (UA) Negative (NEG) mg/dL Urine Ketones Neg (NEG) mg/dL Urine Occult Blood Neg (<0.03) mg/dL Urine Nitrate Neg (NEG) Urine Bilirubin Neg (NEG) mg/dL Urine Urobilinogen 2.0 A (NEG) mg/dL Ur Leukocyte Esterase Neg (NEG) /uL Urine RBC 2 H (0-1) /hpf Urine WBC 5 H (0-4) /hpf Ur Squamous Epith Cells < 1 (0-4) /hpf Calcium Oxalate Crystal Few A (0) /hpf Amorphous Crystals Mod A (0) /hpf Urine Bacteria 0 (0) /hpf Hyaline Casts 17 H (0-2) /lpf Urine Mucus Few (0) /hpf Ur Culture Indicated? Yes Disposition Pt seen by CORRECTION WORKER/PA only: No Clinical Impression: Congestive heart failure Qualifiers: Heart failure type: right-sided Heart failure chronicity: acute on chronic Qualified Code(s): I50.813 - Acute on chronic right heart failure Sepsis Qualifiers: Sepsis type: sepsis due to unspecified organism Sepsis acute organ dysfunction status: unspecified Qualified Code(s): A41.9 - Sepsis, unspecified organism Disposition: Xfer As Inpt ([facility]) Condition: Serious Referrals: Orlando Ding DO [Primary Care Provider] - Time of Disposition: 15:00
[2019-07-09 11:56] LABS: Basophils # (Auto) 0.13 K/mcL (0.00-0.30); Basophils % (Auto) 0.5 % (0.0-2.0); Eosinophils # (Auto) 0.03 K/mcL (0.00-0.70); Eosinophils % (Auto) 0.1 % (0.0-7.0); Hematocrit 58.2 % (40.1-51.0); Hemoglobin 16.4 g/dL (13.7-17.5); Lymphocytes # (Auto) 0.44 K/mcL (1.50-4.80); Lymphocytes % (Auto) 1.8 % (15.5-49.0); Mean Cell Volume 82.9 fL (80.0-100.0); Mean Corpuscular HGB Conc 28.2 g/dL (31.0-36.0); Monocytes % (Auto) 6.6 % (1.0-12.0); Platelet Count 347 K/mcL (140-440); RBC 7.02 M/mcL (4.63-6.08); Red Cell Distribution Width 25.5 % (11.5-14.5); WBC 24.1 K/mcL (4.50-11.00)
[2019-07-09 12:14] LABS: ALT/SGPT 20 U/l (0-40); AST/SGOT 29 U/l (0-37); Albumin 3.9 gm/dL (3.2-5.2); Albumin/Globulin Ratio 1.1 (1.0-2.3); Alkaline Phosphatase 295 U/L (39-117); Bilirubin,Total 2.5 mg/dL (0.0-1.0); Blood Urea Nitrogen 84 mg/dl (8-23); Calcium 9.6 mg/dl (8.6-10.4); Carbon Dioxide 22 mmol/L (22-30); Chloride 96 mmol/L (96-108); Creatine Kinase 87 IU/L (24-195); Globulin 3.7 gm/dL (2.2-3.7); Glomerular Filtration Rate 17; Glucose 101 mg/dL (70-105)
[2019-07-09] MEDS ORDERED: 0.9 % SODIUM CHLORIDE 250 ML IV SCH (12:45)
[2019-07-09] MEDS ORDERED: NOREPINEPHRINE BITARTRATE 8 MG in 0.9 % SODIUM CHLORIDE 242 ML IV SCH (12:45)
[2019-07-09 12:47] LABS: Anisocytosis 2+ (NONE SEEN); Band Neutrophils % 6 % (0-10); Hypochromasia 1+ (NONE SEEN); Monocytes % (Manual) 8 % (1-12); Ovalocytes 1+ (NONE SEEN); Platelet Estimate NORMAL (NORMAL); Polychromasia 1+ (NONE SEEN); RBC Morphology ABNORM (NORMAL); Segmented Neutrophils % 86 % (38-78)
[2019-07-09] MEDS ORDERED: DIGOXIN 500 MCG/2 ML AMPUL IV ONE (13:08)
[2019-07-09] MEDS ORDERED: DILTIAZEM 25 MG/5 ML VIAL IV ONE (13:33)
--- NOTE | 2019-07-09 13:38 | Internal Med History&Physical ---
Medical - H&P: HPI Patient information: Note initiated : 07/09/19 at 1:33 pm Service Date, if different from initiated Date: [] Patient: Ayden Guzmán a 84 y/o M admitted on for Shortness of breath, Weakness. Chief Complaint: [] Chief complaint: SOB, weakness History of present illness: Mr. Guzmán is a 84 year old M with no history of chronic kidney disease stage IIIb, mixed systolic/diastolic NYHA class III CHF, cor pulmonale, hypertension, A. fib on anticoagulation and underlying poor functional status on wheelchair who presents to the ER with increasing SOB/weakness, progressive confusion following recent hip surgery. Patient had a dramatic decline in status with associated fatigue, lethargy malaise and inability to function. He developed high fever and has been mumbling and incoherent speech. Initial work-up in the ER was consistent with severe sepsis with multiple endorgan dysfunction with elevated creatinine 3.6(baseline 1.5), A. fib RVR with rate 170s, potassium 5.8, bilirubin 2.5/lactic acid 2.8/procalcitonin 2.07/WBC >24,000 and a fever of 102.4. Imaging consistent with right-sided pneumonia. In light of hypotension with systolic 90s patient was started on pressors along with 2 L crystalloids after blood cultures were drawn and antibiotics were initiated. Viral respiratory panel along with coronavirus RNA was sent. Hospitalist service was consulted for admission in light of septic shock At the time of evaluation patient is very confused and mumbling. He was not able to provide any reasonable history or answers to questions. He is markedly labored breathing in mid 40s with heart rate in 160s. Blood pressure systolic 100s. Patient status post digoxin load. Initial Gentry score 19 indicative high mortality. I discussed the CODE STATUS with the ER staff who confirmed with family DNR with full medical interventions. Await further family discussions. Patient will be admitted to ICU in the setting of septic shock on vasopressors. High risk mortality. I discussed the case with patient's and daughter Jena who confirmed the patient is a DNR but would want aggressive medical interventions including pressors. Review of systems 10 point review system was attempted but could not be performed due to patient's mental status Medical - H&P: PMH Medical history: CKD (chronic kidney disease) stage 4, GFR 15-29 ml/min (Chronic) MCFP current use of anticoagulant (Chronic) Atrial fibrillation (Chronic) Diverticular hemorrhage (Resolved) Primary cardiomyopathy (Chronic) with CHF, prob hypertensive Systolic and diastolic CHF w/reduced LV function, NYHA class 4 (Chronic) Hyperlipidemia (Chronic) Hepatitis B (Chronic) Blood clotting disorder (Chronic) Sexually transmitted disease (Chronic) Cancer (Chronic) Leukoplakia of oral mucosa (Chronic) Urinary retention (Chronic) acute Thrombosis/embolism, 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 Chronic sinusitis (Chronic) Renal failure (Chronic 08/01/14) Renal dysfunction (Chronic) Hx of prostatic malignancy (Chronic) 2000 Osteopenia (Chronic) Osteoarthritis (Chronic) Fracture closed, nasal bone (Chronic) Leukocytosis (Chronic 09/05/14) Joint pain (Chronic 09/05/14) both hands Hypertension, essential (Chronic) Hypercoagulation syndrome (Chronic) Gout (Chronic 08/01/14) Erythrocytosis (Chronic) Constipation (Chronic 07/11/14) Hx of colonic polyp (Chronic) Arthritis (Chronic 07/11/14) Elevated antinuclear antibody (ZOHRA) level (Chronic 08/01/14) slightly high Blood loss anemia (Resolved) Chest wall contusion (Resolved) Closed rib fracture (Resolved) Lower gastrointestinal hemorrhage (Resolved) Neck strain (Resolved) Pneumonia (Resolved) Small bowel obstruction due to adhesions (Resolved) Small bowel obstruction, partial (Resolved) Surgical History Tavares catheter status (Chronic) History of carpal tunnel surgery of right wrist (Chronic) History of intraocular lens implant (Chronic) bilateral History of left knee replacement (Chronic) History of right knee joint replacement (Chronic) Hx of hemorrhoidectomy (Chronic) Hx of prostate biopsy (Chronic) Hx of radical prostatectomy (Chronic) Hx of repair of left rotator cuff (Chronic) Hx of repair of right rotator cuff (Chronic) Hx of right inguinal hernia repair (Chronic) Hx of sinus surgery (Chronic) for removal of polyps Hx of umbilical hernia repair (Chronic) x4 Status post surgery (Chronic) tendon repair biceps Family History Alzheimer's disease Atherosclerosis of coronary artery father , 74 Malignant neoplasm of prostate mother Malignant neoplasm of prostate Social History household members: spouse marital status: education level: high school occupational status: retired 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 [employer] smoking status: Never smoker alcohol intake frequency: a few times a month substance use type: does not use Medical - H&P: Meds Home Medications Medication Instructions Recorded Confirmed Type allopurinol 100 mg tablet 100 mg PO QDAY #90 tab 03/23/18 04/19/19 Rx Atorvastatin [Lipitor] 20 mg PO HS #0 08/10/18 04/19/19 History Vitamin B Complex [Balanced B-50] 1 tab PO DAILY 08/10/18 04/19/19 History ascorbic acid (vitamin C) 250 mg 250 mg PO BID #120 tab 11/22/18 04/19/19 Rx tablet carvedilol 3.125 mg tablet 3.125 mg PO BID 11/22/18 04/19/19 History rivaroxaban 15 mg tablet 15 mg PO HS #90 tab 11/24/18 04/19/19 Rx Bedside table #1 ea 03/31/19 04/19/19 Rx Hospital Bed with electric controls #1 ea 03/31/19 04/19/19 Rx Wheelchair #1 ea 04/19/19 04/19/19 Rx acetaminophen 500 mg capsule 1,000 mg PO Q6H PRN 04/19/19 04/19/19 History ferrous sulfate 325 mg (65 mg 325 mg PO QDAY 04/19/19 04/19/19 History iron) tablet furosemide 40 mg tablet 40 mg PO QDAY tab 04/19/19 History gabapentin 300 mg capsule 300 mg PO BID #60 cap 04/19/19 04/19/19 Rx lisinopril 2.5 mg tablet 2.5 mg PO QDAY tab 04/19/19 04/19/19 History multivitamin 1 tab PO QAM 04/19/19 04/19/19 History spironolactone 25 mg tablet 25 mg PO QAM tab 04/19/19 04/19/19 History tramadol 50 mg tablet 50 mg PO BID PRN #30 tab 04/19/19 04/19/19 Rx Allergies Allergy/AdvReac Type Severity Reaction Status Date / Time heparin Allergy Severe Unknown Verified 03/30/19 08:53 Medical - H&P: Exam - Constitutional Vitals: Temp Pulse Resp BP Pulse Ox 102.0 F H 72 22 112/80 95 07/09/19 12:51 07/09/19 12:47 07/09/19 12:37 07/09/19 12:51 07/09/19 12:51 General appearance: severe distress (Short of breath and labored) Exam: Confused and disoriented Head normocephalic Neck no lymphadenopathy Oral cavity dry No ear nose discharge Eye movement symmetrical S1-S2 with irregular tachycardia RVR at 160s ESM grade 1 Diminished breath sounds bases Abdomen soft nontender 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, stump clean Skin no suspicious lesion Psych confused disoriented Neuro could not performed Medical - H&P: Reslt - Labs CBC & Chem 7: 07/10/19 04:35 07/10/19 04:35 Labs: Short CBC 07/09/19 Range/Units 10:40 WBC 24.1 H (4.50-11.00) K/mcL Hgb 16.4 (13.7-17.5) g/dL Hct 58.2 H (40.1-51.0) % Plt Count 347 (140-440) K/mcL BMP 07/09/19 10:40 Sodium 136 Potassium 5.7 H Chloride 96 Carbon Dioxide 22 BUN 84 H Creatinine 3.2 H Glucose 101 Calcium 9.6 Cardiac Enzymes 07/09/19 Range/Units 10:40 Total Creatine Kinase 87 (24-195) IU/L Liver Function 07/09/19 Range/Units 10:40 Total Bilirubin 2.5 H (0.0-1.0) mg/dL AST 29 (0-37) U/l ALT 20 (0-40) U/l Alkaline Phosphatase 295 H (39-117) U/L Albumin 3.9 (3.2-5.2) gm/dL Medical - H&P: A/P (1) Severe sepsis with acute organ dysfunction Current visit: Yes Status: Acute * Septic shock with multiple organ dysfunction-pancultures/crystalloids/initiate vasopressors/broad-spectrum antibiotics. Source likely pneumonia. Critically ill. * Right lower lobe pneumonia continue broad spectrum coverage * A. fib with RVR-secondary sepsis endorgan dysfunction. Status post digoxin. Start amiodarone load * Acute change in mental status secondary to sepsis endorgan dysfunction * Hypoxic respiratory failure secondary to pneumonia. Continue supplemental oxygen * Hyperkalemia 5.8 secondary sepsis related ANA LAURA. Crystalloid/diuretics/repeat BMP. Kayexalate if patient able to take orally * Acute on chronic renal failure stage IIIb-3.[address] Skinner. Secondary to septic shock. * Elevated LFTs secondary to septic shock. Continue monitoring * History of cor pulmonale with 45% EF/PAP 50-70 Echo July 2018. * History of leukocytosis/anemia/thrombocytopenia. Patient follows up with hematology as outpatient * Left lower extremity venous ulceration, wound care/limb elevation/lymphedema wraps * Anticoagulation CVA prophylaxis Xarelto * Hypertension-hold Coreg/lisinopril/spironolactone in light of septic shock * Hyperlipidemia on statin at home * History of gout on allopurinol * GERD on PPI * Obstructive sleep apnea/obesity * Prophylaxis-anticoagulation Plan * ICU admit in light of Gentry 2 score 20 high risk mortality * Crystalloid/vasopressors/broad antibiotic coverage * Kayexalate if able to take orally * Viral respiratory panel/coronavirus RNA * Digoxin/amiodarone load * Monitor renal and endorgan dysfunction * Nephrology consult * PT OT/nutrition support Critical time spent in excess of 45 minutes in addition to time spent on history and physical
[2019-07-09] MEDS ORDERED: DILTIAZEM 125 MG in DEXTROSE 5% IN WATER 100 ML IV SCH (13:45)
[2019-07-09 13:59] LABS: Appearance,Urine HAZY; Bacteria,Urine 0 /hpf (0); Bilirubin,Urine NEG (NEG); Calcium Oxalate Crystals,Urine FEW /hpf (0); Color,Urine AMBER; Culture Indicated,Urine YES; Glucose,Urine (UA) NEGATIVE (NEG); Ketones,Urine NEG (NEG); Leukocyte Esterase,Urine NEG /uL (NEG); Mucus,Urine FEW /hpf (0); Nitrate,Urine NEG (NEG); Protein,Urine 100 mg/dL (NEG); Specific Gravity,Urine 1.025 (1.000-1.035); Urine Amorphous Crystals MOD /hpf (0); Urine Blood NEG mg/dL (<0.03); Urine Hyaline Cast 17 /lpf (0-2); Urine RBC 2 /hpf (0-1); Urine Squamous Epithelial Cell < 1 /hpf (0-4); Urine WBC 5 /hpf (0-4)
[2019-07-09 14:22] LABS: Prothrombin Time 31.9 sec (11.9-14.5)
[2019-07-09] MEDS ORDERED: MAGNESIUM SULFATE 2 GM/50 ML BAG IV PRN ×2 (15:20→17:50)
[2019-07-09] MEDS ORDERED: ACETAMINOPHEN 325 MG TABLET PO PRN (15:20)
[2019-07-09] MEDS ORDERED: POLYETHYLENE GLYCOL 3350 17 GM PACKET PO PRN ×2 (15:20→17:50)
[2019-07-09] MEDS ORDERED: ACETAMINOPHEN 650 MG/65 ML BOTTLE IV PRN ×2 (15:20→17:50)
[2019-07-09] MEDS ORDERED: AMIODARONE 150 MG/3 ML VIAL IV ONE ×2 (15:20→16:41)
[2019-07-09] MEDS ORDERED: NOREPINEPHRINE BITARTRATE 16 MG in 0.9 % SODIUM CHLORIDE 234 ML IV SCH (15:20)
[2019-07-09] MEDS ORDERED: LEVOFLOXACIN 750 MG/150 ML BAG IV SCH (15:20)
[2019-07-09] MEDS ORDERED: ONDANSETRON 4 MG/2 ML VIAL IV PRN ×2 (15:20→17:50)
[2019-07-09] MEDS ORDERED: PIPERACILLIN SODIUM/TAZOBACTAM 3.375 GM in DEXTROSE 5% IN WATER 50 ML IV SCH ×2 (15:20→16:00)
[2019-07-09] MEDS ORDERED: guaiFENesin/CODEINE 10 ML UDC PO PRN ×2 (15:20→17:50)
[2019-07-09] MEDS ORDERED: MELATONIN 3 MG TABLET PO PRN ×2 (15:20→17:50)
[2019-07-09] MEDS ORDERED: 0.9 % SODIUM CHLORIDE 1,000 ML IV SCH (15:20)
[2019-07-09] MEDS ORDERED: 0.9 % SODIUM CHLORIDE 10 ML SYRINGE IV SCH (15:20)
[2019-07-09] MEDS ORDERED: POTASSIUM CHLORIDE 20 MEQ PACKET PO PRN ×2 (15:20→17:50)
[2019-07-09] MEDS ORDERED: BISACODYL 10 MG SUPP.RECT PR PRN ×2 (15:20→17:50)
[2019-07-09] MEDS ORDERED: ONDANSETRON 4 MG ODT TABLET SL PRN ×2 (15:20→17:50)
[2019-07-09] MEDS ORDERED: AMIODARONE 150 MG in DEXTROSE 5% IN WATER 50 ML IV ONE (16:00)
[2019-07-09] MEDS: 0.9 % SODIUM CHLORIDE 1,000 ML IV SCH (17:54)
[2019-07-09] MEDS: PIPERACILLIN SODIUM/TAZOBACTAM 3.375 GM in DEXTROSE 5% IN WATER 50 ML IV SCH (20:29)
[2019-07-09] MEDS: SENNOSIDES/DOCUSATE SODIUM 1 TAB TABLET PO SCH (20:29)
[2019-07-09] MEDS: DOCUSATE SODIUM 100 MG CAPSULE PO SCH (20:29)
[2019-07-09] MEDS: 0.9 % SODIUM CHLORIDE 10 ML SYRINGE IV SCH (20:45)
[2019-07-09] MEDS ORDERED: DOCUSATE SODIUM 100 MG CAPSULE PO SCH (21:00)
[2019-07-09] MEDS ORDERED: HEPARIN 5,000 UNIT/ML VIAL SQ SCH (21:00)
[2019-07-09] MEDS ORDERED: SENNOSIDES/DOCUSATE SODIUM 1 TAB TABLET PO SCH (21:00)
[2019-07-10] MEDS: PIPERACILLIN SODIUM/TAZOBACTAM 3.375 GM in DEXTROSE 5% IN WATER 50 ML IV SCH ×4 (00:05→18:39)
[2019-07-10] MEDS ORDERED: DILTIAZEM 125 MG in DEXTROSE 5% IN WATER 100 ML IV PRN (01:45)
[2019-07-10] MEDS ORDERED: DILTIAZEM 125 MG in DEXTROSE 5% IN WATER 100 ML IV SCH (01:45)
[2019-07-10] MEDS: 0.9 % SODIUM CHLORIDE 10 ML SYRINGE IV SCH ×3 (05:34→20:08)
[2019-07-10] MEDS ORDERED: NOREPINEPHRINE BITARTRATE 4 MG/4 ML VIAL IV ONE (05:46)
[2019-07-10] MEDS: NOREPINEPHRINE BITARTRATE 16 MG in 0.9 % SODIUM CHLORIDE 234 ML IV SCH ×2 (05:49→18:54)
[2019-07-10 06:41] LABS: Platelet Count 383 K/mcL (140-440); Red Cell Distribution Width 25.2 % (11.5-14.5)
[2019-07-10 07:12] LABS: Hematocrit 56.5 % (40.1-51.0); Hemoglobin 15.7 g/dL (13.7-17.5); Mean Cell Volume 84.3 fL (80.0-100.0); Mean Corpuscular HGB Conc 27.8 g/dL (31.0-36.0); WBC 29.2 K/mcL (4.50-11.00)
[2019-07-10 07:20] LABS: ALT/SGPT 19 U/l (0-40); AST/SGOT 28 U/l (0-37); Albumin 3.3 gm/dL (3.2-5.2); Alkaline Phosphatase 227 U/L (39-117); Bilirubin,Direct 1.1 mg/dL (0.0-0.3); Bilirubin,Total 2.1 mg/dL (0.0-1.0); Calcium 8.8 mg/dl (8.6-10.4); Carbon Dioxide 20 mmol/L (22-30); Chloride 100 mmol/L (96-108); Globulin 3.4 gm/dL (2.2-3.7); Glomerular Filtration Rate 15; Glucose 111 mg/dL (70-105); Phosphorous 5.7 mg/dL (2.7-4.5); Triglycerides 45 mg/dl (<150); Uric Acid 10.2 mg/dL (2.5-8.0)
[2019-07-10 07:21] LABS: Blood Urea Nitrogen 100 mg/dl (8-23)
[2019-07-10 07:22] LABS: Lactate Dehydrogenase 508 U/L (94-250)
[2019-07-10 07:41] LABS: Anisocytosis 2+ (NONE SEEN); Band Neutrophils % 21 % (0-10); Monocytes % (Manual) 6 % (1-12); Ovalocytes 1+ (NONE SEEN); Platelet Estimate NORMAL (NORMAL); Polychromasia 1+ (NONE SEEN); RBC Morphology ABNORM (NORMAL); Reactive Lymphocytes 1 % (0-2); Segmented Neutrophils % 72 % (38-78)
[2019-07-10] MEDS ORDERED: FUROSEMIDE 40 MG/4 ML VIAL IV SCH (09:00)
[2019-07-10] MEDS ORDERED: MULTIVIT,THER IRON,CA,FA & MIN 1 TABLET PO SCH (09:00)
[2019-07-10] MEDS: FUROSEMIDE 40 MG/4 ML VIAL IV SCH (09:30)
[2019-07-10] MEDS: DOCUSATE SODIUM 100 MG CAPSULE PO SCH ×2 (09:30→20:08)
[2019-07-10] MEDS: MULTIVIT,THER IRON,CA,FA & MIN 1 TABLET PO SCH (09:30)
--- NOTE | 2019-07-10 09:33 | Internal Med Progress Note ---
Medical - PN: Subj Patient information: Note initiated : 07/10/19 at 9:29 am Service Date, if different from initiated Date: [] Patient: Ayden Guzmán a 84 y/o M admitted on 07/09/19 for Shortness of breath, Weakness. Chief Complaint: [] Interval history: Mr. Guzmán is a 84 year old M with no history of chronic kidney disease stage IIIb, mixed systolic/diastolic NYHA class III CHF, cor pulmonale, hypertension, A. fib on anticoagulation and underlying poor functional status on wheelchair who presents to the ER with increasing SOB/weakness, progressive confusion following recent hip surgery. Patient had a dramatic decline in status with associated fatigue, lethargy malaise and inability to function. He developed high fever and has been mumbling and incoherent speech. Initial work-up in the ER was consistent with severe sepsis with multiple endorgan dysfunction with elevated creatinine 3.6(baseline 1.5), A. fib RVR with rate 170s, potassium 5.8, bilirubin 2.5/lactic acid 2.8/procalcitonin 2.07/WBC >24,000 and a fever of 102.4. Imaging consistent with right-sided pneumonia. In light of hypotension with systolic 90s patient was started on pressors along with 2 L crystalloids after blood cultures were drawn and antibiotics were initiated. Viral respiratory panel along with coronavirus RNA was sent. Hospitalist service was consulted for admission in light of septic shock At the time of evaluation patient is very confused and mumbling. He was not able to provide any reasonable history or answers to questions. He is markedly labored breathing in mid 40s with heart rate in 160s. Blood pressure systolic 100s. Patient status post digoxin load. Initial [place] score 19 indicative hi gh mortality. I discussed the CODE STATUS with the ER staff who confirmed with family DNR with full medical interventions. Await further family discussions. Patient will be admitted to ICU in the setting of septic shock on vasopressors. High risk mortality. I discussed the case with patient's and daughter Jena who confirmed the patient is a DNR but would want aggressive medical interventions including pressors. 07/09-patient overnight on vasopressors currently on 7 mics Levophed. Status post amiodarone load. Heart rate around 120. Creatinine worsening at 3.6. Potassium down to 5.4. White count worsening now at 29.2 with 21% bands and 93% neutrophils, elevated bilirubin/procalcitonin. Remains high risk mortality. Family aware. Continue broad-spectrum antibiotics. Await cultures - Constitutional Vitals: Vital Signs Temp Pulse Resp BP Pulse Ox 97.9 F 98 H 23 H 104/70 97 07/10/19 09:18 07/10/19 09:18 07/10/19 09:18 07/10/19 09:15 07/10/19 09:18 Period Temp Pulse Resp BP Sys/Valentin Pulse Ox Last 24 Hr 97.9 F-102.5 F 33-158 15-40 76-128/24-112 82-100 Intake and Output 07/09/19 07/10/19 07/10/19 21:59 05:59 13:59 Intake Total 378 297 402 Output Total 200 585 325 Balance 178 -288 77 Weight 194 lb 11.2 oz Intake & Output: Intake & Output 07/09/19 07/10/19 07/10/19 21:59 05:59 13:59 Intake Total 378 297 402 Output Total 200 585 325 Balance 178 -288 77 Weight 194 lb 11.2 oz Intake: IV 378 297 62 Cordarone 150 mg In Dextrose 5% 53 in Water 50 ml @ 300 mls/hr IV ONCE ONE Rx#:[id number] Cardizem 125 mg In Dextrose 5% 7 in Water 100 ml @ 5 MG/HR 5 mls /hr IV Q12H [facility] Rx#:[id number] Levophed 16 mg In Sodium 3 247 12 Chloride 0.9% 234 ml @ 10 MCG/ MIN 9.375 mls/hr IV Q24H [facility] Rx #:[id number] Zosyn 3.375 gm In Dextrose 5% 100 50 50 in Water 50 ml @ 100 mls/hr IV Q6H [facility] Rx#:[id number] GI Tube Flush 340 Output: Urine Catheter Amount 200 585 325 Other: Urine Appearance Clear Clear Urine Color Light Yazmin Pale General appearance: moderate distress Exam: Short of breath Confused A. fib RVR Tavares is draining clear urine No lymphedema Anxious Medical - PN: Obj Da - Labs CBC & Chem 7: 07/10/19 04:35 07/10/19 04:35 Labs: Abnormal Lab Results 07/10/19 07/10/19 07/09/19 04:35 04:35 12:58 WBC 29.2 H RBC 6.70 H Hct 56.5 H POC Hct MCH 23.4 L MCHC 27.8 L RDW 25.2 H Gran % Lymph % (Auto) Gran # Lymph # (Auto) [place] # (Auto) Seg Neutrophils % Band Neutrophils % 21 H RBC Morphology Abnorm A Polychromasia 1+ A Hypochromasia Anisocytosis 2+ A Ovalocytes 1+ A PT 31.9 H INR 3.0 H APTT 64 H VBG Lactic Acid POC Potassium Potassium 5.4 H Carbon Dioxide 20 L Anion Gap 20.0 H POC BUN BUN 100 H Creatinine 3.6 H POC Creatinine Glucose 111 H POC Glucose Uric Acid 10.2 H POC WB Ioniz Calcium Phosphorus 5.7 H Total Bilirubin 2.1 H Direct Bilirubin 1.1 H GGT 133 H Alkaline Phosphatase 227 H Lactate Dehydrogenase 508 H NT-Pro-B Natriuret Pep Urine Protein Urine Urobilinogen Urine RBC Urine WBC Calcium Oxalate Crystal Amorphous Crystals Hyaline Casts 07/09/19 07/09/19 07/09/19 12:22 10:40 10:40 WBC RBC Hct POC Hct MCH MCHC RDW Gran % Lymph % (Auto) Gran # Lymph # (Auto) [place] # (Auto) Seg Neutrophils % 86 H Band Neutrophils % RBC Morphology Abnorm A Polychromasia 1+ A Hypochromasia 1+ A Anisocytosis 2+ A Ovalocytes 1+ A PT INR APTT VBG Lactic Acid 2.5 H POC Potassium Potassium Carbon Dioxide Anion Gap POC BUN BUN Creatinine POC Creatinine Glucose POC Glucose Uric Acid POC WB Ioniz Calcium Phosphorus Total Bilirubin Direct Bilirubin GGT Alkaline Phosphatase Lactate Dehydrogenase NT-Pro-B Natriuret Pep Urine Protein 100 A Urine Urobilinogen 2.0 A Urine RBC 2 H Urine WBC 5 H Calcium Oxalate Crystal Few A Amorphous Crystals Mod A Hyaline Casts 17 H 07/09/19 07/09/19 10:40 10:40 WBC 24.1 H RBC 7.02 H Hct 58.2 H POC Hct 60.0 H MCH 23.4 L MCHC 28.2 L RDW 25.5 H Gran % 91.0 H Lymph % (Auto) 1.8 L Gran # 21.88 H Lymph # (Auto) 0.44 L [place] # (Auto) 1.60 H Seg Neutrophils % Band Neutrophils % RBC Morphology Polychromasia Hypochromasia Anisocytosis Ovalocytes PT INR APTT VBG Lactic Acid POC Potassium 5.8 H Potassium 5.7 H Carbon Dioxide Anion Gap 18.0 H POC BUN 78 H BUN 84 H Creatinine 3.2 H POC Creatinine 3.6 H Glucose POC Glucose 108 H Uric Acid POC WB Ioniz Calcium 1.01 L Phosphorus Total Bilirubin 2.5 H Direct Bilirubin GGT Alkaline Phosphatase 295 H Lactate Dehydrogenase NT-Pro-B Natriuret Pep 62634.0 H Urine Protein Urine Urobilinogen Urine RBC Urine WBC Calcium Oxalate Crystal Amorphous Crystals Hyaline Casts Meds: Medications Acetaminophen (Tylenol) 650 mg PO Q4-6HP PRN; Protocol PRN Reason: Per Pain Protocol/Fever > 101 Bisacodyl (Dulcolax) 10 mg MN Q2-3DAYS PRN PRN Reason: Constipation Docusate Sodium (Colace) 100 mg PO BID [facility] Last Admin: 07/09/19 20:29 Dose: Not Given Documented by: Furosemide (Lasix) 20 mg IV DAILY [facility] Guaifenesin/Codeine Phosphate (Robitussin Ac) 10 ml PO Q4HP PRN PRN Reason: Cough Diltiazem HCl 125 mg/ Dextrose 125 mls @ 5 mls/hr IV Q12HP PRN; Protocol PRN Reason: Tachyarrhythmias Levofloxacin (Levaquin) 750 mg in 150 mls @ 100 mls/hr IV Q48H [facility]; Protocol Magnesium Sulfate (Magnesium Sulfate) 2 gm in 50 mls @ 50 mls/hr IV UD PRN PRN Reason: MG = or < 1.7 Norepinephrine Bitartrate 16 (mg/ Sodium Chloride) 250 mls @ 9.375 mls/hr IV Q24H [facility]; Protocol Last Titration: 07/10/19 08:20 Dose: 7 mcg/min, 6.563 mls/hr Documented by: Sodium Chloride (Sodium Chloride 0.9%) 1,000 mls @ 50 mls/hr IV .Q20H [facility] Stop: 07/12/19 03:19 Last Admin: 07/09/19 17:54 Dose: Not Given Documented by: Acetaminophen (Ofirmev) 650 mg in 65 mls @ 130 mls/hr IV Q6HP PRN; Protocol PRN Reason: Per Pain Protocol/Fever > 101 Piperacillin Sod/Tazobactam (Sod 3.375 gm/ Dextrose) 50 mls @ 100 mls/hr IV Q6H [facility]; Protocol Last Infusion: 07/10/19 06:30 Dose: Infused Documented by: Iron Carb/Multivit/[place]/Folic Acid (Multivitamin W/Minerals) 1 tab PO DAILY [facility] Melatonin (Melatonin 3mg Tablet) 3 mg PO HSP PRN PRN Reason: Insomnia Ondansetron HCl (Zofran Odt) 4 mg SL Q4-6HP PRN; Protocol PRN Reason: Nausea And Vomiting Ondansetron HCl (Zofran) 4 mg IV Q4-6HP PRN; Protocol PRN Reason: Nausea And Vomiting Polyethylene Glycol (Miralax) 17 gm PO DAILYP PRN PRN Reason: Constipation Potassium Chloride (Klor-Con) 40 meq PO DAILYP PRN PRN Reason: K+ < 3.5 Senna/Docusate Sodium (Senna Plus Tablet) 1 tab PO HS [facility] Last Admin: 07/09/19 20:29 Dose: Not Given Documented by: Sodium Chloride (Saline Flush) 10 ml IV Q8 [facility] Last Admin: 07/10/19 05:34 Dose: 10 ml Documented by: Medical - PN: A/P - Time Spent With Patient Total time spent is greater than 50% in coordination of care (as documented) at patient's floor/unit and/or counseling patient: Greater than 35 minutes (Critical care time) (1) Severe sepsis with acute organ dysfunction Status: Acute Assessment and plan: * Septic shock with multiple organ dysfunction-worsening white count of 29,200. Await culture results. Continue vasopressors and broad-spectrum antibiotics. Remains critically ill * Right lower lobe pneumonia-on broad-spectrum antibiotics * A. fib with RVR-rate control status post amiodarone/digoxin load. Anticoagulation held until able to take orally * Acute change in mental status secondary to sepsis endorgan dysfunction. Close monitoring * Hypoxic respiratory failure secondary to pneumonia. On supplemental oxygen. * Hyperkalemia improved to 5.4. Secondary to ANA LAURA * Acute on chronic renal failure stage IIIb-creatinine at 3.6, baseline 1.5. Follows up with Dr. Skinner. * Elevated LFTs secondary to septic shock. Continue monitoring * History of cor pulmonale with 45% EF/PAP 50-70 Echo July 2018. * History of leukocytosis/anemia/thrombocytopenia. Patient follows up with he matology as outpatient * Left lower extremity venous ulceration, wound care/limb elevation/lymphedema wraps * Hypertension-held Coreg/lisinopril/spironolactone in light of septic shock * Hyperlipidemia held statin * History of gout-allopurinol on hold * GERD on PPI * Obstructive sleep apnea/obesity * Prophylaxis-anticoagulation Plan * Continue ICU care. Remains high risk mortality based on [place] 2 score * Crystalloid/vasopressors/broad antibiotic coverage * Supplemental oxygen * Rate control measures * Monitor renal and endorgan dysfunction * PT OT/nutrition support Current Visit: Yes
[2019-07-10] MEDS: 0.9 % SODIUM CHLORIDE 1,000 ML IV SCH (12:26)
[2019-07-10] MEDS: SENNOSIDES/DOCUSATE SODIUM 1 TAB TABLET PO SCH (20:08)
[2019-07-11] MEDS: PIPERACILLIN SODIUM/TAZOBACTAM 3.375 GM in DEXTROSE 5% IN WATER 50 ML IV SCH ×4 (00:10→17:40)
[2019-07-11] MEDS: 0.9 % SODIUM CHLORIDE 10 ML SYRINGE IV SCH ×3 (05:25→20:26)
[2019-07-11 06:47] LABS: Hematocrit 55.7 % (40.1-51.0); Hemoglobin 15.5 g/dL (13.7-17.5); Mean Corpuscular HGB Conc 27.8 g/dL (31.0-36.0); Platelet Count 285 K/mcL (140-440); RBC 6.55 M/mcL (4.63-6.08); Red Cell Distribution Width 25.3 % (11.5-14.5); WBC 25.2 K/mcL (4.50-11.00)
[2019-07-11 07:04] LABS: ALT/SGPT 17 U/l (0-40); AST/SGOT 28 U/l (0-37); Albumin 3.2 gm/dL (3.2-5.2); Albumin/Globulin Ratio 0.8 (1.0-2.3); Alkaline Phosphatase 210 U/L (39-117); Bilirubin,Direct 0.8 mg/dL (0.0-0.3); Bilirubin,Total 1.8 mg/dL (0.0-1.0); Blood Urea Nitrogen 93 mg/dl (8-23); Calcium 9.2 mg/dl (8.6-10.4); Carbon Dioxide 19 mmol/L (22-30); Chloride 101 mmol/L (96-108); Globulin 3.8 gm/dL (2.2-3.7); Glomerular Filtration Rate 17; Glucose 68 mg/dL (70-105); Lactate Dehydrogenase 479 U/L (94-250); Phosphorous 5.4 mg/dL (2.7-4.5); Triglycerides 71 mg/dl (<150)
--- NOTE | 2019-07-11 07:24 | XRay Report ---
CLINICAL INFORMATION:Congestive heart failure TECHNIQUE: AP portable semiupright chest x-ray COMPARISON: Previous chest x-rays dated 07/09/2019, 12/09/2018 FINDINGS: LUNGS: Mild right basilar density may represent atelectasis or pneumonia. Appearance is essentially stable. No new focal pulmonary parenchymal density. HEART, VASCULARITY: Severe cardiomegaly, unchanged. Pulmonary vascularity appears slightly improved with decreased pulmonary edema. MEDIASTINUM, TRE: No acute mediastinal widening. No hilar mass PLEURA: Small right pleural effusion is possible. MUSCULOSKELETAL: Previous bilateral Pippa procedure. Humeral heads are superiorly decentered consistent with rotator cuff degeneration IMPRESSION: 1. Severe cardiomegaly, unchanged 2. Interstitial pulmonary edema is slightly improved 3. No new abnormality Interpreted and Authenticated by: Orlando Damon 07/11/19
[2019-07-11 07:46] LABS: Anisocytosis 3+ (NONE SEEN); Band Neutrophils % 5 % (0-10); Eosinophils % (Manual) 1 % (0-7); Hypochromasia FEW (NONE SEEN); Lymphocytes % 1 % (15-49); Monocytes % (Manual) 7 % (1-12); Ovalocytes 1+ (NONE SEEN); Platelet Estimate NORMAL (NORMAL); RBC Morphology ABNORM (NORMAL); Segmented Neutrophils % 86 % (38-78)
[2019-07-11] MEDS: DOCUSATE SODIUM 100 MG CAPSULE PO SCH ×2 (08:42→20:13)
[2019-07-11] MEDS ORDERED: LEVOFLOXACIN 750 MG/150 ML BAG IV SCH ×2 (09:00)
[2019-07-11] MEDS: MULTIVIT,THER IRON,CA,FA & MIN 1 TABLET PO SCH (09:58)
[2019-07-11] MEDS: ACETAMINOPHEN 325 MG TABLET PO PRN ×3 (09:59→20:26)
[2019-07-11] MEDS: MUPIROCIN OINT 2% 22GM NARES SCH ×2 (09:59→20:26)
[2019-07-11] MEDS: FUROSEMIDE 40 MG/4 ML VIAL IV SCH (09:59)
--- NOTE | 2019-07-11 10:47 | Internal Med Progress Note ---
Medical - PN: Subj Patient information: Note initiated : 07/11/19 at 10:43 am Service Date, if different from initiated Date: [] Patient: Ayden Guzmán a 84 y/o M admitted on 07/09/19 for Shortness of breath, Weakness. Chief Complaint: [] Interval history: Mr. Guzmán is a 84 year old M with no history of chronic kidney disease stage IIIb, mixed systolic/diastolic NYHA class III CHF, cor pulmonale, hypertension, A. fib on anticoagulation and underlying poor functional status on wheelchair who presents to the ER with increasing SOB/weakness, progressive confusion following recent hip surgery. Patient had a dramatic decline in status with associated fatigue, lethargy malaise and inability to function. He developed high fever and has been mumbling and incoherent speech. Initial work-up in the ER was consistent with severe sepsis with multiple endorgan dysfunction with elevated creatinine 3.6(baseline 1.5), A. fib RVR with rate 170s, potassium 5.8, bilirubin 2.5/lactic acid 2.8/procalcitonin 2.07/WBC >24,000 and a fever of 102.4. Imaging consistent with right-sided pneumonia. In light of hypotension with systolic 90s patient was started on pressors along with 2 L crystalloids after blood cultures were drawn and antibiotics were initiated. Viral respiratory panel along with coronavirus RNA was sent. Hospitalist service was consulted for admission in light of septic shock At the time of evaluation patient is very confused and mumbling. He was not able to provide any reasonable history or answers to questions. He is markedly labored breathing in mid 40s with heart rate in 160s. Blood pressure systolic 100s. Patient status post digoxin load. Initial [place] score 19 indicative h igh mortality. I discussed the CODE STATUS with the ER staff who confirmed with family DNR with full medical interventions. Await further family discussions. Patient will be admitted to ICU in the setting of septic shock on vasopressors. High risk mortality. I discussed the case with patient's and daughter Jena who confirmed the patient is a DNR but would want aggressive medical interventions including pressors. 07/09-patient overnight on vasopressors currently on 7 mics Levophed. Status post amiodarone load. Heart rate around 120. Creatinine worsening at 3.6. Potassium down to 5.4. White count worsening now at 29.2 with 21% bands and 93% neutrophils, elevated bilirubin/procalcitonin. Remains high risk mortality. Family aware. Continue broad-spectrum antibiotics. Await cultures 07/10-patient clinically improving with much improved mental status. Weaning Levophed down to 2 mics currently. Improving renal function creatinine 3.2. White count down to 25.2 from 29, potassium down to 5.1, bilirubin down to 1.8. A. fib now rate controlled. Interval chest imaging reveals interstitial pulmonary edema improved. Hypoxia much improved now down from 4 L to 1 L oxygen. - Constitutional Vitals: Vital Signs Temp Pulse Resp BP Pulse Ox 96.9 F L 86 27 H 107/70 98 07/11/19 10:01 07/11/19 06:31 07/11/19 10:01 07/11/19 10:00 07/11/19 06:31 Period Temp Pulse Resp BP Sys/Valentin Pulse Ox Last 24 Hr 96.7 F-98.2 F 86-120 13-29 91-127/54-84 91-98 Intake and Output 07/10/19 07/11/19 07/11/19 21:59 05:59 13:59 Intake Total 382 50 48 Output Total 550 730 240 Balance -168 -680 -192 Weight 192 lb 6.4 oz Intake & Output: Intake & Output 07/10/19 07/11/19 07/11/19 21:59 05:59 13:59 Intake Total 382 50 48 Output Total 550 730 240 Balance -168 -680 -192 Weight 192 lb 6.4 oz Intake: IV 62 50 48 Levophed 16 mg In Sodium 12 48 Chloride 0.9% 234 ml @ 10 MCG/ MIN 9.375 mls/hr IV Q24H [facility] Rx #:[id number] Zosyn 3.375 gm In Dextrose 5% 50 50 in Water 50 ml @ 100 mls/hr IV Q6H [facility] Rx#:[id number] Oral 320 Output: Urine Catheter Amount 550 730 240 Other: Urine Appearance Clear Clear Urine Color Pale Pale Stool Size Small Stool Color Brown Black Stool Consistency Loose # Bowel Movements 1 # of times incontinent of 1 Bowels General appearance: no acute distress Exam: Alert responding commands On 1 L oxygen Telemetry A. fib Tavares draining clear urine No lymphedema No anxiety Medical - PN: Obj Da - Labs CBC & Chem 7: 07/11/19 05:10 07/11/19 05:10 Labs: Abnormal Lab Results 07/11/19 07/11/19 07/10/19 05:10 05:10 04:35 WBC 25.2 H RBC 6.55 H Hct 55.7 H POC Hct MCH 23.7 L MCHC 27.8 L RDW 25.3 H Gran % Lymph % (Auto) Gran # Lymph # (Auto) [place] # (Auto) Seg Neutrophils % 86 H Band Neutrophils % Lymphocytes % 1 L RBC Morphology Abnorm A Polychromasia Hypochromasia Few A Anisocytosis 3+ A Ovalocytes 1+ A PT INR APTT VBG Lactic Acid POC Potassium Potassium 5.4 H Carbon Dioxide 19 L 20 L Anion Gap 19.0 H 20.0 H POC BUN BUN 93 H 100 H Creatinine 3.2 H 3.6 H POC Creatinine Glucose 68 L 111 H POC Glucose Uric Acid 9.0 H 10.2 H POC WB Ioniz Calcium Phosphorus 5.4 H 5.7 H Total Bilirubin 1.8 H 2.1 H Direct Bilirubin 0.8 H 1.1 H GGT 122 H 133 H Alkaline Phosphatase 210 H 227 H Lactate Dehydrogenase 479 H 508 H NT-Pro-B Natriuret Pep Globulin 3.8 H Albumin/Globulin Ratio 0.8 L Urine Protein Urine Urobilinogen Urine RBC Urine WBC Calcium Oxalate Crystal Amorphous Crystals Hyaline Casts 07/10/19 07/09/19 07/09/19 04:35 12:58 12:22 WBC 29.2 H RBC 6.70 H Hct 56.5 H POC Hct MCH 23.4 L MCHC 27.8 L RDW 25.2 H Gran % Lymph % (Auto) Gran # Lymph # (Auto) [place] # (Auto) Seg Neutrophils % Band Neutrophils % 21 H Lymphocytes % RBC Morphology Abnorm A Polychromasia 1+ A Hypochromasia Anisocytosis 2+ A Ovalocytes 1+ A PT 31.9 H INR 3.0 H APTT 64 H VBG Lactic Acid POC Potassium Potassium Carbon Dioxide Anion Gap POC BUN BUN Creatinine POC Creatinine Glucose POC Glucose Uric Acid POC WB Ioniz Calcium Phosphorus Total Bilirubin Direct Bilirubin GGT Alkaline Phosphatase Lactate Dehydrogenase NT-Pro-B Natriuret Pep Globulin Albumin/Globulin Ratio Urine Protein 100 A Urine Urobilinogen 2.0 A Urine RBC 2 H Urine WBC 5 H Calcium Oxalate Crystal Few A Amorphous Crystals Mod A Hyaline Casts 17 H 07/09/19 07/09/19 07/09/19 10:40 10:40 10:40 WBC RBC Hct POC Hct 60.0 H MCH MCHC RDW Gran % Lymph % (Auto) Gran # Lymph # (Auto) [place] # (Auto) Seg Neutrophils % 86 H Band Neutrophils % Lymphocytes % RBC Morphology Abnorm A Polychromasia 1+ A Hypochromasia 1+ A Anisocytosis 2+ A Ovalocytes 1+ A PT INR APTT VBG Lactic Acid 2.5 H POC Potassium 5.8 H Potassium 5.7 H Carbon Dioxide Anion Gap 18.0 H POC BUN 78 H BUN 84 H Creatinine 3.2 H POC Creatinine 3.6 H Glucose POC Glucose 108 H Uric Acid POC WB Ioniz Calcium 1.01 L Phosphorus Total Bilirubin 2.5 H Direct Bilirubin GGT Alkaline Phosphatase 295 H Lactate Dehydrogenase NT-Pro-B Natriuret Pep 22894.0 H Globulin Albumin/Globulin Ratio Urine Protein Urine Urobilinogen Urine RBC Urine WBC Calcium Oxalate Crystal Amorphous Crystals Hyaline Casts 07/09/19 10:40 WBC 24.1 H RBC 7.02 H Hct 58.2 H POC Hct MCH 23.4 L MCHC 28.2 L RDW 25.5 H Gran % 91.0 H Lymph % (Auto) 1.8 L Gran # 21.88 H Lymph # (Auto) 0.44 L [place] # (Auto) 1.60 H Seg Neutrophils % Band Neutrophils % Lymphocytes % RBC Morphology Polychromasia Hypochromasia Anisocytosis Ovalocytes PT INR APTT VBG Lactic Acid POC Potassium Potassium Carbon Dioxide Anion Gap POC BUN BUN Creatinine POC Creatinine Glucose POC Glucose Uric Acid POC WB Ioniz Calcium Phosphorus Total Bilirubin Direct Bilirubin GGT Alkaline Phosphatase Lactate Dehydrogenase NT-Pro-B Natriuret Pep Globulin Albumin/Globulin Ratio Urine Protein Urine Urobilinogen Urine RBC Urine WBC Calcium Oxalate Crystal Amorphous Crystals Hyaline Casts Meds: Medications Acetaminophen (Tylenol) 650 mg PO Q4-6HP PRN; Protocol PRN Reason: Per Pain Protocol/Fever > 101 Last Admin: 07/11/19 09:59 Dose: 650 mg Documented by: Bisacodyl (Dulcolax) 10 mg ID Q2-3DAYS PRN PRN Reason: Constipation Docusate Sodium (Colace) 100 mg PO BID [facility] Last Admin: 07/11/19 08:42 Dose: Not Given Documented by: Furosemide (Lasix) 20 mg IV DAILY COUNTS INCLUDE 234 BEDS AT THE [facility] Last Admin: 07/11/19 09:59 Dose: 20 mg Documented by: Guaifenesin/Codeine Phosphate (Robitussin Ac) 10 ml PO Q4HP PRN PRN Reason: Cough Diltiazem HCl 125 mg/ Dextrose 125 mls @ 5 mls/hr IV Q12HP PRN; Protocol PRN Reason: Tachyarrhythmias Levofloxacin (Levaquin) 750 mg in 150 mls @ 100 mls/hr IV Q48H [facility]; Protocol Last Admin: 07/11/19 09:58 Dose: 100 mls/hr Documented by: Magnesium Sulfate (Magnesium Sulfate) 2 gm in 50 mls @ 50 mls/hr IV UD PRN PRN Reason: MG = or < 1.7 Norepinephrine Bitartrate 16 (mg/ Sodium Chloride) 250 mls @ 9.375 mls/hr IV Q24H [facility]; Protocol Last Titration: 07/11/19 08:30 Dose: 0 mcg/min, 0 mls/hr Documented by: Sodium Chloride (Sodium Chloride 0.9%) 1,000 mls @ 50 mls/hr IV .Q20H [facility] Stop: 07/12/19 03:19 Last Admin: 07/10/19 12:26 Dose: 50 mls/hr Documented by: Acetaminophen (Ofirmev) 650 mg in 65 mls @ 130 mls/hr IV Q6HP PRN; Protocol PRN Reason: Per Pain Protocol/Fever > 101 Piperacillin Sod/Tazobactam (Sod 3.375 gm/ Dextrose) 50 mls @ 100 mls/hr IV Q6H [facility]; Protocol Last Admin: 07/11/19 05:24 Dose: 50 mls/hr Documented by: Iron Carb/Multivit/[place]/Folic Acid (Multivitamin W/Minerals) 1 tab PO DAILY [facility]S [facility]CLUDE 234 BEDS AT [facility] Last Admin: 07/11/19 09:58 Dose: 1 tab Documented by: Melatonin (Melatonin 3mg Tablet) 3 mg PO HSP PRN PRN Reason: Insomnia Mupirocin (Bactroban Oint 2%) 1 dose NARES BID COUNTS INCLUDE 234 BEDS AT THE [facility] Stop: 07/17/19 21:01 Last Admin: 07/11/19 09:59 Dose: 1 dose Documented by: Ondansetron HCl (Zofran Odt) 4 mg SL Q4-6HP PRN; Protocol PRN Reason: Nausea And Vomiting Ondansetron HCl (Zofran) 4 mg IV Q4-6HP PRN; Protocol PRN Reason: Nausea And Vomiting Polyethylene Glycol (Miralax) 17 gm PO DAILYP PRN PRN Reason: Constipation Potassium Chloride (Klor-Con) 40 meq PO DAILYP PRN PRN Reason: K+ < 3.5 Senna/Docusate Sodium (Senna Plus Tablet) 1 tab PO HS COUNTS INCLUDE 234 BEDS AT THE [facility] Last Admin: 07/10/19 20:08 Dose: Not Given Documented by: Sodium Chloride (Saline Flush) 10 ml IV Q8 COUNTS INCLUDE 234 BEDS AT THE [facility] Last Admin: 07/11/19 05:25 Dose: Not Given Documented by: Medical - PN: A/P - Time Spent With Patient Total time spent is greater than 50% in coordination of care (as documented) at patient's floor/unit and/or counseling patient: Greater than 35 minutes (Critical time) (1) Severe sepsis with acute organ dysfunction Status: Acute Assessment and plan: * Septic shock with multiple organ dysfunction-clinically improving. Weaning vasopressors. White count downtrending at 25,000. Await cultures. * Right lower lobe pneumonia-clinically and radiological improvement noted * A. fib with RVR-adequate rate control on amiodarone/digoxin load. Restart anticoagulation * Acute change in mental status secondary to sepsis endorgan dysfunction. Rapid resolution noted * Hypoxic respiratory failure secondary to pneumonia. Weaning oxygen down to 1 L now * Hyperkalemia resolved * Acute on chronic renal failure stage IIIb-creatinine downtrending now at 3.2. baseline 1.5. Follows up with Dr. Skinner. * Elevated LFTs secondary to septic shock. Continue monitoring * History of cor pulmonale with 45% EF/PAP 50-70 Echo July 2018. * History of leukocytosis/anemia/thrombocytopenia. Patient follows up with hematology as outpatient * Left lower extremity venous ulceration, wound care/limb elevation/lymphedema wraps * Hypertension-continue holding Coreg/lisinopril/spironolactone in light of septic shock * Hyperlipidemia held statin * History of gout-allopurinol on hold * GERD on PPI * Obstructive sleep apnea/obesity * Prophylaxis-anticoagulation Plan * Continue ICU care. Improved prognosis * Wean vasopressors * Continue broad antibiotics * Continue rate control measures * PT OT/nutrition support * Discharge planning per case management Current Visit: Yes
[2019-07-11] MEDS: 0.9 % SODIUM CHLORIDE 1,000 ML IV SCH (15:00)
[2019-07-11] MEDS: NOREPINEPHRINE BITARTRATE 16 MG in 0.9 % SODIUM CHLORIDE 234 ML IV SCH (15:00)
[2019-07-11] MEDS ORDERED: RIVAROXABAN 15 MG TABLET PO SCH (17:30)
[2019-07-11] MEDS: SENNOSIDES/DOCUSATE SODIUM 1 TAB TABLET PO SCH (20:13)
[2019-07-11] MEDS: GABAPENTIN 300 MG CAPSULE PO SCH (20:26)
[2019-07-11] MEDS ORDERED: ATORVASTATIN 20 MG TABLET PO SCH (21:00)
[2019-07-12] MEDS: PIPERACILLIN SODIUM/TAZOBACTAM 3.375 GM in DEXTROSE 5% IN WATER 50 ML IV SCH ×5 (05:26→23:46)
[2019-07-12] MEDS: 0.9 % SODIUM CHLORIDE 10 ML SYRINGE IV SCH ×3 (05:26→20:19)
[2019-07-12 06:30] LABS: Hematocrit 52.3 % (40.1-51.0); Hemoglobin 14.9 g/dL (13.7-17.5); Mean Cell Volume 83.4 fL (80.0-100.0); Mean Corpuscular HGB Conc 28.5 g/dL (31.0-36.0); Platelet Count 236 K/mcL (140-440); RBC 6.27 M/mcL (4.63-6.08); Red Cell Distribution Width 24.8 % (11.5-14.5); WBC 17.6 K/mcL (4.50-11.00)
[2019-07-12 06:42] LABS: ALT/SGPT 17 U/l (0-40); AST/SGOT 22 U/l (0-37); Albumin/Globulin Ratio 0.9 (1.0-2.3); Alkaline Phosphatase 174 U/L (39-117); Bilirubin,Direct 0.7 mg/dL (0.0-0.3); Bilirubin,Total 1.4 mg/dL (0.0-1.0); Blood Urea Nitrogen 82 mg/dl (8-23); Calcium 8.6 mg/dl (8.6-10.4); Carbon Dioxide 18 mmol/L (22-30); Chloride 103 mmol/L (96-108); Globulin 3.2 gm/dL (2.2-3.7); Glomerular Filtration Rate 20; Glucose 85 mg/dL (70-105); Lactate Dehydrogenase 360 U/L (94-250); Triglycerides 68 mg/dl (<150); Uric Acid 8.3 mg/dL (2.5-8.0)
[2019-07-12 07:35] LABS: Anisocytosis 3+ (NONE SEEN); Band Neutrophils % 5 % (0-10); Eosinophils % (Manual) 7 % (0-7); Hypochromasia 1+ (NONE SEEN); Monocytes % (Manual) 5 % (1-12); Ovalocytes 1+ (NONE SEEN); Platelet Estimate NORMAL (NORMAL); RBC Morphology ABNORM (NORMAL); Reactive Lymphocytes 3 % (0-2); Segmented Neutrophils % 80 % (38-78)
[2019-07-12] MEDS ORDERED: ALLOPURINOL 100 MG TABLET PO SCH (09:00)
[2019-07-12] MEDS ORDERED: METOPROLOL SUCCINATE 25 MG TAB.XL.24H PO SCH (09:00)
[2019-07-12] MEDS: MUPIROCIN OINT 2% 22GM NARES SCH ×2 (09:35→20:18)
[2019-07-12] MEDS: DOCUSATE SODIUM 100 MG CAPSULE PO SCH ×3 (09:35→20:19)
[2019-07-12] MEDS: FUROSEMIDE 40 MG/4 ML VIAL IV SCH (09:35)
[2019-07-12] MEDS: MULTIVIT,THER IRON,CA,FA & MIN 1 TABLET PO SCH (09:36)
[2019-07-12] MEDS: GABAPENTIN 300 MG CAPSULE PO SCH ×2 (09:36→20:10)
--- NOTE | 2019-07-12 09:49 | Internal Med Progress Note ---
Medical - PN: Subj Patient information: Note initiated : 07/12/19 at 9:46 am Service Date, if different from initiated Date: [] Patient: Ayden Guzmán a 84 y/o M admitted on 07/09/19 for Shortness of breath, Weakness. Chief Complaint: [] Interval history: Mr. Guzmán is a 84 year old M with no history of chronic kidney disease stage IIIb, mixed systolic/diastolic NYHA class III CHF, cor pulmonale, hypertension, A. fib on anticoagulation and underlying poor functional status on wheelchair who presents to the ER with increasing SOB/weakness, progressive confusion following recent hip surgery. Patient had a dramatic decline in status with associated fatigue, lethargy malaise and inability to function. He developed high fever and has been mumbling and incoherent speech. Initial work-up in the ER was consistent with severe sepsis with multiple endorgan dysfunction with elevated creatinine 3.6(baseline 1.5), A. fib RVR with rate 170s, potassium 5.8, bilirubin 2.5/lactic acid 2.8/procalcitonin 2.07/WBC >24,000 and a fever of 102.4. Imaging consistent with right-sided pneumonia. In light of hypotension with systolic 90s patient was started on pressors along with 2 L crystalloids after blood cultures were drawn and antibiotics were initiated. Viral respiratory panel along with coronavirus RNA was sent. Hospitalist service was consulted for admission in light of septic shock At the time of evaluation patient is very confused and mumbling. He was not able to provide any reasonable history or answers to questions. He is markedly labored breathing in mid 40s with heart rate in 160s. Blood pressure systolic 100s. Patient status post digoxin load. Initial [place] score 19 indicative hi gh mortality. I discussed the CODE STATUS with the ER staff who confirmed with family DNR with full medical interventions. Await further family discussions. Patient will be admitted to ICU in the setting of septic shock on vasopressors. High risk mortality. I discussed the case with patient's and daughter Jena who confirmed the patient is a DNR but would want aggressive medical interventions including pressors. 07/09-patient overnight on vasopressors currently on 7 mics Levophed. Status post amiodarone load. Heart rate around 120. Creatinine worsening at 3.6. Potassium down to 5.4. White count worsening now at 29.2 with 21% bands and 93% neutrophils, elevated bilirubin/procalcitonin. Remains high risk mortality. Family aware. Continue broad-spectrum antibiotics. Await cultures 07/10-patient clinically improving with much improved mental status. Weaning Levophed down to 2 mics currently. Improving renal function creatinine 3.2. White count down to 25.2 from 29, potassium down to 5.1, bilirubin down to 1.8. A. fib now rate controlled. Interval chest imaging reveals interstitial pulmonary edema improved. Hypoxia much improved now down from 4 L to 1 L oxygen. 07/11-patient doing well. Off pressors. White count down at 17.6. Creatinine 2.8 BUN down to 82. Bilirubin down to 1.4. Stabilize hemodynamics. Potassium down to 4.5. Currently on room air. Tolerating diet. Continue aspiration precautions. Continue antibiotic coverage. Will likely discharge in 24 to 40 hours to SNF. - Constitutional Vitals: Vital Signs Temp Pulse Resp BP Pulse Ox 97.1 F 87 22 102/70 93 07/12/19 08:01 07/12/19 08:43 07/12/19 08:01 07/12/19 08:01 07/12/19 08:43 Period Temp Pulse Resp BP Sys/Valentin Pulse Ox Last 24 Hr 96.8 F-98.8 F 77-101 14-29 91-110/54-79 93-97 Intake and Output 07/11/19 07/12/19 07/12/19 21:59 05:59 13:59 Intake Total 500 50 250 Output Total 604 660 Balance -104 -610 250 Weight 197 lb Intake & Output: Intake & Output 07/11/19 07/12/19 07/12/19 21:59 05:59 13:59 Intake Total 500 50 250 Output Total 604 660 Balance -104 -610 250 Weight 197 lb Intake: IV 200 50 50 Zosyn 3.375 gm In Dextrose 5% 50 50 50 in Water 50 ml @ 100 mls/hr IV Q6H [facility] Rx#:[id number] Oral 300 200 Output: Urine Catheter Amount 604 660 Other: Meal Dinner Percent of Meal Consumed 50% Feeding Ability Assist with Tray Set Up Urine Appearance Clear Clear Uretheral ([place]avares) Clear Urine Color Bright Yellow Bright Yellow Uretheral ([place]avares) Bright Yellow Urine Odor Normal Stool Size Small Small Stool Color Brown Brown Black Stool Consistency Loose Soft # Bowel Movements 2 # of times incontinent of 1 Bowels General appearance: no acute distress Exam: Alert oriented Nonlabored breathing No anxiety Nondistended abdomen No telemetry events Medical - PN: Obj Da - Labs CBC & Chem 7: 07/12/19 05:05 07/12/19 05:05 Labs: Abnormal Lab Results 07/12/19 07/12/19 07/11/19 05:05 05:05 05:10 WBC 17.6 H RBC 6.27 H Hct 52.3 H POC Hct MCH 23.8 L MCHC 28.5 L RDW 24.8 H Gran % Lymph % (Auto) Gran # Lymph # (Auto) [place] # (Auto) Seg Neutrophils % 80 H Band Neutrophils % Lymphocytes % Reactive Lymphocytes 3 H RBC Morphology Abnorm A Polychromasia Hypochromasia 1+ A Anisocytosis 3+ A Ovalocytes 1+ A PT INR APTT VBG Lactic Acid POC Potassium Potassium Carbon Dioxide 18 L 19 L Anion Gap 18.0 H 19.0 H POC BUN BUN 82 H 93 H Creatinine 2.8 H 3.2 H POC Creatinine Glucose 68 L POC Glucose Uric Acid 8.3 H 9.0 H POC WB Ioniz Calcium Phosphorus 5.4 H Total Bilirubin 1.4 H 1.8 H Direct Bilirubin 0.7 H 0.8 H GGT 107 H 122 H Alkaline Phosphatase 174 H 210 H Lactate Dehydrogenase 360 H 479 H NT-Pro-B Natriuret Pep Albumin 3.0 L Globulin 3.8 H Albumin/Globulin Ratio 0.9 L 0.8 L Urine Protein Urine Urobilinogen Urine RBC Urine WBC Calcium Oxalate Crystal Amorphous Crystals Hyaline Casts 07/11/19 07/10/19 07/10/19 05:10 04:35 04:35 WBC 25.2 H 29.2 H RBC 6.55 H 6.70 H Hct 55.7 H 56.5 H POC Hct MCH 23.7 L 23.4 L MCHC 27.8 L 27.8 L RDW 25.3 H 25.2 H Gran % Lymph % (Auto) Gran # Lymph # (Auto) [place] # (Auto) Seg Neutrophils % 86 H Band Neutrophils % 21 H Lymphocytes % 1 L Reactive Lymphocytes RBC Morphology Abnorm A Abnorm A Polychromasia 1+ A Hypochromasia Few A Anisocytosis 3+ A 2+ A Ovalocytes 1+ A 1+ A PT INR APTT VBG Lactic Acid POC Potassium Potassium 5.4 H Carbon Dioxide 20 L Anion Gap 20.0 H POC BUN BUN 100 H Creatinine 3.6 H POC Creatinine Glucose 111 H POC Glucose Uric Acid 10.2 H POC WB Ioniz Calcium Phosphorus 5.7 H Total Bilirubin 2.1 H Direct Bilirubin 1.1 H GGT 133 H Alkaline Phosphatase 227 H Lactate Dehydrogenase 508 H NT-Pro-B Natriuret Pep Albumin Globulin Albumin/Globulin Ratio Urine Protein Urine Urobilinogen Urine RBC Urine WBC Calcium Oxalate Crystal Amorphous Crystals Hyaline Casts 07/09/19 07/09/19 07/09/19 12:58 12:22 10:40 WBC RBC Hct POC Hct MCH MCHC RDW Gran % Lymph % (Auto) Gran # Lymph # (Auto) [place] # (Auto) Seg Neutrophils % 86 H Band Neutrophils % Lymphocytes % Reactive Lymphocytes RBC Morphology Abnorm A Polychromasia 1+ A Hypochromasia 1+ A Anisocytosis 2+ A Ovalocytes 1+ A PT 31.9 H INR 3.0 H APTT 64 H VBG Lactic Acid POC Potassium Potassium Carbon Dioxide Anion Gap POC BUN BUN Creatinine POC Creatinine Glucose POC Glucose Uric Acid POC WB Ioniz Calcium Phosphorus Total Bilirubin Direct Bilirubin GGT Alkaline Phosphatase Lactate Dehydrogenase NT-Pro-B Natriuret Pep Albumin Globulin Albumin/Globulin Ratio Urine Protein 100 A Urine Urobilinogen 2.0 A Urine RBC 2 H Urine WBC 5 H Calcium Oxalate Crystal Few A Amorphous Crystals Mod A Hyaline Casts 17 H 07/09/19 07/09/19 07/09/19 10:40 10:40 10:40 WBC 24.1 H RBC 7.02 H Hct 58.2 H POC Hct 60.0 H MCH 23.4 L MCHC 28.2 L RDW 25.5 H Gran % 91.0 H Lymph % (Auto) 1.8 L Gran # 21.88 H Lymph # (Auto) 0.44 L [place] # (Auto) 1.60 H Seg Neutrophils % Band Neutrophils % Lymphocytes % Reactive Lymphocytes RBC Morphology Polychromasia Hypochromasia Anisocytosis Ovalocytes PT INR APTT VBG Lactic Acid 2.5 H POC Potassium 5.8 H Potassium 5.7 H Carbon Dioxide Anion Gap 18.0 H POC BUN 78 H BUN 84 H Creatinine 3.2 H POC Creatinine 3.6 H Glucose POC Glucose 108 H Uric Acid POC WB Ioniz Calcium 1.01 L Phosphorus Total Bilirubin 2.5 H Direct Bilirubin GGT Alkaline Phosphatase 295 H Lactate Dehydrogenase NT-Pro-B Natriuret Pep 27531.0 H Albumin Globulin Albumin/Globulin Ratio Urine Protein Urine Urobilinogen Urine RBC Urine WBC Calcium Oxalate Crystal Amorphous Crystals Hyaline Casts Meds: Medications Acetaminophen (Tylenol) 650 mg PO Q4-6HP PRN; Protocol PRN Reason: Per Pain Protocol/Fever > 101 Last Admin: 07/11/19 20:26 Dose: 650 mg Documented by: Allopurinol (Zyloprim) 100 mg PO QDAY [facility] Last Admin: 07/12/19 09:37 Dose: 100 mg Documented by: Atorvastatin Calcium (Lipitor) 20 mg PO HS [facility] Last Admin: 07/11/19 20:26 Dose: 20 mg Documented by: Bisacodyl (Dulcolax) 10 mg SD Q2-3DAYS PRN PRN Reason: Constipation Docusate Sodium (Colace) 100 mg PO BID [facility] Last Admin: 07/12/19 09:38 Dose: Not Given Documented by: Furosemide (Lasix) 20 mg IV DAILY [facility] Last Admin: 07/12/19 09:35 Dose: 20 mg Documented by: Gabapentin (Neurontin) 300 mg PO BID [facility] Last Admin: 07/12/19 09:36 Dose: 300 mg Documented by: Guaifenesin/Codeine Phosphate (Robitussin Ac) 10 ml PO Q4HP PRN PRN Reason: Cough Diltiazem HCl 125 mg/ Dextrose 125 mls @ 5 mls/hr IV Q12HP PRN; Protocol PRN Reason: Tachyarrhythmias Levofloxacin (Levaquin) 750 mg in 150 mls @ 100 mls/hr IV Q48H [facility]; Protocol Last Infusion: 07/11/19 14:51 Dose: Infused Documented by: Magnesium Sulfate (Magnesium Sulfate) 2 gm in 50 mls @ 50 mls/hr IV UD PRN PRN Reason: MG = or < 1.7 Norepinephrine Bitartrate 16 (mg/ Sodium Chloride) 250 mls @ 9.375 mls/hr IV Q24H [facility]; Protocol Last Admin: 07/11/19 15:00 Dose: Not Given Documented by: Acetaminophen (Ofirmev) 650 mg in 65 mls @ 130 mls/hr IV Q6HP PRN; Protocol PRN Reason: Per Pain Protocol/Fever > 101 Piperacillin Sod/Tazobactam (Sod 3.375 gm/ Dextrose) 50 mls @ 100 mls/hr IV Q6H [facility]; Protocol Last Infusion: 07/12/19 06:00 Dose: Infused Documented by: Iron Carb/Multivit/[place]/Folic Acid (Multivitamin W/Minerals) 1 tab PO DAILY [facility] Last Admin: 07/12/19 09:36 Dose: 1 tab Documented by: Melatonin (Melatonin 3mg Tablet) 3 mg PO HSP PRN PRN Reason: Insomnia Metoprolol Succinate (Toprol Xl) 12.5 mg PO DAILY [facility] Last Admin: 07/12/19 09:37 Dose: Not Given Documented by: Mupirocin (Bactroban Oint 2%) 1 dose NARES BID [facility] Stop: 07/17/19 21:01 Last Admin: 07/12/19 09:35 Dose: 1 dose Documented by: Ondansetron HCl (Zofran Odt) 4 mg SL Q4-6HP PRN; Protocol PRN Reason: Nausea And Vomiting Ondansetron HCl (Zofran) 4 mg IV Q4-6HP PRN; Protocol PRN Reason: Nausea And Vomiting Polyethylene Glycol (Miralax) 17 gm PO DAILYP PRN PRN Reason: Constipation Potassium Chloride (Klor-Con) 40 meq PO DAILYP PRN PRN Reason: K+ < 3.5 Rivaroxaban (Xarelto) 15 mg PO QPMCC [facility] Last Admin: 07/11/19 17:40 Dose: 15 mg Documented by: Senna/Docusate Sodium (Senna Plus Tablet) 1 tab PO HS [facility] Last Admin: 07/11/19 20:13 Dose: Not Given Documented by: Sodium Chloride (Saline Flush) 10 ml IV Q8 [facility] Last Admin: 07/12/19 05:26 Dose: 10 ml Documented by: Medical - PN: A/P - Time Spent With Patient Total time spent is greater than 50% in coordination of care (as documented) at patient's floor/unit and/or counseling patient: 25 - 35 minutes (1) Severe sepsis with acute organ dysfunction Status: Acute Assessment and plan: * Septic shock with multiple organ dysfunction-clinically improving. Off vasopressors. White count down to 17.6. Clinically improved * Right lower lobe pneumonia-clinically and radiological improvement noted * A. fib with RVR-now rate controlled. On anticoagulation. Status post amiodarone/digoxin load. Continue metoprolol. * Acute change in mental status secondary to sepsis endorgan dysfunction. Rapid resolution noted * Hypoxic respiratory failure secondary to pneumonia. Now on room air * Hyperkalemia resolved now at 4.5 * Acute on chronic renal failure stage IIIb-creatinine downtrending now at 3.2. baseline 1.5. Follows up with Dr. Skinner. * Elevated LFTs secondary to septic shock. Continue monitoring * History of cor pulmonale with 45% EF/PAP 50-70 Echo July 2018. * History of leukocytosis/anemia/thrombocytopenia. Patient follows up with hematology as outpatient * Left lower extremity venous ulceration, wound care/limb elevation/lymphedema wraps * Hypertension-continue holding Coreg/lisinopril/spironolactone in light of septic shock * Hyperlipidemia held statin * History of gout-allopurinol on hold * GERD on PPI * Obstructive sleep apnea/obesity * Prophylaxis-anticoagulation Plan * Transfer to med floor * Continue antibiotic coverage * PT OT/nutrition support * Restart home medications * Discharge planning per case management likely SNF in 24-48 hours Current Visit: Yes
[2019-07-12] MEDS ORDERED: MELATONIN 3 MG TABLET PO PRN (15:15)
[2019-07-12] MEDS ORDERED: DILTIAZEM 125 MG in DEXTROSE 5% IN WATER 100 ML IV PRN (15:15)
[2019-07-12] MEDS ORDERED: MAGNESIUM SULFATE 2 GM/50 ML BAG IV PRN (15:15)
[2019-07-12] MEDS ORDERED: POLYETHYLENE GLYCOL 3350 17 GM PACKET PO PRN (15:15)
[2019-07-12] MEDS ORDERED: BISACODYL 10 MG SUPP.RECT PR PRN (15:15)
[2019-07-12] MEDS ORDERED: ACETAMINOPHEN 650 MG/65 ML BOTTLE IV PRN (15:15)
[2019-07-12] MEDS ORDERED: guaiFENesin/CODEINE 10 ML UDC PO PRN (15:15)
[2019-07-12] MEDS ORDERED: POTASSIUM CHLORIDE 20 MEQ PACKET PO PRN (15:15)
[2019-07-12] MEDS ORDERED: ONDANSETRON 4 MG/2 ML VIAL IV PRN (15:15)
[2019-07-12] MEDS ORDERED: ACETAMINOPHEN 325 MG TABLET PO PRN (15:15)
[2019-07-12] MEDS ORDERED: ONDANSETRON 4 MG ODT TABLET SL PRN (15:15)
[2019-07-12] MEDS: NOREPINEPHRINE BITARTRATE 16 MG in 0.9 % SODIUM CHLORIDE 234 ML IV SCH (15:15)
[2019-07-12] MEDS: RIVAROXABAN 15 MG TABLET PO SCH (17:43)
[2019-07-12] MEDS: ATORVASTATIN 20 MG TABLET PO SCH (20:10)
[2019-07-12] MEDS: SENNOSIDES/DOCUSATE SODIUM 1 TAB TABLET PO SCH (20:19)
[2019-07-13] MEDS: PIPERACILLIN SODIUM/TAZOBACTAM 3.375 GM in DEXTROSE 5% IN WATER 50 ML IV SCH ×4 (05:50→23:28)
[2019-07-13] MEDS: 0.9 % SODIUM CHLORIDE 10 ML SYRINGE IV SCH ×3 (05:51→20:57)
[2019-07-13 06:32] LABS: Hematocrit 51.7 % (40.1-51.0); Hemoglobin 14.6 g/dL (13.7-17.5); Mean Cell Volume 83.4 fL (80.0-100.0); Mean Corpuscular HGB Conc 28.2 g/dL (31.0-36.0); Platelet Count 234 K/mcL (140-440); Red Cell Distribution Width 24.8 % (11.5-14.5); WBC 17.2 K/mcL (4.50-11.00)
[2019-07-13 06:56] LABS: ALT/SGPT 17 U/l (0-40); AST/SGOT 25 U/l (0-37); Alkaline Phosphatase 228 U/L (39-117); Bilirubin,Direct 0.7 mg/dL (0.0-0.3); Bilirubin,Total 1.4 mg/dL (0.0-1.0); Blood Urea Nitrogen 75 mg/dl (8-23); Calcium 8.3 mg/dl (8.6-10.4); Carbon Dioxide 20 mmol/L (22-30); Chloride 101 mmol/L (96-108); Glomerular Filtration Rate 18; Glucose 90 mg/dL (70-105); Lactate Dehydrogenase 496 U/L (94-250); Triglycerides 52 mg/dl (<150); Uric Acid 7.6 mg/dL (2.5-8.0)
[2019-07-13 07:15] LABS: Anisocytosis 2+ (NONE SEEN); Band Neutrophils % 4 % (0-10); Eosinophils % (Manual) 4 % (0-7); Hypochromasia 1+ (NONE SEEN); Lymphocytes % 5 % (15-49); Monocytes % (Manual) 7 % (1-12); Ovalocytes 1+ (NONE SEEN); Platelet Estimate NORMAL (NORMAL); Polychromasia 1+ (NONE SEEN); RBC Fragments OCC (NONE SEEN); RBC Morphology ABNORM (NORMAL); Segmented Neutrophils % 80 % (38-78)
--- NOTE | 2019-07-13 08:17 | Internal Med Progress Note ---
Medical - PN: Subj Patient information: Note initiated : 07/13/19 at 8:14 am Service Date, if different from initiated Date: [] Patient: Ayden Guzmán a 84 y/o M admitted on 07/09/19 for Shortness of breath, Weakness. Chief Complaint: [] Interval history: Mr. Guzmán is a 84 year old M with no history of chronic kidney disease stage IIIb, mixed systolic/diastolic NYHA class III CHF, cor pulmonale, hypertension, A. fib on anticoagulation and underlying poor functional status on wheelchair who presents to the ER with increasing SOB/weakness, progressive confusion following recent hip surgery. Patient had a dramatic decline in status with associated fatigue, lethargy malaise and inability to function. He developed high fever and has been mumbling and incoherent speech. Initial work-up in the ER was consistent with severe sepsis with multiple endorgan dysfunction with elevated creatinine 3.6(baseline 1.5), A. fib RVR with rate 170s, potassium 5.8, bilirubin 2.5/lactic acid 2.8/procalcitonin 2.07/WBC >24,000 and a fever of 102.4. Imaging consistent with right-sided pneumonia. In light of hypotension with systolic 90s patient was started on pressors along with 2 L crystalloids after blood cultures were drawn and antibiotics were initiated. Viral respiratory panel along with coronavirus RNA was sent. Hospitalist service was consulted for admission in light of septic shock At the time of evaluation patient is very confused and mumbling. He was not able to provide any reasonable history or answers to questions. He is markedly labored breathing in mid 40s with heart rate in 160s. Blood pressure systolic 100s. Patient status post digoxin load. Initial [place] score 19 indicative hi gh mortality. I discussed the CODE STATUS with the ER staff who confirmed with family DNR with full medical interventions. Await further family discussions. Patient will be admitted to ICU in the setting of septic shock on vasopressors. High risk mortality. I discussed the case with patient's and daughter Jena who confirmed the patient is a DNR but would want aggressive medical interventions including pressors. 07/09-patient overnight on vasopressors currently on 7 mics Levophed. Status post amiodarone load. Heart rate around 120. Creatinine worsening at 3.6. Potassium down to 5.4. White count worsening now at 29.2 with 21% bands and 93% neutrophils, elevated bilirubin/procalcitonin. Remains high risk mortality. Family aware. Continue broad-spectrum antibiotics. Await cultures 07/10-patient clinically improving with much improved mental status. Weaning Levophed down to 2 mics currently. Improving renal function creatinine 3.2. White count down to 25.2 from 29, potassium down to 5.1, bilirubin down to 1.8. A. fib now rate controlled. Interval chest imaging reveals interstitial pulmonary edema improved. Hypoxia much improved now down from 4 L to 1 L oxygen. 07/11-patient doing well. Off pressors. White count down at 17.6. Creatinine 2.8 BUN down to 82. Bilirubin down to 1.4. Stabilize hemodynamics. Potassium down to 4.5. Currently on room air. Tolerating diet. Continue aspiration precautions. Continue antibiotic coverage. Will likely discharge in 24 to 40 hours to SNF. 07/12-clinically improving with white count down to 17.2. Potassium at 4 creatinine at 3. Coronavirus test negative. Minimal lymphedema noted. Possible discharge in 24 hours to SNF. Continue nutrition support/PT OT - Constitutional Vitals: Vital Signs Temp Pulse Resp BP Pulse Ox 97.7 F 91 H 22 104/67 92 07/13/19 03:58 07/13/19 07:10 07/13/19 07:10 07/13/19 03:58 07/13/19 07:10 Period Temp Pulse Resp BP Sys/Valentin Pulse Ox Last 24 Hr 97.6 F-98.1 F 84-99 18-26 90-120/63-73 89-96 Intake and Output 07/12/19 07/13/19 07/13/19 21:59 05:59 13:59 Intake Total 1410 425 Output Total 495 176 Balance 915 249 Weight 201 lb Intake & Output: Intake & Output 07/12/19 07/13/19 07/13/19 21:59 05:59 13:59 Intake Total 1410 425 Output Total 495 176 Balance 915 249 Weight 201 lb Intake: Nourishment/Supplement quantity 240 (ml) IV 1050 50 Sodium Chloride 0.9% 1,000 ml @ 1000 50 mls/hr IV .Q20H [facility] Rx#: [id number] Zosyn 3.375 gm In Dextrose 5% 50 50 in Water 50 ml @ 100 mls/hr IV Q6H [facility] Rx#:[id number] Oral 120 375 Output: Urine Catheter Amount 495 Void Amount 175 # of times incontinent of urine 1 Other: Meal Nourishment/Supplement Percent of Meal Consumed 100% Feeding Ability Needs Supervision Nourishment/Supplement name breeze Urine Appearance Clear Clear Clear Uretheral ([place]) Clear Urine Color Bright Yellow Bright Yellow Bright Yellow Uretheral ([place]) Bright Yellow Bright Yellow Urine Odor Normal Normal Stool Size Small Moderate Stool Color Brown Brown Black Black Stool Consistency Soft Soft # of times incontinent of 1 1 Bowels General appearance: no acute distress Exam: Alert oriented Nonlabored breathing No anxiety Minimal lymphedema Medical - PN: Obj Da - Labs CBC & Chem 7: 07/13/19 05:20 07/13/19 05:20 Labs: Abnormal Lab Results 07/13/19 07/13/19 07/12/19 05:20 05:20 05:05 WBC 17.2 H RBC 6.20 H Hct 51.7 H MCH 23.5 L MCHC 28.2 L RDW 24.8 H Seg Neutrophils % 80 H Lymphocytes % 5 L Reactive Lymphocytes RBC Morphology Abnorm A Polychromasia 1+ A Hypochromasia 1+ A Anisocytosis 2+ A Ovalocytes 1+ A RBC Fragments Occ A Carbon Dioxide 20 L 18 L Anion Gap 17.0 H 18.0 H BUN 75 H 82 H Creatinine 3.0 H 2.8 H Glucose Uric Acid 8.3 H Calcium 8.3 L Phosphorus Total Bilirubin 1.4 H 1.4 H Direct Bilirubin 0.7 H 0.7 H GGT 126 H 107 H Alkaline Phosphatase 228 H 174 H Lactate Dehydrogenase 496 H 360 H Albumin 3.0 L 3.0 L Globulin Albumin/Globulin Ratio 0.9 L 07/12/19 07/11/19 07/11/19 05:05 05:10 05:10 WBC 17.6 H 25.2 H RBC 6.27 H 6.55 H Hct 52.3 H 55.7 H MCH 23.8 L 23.7 L MCHC 28.5 L 27.8 L RDW 24.8 H 25.3 H Seg Neutrophils % 80 H 86 H Lymphocytes % 1 L Reactive Lymphocytes 3 H RBC Morphology Abnorm A Abnorm A Polychromasia Hypochromasia 1+ A Few A Anisocytosis 3+ A 3+ A Ovalocytes 1+ A 1+ A RBC Fragments Carbon Dioxide 19 L Anion Gap 19.0 H BUN 93 H Creatinine 3.2 H Glucose 68 L Uric Acid 9.0 H Calcium Phosphorus 5.4 H Total Bilirubin 1.8 H Direct Bilirubin 0.8 H GGT 122 H Alkaline Phosphatase 210 H Lactate Dehydrogenase 479 H Albumin Globulin 3.8 H Albumin/Globulin Ratio 0.8 L Meds: Medications Acetaminophen (Tylenol) 650 mg PO Q4-6HP PRN; Protocol PRN Reason: Per Pain Protocol/Fever > 101 Last Admin: 07/12/19 19:43 Dose: 650 mg Documented by: Allopurinol (Zyloprim) 100 mg PO QDAY [facility] Atorvastatin Calcium (Lipitor) 20 mg PO HS [facility] Last Admin: 07/12/19 20:10 Dose: 20 mg Documented by: Bisacodyl (Dulcolax) 10 mg ID Q2-3DAYS PRN PRN Reason: Constipation Docusate Sodium (Colace) 100 mg PO BID [facility] Last Admin: 07/12/19 20:19 Dose: Not Given Documented by: Furosemide (Lasix) 20 mg IV DAILY [facility] Gabapentin (Neurontin) 300 mg PO BID [facility] Last Admin: 07/12/19 20:10 Dose: 300 mg Documented by: Guaifenesin/Codeine Phosphate (Robitussin Ac) 10 ml PO Q4HP PRN PRN Reason: Cough Diltiazem HCl 125 mg/ Dextrose 125 mls @ 5 mls/hr IV Q12HP PRN; Protocol PRN Reason: Tachyarrhythmias Levofloxacin (Levaquin) 750 mg in 150 mls @ 100 mls/hr IV Q48H [facility]; Protocol Magnesium Sulfate (Magnesium Sulfate) 2 gm in 50 mls @ 50 mls/hr IV UD PRN PRN Reason: MG = or < 1.7 Acetaminophen (Ofirmev) 650 mg in 65 mls @ 130 mls/hr IV Q6HP PRN; Protocol PRN Reason: Per Pain Protocol/Fever > 101 Piperacillin Sod/Tazobactam (Sod 3.375 gm/ Dextrose) 50 mls @ 100 mls/hr IV Q6H [facility]; Protocol Last Admin: 07/13/19 05:50 Dose: 100 mls/hr Documented by: Iron Carb/Multivit/[employer]/Folic Acid (Multivitamin W/Minerals) 1 tab PO DAILY [facility] Melatonin (Melatonin 3mg Tablet) 3 mg PO HSP PRN PRN Reason: Insomnia Last Admin: 07/12/19 23:46 Dose: 3 mg Documented by: Metoprolol Succinate (Toprol Xl) 12.5 mg PO DAILY [facility] Mupirocin (Bactroban Oint 2%) 1 dose NARES BID [facility] Stop: 07/17/19 21:01 Last Admin: 07/12/19 20:18 Dose: 1 dose Documented by: Ondansetron HCl (Zofran Odt) 4 mg SL Q4-6HP PRN; Protocol PRN Reason: Nausea And Vomiting Ondansetron HCl (Zofran) 4 mg IV Q4-6HP PRN; Protocol PRN Reason: Nausea And Vomiting Polyethylene Glycol (Miralax) 17 gm PO DAILYP PRN PRN Reason: Constipation Potassium Chloride (Klor-Con) 40 meq PO DAILYP PRN PRN Reason: K+ < 3.5 Rivaroxaban (Xarelto) 15 mg PO QPMCC [facility] Last Admin: 07/12/19 17:43 Dose: 15 mg Documented by: Senna/Docusate Sodium (Senna Plus Tablet) 1 tab PO HS [facility] Last Admin: 07/12/19 20:19 Dose: Not Given Documented by: Sodium Chloride (Saline Flush) 10 ml IV Q8 [facility] Last Admin: 07/13/19 05:51 Dose: 10 ml Documented by: Medical - PN: A/P - Time Spent With Patient Total time spent is greater than 50% in coordination of care (as documented) at patient's floor/unit and/or counseling patient: 15 - 24 minutes (1) Severe sepsis with acute organ dysfunction Status: Acute Assessment and plan: * Septic shock with multiple organ dysfunction-clinic resolved. Off pressors. WBC downtrending. * Right lower lobe pneumonia-clinical and radiological improvement noted. Continue antibiotic coverage * A. fib with RVR-now rate controlled on metoprolol. On rivaroxaban for CVA prophylaxis status post amiodarone/digoxin load. * Acute change in mental status-back at baseline * Hypoxic respiratory failure secondary to pneumonia.-Resolved on RA * Hyperkalemia resolved now at 4.5 * Acute on chronic renal failure stage IIIb-creatinine downtrending now at 3.0. baseline 1.5. Follows up with Dr. Skinner. * Elevated LFTs secondary to septic shock. Continue monitoring * History of cor pulmonale with 45% EF/PAP 50-70 Echo July 2018. * History of leukocytosis/anemia/thrombocytopenia. Patient follows up with hematology as outpatient * Left lower extremity venous ulceration, wound care/limb elevation/lymphedema wraps * Hypertension-continue holding Coreg/lisinopril/spironolactone in light of septic shock * Hyperlipidemia held statin * History of gout-allopurinol on hold * GERD on PPI * Obstructive sleep apnea/obesity * Prophylaxis-anticoagulation Plan * Continue antibiotic coverage * PT OT/nutrition support * Discharge planning per case management likely SNF in 24 hours Current Visit: Yes
[2019-07-13] MEDS: METOPROLOL SUCCINATE 25 MG TAB.XL.24H PO SCH (08:56)
[2019-07-13] MEDS: MULTIVIT,THER IRON,CA,FA & MIN 1 TABLET PO SCH (08:56)
[2019-07-13] MEDS: GABAPENTIN 300 MG CAPSULE PO SCH ×2 (08:56→20:57)
[2019-07-13] MEDS: ALLOPURINOL 100 MG TABLET PO SCH (08:56)
[2019-07-13] MEDS: DOCUSATE SODIUM 100 MG CAPSULE PO SCH ×2 (08:57→20:57)
[2019-07-13] MEDS ORDERED: LEVOFLOXACIN 750 MG/150 ML BAG IV SCH (09:00)
[2019-07-13] MEDS: FUROSEMIDE 40 MG/4 ML VIAL IV SCH (09:00)
[2019-07-13] MEDS: MUPIROCIN OINT 2% 22GM NARES SCH ×2 (09:00→22:00)
[2019-07-13] MEDS: RIVAROXABAN 15 MG TABLET PO SCH (17:11)
[2019-07-13] MEDS: SENNOSIDES/DOCUSATE SODIUM 1 TAB TABLET PO SCH (20:57)
[2019-07-13] MEDS: ATORVASTATIN 20 MG TABLET PO SCH (20:57)
[2019-07-14] MEDS: 0.9 % SODIUM CHLORIDE 10 ML SYRINGE IV SCH (05:56)
[2019-07-14] MEDS: PIPERACILLIN SODIUM/TAZOBACTAM 3.375 GM in DEXTROSE 5% IN WATER 50 ML IV SCH (05:56)
[2019-07-14 06:21] LABS: Hematocrit 55.5 % (40.1-51.0); Hemoglobin 15.3 g/dL (13.7-17.5); Mean Cell Volume 85.3 fL (80.0-100.0); Mean Corpuscular HGB Conc 27.6 g/dL (31.0-36.0); Platelet Count 221 K/mcL (140-440); RBC 6.51 M/mcL (4.63-6.08); Red Cell Distribution Width 25.5 % (11.5-14.5); WBC 20.1 K/mcL (4.50-11.00)
[2019-07-14 06:52] LABS: Anisocytosis 3+ (NONE SEEN); Band Neutrophils % 3 % (0-10); Basophils % (Manual) 1 % (0-2); Eosinophils % (Manual) 2 % (0-7); Hypochromasia 1+ (NONE SEEN); Lymphocytes % 3 % (15-49); Monocytes % (Manual) 7 % (1-12); Nucleated Red Blood Cells 1 % (0-0); Ovalocytes 1+ (NONE SEEN); Platelet Estimate NORMAL (NORMAL); Polychromasia 1+ (NONE SEEN); RBC Fragments OCC (NONE SEEN); RBC Morphology ABNORM (NORMAL); Segmented Neutrophils % 84 % (38-78)
[2019-07-14 08:54] LABS: ALT/SGPT 18 U/l (0-40); AST/SGOT 24 U/l (0-37); Albumin 3.4 gm/dL (3.2-5.2); Alkaline Phosphatase 219 U/L (39-117); Bilirubin,Direct 0.7 mg/dL (0.0-0.3); Bilirubin,Total 1.3 mg/dL (0.0-1.0); Blood Urea Nitrogen 66 mg/dl (8-23); Carbon Dioxide 19 mmol/L (22-30); Chloride 100 mmol/L (96-108); Globulin 3.4 gm/dL (2.2-3.7); Glomerular Filtration Rate 22; Glucose 91 mg/dL (70-105); Lactate Dehydrogenase 447 U/L (94-250); Phosphorous 4.5 mg/dL (2.7-4.5); Triglycerides 54 mg/dl (<150)
[2019-07-14] MEDS: GABAPENTIN 300 MG CAPSULE PO SCH (09:05)
[2019-07-14] MEDS: FUROSEMIDE 40 MG/4 ML VIAL IV SCH (09:05)
[2019-07-14] MEDS: ALLOPURINOL 100 MG TABLET PO SCH (09:05)
[2019-07-14] MEDS: MULTIVIT,THER IRON,CA,FA & MIN 1 TABLET PO SCH (09:06)
[2019-07-14] MEDS: METOPROLOL SUCCINATE 25 MG TAB.XL.24H PO SCH (09:06)
[2019-07-14] MEDS: MUPIROCIN OINT 2% 22GM NARES SCH (09:11)
[2019-07-14] MEDS: DOCUSATE SODIUM 100 MG CAPSULE PO SCH (09:11)
--- NOTE | 2019-07-14 09:33 | Discharge Summary ---
Medical - DS: Prov Patient information: Note initiated : 07/14/19 at 9:30 am Service Date, if different from initiated Date: [] Patient: Ayden Guzmán 84 y/o M admitted on 07/09/19 for Shortness of breath, Weakness. Chief Complaint: [] Date of admission: 07/09/19 15:11 Discharge date: 07/14/19 Primary care physician: Orlando Ding DO Consults: 07/09/19 13:06 Consult to Physician [CONS] Stat Comment: Consulting Provider: Jason Sutherland Reason For Exam: Physician to Consult 07/11/19 14:59 Consult to Physician [CONS] Routine Comment: Consulting Provider: [facility] [place] Reason For Exam: Physician to Consult 07/11/19 15:03 Consult to Physician [CONS] Routine Comment: Consulting Provider: [facility] [place] Reason For Exam: Physician to Consult Medical - DS: Meds - Discharge Medications Prescriptions: Amoxicillin/Potassium Clav [Augmentin] 875 mg PO Q12H #6 tab Transmission Status: Pending to [facility] Levofloxacin [Levaquin] 500 mg PO Q48H #2 tab Transmission Status: Pending to [facility] Active and Home Medications: Home Medications allopurinol 100 mg tablet 100 mg PO QDAY #90 tab 03/23/18 [Rx Confirmed 07/10/19 Last Taken 12/09/18 09:00] Atorvastatin [Lipitor] 20 mg PO HS #0 08/10/18 [History Confirmed 07/10/19 Last Taken 12/08/18 19:00] rivaroxaban 15 mg tablet 15 mg PO HS #90 tab 11/24/18 [Rx Confirmed 07/10/19 Last Taken 12/09/18 09:00] Bedside table #1 ea 03/31/19 [Rx Confirmed 04/19/19 Last Taken Unknown] Hospital Bed with electric controls #1 ea 03/31/19 [Rx Confirmed 04/19/19 Last Taken Unknown] Wheelchair #1 ea 04/19/19 [Rx Confirmed 04/19/19 Last Taken Unknown] acetaminophen 500 mg capsule 1,000 mg PO Q6H PRN 04/19/19 [History Confirmed 07/10/19 Last Taken Unknown] gabapentin 300 mg capsule 300 mg PO BID #60 cap 04/19/19 [Rx Confirmed 07/10/19 Last Taken Unknown] multivitamin 1 tab PO QAM 04/19/19 [History Confirmed 07/10/19 Last Taken Unknown] Metoprolol Succinate 12.5 mg PO DAILY 07/10/19 [History Confirmed 07/10/19 Last Taken Unknown] Torsemide 10 mg PO Q48@0900 07/10/19 [History Confirmed 07/10/19 Last Taken Unknown] Torsemide 20 mg PO DAILY 07/10/19 [History Confirmed 07/10/19 Last Taken Unknown] Amoxicillin/Potassium Clav [Augmentin] 875 mg PO Q12H #6 tab 07/14/19 [Rx Last Taken Unknown] Levofloxacin [Levaquin] 500 mg PO Q48H #2 tab 07/14/19 [Rx Last Taken Unknown] Medical - DS: Hosp Hospital Course: Discharge diagnosis * Septic shock with multiple organ dysfunction-clinic resolved. Off pressors. WBC downtrending. * Right lower lobe pneumonia-clinical and radiological improvement noted. Continue antibiotic coverage additional 3 days * A. fib with RVR-now rate controlled on metoprolol. On rivaroxaban for CVA prophylaxis status post amiodarone/digoxin load. * Acute change in mental status-back at baseline * Hypoxic respiratory failure secondary to pneumonia.-Resolved on RA * Hyperkalemia resolved * Acute on chronic renal failure stage IIIb-creatinine downtrending now at 2.6. baseline 1.5. Continue outpatient follow-up with Dr. Skinner nephrology. * Elevated LFTs secondary to septic shock. Resolved * History of cor pulmonale with 45% EF/PAP 50-70 Echo July 2018. * History of leukocytosis/anemia/thrombocytopenia. Continue outpatient follow- up with hematology * Left lower extremity venous ulceration, wound care/limb elevation/lymphedema wraps * Hypertension-held spironolactone in light of elevated creatinine/hyperkalemia. Continue metoprolol * Hyperlipidemia restart statin * History of gout-continue allopurinol * GERD on PPI * Obstructive sleep apnea/obesity Brief hospital course Mr. Guzmná is a 84 year old M with no history of chronic kidney disease stage IIIb, mixed systolic/diastolic NYHA class III CHF, cor pulmonale, hypertension, A. fib on anticoagulation and underlying poor functional status on wheelchair who presents to the ER with increasing SOB/weakness, progressive confusion following recent hip surgery. Patient had a dramatic decline in status with associated fatigue, lethargy malaise and inability to function. He developed high fever and has been mumbling and incoherent speech. Initial work-up in the ER was consistent with severe sepsis with multiple endorgan dysfunction with elevated creatinine 3.6(baseline 1.5), A. fib RVR with rate 170s, potassium 5.8, bilirubin 2.5/lactic acid 2.8/procalcitonin 2.07/WBC >24,000 and a fever of 102.4. Imaging consistent with right-sided pneumonia. In light of hypotension with systolic 90s patient was started on pressors along with 2 L crystalloids after blood cultures were drawn and antibiotics were initiated. Viral respiratory panel along with coronavirus RNA was sent. Hospitalist service was consulted for admission in light of septic shock At the time of evaluation patient is very confused and mumbling. He was not able to provide any reasonable history or answers to questions. He is markedly labored breathing in mid 40s with heart rate in 160s. Blood pressure systolic 100s. Patient status post digoxin load. Initial Custer score 19 indicative high mortality. I discussed the CODE STATUS with the ER staff who confirmed with family DNR with full medical interventions. Await further family discussions. Patient will be admitted to ICU in the setting of septic shock on vasopressors. High risk mortality. I discussed the case with patient's and daughter eJna who confirmed the patient is a DNR but would want aggressive medical interventions including pressors. 07/09-patient overnight on vasopressors currently on 7 mics Levophed. Status post amiodarone load. Heart rate around 120. Creatinine worsening at 3.6. Potassium down to 5.4. White count worsening now at 29.2 with 21% bands and 93% neutrophils, elevated bilirubin/procalcitonin. Remains high risk mortality. Family aware. Continue broad-spectrum antibiotics. Await cultures 07/10-patient clinically improving with much improved mental status. Weaning Levophed down to 2 mics currently. Improving renal function creatinine 3.2. White count down to 25.2 from 29, potassium down to 5.1, bilirubin down to 1.8. A. fib now rate controlled. Interval chest imaging reveals interstitial pulmonary edema improved. Hypoxia much improved now down from 4 L to 1 L oxygen. 07/11-patient doing well. Off pressors. White count down at 17.6. Creatinine 2.8 BUN down to 82. Bilirubin down to 1.4. Stabilize hemodynamics. Potassium down to 4.5. Currently on room air. Tolerating diet. Continue aspiration precautions. Continue antibiotic coverage. Will likely discharge in 24 to 40 hours to SNF. 07/12-clinically improving with white count down to 17.2. Potassium at 4 creatinine at 3. Coronavirus test negative. Minimal lymphedema noted. Possible discharge in 24 hours to SNF. Continue nutrition support/PT OT 07/13-patient doing well. No overnight events. Creatinine 2.6. Much improved cough/shortness of breath. Continue antibiotic for additional 3 days. Follow- up with nephrology as outpatient. Continue aggressive posthospitalization rehab including PT OT/nutrition support at SNF Discharge diagnosis: . - Time Spent with Patient Total time spent providing and/or coordinating discharge services: Greater than 30 minutes Medical - DS: Exam - Constitutional Vitals: Vital Signs Temp Pulse Resp BP Pulse Ox 07/14/19 06:55 97.4 F 89 25 H 109/57 94 07/14/19 04:00 97.5 F 96 H 25 H 108/68 90 07/13/19 23:42 97.6 F 87 25 H 115/73 92 07/13/19 20:00 97.5 F 90 27 H 117/70 95 07/13/19 15:41 98.7 F 20 98/66 92 07/13/19 12:00 97.7 F 85 20 107/67 97 Intake and Output 07/13/19 07/14/19 07/14/19 21:59 05:59 13:59 Intake Total 1270 450 50 Output Total 178 200 Balance 1092 250 50 Intake: IV 100 50 50 Zosyn 3.375 gm In Dextrose 5% 100 50 50 in Water 50 ml @ 100 mls/hr IV Q6H [facility] Rx#:[id number] Oral 1170 400 Output: Urine Catheter Amount 175 Void Amount 200 # of times incontinent of urine 3 Other: Meal Dinner Percent of Meal Consumed 100% Feeding Ability Total Assistance Urine Appearance Clear Clear Urine Color Bright Yellow Bright Yellow Urine Odor Normal Normal Stool Size Small Small Moderate Stool Color Black Black Green Stool Consistency Soft Soft Soft Loose Loose # Voids 2 # Bowel Movements 1 1 # of times incontinent of 1 1 Bowels Weight 204 lb 8 oz Medical - DS: Data Labs on day of discharge: Labs from last 24 hours 07/14/19 07/14/19 07/14/19 07:48 05:15 05:15 WBC 20.1 H RBC 6.51 H Hgb 15.3 Hct 55.5 H MCV 85.3 MCH 23.5 L MCHC 27.6 L RDW 25.5 H Plt Count 221 MPV TNP Total Counted 100 Seg Neutrophils % 84 H Band Neutrophils % 3 Lymphocytes % 3 L Monocytes % (Manual) 7 Eosinophils % (Manual) 2 Basophils % (Manual) 1 Nucleated RBCs 1 H Platelet Estimate Normal RBC Morphology Abnorm A Polychromasia 1+ A Hypochromasia 1+ A Anisocytosis 3+ A Ovalocytes 1+ A RBC Fragments Occ A Sodium 135 TNP Potassium 3.7 TNP Chloride 100 TNP Carbon Dioxide 19 L TNP Anion Gap 16.0 TNP BUN 66 H TNP Creatinine 2.6 H TNP GFR Calculation 22 TNP Glucose 91 TNP Uric Acid 7.0 TNP Calcium 9.0 TNP Phosphorus 4.5 TNP Magnesium 2.0 TNP Total Bilirubin 1.3 H TNP Direct Bilirubin 0.7 H TNP GGT 149 H TNP AST 24 TNP ALT 18 TNP Alkaline Phosphatase 219 H TNP Lactate Dehydrogenase 447 H TNP Total Protein 6.8 TNP Albumin 3.4 TNP Globulin 3.4 TNP Albumin/Globulin Ratio 1.0 TNP Triglycerides 54 TNP Preliminary micro results at discharge 07/12/19 10:59 Sputum Culture - Preliminary Sputum - Expectorated Staphylococcus aureus Casandra albicans 07/09/19 10:40 Blood Culture - Preliminary Blood 07/09/19 10:45 Blood Culture - Preliminary Blood Medical - DS: A/P - Patient/Caregiver Discharge Instructions Activity: as per physical therapy, increase activity as tolerated Diet: Renal Additional Instructions: Follow-up PCP in 5 days Follow-up with Dr. Skinner nephrology in 7 days I recommend [facility] physician to check CBC BMP UA as a posthospital follow-up in 1 week. Antibiotics for additional 3 days Continue aggressive bowel regimen to prevent constipation Continue fall precautions Daily weights measurements Continue aggressive PT OT evaluation and treatment at [facility]. ST eval and treatment if indicated High protein calorie supplements All meals on chair sitting upright at 90 degrees to prevent aspiration Return to ER if worsening fever chills shortness of breath, diarrhea, bleeding Review risk and side effect profile of medications including antibiotics. Side effect may include mild to severe reaction including rash, diarrhea, cdiff and even which can be prevented by close follow-up with PCP and monitoring for side effects Continue diet and activity as advised Discussed importance of medication adherence Please review medication list with patient prior to discharge Please schedule follow-up with PCP/Providers prior to discharge and provide printouts Prescriptions: Amoxicillin/Potassium Clav [Augmentin] 875 mg PO Q12H #6 tab Transmission Status: Pending to [facility] Levofloxacin [Levaquin] 500 mg PO Q48H #2 tab Transmission Status: Pending to [facility] - Problem Maintenance (1) Severe sepsis with acute organ dysfunction Status: Acute - Follow up Plan Follow up with: Orlando Ding DO [Primary Care Provider] - Disposition: Xfer SNF Prognosis: Serious Rehab Potential: Fair I certify that the patient requires SNF services: Yes Overall status at discharge: patient is progressing back to baseline
== END 2019-07-14 10:50 | DRG 871 ==
LOC: ED 10:09 → ICU 14:40 → MEDSUR 07-12 17:06
PROVIDERS: ADMIT Internal Medicine; ATTEND Internal Medicine